=== PATIENT | male | born 1965 | race African-American/Black ===

== ENCOUNTER 2017-12-28 08:37 | Inpatient (IN) | payer OTHER ==
[2017-12-28 09:35] VITALS: BMI 31.5
--- NOTE | 2017-12-28 13:02 | HP ---
CIWA Score - CIWA Score Nausea/Vomitin Muscle Tremors: 3 Anxiety: 3 Agitation: 3 Paroxysmal Sweats: 2 Orientation: 0-Oriented Tacttile Disturbances: 2-Mild Itch/Numbness/Burn Auditory Disturbances: 2-Mild Harshness/Frighten Visual Disturbances: 0-None Headache: 2-Mild CIWA-Ar Total Score: 20 Admission ROS BHS - HPI Chief Complaint: i need help to stop drinking alcohol Allergies/Adverse Reactions: Allergies Allergy/AdvReac Type Severity Reaction Status Date / Time No Known Allergies Allergy Verified 12/28/17 09:34 History of Present Illness: this 52 years old male with alcohol dependence,seeking detox,withdrawal symptom, seen in [facility] last night stated receiving librium syncope asthma anxiety,depression,insomnia longest period of sobriety 1 year Exam Limitations: No Limitations - Ebola screening Have you traveled outside of the country in the last 21 days: No (N) Have you had contact with anyone from an Ebola affected area: No Have you been sick,other than usual withdrawal symptoms: No Do you have a fever: No - Review of Systems Constitutional: Loss of Appetite, Malaise, Night Sweats, Changes in sleep EENT: reports: Nose Congestion Respiratory: reports: No Symptoms reported, Other (asthma on albuterol inhaler) Cardiac: reports: No Symptoms Reported GI: reports: Diarrhea, Nausea, Vomiting : reports: No Symptoms Reported Musculoskeletal: reports: Back Pain, Muscle Pain Integumentary: reports: Dryness Endocrine: reports: No Symptoms Reported Hematology: reports: No Symptoms Reported Psychiatric: reports: No Sypmtoms Reported (insomnia), Judgement Intact, Mood/ Affect Appropiate, Anxious, Depressed Patient History - Patient Medical History Hx Anemia: No Hx Asthma: Yes (onalbuterol inhaler) Hx Chronic Obstructive Pulmonary Disease (COPD): No Hx Cancer: No Hx Cardiac Disorders: No Hx Congestive Heart Failure: No Hx Hypertension: No Hx Hypercholesterolemia: Yes (no med) Hx Pacemaker: No HX Cerebrovascular Accident: No Hx Seizures: No Hx Dementia: No Hx Diabetes: No Hx Gastrointestinal Disorders: No Hx Liver Disease: No Hx Genitourinary Disorders: No Hx Sexually Transmitted Disorders: No Hx Renal Disease (ESRD): No Hx Thyroid Disease: No Hx Human Immunodeficiency Virus (HIV): No (last 2015 negative) Hx Hepatitis C: No Hx Depression: Yes (anxiety) Hx Suicide Attempt: No Hx Bipolar Disorder: No Hx Schizophrenia: No Other Medical History: no suicidal,no homicidal - Patient Surgical History Past Surgical History: Yes Hx Neurologic Surgery: No Hx Cataract Extraction: No Hx Cardiac Surgery: No Hx Lung Surgery: No Hx Breast Surgery: No Hx Breast Biopsy: No Hx Abdominal Surgery: No Hx Appendectomy: No Hx Cholecystectomy: No Hx Genitourinary Surgery: No Hx Section: No Hx Orthopedic Surgery: No Other Surgical History: SKIN GRAFT TO left LEG IN 1997- secondary to graciela l.e pineda 2nd / 3rd Anesthesia Reaction: No - PPD History Previous Implant?: Yes Documented Results: Negative w/proof Implanted On Prior [facility] Admission?: Yes Date: 12/28/13 Results: 0 mm PPD to be Administered?: Yes - Smoking Cessation Smoking history: Current every day smoker Have you smoked in the past 12 months: Yes Aproximately how many cigarettes per day: 20 If you are a former smoker, when did you quit?: 20 Cigars Per Day: 0 Hx Chewing Tobacco Use: No Initiated information on smoking cessation: Yes 'Breaking Loose' booklet given: 12/28/17 - Substances Abused Alcohol-bianca/beer Route: Oral Frequency: Daily Amount used: 5 pts./4 (40 oz.) Age of first use: 14 Date of Last Use: 12/27/17 Family Disease History - Family Disease History Family Disease History: Other: Father (alcoholic,) Admission Physical Exam BHS - Vital Signs Vital Signs: Vital Signs - 24 hr 12/28/17 09:33 Temperature 96.2 F L Pulse Rate 96 H Respiratory 18 Rate Blood Pressure 160/86 - Physical General Appearance: Yes: Moderate Distress, Tremorous, Irritable, Sweating, Anxious HEENTM: Yes: Normal ENT Inspection, PASCUAL, Pharynx Normal Respiratory: Yes: Lungs Clear, Normal Breath Sounds, No Respiratory Distress Neck: Yes: Within Normal Limits, Supple, Trachea in good position Breast: Yes: Within Normal Limits Cardiology: Yes: Within Normal Limits, Regular Rhythm, Regular Rate, S1, S2 Abdominal: Yes: Within Normal Limits, Normal Bowel Sounds, Non Tender, Flat, Soft Genitourinary: Yes: Within Normal Limits Back: Yes: Within Normal Limits, Muscle Spasm Musculoskeletal: Yes: Back pain, Muscle Pain Extremities: Yes: Tremors, Other (s/p skin graft left leg) 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: Within Normal Limits, head host/hostess II-XII NML intact, Fully Oriented, Alert Integumentary: Yes: Dry Lymphatic: Yes: Within Normal Limits - Diagnostic (1) Alcohol dependence with uncomplicated withdrawal Current Visit: Yes Status: Acute (2) Hyperlipidemia Current Visit: No Status: Active (3) syncope alcohol related Current Visit: No Status: Active (4) Nicotine dependence Current Visit: No Status: Chronic (5) Status post skin graft Current Visit: Yes Status: Acute (6) Insomnia Current Visit: Yes Status: Acute (7) Anxiety and depression Current Visit: Yes Status: Acute Cleared for Admission [facility] - Detox or Rehab [facility] Level of Care: Medically Managed Detox Regimen/Protocol: Librium [facility] Breath Alcohol Content Breath Alcohol Content: 0 Urine Drug Screen - Results Drug Screen Negative: No Urine Drug Screen Results: BZO-Benzodiazepines
[2017-12-28] MEDS ORDERED: chlordiazePOXIDE HCL 25 MG CAPSULE PO PRN (13:15)
[2017-12-28] MEDS ORDERED: LOPERAMIDE HCL 2 MG CAPSULE PO PRN (13:15)
[2017-12-28] MEDS ORDERED: MAGNESIUM HYDROX 2400MG/30ML ORAL SUSPENSION 30 ML CUP PO PRN (13:15)
[2017-12-28] MEDS ORDERED: MENTHOL/PHENOL 1 EACH UD MM PRN (13:15)
[2017-12-28] MEDS ORDERED: MAG HYDROX/AL HYDROX/SIMETH 30 ML UNIT-DOSE CUP PO PRN (13:15)
[2017-12-28] MEDS ORDERED: guaiFENesin/D-METHORPHAN HB 10 ML UNIT-DOSE CUPS PO PRN (13:15)
[2017-12-28] MEDS ORDERED: ACETAMINOPHEN 325 MG TABLET (FP) PO PRN (13:15)
[2017-12-28] MEDS ORDERED: MAGNESIUM CITRATE 300 ML BOTTLE PO PRN (13:15)
[2017-12-28] MEDS ORDERED: IBUPROFEN 400 MG TABLET (FP) PO PRN (13:15)
[2017-12-28] MEDS ORDERED: P-EPHED 60MG/TRIPROLIDI 2.5MG TABLET PO PRN (13:15)
[2017-12-28] MEDS ORDERED: hydrOXYzine PAMOATE 50 MG CAPSULE (FP) PO PRN (13:15)
[2017-12-28] MEDS ORDERED: ALBUTEROL SO4 18 GM HFA INHALER IH PRN (13:18)
[2017-12-28] MEDS ORDERED: chlordiazePOXIDE HCL 25 MG CAPSULE PO ONE (13:45)
--- NOTE | 2017-12-28 13:51 | CONSULT ---
[facility] Psychiatric Consult - Data Date of interview: 12/28/17 Admission source: [facility] Identifying data: This is 52 years old AA male, , homeless, with alcohol dependence,seeking detox, expressing withdrawal symptom, patient reports being at [facility] last night and was takiing Librium order. Substance Abuse History: - Smoking Cessation. Smoking history: Current every day smoker. Have you smoked in the past 12 months: Yes. Aproximately how many cigarettes per day: 20. If you are a former smoker, when did you quit?: 20. Cigars Per Day: 0. Hx Chewing Tobacco Use: No. Initiated information on smoking cessation: Yes. 'Breaking Loose' booklet given: 12/28/17. - Substances Abused. Alcohol-bianca/beer. Route: Oral. Frequency: Daily. Amount used: 5 pts./4 (40 oz.). Age of first use: 14. Date of Last Use: Medical History: syncope, asthma, HTN, Hyperlip[idemia history, Obesity Psychiatric History: Patient denies past psychiatric history, reports no medications taking prior to admission Physical/Sexual Abuse/Trauma History: Denies Additional Comment: Observation. Detox Unit Care Protocol Mental Status Exam - Mental Status Exam Alert and Oriented to: Person Cognitive Function: Fair Patient Appearance: Unkempt Mood: Sad Affect: Flat Patient Behavior: Sedated Speech Pattern: Delayed Voice Loudness: Mildly Soft/Quiet Thought Process: Circumstantial Thought Disorder: Being Controlled Hallucinations: Denies Suicidal Ideation: Denies Homicidal Ideation: Denies Insight/Judgement: Fair Sleep: Difficulty falling asleep Muscle strength/Tone: Mild Hypotonicity Gait/Station: Shuffling Additional Comments: Observation. Detox Unit Care Protocol Psychiatric Findings - Problem List ([place] 1, 2,3) (1) Drug-induced mood disorder Current Visit: Yes Status: Suspected (2) Alcohol dependence with uncomplicated withdrawal Current Visit: Yes Status: Acute (3) Anxiety and depression Current Visit: Yes Status: Acute (4) MDD (major depressive disorder), recurrent episode, moderate Current Visit: No Status: Suspected (5) Alcohol dependence Current Visit: No Status: Chronic (6) Nicotine dependence Current Visit: No Status: Chronic - Initial Treatment Plan Initial Treatment Plan: Observation. Detox Unit Care Protocol
[2017-12-28] MEDS: NICOTINE 21 MG/24 HOURS TOPICAL PATCH TD SCH (14:16)
[2017-12-28] MEDS: chlordiazePOXIDE HCL 25 MG CAPSULE PO SCH ×2 (17:52→22:20)
[2017-12-28] MEDS ORDERED: MELATONIN 5 MG TABLETS PO PRN (22:00)
[2017-12-28] MEDS: THIAMINE HCL 100 MG TABLET (FP) PO SCH (22:21)
[2017-12-29 02:16] LABS: URINE APPEARANCE CLEAR; URINE BILIRUBIN NEGATIVE (<2.0 mg/dL); URINE BLOOD NEGATIVE (NEGATIVE); URINE COLOR LTYELLOW; URINE GLUCOSE (UA) NEGATIVE (NEGATIVE); URINE KETONE NEGATIVE (NEGATIVE); URINE LEUK ESTERASE NEGATIVE (NEGATIVE); URINE NITRITE NEGATIVE (NEGATIVE); URINE PROTEIN NEGATIVE (NEGATIVE); URINE UROBILINOGEN NEGATIVE mg/dL (0.2-1.0)
[2017-12-29] MEDS: chlordiazePOXIDE HCL 25 MG CAPSULE PO SCH ×4 (05:41→22:30)
--- NOTE | 2017-12-29 09:37 | EKG ---
Test Reason : Blood Pressure : / mmHG Vent. Rate : 080 BPM Atrial Rate : 080 BPM P-R Int : 152 ms QRS Dur : 096 ms QT Int : 414 ms P-R-T Axes : 056 018 007 degrees QTc Int : 477 ms NORMAL SINUS RHYTHM NONSPECIFIC ST ABNORMALITY NO PREVIOUS ECGS AVAILABLE Confirmed by HÉCTOR BUENO MD ([id number]) on 12/29/2017 9:37:06 AM Referred By: Confirmed By:HÉCTOR BUENO MD
--- NOTE | 2017-12-29 09:48 | PN ---
S CIWA - CIWA Score Nausea/Vomitin Muscle Tremors: 3 Anxiety: 3 Agitation: 3 Paroxysmal Sweats: No Perspiration Orientation: 0-Oriented Tacttile Disturbances: 1-Very Mild Itch/Numbness Auditory Disturbances: 0-None Visual Disturbances: 0-None Headache: 1-Very Mild CIWA-Ar Total Score: 14 BHS Progress Note (SOAP) Subjective: nausea sweats , interrupted sleep, anxiety, trmeros Objective: 12/29/17 09:48 Vital Signs - 24 hr 12/28/17 12/28/17 12/28/17 15:02 18:32 22:00 Temperature 97.5 F L 97.7 F 96.8 F L Pulse Rate 79 96 H 89 Respiratory 18 18 16 Rate Blood Pressure 115/75 111/58 143/91 12/29/17 12/29/17 12/29/17 00:30 03:30 06:00 Temperature 97.5 F L Pulse Rate 78 Respiratory 18 18 18 Rate Blood Pressure 104/61 Laboratory Tests 12/28/17 12/29/17 11:50 00:05 Urine Color Ltyellow Urine Appearance Clear Urine pH 5.0 Ur Specific [place] 1.021 Urine Protein Negative Urine Glucose (UA) Negative Urine Ketones Negative Urine Blood Negative Urine Nitrite Negative Urine Bilirubin Negative Urine Urobilinogen Negative Ur Leukocyte Esterase Negative HIV 1&2 Antibody Screen Negative HIV P24 Antigen Negative labs still pending Assessment: 12/29/17 09:48 withdrawal sx, cont detox check labs, fluids, encourage ambualtion, vitamins
[2017-12-29 09:54] LABS: HEMATOCRIT 37.8 % (35.4-49); HEMOGLOBIN 12.5 GM/dL (11.7-16.9); MCH 27.9 pg (25.7-33.7); MEAN CELL VOLUME 84.6 fl (80-96); MEAN PLT VOLUME 8.9 fl (7.5-11.1); PLATELET COUNT 345 K/MM3 (134-434); RBC 4.47 M/mm3 (4.00-5.60); WHITE BLOOD COUNT 9.1 K/mm3 (4.0-10.0)
[2017-12-29 10:05] LABS: CHLORIDE 109 mmol/L (98-107); POTASSIUM 4.4 mmol/L (3.5-5.1); SODIUM 141 mmol/L (136-145)
[2017-12-29 10:17] LABS: ALBUMIN 3.5 g/dl (3.4-5.0); ALK PHOS 72 U/L (45-117); ANION GAP 5 (8-16); BLOOD UREA NITROGEN 15 mg/dL (7-18); CALCIUM 9.2 mg/dL (8.5-10.1); CO2 27 mmol/L (21-32); CREATININE 0.9 mg/dL (0.7-1.3); GLUCOSE,RANDOM 84 mg/dL (74-106); SGOT/AST 36 U/L (15-37); SGPT/ALT 35 U/L (12-78)
[2017-12-29 10:19] LABS: BILIRUBIN,TOTAL < 0.1 mg/dL (0.2-1.0)
[2017-12-29] MEDS: NICOTINE 21 MG/24 HOURS TOPICAL PATCH TD SCH (10:54)
[2017-12-29] MEDS: LIDOCAINE 5% TOPICAL PATCH TP SCH (10:54)
[2017-12-29] MEDS: PRENATAL VITAMINS W/ FOLIC ACID TABLET (FP) PO SCH (10:54)
[2017-12-29] MEDS: CYCLOBENZAPRINE HCL 10 MG TABLET (FP) PO SCH ×2 (14:36→22:30)
[2017-12-29] MEDS: PANTOPRAZOLE 40 MG TABLET (FP) PO SCH (14:36)
[2017-12-29] MEDS: NAPROXEN 500 MG TABLET (FP) PO SCH ×2 (14:36→22:29)
[2017-12-29] MEDS: THIAMINE HCL 100 MG TABLET (FP) PO SCH (22:29)
[2017-12-29] MEDS: LIDOCAINE PATCH REMOVAL MC SCH (22:55)
[2017-12-30] MEDS: CYCLOBENZAPRINE HCL 10 MG TABLET (FP) PO SCH ×3 (06:28→23:01)
[2017-12-30] MEDS: chlordiazePOXIDE HCL 25 MG CAPSULE PO SCH ×2 (06:28→10:24)
[2017-12-30] MEDS: PANTOPRAZOLE 40 MG TABLET (FP) PO SCH (10:24)
[2017-12-30] MEDS: NAPROXEN 500 MG TABLET (FP) PO SCH ×2 (10:24→23:01)
[2017-12-30] MEDS: PRENATAL VITAMINS W/ FOLIC ACID TABLET (FP) PO SCH (10:24)
[2017-12-30] MEDS: LIDOCAINE 5% TOPICAL PATCH TP SCH (10:30)
[2017-12-30] MEDS: NICOTINE 21 MG/24 HOURS TOPICAL PATCH TD SCH (10:30)
--- NOTE | 2017-12-30 15:03 | PN ---
S CIWA - CIWA Score Nausea/Vomitin Muscle Tremors: 3 Anxiety: 3 Agitation: 2 Paroxysmal Sweats: 1-Minimal Palms Moist Orientation: 0-Oriented Tacttile Disturbances: 1-Very Mild Itch/Numbness Auditory Disturbances: 1-Very Mild Visual Disturbances: 0-None Headache: 2-Mild CIWA-Ar Total Score: 16 BHS Progress Note (SOAP) Subjective: ALERT,IRRITABLE,ANXIOUS,INTERRUPTED SLEEP,TREMOR Objective: 12/30/17 15:02 Vital Signs Temperature 97.9 F 12/30/17 10:54 Pulse Rate 83 12/30/17 10:54 Respiratory Rate 20 12/30/17 10:54 Blood Pressure 118/75 12/30/17 10:54 O2 Sat by Pulse Oximetry (%) Laboratory Last Values WBC 9.1 K/mm3 (4.0-10.0) 12/29/17 06:00 RBC 4.47 M/mm3 (4.00-5.60) 12/29/17 06:00 Hgb 12.5 GM/dL (11.7-16.9) 12/29/17 06:00 Hct 37.8 % (35.4-49) 12/29/17 06:00 MCV 84.6 fl (80-96) 12/29/17 06:00 MCH 27.9 pg (25.7-33.7) 12/29/17 06:00 MCHC 33.0 g/dl (32.0-35.9) 12/29/17 06:00 RDW 16.0 % (11.9-15.9) H 12/29/17 06:00 Plt Count 345 K/MM3 (134-434) 12/29/17 06:00 MPV 8.9 fl (7.5-11.1) 12/29/17 06:00 Sodium 141 mmol/L (136-145) 12/29/17 06:00 Potassium 4.4 mmol/L (3.5-5.1) 12/29/17 06:00 Chloride 109 mmol/L (98-107) H 12/29/17 06:00 Carbon Dioxide 27 mmol/L (21-32) D 12/29/17 06:00 Anion Gap 5 (8-16) L 12/29/17 06:00 BUN 15 mg/dL (7-18) 12/29/17 06:00 Creatinine 0.9 mg/dL (0.7-1.3) 12/29/17 06:00 Creat Clearance w eGFR > 60 (>60) 12/29/17 06:00 Random Glucose 84 mg/dL (74-106) D 12/29/17 06:00 Calcium 9.2 mg/dL (8.5-10.1) 12/29/17 06:00 Total Bilirubin < 0.1 mg/dL (0.2-1.0) L D 12/29/17 06:00 AST 36 U/L (15-37) D 12/29/17 06:00 ALT 35 U/L (12-78) D 12/29/17 06:00 Alkaline Phosphatase 72 U/L (45-117) D 12/29/17 06:00 Total Protein 8.0 g/dl (6.4-8.2) 12/29/17 06:00 Albumin 3.5 g/dl (3.4-5.0) 12/29/17 06:00 Urine Color Ltyellow 12/29/17 00:05 Urine Appearance Clear 12/29/17 00:05 Urine pH 5.0 (5.0-8.0) 12/29/17 00:05 Ur Specific [place] 1.021 (1.001-1.035) 12/29/17 00:05 Urine Protein Negative (NEGATIVE) 12/29/17 00:05 Urine Glucose (UA) Negative (NEGATIVE) 12/29/17 00:05 Urine Ketones Negative (NEGATIVE) 12/29/17 00:05 Urine Blood Negative (NEGATIVE) 12/29/17 00:05 Urine Nitrite Negative (NEGATIVE) 12/29/17 00:05 Urine Bilirubin Negative (<2.0 mg/dL) 12/29/17 00:05 Urine Urobilinogen Negative mg/dL (0.2-1.0) 12/29/17 00:05 Ur Leukocyte Esterase Negative (NEGATIVE) 12/29/17 00:05 RPR Titer Nonreactive (NONREACTIVE) 12/29/17 06:00 HIV 1&2 Antibody Screen Negative 12/28/17 11:50 HIV P24 Antigen Negative 12/28/17 11:50 Assessment: 12/30/17 15:03 WITHDRAWAL SYMPTOM Plan: CONTINUE DETOX
[2017-12-30] MEDS: chlordiazePOXIDE 5 MG CAPSULE PO SCH ×2 (18:06→23:01)
[2017-12-30] MEDS: THIAMINE HCL 100 MG TABLET (FP) PO SCH (23:01)
[2017-12-30] MEDS: LIDOCAINE PATCH REMOVAL MC SCH (23:01)
[2017-12-31] MEDS: chlordiazePOXIDE 5 MG CAPSULE PO SCH ×2 (05:43→10:31)
[2017-12-31] MEDS: CYCLOBENZAPRINE HCL 10 MG TABLET (FP) PO SCH ×3 (05:44→22:08)
[2017-12-31] MEDS: NICOTINE 21 MG/24 HOURS TOPICAL PATCH TD SCH (10:31)
[2017-12-31] MEDS: PRENATAL VITAMINS W/ FOLIC ACID TABLET (FP) PO SCH (10:31)
[2017-12-31] MEDS: NAPROXEN 500 MG TABLET (FP) PO SCH ×2 (10:31→22:08)
[2017-12-31] MEDS: LIDOCAINE 5% TOPICAL PATCH TP SCH (10:31)
[2017-12-31] MEDS: PANTOPRAZOLE 40 MG TABLET (FP) PO SCH (10:31)
--- NOTE | 2017-12-31 14:29 | PN ---
BHS Progress Note (SOAP) Subjective: feeling better less sweat no tremor Objective: 12/31/17 14:28 Vital Signs Temperature 97.7 F 12/31/17 12:09 Pulse Rate 80 12/31/17 12:09 Respiratory Rate 18 12/31/17 12:09 Blood Pressure 112/69 12/31/17 12:09 O2 Sat by Pulse Oximetry (%) Laboratory Last Values WBC 9.1 K/mm3 (4.0-10.0) 12/29/17 06:00 RBC 4.47 M/mm3 (4.00-5.60) 12/29/17 06:00 Hgb 12.5 GM/dL (11.7-16.9) 12/29/17 06:00 Hct 37.8 % (35.4-49) 12/29/17 06:00 MCV 84.6 fl (80-96) 12/29/17 06:00 MCH 27.9 pg (25.7-33.7) 12/29/17 06:00 MCHC 33.0 g/dl (32.0-35.9) 12/29/17 06:00 RDW 16.0 % (11.9-15.9) H 12/29/17 06:00 Plt Count 345 K/MM3 (134-434) 12/29/17 06:00 MPV 8.9 fl (7.5-11.1) 12/29/17 06:00 Sodium 141 mmol/L (136-145) 12/29/17 06:00 Potassium 4.4 mmol/L (3.5-5.1) 12/29/17 06:00 Chloride 109 mmol/L (98-107) H 12/29/17 06:00 Carbon Dioxide 27 mmol/L (21-32) D 12/29/17 06:00 Anion Gap 5 (8-16) L 12/29/17 06:00 BUN 15 mg/dL (7-18) 12/29/17 06:00 Creatinine 0.9 mg/dL (0.7-1.3) 12/29/17 06:00 Creat Clearance w eGFR > 60 (>60) 12/29/17 06:00 Random Glucose 84 mg/dL (74-106) D 12/29/17 06:00 Calcium 9.2 mg/dL (8.5-10.1) 12/29/17 06:00 Total Bilirubin < 0.1 mg/dL (0.2-1.0) L D 12/29/17 06:00 AST 36 U/L (15-37) D 12/29/17 06:00 ALT 35 U/L (12-78) D 12/29/17 06:00 Alkaline Phosphatase 72 U/L (45-117) D 12/29/17 06:00 Total Protein 8.0 g/dl (6.4-8.2) 12/29/17 06:00 Albumin 3.5 g/dl (3.4-5.0) 12/29/17 06:00 Urine Color Ltyellow 12/29/17 00:05 Urine Appearance Clear 12/29/17 00:05 Urine pH 5.0 (5.0-8.0) 12/29/17 00:05 Ur Specific [place] 1.021 (1.001-1.035) 12/29/17 00:05 Urine Protein Negative (NEGATIVE) 12/29/17 00:05 Urine Glucose (UA) Negative (NEGATIVE) 12/29/17 00:05 Urine Ketones Negative (NEGATIVE) 12/29/17 00:05 Urine Blood Negative (NEGATIVE) 12/29/17 00:05 Urine Nitrite Negative (NEGATIVE) 12/29/17 00:05 Urine Bilirubin Negative (<2.0 mg/dL) 12/29/17 00:05 Urine Urobilinogen Negative mg/dL (0.2-1.0) 12/29/17 00:05 Ur Leukocyte Esterase Negative (NEGATIVE) 12/29/17 00:05 RPR Titer Nonreactive (NONREACTIVE) 12/29/17 06:00 HIV 1&2 Antibody Screen Negative 12/28/17 11:50 HIV P24 Antigen Negative 12/28/17 11:50 lab noted Assessment: 12/31/17 14:28 mild withdrawal sx Plan: medically supervised detox
[2017-12-31] MEDS: chlordiazePOXIDE HCL 10 MG CAPSULE PO SCH ×2 (18:00→22:08)
[2017-12-31] MEDS: THIAMINE HCL 100 MG TABLET (FP) PO SCH (22:08)
[2017-12-31] MEDS: LIDOCAINE PATCH REMOVAL MC SCH (22:45)
[2018-01-01] MEDS: chlordiazePOXIDE HCL 10 MG CAPSULE PO SCH ×2 (05:11→10:29)
[2018-01-01] MEDS: CYCLOBENZAPRINE HCL 10 MG TABLET (FP) PO SCH (05:11)
[2018-01-01 10:16] VITALS: BP 129/81; PULSE 88; TEMP 97.3
[2018-01-01] MEDS: NAPROXEN 500 MG TABLET (FP) PO SCH (10:28)
[2018-01-01] MEDS: PRENATAL VITAMINS W/ FOLIC ACID TABLET (FP) PO SCH (10:28)
[2018-01-01] MEDS: PANTOPRAZOLE 40 MG TABLET (FP) PO SCH (10:28)
[2018-01-01] MEDS: LIDOCAINE 5% TOPICAL PATCH TP SCH (10:29)
[2018-01-01] MEDS: NICOTINE 21 MG/24 HOURS TOPICAL PATCH TD SCH (10:29)
--- NOTE | 2018-01-01 10:54 | PN ---
S Progress Note (SOAP) Subjective: denies any complaint Objective: 01/01/18 10:53 A & O x 3 gait steady Vital Signs Temperature 97.3 F L 01/01/18 10:16 Pulse Rate 88 01/01/18 10:16 Respiratory Rate 20 01/01/18 10:16 Blood Pressure 129/81 01/01/18 10:16 O2 Sat by Pulse Oximetry (%) Assessment: 01/01/18 10:54 detox successfully completed Plan: for d/c
--- NOTE | 2018-01-01 11:01 | DS ---
[facility] Detox Discharge Summary Admission Date: 12/28/17 Discharge Date: 01/01/18 - History Additional Comments: pt in no acute distress. For rehab at [facility] rehab Pertinent Past History: HTN hyperlipidemia S/p skin graft Obesity - Physical Exam Results Vital Signs: Vital Signs Temperature 97.3 F L 01/01/18 10:16 Pulse Rate 88 01/01/18 10:16 Respiratory Rate 20 01/01/18 10:16 Blood Pressure 129/81 01/01/18 10:16 O2 Sat by Pulse Oximetry (%) Pertinent Admission Physical Exam Findings: wITHDRAWAL SX - Treatment Hospital Course: Detox Protocol Followed, Detoxed Safely, Responded well, Discharged Condition Good, Rehab Referral Accepted Patient has Accepted a Rehab Referral to: [facility] - Medication Discharge Medications: Ambulatory Orders Albuterol Sulfate Inhaler - [Ventolin HFA Inhaler -] 2 inh PO Q4H PRN #1 inhaler 12/31/17 - Diagnosis (1) Alcohol dependence with uncomplicated withdrawal Current Visit: Yes Status: Acute (2) Status post skin graft Current Visit: Yes Status: Acute (3) Anxiety disorder Current Visit: No Status: Active (4) Hyperlipidemia Current Visit: No Status: Active (5) syncope alcohol related Current Visit: No Status: Active (6) DEPRESSION Current Visit: No Status: Chronic (7) HTN (hypertension) Current Visit: No Status: Chronic (8) Nicotine dependence Current Visit: No Status: Chronic - AMA Did Patient Leave Against Medical Advice: No
--- NOTE | 2018-01-01 12:45 | EKG ---
Test Reason : Blood Pressure : / mmHG Vent. Rate : 092 BPM Atrial Rate : 092 BPM P-R Int : 150 ms QRS Dur : 092 ms QT Int : 380 ms P-R-T Axes : 057 018 010 degrees QTc Int : 469 ms NORMAL SINUS RHYTHM NORMAL ECG WHEN COMPARED WITH ECG OF 28-DEC-2017 14:23, NO SIGNIFICANT CHANGE WAS FOUND Confirmed by LEANA DEVI MD ([id number]) on 01/01/2018 12:44:35 PM Referred By: Confirmed By:LEANA DEVI MD
== END 2018-01-01 12:18 | disposition other institution (70) | DRG 775 ==
LOC: YASAS 08:37 → Y6N 11:58
PROVIDERS: ADMIT Internal Medicine; ATTEND Internal Medicine
PROC: HZ2ZZZZ Detoxification Services for Substance Abuse Treatment (ICD-10-PCS; principal; 2017-12-28)
DX: F10.230 Alcohol dependence with withdrawal, uncomplicated (principal); F17.210 Nicotine dependence, cigarettes, uncomplicated; F33.1 Major depressive disorder, recurrent, moderate; F10.24 Alcohol dependence with alcohol-induced mood disorder; F19.24 Other psychoactive substance dependence with psychoactive substance-induced mood disorder; F51.05 Insomnia due to other mental disorder; J45.909 Unspecified asthma, uncomplicated; Z94.5 Skin transplant status
CPT/HCPCS: 36415; 80053; 81003; 85027; 86593; 87389; 93005; 93010

== ENCOUNTER 2018-01-01 12:18 | Inpatient (IN) | payer OTHER ==
--- NOTE | 2018-01-01 14:56 | HP ---
Psychiatrist Admission - Data Date of interview: 01/01/18 Admission source: Identifying data: This is the second 5n inpatient rehabilitation admission for catrachitasi 52 year old AA male father of 4, unemployed and residing in the [place] [facility]. Medical History: Asthma, hypercholesterolemia, skin graft to left leg in 1997- secondary to pineda, smokes cigarettes 1/2 PPD. Psychiatric History: Patient reports first psychiatric contact was in 2003, states he was for 24 hours observation in ER at [facility] in 2003 due to depressed episode and d/c, reports one psychiatric hospitalization at [facility] in 2007 due to suicidal thoughts. Reports past treatment with effexor, seroquel, trazodone, zoloft, non-compliant with medications and aftercare, while at seen by a psychiatrist no medications ordered, he reports that he needs to restart Seroquel 200 mg po hs(last took 2 months ago) and wants to continue medications. Physical/Sexual Abuse/Trauma History: Denies history of abuse. Vital Signs: Vital Signs - 24 hr 01/01/18 12:49 Temperature 98.2 F Pulse Rate 90 Respiratory 18 Rate Blood Pressure 126/75 Allergies/Adverse Reactions: Allergies Allergy/AdvReac Type Severity Reaction Status Date / Time No Known Allergies Allergy Verified 01/01/18 12:50 Date of last physical exam: 12/27/17 Concur with the findings of this exam: Yes - Substance Abuse/Tx History Hx Alcohol Use: Yes (daily use of beer ) Hx Substance Use: Yes (K2 daily use) Mental Status Exam - Mental Status Exam Alert and Oriented to: Time, Place, Person Cognitive Function: Grossly Intact Patient Appearance: Well Groomed Mood: Depressed, Sad, Anxious Affect: Appropriate, Mood Congruent Patient Behavior: Appropriate, Cooperative Speech Pattern: Clear, Appropriate Voice Loudness: Normal Thought Process: Goal Oriented Thought Disorder: Not Present Hallucinations: Denies Suicidal Ideation: Denies Homicidal Ideation: Denies Insight/Judgement: Fair Sleep: Poorly, Difficulty falling asleep Appetite: Fair Muscle strength/Tone: Normal Gait/Station: Normal Psychiatric Findings - Problem List ([place] 1, 2,3) (1) Alcohol dependence Current Visit: Yes Status: Acute (2) Nicotine dependence Current Visit: Yes Status: Acute (3) Substance or medication-induced depressive disorder Current Visit: Yes Status: Acute (4) Insomnia Current Visit: No Status: Acute - Initial Treatment Plan Initial Treatment Plan: Will restart Seroquel 50 mg po hs, monitor progress as needed.
--- NOTE | 2018-01-01 15:37 | HP ---
[facility] Rehab Assess/Revision - Admission History Ad[facility] to Rehab [facility] Date of Admission to Rehab[facility] - Vital signs Vital Signs: Vital Signs Period Temp Pulse Resp BP Sys/Spencer Pulse Ox Last 24 Hr 98.2 F 90 18 126/75 - Findings Detox History & Physical reviewed: Yes Concur with findings: Yes Comments/Additional Findings: for rehab as protocol Inpatient Rehab Admission - Initial Determination Are CD services needed?: Yes Free of communicable disease: Yes Not in need of hospitalization: Yes - Rehab Admission Criteria Previous failed treatment: Yes Poor recovery environment: Yes Comorbidities: Yes Lacks judgement: No Patient is meeting Inpatient Rehab admission criteria:: Yes
[2018-01-01] MEDS ORDERED: hydrOXYzine PAMOATE 50 MG CAPSULE (FP) PO PRN (15:39)
[2018-01-01] MEDS ORDERED: LOPERAMIDE HCL 2 MG CAPSULE PO PRN (15:39)
[2018-01-01] MEDS ORDERED: P-EPHED 60MG/TRIPROLIDI 2.5MG TABLET PO PRN (15:39)
[2018-01-01] MEDS ORDERED: MAGNESIUM HYDROX 2400MG/30ML ORAL SUSPENSION 30 ML CUP PO PRN (15:39)
[2018-01-01] MEDS ORDERED: ACETAMINOPHEN 325 MG TABLET (FP) PO PRN (15:39)
[2018-01-01] MEDS ORDERED: MAGNESIUM CITRATE 300 ML BOTTLE PO PRN (15:39)
[2018-01-01] MEDS ORDERED: guaiFENesin/D-METHORPHAN HB 10 ML UNIT-DOSE CUPS PO PRN (15:39)
[2018-01-01] MEDS ORDERED: NICOTINE POLACRILEX 2 MG GUM BUC PRN (15:39)
[2018-01-01] MEDS ORDERED: MAG HYDROX/AL HYDROX/SIMETH 30 ML UNIT-DOSE CUP PO PRN (15:39)
[2018-01-01] MEDS ORDERED: IBUPROFEN 400 MG TABLET (FP) PO PRN (15:39)
[2018-01-01] MEDS ORDERED: MENTHOL/PHENOL 1 EACH UD MM PRN (15:39)
[2018-01-01] MEDS ORDERED: ALBUTEROL SO4 18 GM HFA INHALER IH PRN (15:43)
[2018-01-01] MEDS: THIAMINE HCL 100 MG TABLET (FP) PO SCH (21:29)
[2018-01-01] MEDS: QUEtiapine FUMARATE 50 MG TABLET PO SCH (21:29)
[2018-01-01] MEDS ORDERED: MELATONIN 5 MG TABLETS PO PRN (22:00)
[2018-01-02] MEDS: NICOTINE 21 MG/24 HOURS TOPICAL PATCH TD SCH (09:49)
[2018-01-02] MEDS: PRENATAL VITAMINS W/ FOLIC ACID TABLET (FP) PO SCH (09:49)
[2018-01-02] MEDS: QUEtiapine FUMARATE 50 MG TABLET PO SCH (21:23)
[2018-01-02] MEDS: THIAMINE HCL 100 MG TABLET (FP) PO SCH (21:23)
[2018-01-03 06:53] VITALS: BP 106/69; PULSE 109; TEMP 97.8
--- NOTE | 2018-01-03 08:41 | PN ---
Psychiatric Progress Note Vital Signs: Vital Signs Period Temp Pulse Resp BP Sys/Spencer Pulse Ox Last 24 Hr 97.8 F 109 16-18 106/69 Date of Session: 01/03/18 Chief Complaint:: "I am leaving AMA" HPI: Patient was admitted to on 01/01/18, history of alcohol, nicotine dependence comorbid substance induced depression and insomnia. Current Medications: Active Medications Generic Name Dose Route Start Last Admin Trade Name Freq PRN Reason Stop Dose Admin Acetaminophen 650 mg 01/01/18 15:39 Tylenol - PO Q4H PRN FEVER Al Hydroxide/Mg Hydroxide 30 ml 01/01/18 15:39 Mylanta Oral Suspension - PO Q6H PRN DYSPEPSIA Albuterol Sulfate 2 puff 01/01/18 15:43 Ventolin Hfa Inhaler - IH Q4H PRN ASTHMA Eucalyptus/Menthol/Phenol/Sorbitol 1 each 01/01/18 15:39 Cepastat Lozenge - MM Q4H PRN SORE THROAT Guaifenesin 10 ml 01/01/18 15:39 Robitussin Dm - PO Q6H PRN COUGH Hydroxyzine Pamoate 50 mg 01/01/18 15:39 Vistaril - PO Q4H PRN AGITATION Ibuprofen 400 mg 01/01/18 15:39 Motrin - PO Q6H PRN Pain Level 4-6 Loperamide HCl 4 mg 01/01/18 15:39 Imodium - PO Q6H PRN DIARRHEA Magnesium Citrate 300 ml 01/01/18 15:39 Citroma - PO Q48H PRN CONSTIPATION Magnesium Hydroxide 30 ml 01/01/18 15:39 Milk Of Magnesia - PO DAILY PRN CONSTIPATION Melatonin 5 mg 01/01/18 22:00 Melatonin PO HS PRN INSOMNIA Nicotine 21 mg 01/02/18 10:00 01/02/18 09:49 Nicoderm Patch - TD 21 mg DAILY TRINIDAD Administration Nicotine Polacrilex 2 mg 01/01/18 15:39 Nicorette Gum - BUC Q2H PRN NICOTINE REPLACEMENT RX Multivit/Folic Acid/Iron 1 tab 01/02/18 10:00 01/02/18 09:49 Vitamins (Sjr) - PO 1 tab DAILY TRINIDAD Administration Pseudoephedrine/Triprolidine 1 combo 01/01/18 15:39 Actifed - PO TID PRN NASAL CONGESTION Quetiapine Fumarate 50 mg 01/01/18 22:00 01/02/18 21:23 Seroquel - PO 50 mg HS TRINIDAD Administration Thiamine HCl 100 mg 01/01/18 22:00 01/02/18 21:23 Vitamin B1 - PO 100 mg HS TRINIDAD Administration Current Side Effect: No Lab tests ordered: No Lab tests reviewed: Yes Provider note:: Met with the patient to explore reasons for terminating treatment at this time, patient reports that he will "do rehabilitation himself ", patient was encouraged to stay in treatment , but adamant to leave, script for Seroquel 50 mg for 30 days provided, stable for AMA discharge. Total face to face time:: 10 Mental Status Exam - Mental Status Exam Alert and Oriented to: Time, Place, Person Cognitive Function: Good Patient Appearance: Well Groomed Mood: Hopeful Affect: Appropriate, Mood Congruent Patient Behavior: Appropriate, Cooperative Speech Pattern: Clear, Appropriate Voice Loudness: Normal Thought Process: Intact, Goal Oriented Thought Disorder: Not Present Hallucinations: Denies Suicidal Ideation: Denies Homicidal Ideation: Denies Insight/Judgement: Fair Sleep: Fair Appetite: Fair Muscle strength/Tone: Normal Gait/Station: Normal Psychiatric Treatment Plan - Problem List (1) Alcohol dependence Current Visit: Yes (2) Nicotine dependence Current Visit: Yes (3) Substance or medication-induced depressive disorder Current Visit: Yes (4) Insomnia Current Visit: No
[2018-01-03] MEDS: NICOTINE 21 MG/24 HOURS TOPICAL PATCH TD SCH (09:00)
[2018-01-03] MEDS: PRENATAL VITAMINS W/ FOLIC ACID TABLET (FP) PO SCH (09:41)
== END 2018-01-03 09:00 | disposition left against medical advice (07) | DRG 770 ==
LOC: YASAS 12:18 → Y5N 12:19
PROVIDERS: ADMIT Psychiatry & Neurology Psychiatry; ATTEND Psychiatry & Neurology Psychiatry
PROC: HZ42ZZZ Group Counseling for Substance Abuse Treatment, Cognitive-Behavioral (ICD-10-PCS; principal; 2018-01-01)
DX: F10.20 Alcohol dependence, uncomplicated (principal); F17.210 Nicotine dependence, cigarettes, uncomplicated; F19.24 Other psychoactive substance dependence with psychoactive substance-induced mood disorder; G47.00 Insomnia, unspecified

== ENCOUNTER 2018-02-14 22:46 | Inpatient (IN) | payer OTHER ==
[2018-02-14 23:33] VITALS: BMI 28.3
--- NOTE | 2018-02-15 00:46 | HP ---
CIWA Score - CIWA Score Nausea/Vomitin Muscle Tremors: 4-Moderate,w/Arms Extend Anxiety: 3 Agitation: 3 Paroxysmal Sweats: No Perspiration Orientation: 2-Disoriented Date<2 days Tacttile Disturbances: 0-None Auditory Disturbances: 0-None Visual Disturbances: 0-None Headache: 2-Mild CIWA-Ar Total Score: 17 Admission ROS BHS - HPI Chief Complaint: Alcohol withdrawal symptoms Allergies/Adverse Reactions: Allergies Allergy/AdvReac Type Severity Reaction Status Date / Time No Known Allergies Allergy Verified 01/01/18 12:50 History of Present Illness: 53 years old male with a long history of alcohol dependence is seeking admission to detox. Patient has been in previous detox and reports 3 months of sobriety. Patient has medical history of asthma, HTN, hypercholerolemia, depression and anxiety. Denies suicidal ideation at this time. Exam Limitations: No Limitations - Ebola screening Have you traveled outside of the country in the last 21 days: No Have you had contact with anyone from an Ebola affected area: No Have you been sick,other than usual withdrawal symptoms: No Do you have a fever: No - Review of Systems Constitutional: Chills, Malaise, Night Sweats, Weakness, Weight Stable EENT: reports: No Symptoms Reported Respiratory: reports: No Symptoms reported Cardiac: reports: No Symptoms Reported GI: reports: Diarrhea, Nausea, Poor Appetite, Poor Fluid Intake, Vomiting : reports: No Symptoms Reported Musculoskeletal: reports: Back Pain, Muscle Pain Integumentary: reports: Dryness Neuro: reports: No Symptoms reported Endocrine: reports: No Symptoms Reported Hematology: reports: No Symptoms Reported Psychiatric: reports: Anxious, Depressed Other Systems: Reviewed and Negative Patient History - Patient Medical History Hx Anemia: No Hx Asthma: Yes (on albuterol inhaler) Hx Chronic Obstructive Pulmonary Disease (COPD): No Hx Cancer: No Hx Cardiac Disorders: No Hx Congestive Heart Failure: No Hx Hypertension: Yes (Not on medication) Hx Hypercholesterolemia: Yes (Not on medication) Hx Pacemaker: No HX Cerebrovascular Accident: No Hx Seizures: No Hx Dementia: No Hx Diabetes: No Hx Gastrointestinal Disorders: No Hx Liver Disease: No Hx Genitourinary Disorders: No Hx Sexually Transmitted Disorders: No Hx Renal Disease (ESRD): No Hx Thyroid Disease: No Hx Human Immunodeficiency Virus (HIV): No (last 2015 negative) Hx Hepatitis C: No Hx Depression: Yes (Not on medication) Hx Suicide Attempt: No Hx Bipolar Disorder: No Hx Schizophrenia: No Other Medical History: anxiety - Patient Surgical History Past Surgical History: Yes Hx Neurologic Surgery: No Hx Cataract Extraction: No Hx Cardiac Surgery: No Hx Lung Surgery: No Hx Breast Surgery: No Hx Breast Biopsy: No Hx Abdominal Surgery: No Hx Appendectomy: No Hx Cholecystectomy: No Hx Genitourinary Surgery: No Hx Section: No Hx Orthopedic Surgery: No Other Surgical History: SKIN GRAFT TO left LEG IN 1997- secondary to pineda. Anesthesia Reaction: No - PPD History Previous Implant?: No Documented Results: Negative w/o proof Implanted On Prior [facility] Admission?: Yes Date: 12/30/17 Results: 0 mm. PPD to be Administered?: No - Reproductive History Patient is a Female of Child Bearing Age (11 -55 yrs old): No (male) - Smoking Cessation Smoking history: Current every day smoker Have you smoked in the past 12 months: Yes Aproximately how many cigarettes per day: 10 If you are a former smoker, when did you quit?: 20 Cigars Per Day: 0 Hx Chewing Tobacco Use: No Initiated information on smoking cessation: Yes 'Breaking Loose' booklet given: 02/15/18 - Substance & Tx. History Hx Alcohol Use: Yes Hx Substance Use: Yes Hx Substance Use Treatment: Yes ([facility]) - Substances Abused Alcohol Route: Oral Frequency: Daily Amount used: AKUA - 2 PINTS Age of first use: 14 Date of Last Use: 02/15/18 Family Disease History - Family Disease History Family History: Denies Family Disease History: Other: Father (alcoholic,) Admission Physical Exam [facility] - Vital Signs Vital Signs: Vital Signs - 24 hr 02/14/18 23:31 Temperature 98.8 F Pulse Rate 82 Respiratory 18 Rate Blood Pressure 150/100 - Physical General Appearance: Yes: Moderate Distress HEENTM: Yes: EOMI, Normocephalic, Normal Voice, PASCUAL Respiratory: Yes: Lungs Clear, Normal Breath Sounds, No Respiratory Distress Neck: Yes: Supple Breast: Yes: Breast Exam Deferred Cardiology: Yes: Regular Rhythm, Regular Rate, S1, S2 Abdominal: Yes: Normal Bowel Sounds, Soft Genitourinary: Yes: Within Normal Limits Back: Yes: Normal Inspection Extremities: Yes: Tremors 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: Alert, Normal Mood/Affect Integumentary: Yes: Dry Lymphatic: Yes: Within Normal Limits - Diagnostic (1) Hypercholesteremia Current Visit: Yes Status: Chronic (2) Anxiety disorder Current Visit: Yes Status: Acute (3) depression and insomnia Current Visit: No Status: Active (4) Alcohol dependence Current Visit: No Status: Acute (5) Alcohol dependence with uncomplicated withdrawal Current Visit: Yes Status: Chronic (6) Nicotine dependence Current Visit: Yes Status: Chronic (7) DEPRESSION Current Visit: Yes Status: Chronic Cleared for Admission [facility] - Detox or Rehab [facility] Level of Care: Medically Managed Detox Regimen/Protocol: Librium [facility] Breath Alcohol Content Breath Alcohol Content: 0 Urine Drug Screen - Results Drug Screen Negative: No Urine Drug Screen Results: BZO-Benzodiazepines
[2018-02-15] MEDS ORDERED: MAG HYDROX/AL HYDROX/SIMETH 30 ML UNIT-DOSE CUP PO PRN (00:51)
[2018-02-15] MEDS ORDERED: chlordiazePOXIDE HCL 25 MG CAPSULE PO PRN (00:51)
[2018-02-15] MEDS ORDERED: MENTHOL/PHENOL 1 EACH UD MM PRN (00:51)
[2018-02-15] MEDS ORDERED: IBUPROFEN 400 MG TABLET (FP) PO PRN (00:51)
[2018-02-15] MEDS ORDERED: LOPERAMIDE HCL 2 MG CAPSULE PO PRN (00:51)
[2018-02-15] MEDS ORDERED: MAGNESIUM CITRATE 300 ML BOTTLE PO PRN (00:51)
[2018-02-15] MEDS ORDERED: MAGNESIUM HYDROX 2400MG/30ML ORAL SUSPENSION 30 ML CUP PO PRN (00:51)
[2018-02-15] MEDS ORDERED: guaiFENesin/D-METHORPHAN HB 10 ML UNIT-DOSE CUPS PO PRN (00:51)
[2018-02-15] MEDS ORDERED: P-EPHED 60MG/TRIPROLIDI 2.5MG TABLET PO PRN (00:51)
[2018-02-15] MEDS ORDERED: ALBUTEROL SO4 18 GM HFA INHALER IH PRN (00:54)
[2018-02-15] MEDS: ACETAMINOPHEN 325 MG TABLET (FP) PO PRN ×2 (01:45→10:20)
[2018-02-15] MEDS: chlordiazePOXIDE HCL 25 MG CAPSULE PO SCH ×4 (05:31→22:26)
[2018-02-15 10:00] LABS: HEMATOCRIT 36.9 % (35.4-49); HEMOGLOBIN 12.3 GM/dL (11.7-16.9); MCHC 33.4 g/dl (32.0-35.9); MEAN CELL VOLUME 83.9 fl (80-96); MEAN PLT VOLUME 8.4 fl (7.5-11.1); PLATELET COUNT 326 K/MM3 (134-434); RBC 4.39 M/mm3 (4.00-5.60); WHITE BLOOD COUNT 7.1 K/mm3 (4.0-10.0)
[2018-02-15 10:18] LABS: BLOOD UREA NITROGEN 17 mg/dL (7-18)
[2018-02-15] MEDS: PRENATAL VITAMINS W/ FOLIC ACID TABLET (FP) PO SCH (10:20)
[2018-02-15 11:25] LABS: ALBUMIN 3.3 g/dl (3.4-5.0); ALK PHOS 66 U/L (45-117); ANION GAP 6 (8-16); BILIRUBIN,TOTAL 0.3 mg/dL (0.2-1.0); CALCIUM 9.1 mg/dL (8.5-10.1); CHLORIDE 105 mmol/L (98-107); CO2 28 mmol/L (21-32); CREATININE 0.9 mg/dL (0.7-1.3); GLUCOSE,RANDOM 100 mg/dL (74-106); POTASSIUM 4.2 mmol/L (3.5-5.1); SGOT/AST 16 U/L (15-37); SGPT/ALT 22 U/L (12-78); SODIUM 139 mmol/L (136-145); TOT PROT 7.6 g/dl (6.4-8.2)
--- NOTE | 2018-02-15 12:55 | PN ---
S CIWA - CIWA Score Nausea/Vomitin Muscle Tremors: 3 Anxiety: 4-Mod. Anxious/Guarded Agitation: 2 Paroxysmal Sweats: 3 Orientation: 0-Oriented Tacttile Disturbances: 0-None Auditory Disturbances: 1-Very Mild Visual Disturbances: 0-None Headache: 3-Moderate CIWA-Ar Total Score: 19 BHS Progress Note (SOAP) Subjective: Nausea, Sweating, H/A, Body Aches, Tremors. Objective: PATIENT A & O X 3, OBSERVED AMBULATING ON UNIT. NO ACUTE DISTRESS. 02/15/18 12:52 Vital Signs Temperature 96.3 F L 02/15/18 09:35 Pulse Rate 66 02/15/18 09:35 Respiratory Rate 20 02/15/18 09:35 Blood Pressure 139/75 02/15/18 09:35 O2 Sat by Pulse Oximetry (%) Laboratory Tests 02/15/18 02/15/18 07:00 07:00 WBC 7.1 RBC 4.39 Hgb 12.3 Hct 36.9 MCV 83.9 MCH 28.0 MCHC 33.4 RDW 16.0 H Plt Count 326 MPV 8.4 Sodium 139 Potassium 4.2 Chloride 105 Carbon Dioxide 28 Anion Gap 6 L BUN 17 Creatinine 0.9 Creat Clearance w eGFR > 60 Random Glucose 100 Calcium 9.1 Total Bilirubin 0.3 D AST 16 D ALT 22 D Alkaline Phosphatase 66 Total Protein 7.6 Albumin 3.3 L LABS NOTED. RPR, UA RESULTS PENDING. 02/15/18 12:54 Assessment: 02/15/18 12:53 WITHDRAWAL SYMPTOMS. Plan: CONTINUE DETOX. INCREASE DAILY PO FLUID INTAKE. PRN FLEXERIL PO FOR BODY ACHES.
[2018-02-15] MEDS: CYCLOBENZAPRINE HCL 10 MG TABLET (FP) PO PRN ×2 (13:25→22:26)
[2018-02-15] MEDS: METHYL SALICYLATE/MENTHOL OINT 30 GM TUBE TP SCH ×2 (13:25→22:28)
[2018-02-15] MEDS: NICOTINE 21 MG/24 HOURS TOPICAL PATCH TD SCH (13:25)
--- NOTE | 2018-02-15 13:31 | EKG ---
Test Reason : Blood Pressure : / mmHG Vent. Rate : 066 BPM Atrial Rate : 066 BPM P-R Int : 156 ms QRS Dur : 092 ms QT Int : 420 ms P-R-T Axes : 057 032 027 degrees QTc Int : 440 ms NORMAL SINUS RHYTHM NORMAL ECG WHEN COMPARED WITH ECG OF 29-DEC-2017 13:47, NO SIGNIFICANT CHANGE WAS FOUND Confirmed by LANCE LAI MD ([id number]) on 02/15/2018 1:31:26 PM Referred By: Confirmed By:LANCE LAI MD
--- NOTE | 2018-02-15 16:03 | CONSULT ---
[facility] Psychiatric Consult - Data Date of interview: 02/15/18 Admission source: [facility] Identifying data: Patient is a 53 year old male, father of four, unemployed, currently homeless and not receiving financial assistance. This is one of multiple admissions to detox. Pt. admitted to for alcohol dependence. Substance Abuse History: Smoking Cessation. Smoking history: Current every day smoker. Have you smoked in the past 12 months: Yes. Aproximately how many cigarettes per day: 10. If you are a former smoker, when did you quit?: 20. Cigars Per Day: 0. Hx Chewing Tobacco Use: No. Initiated information on smoking cessation: Yes. 'Breaking Loose' booklet given: 02/15/18. - Substance & Tx. History. Hx Alcohol Use: Yes. Hx Substance Use: Yes. Hx Substance Use Treatment: Yes ([facility]). - Substances Abused. Alcohol. Route: Oral. Frequency: Daily. Amount used: AKUA - 2 PINTS. Age of first use: 14. Date of Last Use: 02/15/18 Medical History: SKIN GRAFT TO left LEG IN 1997- secondary to pineda., hypertension, asthma Psychiatric History: Patient reports one psychiatric hospitalizations three years ago at [facility]. Pt. is nonadherent to medications and outpatient care. As per previous records patient was hospitalized at [facility] in 2007 and reported past treatment with effexor, seroquel and trazodone. Patient reports one suicide attempt at 21 via cutting wrist. Pt. currently denies suicidal and homicidal ideation. Physical/Sexual Abuse/Trauma History: Denies. Mental Status Exam - Mental Status Exam Alert and Oriented to: Time, Place, Person Cognitive Function: Good Patient Appearance: Well Groomed Mood: Hopeful Affect: Mood Congruent Patient Behavior: Cooperative Speech Pattern: Appropriate Voice Loudness: Normal Thought Process: Intact, Goal Oriented Thought Disorder: Not Present Hallucinations: Denies Suicidal Ideation: Denies Homicidal Ideation: Denies Insight/Judgement: Poor Sleep: Poorly Appetite: Fair Muscle strength/Tone: Normal Gait/Station: Normal Psychiatric Findings - Problem List ([place] 1, 2,3) (1) Alcohol dependence with uncomplicated withdrawal Current Visit: Yes Status: Acute (2) Nicotine dependence Current Visit: Yes Status: Chronic Qualifiers: Nicotine product type: cigarettes Substance use status: uncomplicated Qualified Code(s): F17.210 - Nicotine dependence, cigarettes, uncomplicated (3) Substance induced mood disorder Current Visit: Yes Status: Acute - Initial Treatment Plan Initial Treatment Plan: Psychoeducation provided. Detoxification provided. Seroquel 50mg qhs ordered. Benefits and side effets discussed. Verbal consent given.
[2018-02-15 17:26] LABS: URINE APPEARANCE CLEAR; URINE BILIRUBIN NEGATIVE (<2.0 mg/dL); URINE BLOOD NEGATIVE (NEGATIVE); URINE COLOR YELLOW; URINE GLUCOSE (UA) NEGATIVE (NEGATIVE); URINE KETONE NEGATIVE (NEGATIVE); URINE LEUK ESTERASE NEGATIVE (NEGATIVE); URINE NITRITE NEGATIVE (NEGATIVE); URINE PROTEIN NEGATIVE (NEGATIVE); URINE UROBILINOGEN NEGATIVE mg/dL (0.2-1.0)
[2018-02-15] MEDS ORDERED: MELATONIN 5 MG TABLETS PO PRN (22:00)
[2018-02-15] MEDS: QUEtiapine FUMARATE 50 MG TABLET PO SCH (22:26)
[2018-02-15] MEDS: THIAMINE HCL 100 MG TABLET (FP) PO SCH (22:26)
[2018-02-16] MEDS: chlordiazePOXIDE HCL 25 MG CAPSULE PO SCH ×4 (06:54→22:19)
[2018-02-16] MEDS: PRENATAL VITAMINS W/ FOLIC ACID TABLET (FP) PO SCH (10:12)
[2018-02-16] MEDS: NICOTINE 21 MG/24 HOURS TOPICAL PATCH TD SCH (10:13)
[2018-02-16] MEDS: METHYL SALICYLATE/MENTHOL OINT 30 GM TUBE TP SCH ×2 (10:13→22:19)
--- NOTE | 2018-02-16 12:33 | PN ---
S CIWA - CIWA Score Nausea/Vomitin Muscle Tremors: 2 Anxiety: 4-Mod. Anxious/Guarded Agitation: 0-Normal Activity Paroxysmal Sweats: No Perspiration Orientation: 0-Oriented Tacttile Disturbances: 0-None Auditory Disturbances: 1-Very Mild Visual Disturbances: 2-Mild Sensitivity Headache: 3-Moderate CIWA-Ar Total Score: 14 BHS Progress Note (SOAP) Subjective: Nausea, Anxious, H/A, Fatigue, Tremors. Objective: PATIENT A & O X 3. NO ACUTE DISTRESS. 02/16/18 12:32 Vital Signs Temperature 95.9 F L 02/16/18 09:04 Pulse Rate 87 02/16/18 09:04 Respiratory Rate 18 02/16/18 09:04 Blood Pressure 125/81 02/16/18 09:04 O2 Sat by Pulse Oximetry (%) Laboratory Tests 02/15/18 02/15/18 02/15/18 07:00 07:00 07:00 WBC 7.1 RBC 4.39 Hgb 12.3 Hct 36.9 MCV 83.9 MCH 28.0 MCHC 33.4 RDW 16.0 H Plt Count 326 MPV 8.4 Sodium 139 Potassium 4.2 Chloride 105 Carbon Dioxide 28 Anion Gap 6 L BUN 17 Creatinine 0.9 Creat Clearance w eGFR > 60 Random Glucose 100 Calcium 9.1 Total Bilirubin 0.3 D AST 16 D ALT 22 D Alkaline Phosphatase 66 Total Protein 7.6 Albumin 3.3 L Urine Color Urine Appearance Urine pH Ur Specific [place] Urine Protein Urine Glucose (UA) Urine Ketones Urine Blood Urine Nitrite Urine Bilirubin Urine Urobilinogen Ur Leukocyte Esterase RPR Titer Nonreactive 02/15/18 13:30 WBC RBC Hgb Hct MCV MCH MCHC RDW Plt Count MPV Sodium Potassium Chloride Carbon Dioxide Anion Gap BUN Creatinine Creat Clearance w eGFR Random Glucose Calcium Total Bilirubin AST ALT Alkaline Phosphatase Total Protein Albumin Urine Color Yellow Urine Appearance Clear Urine pH 6.0 Ur Specific [place] 1.025 Urine Protein Negative Urine Glucose (UA) Negative Urine Ketones Negative Urine Blood Negative Urine Nitrite Negative Urine Bilirubin Negative Urine Urobilinogen Negative Ur Leukocyte Esterase Negative RPR Titer LABS NOTED. Assessment: 02/16/18 12:32 WITHDRAWAL SYMPTOMS. Plan: CONTINUE DETOX. ENCOURAGE AMBULATION.
[2018-02-16] MEDS: THIAMINE HCL 100 MG TABLET (FP) PO SCH (22:19)
[2018-02-16] MEDS: CYCLOBENZAPRINE HCL 10 MG TABLET (FP) PO PRN (22:19)
[2018-02-16] MEDS: QUEtiapine FUMARATE 50 MG TABLET PO SCH (22:19)
[2018-02-17] MEDS: chlordiazePOXIDE 5 MG CAPSULE PO SCH ×4 (05:14→22:08)
[2018-02-17] MEDS: NICOTINE 21 MG/24 HOURS TOPICAL PATCH TD SCH (10:32)
[2018-02-17] MEDS: METHYL SALICYLATE/MENTHOL OINT 30 GM TUBE TP SCH ×2 (10:32→23:23)
[2018-02-17] MEDS: PRENATAL VITAMINS W/ FOLIC ACID TABLET (FP) PO SCH (10:32)
--- NOTE | 2018-02-17 14:43 | PN ---
BHS Progress Note (SOAP) Subjective: Nausea, Anxious, Tremors, Fatigue. Objective: PATIENT A & O X 3. NO ACUTE DISTRESS. 02/17/18 14:43 Vital Signs Temperature 96.5 F L 02/17/18 13:54 Pulse Rate 101 H 02/17/18 13:54 Respiratory Rate 20 02/17/18 13:54 Blood Pressure 119/83 02/17/18 13:54 O2 Sat by Pulse Oximetry (%) Laboratory Tests 02/15/18 02/15/18 02/15/18 07:00 07:00 07:00 WBC 7.1 RBC 4.39 Hgb 12.3 Hct 36.9 MCV 83.9 MCH 28.0 MCHC 33.4 RDW 16.0 H Plt Count 326 MPV 8.4 Sodium 139 Potassium 4.2 Chloride 105 Carbon Dioxide 28 Anion Gap 6 L BUN 17 Creatinine 0.9 Creat Clearance w eGFR > 60 Random Glucose 100 Calcium 9.1 Total Bilirubin 0.3 D AST 16 D ALT 22 D Alkaline Phosphatase 66 Total Protein 7.6 Albumin 3.3 L Urine Color Urine Appearance Urine pH Ur Specific [place] Urine Protein Urine Glucose (UA) Urine Ketones Urine Blood Urine Nitrite Urine Bilirubin Urine Urobilinogen Ur Leukocyte Esterase RPR Titer Nonreactive 02/15/18 13:30 WBC RBC Hgb Hct MCV MCH MCHC RDW Plt Count MPV Sodium Potassium Chloride Carbon Dioxide Anion Gap BUN Creatinine Creat Clearance w eGFR Random Glucose Calcium Total Bilirubin AST ALT Alkaline Phosphatase Total Protein Albumin Urine Color Yellow Urine Appearance Clear Urine pH 6.0 Ur Specific [place] 1.025 Urine Protein Negative Urine Glucose (UA) Negative Urine Ketones Negative Urine Blood Negative Urine Nitrite Negative Urine Bilirubin Negative Urine Urobilinogen Negative Ur Leukocyte Esterase Negative RPR Titer LABS NOTED. Assessment: 02/17/18 14:44 WITHDRAWAL SYMPTOMS. Plan: CONTINUE DETOX. DUE TO PRESENCE OF LINGERING WITHDRAWAL SYMPTOMS, PATIENT PERMITTED TO REMAIN ON DETOX UNIT UNTIL 02/19/2018.
[2018-02-17] MEDS: CYCLOBENZAPRINE HCL 10 MG TABLET (FP) PO PRN (22:08)
[2018-02-17] MEDS: QUEtiapine FUMARATE 50 MG TABLET PO SCH (22:08)
[2018-02-17] MEDS: THIAMINE HCL 100 MG TABLET (FP) PO SCH (22:08)
[2018-02-18] MEDS: chlordiazePOXIDE HCL 10 MG CAPSULE PO SCH ×4 (05:19→22:09)
[2018-02-18] MEDS: METHYL SALICYLATE/MENTHOL OINT 30 GM TUBE TP SCH ×2 (10:08→22:10)
[2018-02-18] MEDS: PRENATAL VITAMINS W/ FOLIC ACID TABLET (FP) PO SCH (10:08)
[2018-02-18] MEDS: NICOTINE 21 MG/24 HOURS TOPICAL PATCH TD SCH (10:08)
--- NOTE | 2018-02-18 15:19 | PN ---
BHS Progress Note (SOAP) Subjective: Body Aches, Fatigue, Anxious. Objective: PATIENT A & O X 3. NO ACUTE DISTRESS. 02/18/18 15:18 Vital Signs Temperature 96.7 F L 02/18/18 13:38 Pulse Rate 89 02/18/18 13:38 Respiratory Rate 18 02/18/18 13:38 Blood Pressure 110/64 02/18/18 13:38 O2 Sat by Pulse Oximetry (%) Laboratory Tests 02/15/18 02/15/18 02/15/18 07:00 07:00 07:00 WBC 7.1 RBC 4.39 Hgb 12.3 Hct 36.9 MCV 83.9 MCH 28.0 MCHC 33.4 RDW 16.0 H Plt Count 326 MPV 8.4 Sodium 139 Potassium 4.2 Chloride 105 Carbon Dioxide 28 Anion Gap 6 L BUN 17 Creatinine 0.9 Creat Clearance w eGFR > 60 Random Glucose 100 Calcium 9.1 Total Bilirubin 0.3 D AST 16 D ALT 22 D Alkaline Phosphatase 66 Total Protein 7.6 Albumin 3.3 L Urine Color Urine Appearance Urine pH Ur Specific [place] Urine Protein Urine Glucose (UA) Urine Ketones Urine Blood Urine Nitrite Urine Bilirubin Urine Urobilinogen Ur Leukocyte Esterase RPR Titer Nonreactive 02/15/18 13:30 WBC RBC Hgb Hct MCV MCH MCHC RDW Plt Count MPV Sodium Potassium Chloride Carbon Dioxide Anion Gap BUN Creatinine Creat Clearance w eGFR Random Glucose Calcium Total Bilirubin AST ALT Alkaline Phosphatase Total Protein Albumin Urine Color Yellow Urine Appearance Clear Urine pH 6.0 Ur Specific [place] 1.025 Urine Protein Negative Urine Glucose (UA) Negative Urine Ketones Negative Urine Blood Negative Urine Nitrite Negative Urine Bilirubin Negative Urine Urobilinogen Negative Ur Leukocyte Esterase Negative RPR Titer LABS NOTED. Assessment: 02/18/18 15:19 WITHDRAWAL SYMPTOMS. Plan: CONTINUE DETOX. ENCOURAGE AMBULATION. PATIENT SCHEDULED FOR D/C TOMORROW.
[2018-02-18] MEDS: THIAMINE HCL 100 MG TABLET (FP) PO SCH (22:09)
[2018-02-18] MEDS: QUEtiapine FUMARATE 50 MG TABLET PO SCH (22:09)
[2018-02-19 06:41] VITALS: BP 106/64; PULSE 83; TEMP 96.9
[2018-02-19] MEDS: METHYL SALICYLATE/MENTHOL OINT 30 GM TUBE TP SCH (09:17)
[2018-02-19] MEDS: PRENATAL VITAMINS W/ FOLIC ACID TABLET (FP) PO SCH (09:17)
[2018-02-19] MEDS: NICOTINE 21 MG/24 HOURS TOPICAL PATCH TD SCH (09:17)
--- NOTE | 2018-02-19 13:45 | PN ---
BHS Progress Note (SOAP) Subjective: DETOX COMPLETED. ALERT O X 3. NAD. Objective: 02/19/18 13:44 Vital Signs 02/19/18 06:41 Temperature 96.9 F L Pulse Rate 83 Respiratory 18 Rate Blood Pressure 106/64 Laboratory Tests 02/15/18 02/15/18 02/15/18 07:00 07:00 07:00 WBC 7.1 RBC 4.39 Hgb 12.3 Hct 36.9 MCV 83.9 MCH 28.0 MCHC 33.4 RDW 16.0 H Plt Count 326 MPV 8.4 Sodium 139 Potassium 4.2 Chloride 105 Carbon Dioxide 28 Anion Gap 6 L BUN 17 Creatinine 0.9 Creat Clearance w eGFR > 60 Random Glucose 100 Calcium 9.1 Total Bilirubin 0.3 D AST 16 D ALT 22 D Alkaline Phosphatase 66 Total Protein 7.6 Albumin 3.3 L Urine Color Urine Appearance Urine pH Ur Specific [place] Urine Protein Urine Glucose (UA) Urine Ketones Urine Blood Urine Nitrite Urine Bilirubin Urine Urobilinogen Ur Leukocyte Esterase RPR Titer Nonreactive 02/15/18 13:30 WBC RBC Hgb Hct MCV MCH MCHC RDW Plt Count MPV Sodium Potassium Chloride Carbon Dioxide Anion Gap BUN Creatinine Creat Clearance w eGFR Random Glucose Calcium Total Bilirubin AST ALT Alkaline Phosphatase Total Protein Albumin Urine Color Yellow Urine Appearance Clear Urine pH 6.0 Ur Specific [place] 1.025 Urine Protein Negative Urine Glucose (UA) Negative Urine Ketones Negative Urine Blood Negative Urine Nitrite Negative Urine Bilirubin Negative Urine Urobilinogen Negative Ur Leukocyte Esterase Negative RPR Titer Assessment: 02/19/18 13:45 MEDICALLY STABLE Plan: D/C PT TODAY
--- NOTE | 2018-02-19 13:48 | DS ---
[facility] Detox Discharge Summary Admission Date: 02/14/18 Discharge Date: 02/19/18 - History Present History: Alcohol Dependence Additional Comments: DETOX COMPLETED. ALERT O X 3. NAD. PT REPORTS PRIMARY CARE AT [facility]. Pertinent Past History: PLEASE SEE DX BELOW - Physical Exam Results Vital Signs: Vital Signs Temperature 96.9 F L 02/19/18 06:41 Pulse Rate 83 02/19/18 06:41 Respiratory Rate 18 02/19/18 06:41 Blood Pressure 106/64 02/19/18 06:41 O2 Sat by Pulse Oximetry (%) Pertinent Admission Physical Exam Findings: WITHDRAWAL SX Laboratory Tests 02/15/18 02/15/18 02/15/18 07:00 07:00 07:00 WBC 7.1 RBC 4.39 Hgb 12.3 Hct 36.9 MCV 83.9 MCH 28.0 MCHC 33.4 RDW 16.0 H Plt Count 326 MPV 8.4 Sodium 139 Potassium 4.2 Chloride 105 Carbon Dioxide 28 Anion Gap 6 L BUN 17 Creatinine 0.9 Creat Clearance w eGFR > 60 Random Glucose 100 Calcium 9.1 Total Bilirubin 0.3 D AST 16 D ALT 22 D Alkaline Phosphatase 66 Total Protein 7.6 Albumin 3.3 L Urine Color Urine Appearance Urine pH Ur Specific [place] Urine Protein Urine Glucose (UA) Urine Ketones Urine Blood Urine Nitrite Urine Bilirubin Urine Urobilinogen Ur Leukocyte Esterase RPR Titer Nonreactive 02/15/18 13:30 WBC RBC Hgb Hct MCV MCH MCHC RDW Plt Count MPV Sodium Potassium Chloride Carbon Dioxide Anion Gap BUN Creatinine Creat Clearance w eGFR Random Glucose Calcium Total Bilirubin AST ALT Alkaline Phosphatase Total Protein Albumin Urine Color Yellow Urine Appearance Clear Urine pH 6.0 Ur Specific [place] 1.025 Urine Protein Negative Urine Glucose (UA) Negative Urine Ketones Negative Urine Blood Negative Urine Nitrite Negative Urine Bilirubin Negative Urine Urobilinogen Negative Ur Leukocyte Esterase Negative RPR Titer - Treatment Hospital Course: Detox Protocol Followed, Detoxed Safely, Responded well, Discharged Condition Good - Medication Discharge Medications: Ambulatory Orders Albuterol Sulfate Inhaler - [Ventolin HFA Inhaler -] 2 inh PO Q4H PRN #1 inhaler 12/31/17 Quetiapine Fumarate [Seroquel -] 50 mg PO HS #30 tablet 01/03/18 - Diagnosis (1) Alcohol dependence with uncomplicated withdrawal Status: Acute (2) HTN (hypertension) Status: Chronic Qualifiers: Hypertension type: unspecified Qualified Code(s): I10 - Essential (primary ) hypertension (3) Hyperlipidemia Status: Chronic (4) Obesity Status: Chronic (5) s/p skin grafts both legs Status: Chronic - AMA Did Patient Leave Against Medical Advice: No
== END 2018-02-19 08:50 | disposition home or self-care (01) | DRG 775 ==
LOC: YASAS 22:46 → Y3N 23:30
PROVIDERS: ADMIT Internal Medicine; ATTEND Internal Medicine
PROC: HZ2ZZZZ Detoxification Services for Substance Abuse Treatment (ICD-10-PCS; principal; 2018-02-14)
DX: F10.230 Alcohol dependence with withdrawal, uncomplicated (principal); F41.8 Other specified anxiety disorders; F19.24 Other psychoactive substance dependence with psychoactive substance-induced mood disorder; I10 Essential (primary) hypertension; J45.909 Unspecified asthma, uncomplicated; E78.00 Pure hypercholesterolemia, unspecified; E78.5 Hyperlipidemia, unspecified; E66.9 Obesity, unspecified; Z68.28 Body mass index [BMI] 28.0-28.9, adult; Z91.5 Personal history of self-harm; Z59.0 Homelessness
CPT/HCPCS: 36415; 80053; 81003; 85027; 86593; 93005; 93010

== ENCOUNTER 2019-01-25 18:37 | Inpatient (IN) | payer OTHER | END 2019-01-30 09:25 | disposition home or self-care (01) | LOC: YASAS 18:37 → Y6N 23:51 ==

== ENCOUNTER 2019-02-15 13:22 | Inpatient (IN) | payer OTHER ==
[2019-02-15 17:01] VITALS: BMI 41.8
--- NOTE | 2019-02-15 17:57 | HP ---
CIWA Score Nausea/Vomitin-No Nausea/No Vomiting Muscle Tremors: None Anxiety: 1-Mildly Anxious Agitation: 1-Slight > Activity Paroxysmal Sweats: No Perspiration Orientation: 0-Oriented Tacttile Disturbances: 0-None Auditory Disturbances: 0-None Visual Disturbances: 0-None Headache: 1-Very Mild CIWA-Ar Total Score: 3 - Admission Criteria OASAS Guidelines: Admission for Medically Managed Detox: Requires at least one of the followin. CIWA greater than 12 2. Seizures within the past 24 hours 3. Delirium tremens within the past 24 hours 4. Hallucinations within the past 24 hours 5. Acute intervention needed for co occurring medical disorder 6. Acute intervention needed for co occurring psychiatric disorder 7. Severe withdrawal that cannot be handled at a lower level of care (continued vomiting, continued diarrhea, abnormal vital signs) requiring intravenous medication and/or fluids 8. Admission ROS [facility] Allergies/Adverse Reactions: Allergies Allergy/AdvReac Type Severity Reaction Status Date / Time No Known Allergies Allergy Verified 02/15/19 15:40 History of Present Illness: pt here requesting rehab from etoh use , s/p detox completed 01/30/19 at this facility , reports relapse on etoh 1 week after d/c with latest etoh intake 5 days ago ( claims last Monday ) , denies current symptoms . cannabis : daily 5 $ tobacco : 1/2 ppd . PMHX : DVT R LE on Xarelto latest taken " it's been a while " claims > 6 mo ago did not go for check up , per pt was told leg is " alright " had US of the leg November 2018 @ [facility] , no DVt per pt . Asthma ( [place] / [place] ) Psych ; insomnia PSHX : R leg surgery for dvt February or March 2018 @ [facility] Exam Limitations: No Limitations - Ebola screening Have you traveled outside of the country in the last 21 days: No (N) Have you had contact with anyone from an Ebola affected area: No Do you have a fever: No - Review of Systems Constitutional: No Symptoms Reported EENT: reports: No Symptoms Reported Respiratory: reports: See HPI Cardiac: reports: No Symptoms Reported GI: reports: No Symptoms Reported : reports: No Symptoms Reported Musculoskeletal: reports: No Symptoms Reported Integumentary: reports: Dryness Neuro: reports: Headache Endocrine: reports: No Symptoms Reported Psychiatric: reports: Orientated x3, Anxious Patient History - Patient Medical History Hx Anemia: No Hx Asthma: Yes (on albuterol inhaler) Hx Chronic Obstructive Pulmonary Disease (COPD): No Hx Cancer: No Hx Cardiac Disorders: No Hx Congestive Heart Failure: No Hx Hypertension: Yes (Not on medication) Hx Hypercholesterolemia: Yes (Not on medication) Hx Pacemaker: No HX Cerebrovascular Accident: No Hx Seizures: No Hx Dementia: No Hx Diabetes: No Hx Gastrointestinal Disorders: No Hx Liver Disease: No Hx Genitourinary Disorders: No Hx Sexually Transmitted Disorders: No Hx Renal Disease (ESRD): No Hx Thyroid Disease: No Hx Human Immunodeficiency Virus (HIV): No (last 2015 negative) Hx Hepatitis C: No Hx Depression: Yes (Not on medication) Hx Suicide Attempt: No (Denies suicidal ideation at this time) Hx Bipolar Disorder: No Hx Schizophrenia: No - Patient Surgical History Past Surgical History: Yes Hx Neurologic Surgery: No Hx Cataract Extraction: No Hx Cardiac Surgery: No Hx Lung Surgery: No Hx Breast Surgery: No Hx Breast Biopsy: No Hx Abdominal Surgery: No Hx Appendectomy: No Hx Cholecystectomy: No Hx Genitourinary Surgery: No Hx Section: No Hx Orthopedic Surgery: No Other Surgical History: SKIN GRAFT TO left LEG IN 1997- secondary to pineda. Anesthesia Reaction: No - PPD History Date: 12/30/17 Results: 0 mm. - Smoking Cessation Smoking history: Current every day smoker Have you smoked in the past 12 months: Yes Aproximately how many cigarettes per day: 10 If you are a former smoker, when did you quit?: 20 Cigars Per Day: 0 Hx Chewing Tobacco Use: No Initiated information on smoking cessation: No - Substances abused Alcohol Substance route: Oral Frequency: Daily Amount used: 2 pints, 2 12 packs of beer Age of first use: 14 Date of last use: 02/13/19 K2/Spice Substance route: Smoking Frequency: Daily Amount used: 9 -10 sticks Age of first use: 48 Date of last use: 02/15/19 Marijuana/Hashish Substance route: Smoking Frequency: 1-3 times last 30 days Amount used: $5 Age of first use: 15 Date of last use: 02/08/19 Family Disease History - Family Disease History Family Disease History: Other: Father (alcoholic,) Admission Physical Exam BHS - Vital Signs Vital Signs: Vital Signs - 24 hr 02/15/19 02/15/19 15:42 16:56 Temperature 97.2 F L 97.2 F L Pulse Rate 84 84 Respiratory 16 16 Rate Blood Pressure 111/65 111/65 - Physical General Appearance: Yes: Disheveled, Anxious HEENTM: Yes: EOMI, Hearing grossly Normal, Normocephalic, Normal Voice, Other ( poor dentition , many missing teeth) Respiratory: Yes: Chest Non-Tender, Lungs Clear, Normal Breath Sounds Neck: Yes: No masses,lesions,Nodules, Trachea in good position Cardiology: Yes: Regular Rhythm, Regular Rate, S1, S2 Abdominal: Yes: Non Tender, Soft Back: Yes: Normal Inspection Musculoskeletal: Yes: Gait Steady Extremities: Yes: Non-Tender 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: Fully Oriented, Alert, Motor Strength 5/5 Integumentary: Yes: Dry, Warm, Other (SURGICAL SCAR R LATERAL CALF and R medial calf longitudinal) - Diagnostic (1) Alcohol dependence Current Visit: Yes Status: Chronic Breathalyzer - Breathalyzer Breathalyzer: 0 Urine Drug Screen - Test Device Lot number: [id number] Expiration date: 11/15/20 - Control Is test valid?: Yes - Results Drug screen NEGATIVE: No Urine drug screen results: THC-Marijuana, BZO-Benzodiazepines Inpatient Rehab Admission - Rehab Decision to Admit Inpatient rehab admission?: Yes - Initial Determination Are CD services needed?: Yes Free of communicable disease: Yes Not in need of hospitalization: Yes - Rehab Admission Criteria Previous failed treatment: Yes Poor recovery environment: Yes Comorbidities: No Lacks judgement: Yes Patient is meeting Inpatient Rehab admission criteria:: Yes
[2019-02-15] MEDS ORDERED: P-EPHED 60MG/TRIPROLIDI 2.5MG TABLET PO PRN (18:10)
[2019-02-15] MEDS ORDERED: hydrOXYzine PAMOATE 25 MG CAPSULE (FP) PO PRN (18:10)
[2019-02-15] MEDS ORDERED: MENTHOL/PHENOL 1 EACH UD MM PRN (18:10)
[2019-02-15] MEDS ORDERED: NICOTINE POLACRILEX 2 MG GUM BC PRN (18:10)
[2019-02-15] MEDS ORDERED: MAGNESIUM HYDROX 2400MG/30ML ORAL SUSPENSION 30 ML CUP PO PRN (18:10)
[2019-02-15] MEDS ORDERED: MAG HYDROX/AL HYDROX/SIMETH 30 ML UNIT-DOSE CUP PO PRN (18:10)
[2019-02-15] MEDS ORDERED: MAGNESIUM CITRATE 300 ML BOTTLE PO PRN (18:10)
[2019-02-15] MEDS ORDERED: guaiFENesin 200 MG/10 ML 10 ML UNIT-DOSE CUPS PO PRN (18:10)
[2019-02-15] MEDS: ASPIRIN COATED 81 MG TABLET.EC PO SCH (19:10)
[2019-02-15] MEDS: THIAMINE HCL 100 MG TABLET (FP) PO SCH (21:58)
[2019-02-15] MEDS: MELATONIN 5 MG TABLETS PO PRN (21:59)
[2019-02-16 01:10] LABS: EPI CELLS 1.2 /HPF (0-5/HPF); HYALINE CASTS 18 /lpf (0-8); PH,URINE 5.5 (5.0-8.0); URINE APPEARANCE CLOUDY; URINE BACTERIA 4.9 /hpf (NEGATIVE); URINE BILIRUBIN NEGATIVE (NEGATIVE); URINE COLOR YELLOW; URINE GLUCOSE (UA) NEGATIVE (NEGATIVE); URINE KETONE TRACE (NEGATIVE); URINE LEUK ESTERASE NEGATIVE (NEGATIVE); URINE NITRITE NEGATIVE (NEGATIVE); URINE PROTEIN 1+ (NEGATIVE); URINE RBC 4 /hpf (0-4); URINE WBC 3 /hpf (0-5)
[2019-02-16 02:36] LABS: URINE CRYSTALS CA OX /hpf
[2019-02-16] MEDS: PRENATAL VITAMINS W/ FOLIC ACID TABLET (FP) PO SCH (10:11)
[2019-02-16] MEDS: ASPIRIN COATED 81 MG TABLET.EC PO SCH (10:11)
[2019-02-16] MEDS: THIAMINE HCL 100 MG TABLET (FP) PO SCH (21:38)
[2019-02-16] MEDS: MELATONIN 5 MG TABLETS PO PRN (21:38)
[2019-02-17] MEDS: ASPIRIN COATED 81 MG TABLET.EC PO SCH (10:21)
[2019-02-17] MEDS: PRENATAL VITAMINS W/ FOLIC ACID TABLET (FP) PO SCH (10:21)
[2019-02-17] MEDS: ACETAMINOPHEN 325 MG TABLET (FP) PO PRN (20:19)
[2019-02-17] MEDS: THIAMINE HCL 100 MG TABLET (FP) PO SCH (21:48)
[2019-02-17] MEDS: MELATONIN 5 MG TABLETS PO PRN (21:48)
[2019-02-18] MEDS: ASPIRIN COATED 81 MG TABLET.EC PO SCH (10:38)
[2019-02-18] MEDS: PRENATAL VITAMINS W/ FOLIC ACID TABLET (FP) PO SCH (10:38)
--- NOTE | 2019-02-18 16:27 | PN ---
BHS Progress Note Note: PT C/O PAINFUL CALLUSES ON BOTH GREAT TOES. Vital Signs (72 hours) 02/15/19 02/16/19 02/16/19 16:56 00:30 03:30 Temperature 97.2 F L Pulse Rate 84 Respiratory 16 18 18 Rate Blood Pressure 111/65 02/16/19 02/16/19 02/16/19 06:30 07:00 13:27 Temperature 98.0 F 98.0 F Pulse Rate 79 79 Respiratory 18 18 18 Rate Blood Pressure 127/74 127/74 02/17/19 02/17/19 02/17/19 00:30 03:30 06:56 Temperature 98.2 F Pulse Rate 86 Respiratory 18 18 18 Rate Blood Pressure 130/90 02/18/19 02/18/19 02/18/19 00:30 03:30 06:27 Temperature 97.9 F Pulse Rate 76 Respiratory 18 18 16 Rate Blood Pressure 135/70 Laboratory Tests 02/16/19 00:05 Urine Color Yellow Urine Appearance Cloudy Urine pH 5.5 Ur Specific [place] 1.027 Urine Protein 1+ H Urine Glucose (UA) Negative Urine Ketones Trace H Urine Blood Negative Urine Nitrite Negative Urine Bilirubin Negative Urine Urobilinogen 1.0 Ur Leukocyte Esterase Negative Urine WBC (Auto) 3 Urine RBC (Auto) 4 Urine Casts (Auto) 18 U Epithel Cells (Auto) 1.2 Urine Crystals (Auto) Ca ox Urine Bacteria (Auto) 4.9 FEET:DRY WITH CALLUSES ON LATERAL ASPECTS OF GREAT TOES. A;CALLUSES PLAN:SOAK FEET IN WARM WATER AND EPSOM SALT SOLUTION DAILY. APPLY BACITRACIN OINTMENT TO AFFECTED AREAS DIRECTED.
[2019-02-18] MEDS: THIAMINE HCL 100 MG TABLET (FP) PO SCH (21:25)
[2019-02-18] MEDS: BACITRACIN 15 GM TUBE TOPICAL OINTMENT TP SCH (21:26)
[2019-02-18] MEDS: MELATONIN 5 MG TABLETS PO PRN (21:26)
[2019-02-18] MEDS: ACETAMINOPHEN 325 MG TABLET (FP) PO PRN (21:27)
[2019-02-19 06:27] VITALS: BP 137/78; PULSE 92; TEMP 97.8
[2019-02-19] MEDS: BACITRACIN 15 GM TUBE TOPICAL OINTMENT TP SCH (11:16)
[2019-02-19] MEDS: PRENATAL VITAMINS W/ FOLIC ACID TABLET (FP) PO SCH (11:16)
[2019-02-19] MEDS: ASPIRIN COATED 81 MG TABLET.EC PO SCH (11:16)
--- NOTE | 2019-02-19 11:23 | PN ---
BHS Progress Note (SOAP) Subjective: THIS CAP SIZER WAS INFORMED THAT PATIENT WALKED OFF THE UNIT THIS MORNING. DID NOT ENCOUNTER WITH PT BEFORE LEAVING. PT HAD SEEN HIS COUNSELOR FOR CD AFTERCARE PLANS BEFORE [id number] COUNSELOR'S NOTES AND D/C PLANNING). Objective: 02/19/19 11:20 Vital Signs - 24 hr 02/19/19 02/19/19 02/19/19 00:30 03:30 06:26 Temperature 97.8 F Pulse Rate 92 H Respiratory 16 18 18 Rate Blood Pressure 137/78 Laboratory Tests 02/16/19 00:05 Urine Color Yellow Urine Appearance Cloudy Urine pH 5.5 Ur Specific [place] 1.027 Urine Protein 1+ H Urine Glucose (UA) Negative Urine Ketones Trace H Urine Blood Negative Urine Nitrite Negative Urine Bilirubin Negative Urine Urobilinogen 1.0 Ur Leukocyte Esterase Negative Urine WBC (Auto) 3 Urine RBC (Auto) 4 Urine Casts (Auto) 18 U Epithel Cells (Auto) 1.2 Urine Crystals (Auto) Ca ox Urine Bacteria (Auto) 4.9 Assessment: 02/19/19 11:20 WALKED OFF UNIT Plan: PT LEFT AMA
== END 2019-02-19 08:05 | disposition left against medical advice (07) | DRG 770 ==
LOC: YASAS 13:22 → Y5N 18:13
PROVIDERS: ADMIT Neuromusculoskeletal Medicine & OMM; ATTEND Neuromusculoskeletal Medicine & OMM
PROC: HZ42ZZZ Group Counseling for Substance Abuse Treatment, Cognitive-Behavioral (ICD-10-PCS; principal; 2019-02-15)
DX: F10.20 Alcohol dependence, uncomplicated (principal); F13.20 Sedative, hypnotic or anxiolytic dependence, uncomplicated; F12.20 Cannabis dependence, uncomplicated; F19.20 Other psychoactive substance dependence, uncomplicated; F17.210 Nicotine dependence, cigarettes, uncomplicated; I10 Essential (primary) hypertension; E78.00 Pure hypercholesterolemia, unspecified; L84 Corns and callosities; E66.9 Obesity, unspecified; Z68.41 Body mass index [BMI] 40.0-44.9, adult; Z86.718 Personal history of other venous thrombosis and embolism; Z94.5 Skin transplant status; Z91.19 Patient's noncompliance with other medical treatment and regimen
CPT/HCPCS: 81003

== ENCOUNTER 2019-03-28 09:19 | Inpatient (IN) | payer OTHER ==
[2019-03-28 09:47] VITALS: BMI 29.4
--- NOTE | 2019-03-28 10:53 | HP ---
CIWA Score Nausea/Vomitin-Mild Nausea/No Vomiting Muscle Tremors: 2 Anxiety: 2 Agitation: 0-Normal Activity Paroxysmal Sweats: 2 Orientation: 0-Oriented Tacttile Disturbances: 0-None Auditory Disturbances: 0-None Visual Disturbances: 0-None Headache: 2-Mild CIWA-Ar Total Score: 9 - Admission Criteria OASAS Guidelines: Admission for Medically Managed Detox: Requires at least one of the followin. CIWA greater than 12 2. Seizures within the past 24 hours 3. Delirium tremens within the past 24 hours 4. Hallucinations within the past 24 hours 5. Acute intervention needed for co occurring medical disorder 6. Acute intervention needed for co occurring psychiatric disorder 7. Severe withdrawal that cannot be handled at a lower level of care (continued vomiting, continued diarrhea, abnormal vital signs) requiring intravenous medication and/or fluids 8. Admission ROS S - HPI Allergies/Adverse Reactions: Allergies Allergy/AdvReac Type Severity Reaction Status Date / Time No Known Allergies Allergy Verified 03/28/19 09:35 History of Present Illness: pt here requesting detox from etoh use , s/p detox /rehab completed 01/30/19-01/04 at this facility , reports relapse on etoh 2 days after d/c with latest etoh intake yesterday , 2 pints liquor , reports tremors if not drinking , denies detox since leaving this facility . . cannabis : daily 5 $ tobacco : 1/2 ppd . PMHX : DVT R LE on Xarelto latest taken " it's been a while " claims > 6 mo ago did not go for check up , per pt was told leg is " alright " had US of the leg November 2018 @ [facility] , no DVt per pt . Asthma ( [place] / [place] ) , HTN Psych ; insomnia PSHX : R leg surgery for dvt February or March 2018 @ [facility] Exam Limitations: Clinical Condition - Ebola screening Have you traveled outside of the country in the last 21 days: No Have you had contact with anyone from an Ebola affected area: No Do you have a fever: No - Review of Systems Constitutional: See HPI EENT: reports: No Symptoms Reported Respiratory: reports: No Symptoms reported Cardiac: reports: No Symptoms Reported GI: reports: See HPI, Nausea : reports: No Symptoms Reported Musculoskeletal: reports: Back Pain (chronic) Integumentary: reports: See HPI Neuro: reports: See HPI, Headache Endocrine: reports: No Symptoms Reported Psychiatric: reports: Orientated x3, Anxious Patient History - Patient Medical History Hx Anemia: No Hx Asthma: Yes (on albuterol inhaler) Hx Chronic Obstructive Pulmonary Disease (COPD): No Hx Cancer: No Hx Cardiac Disorders: No Hx Congestive Heart Failure: No Hx Hypertension: Yes (Not on medication) Hx Hypercholesterolemia: Yes (Not on medication) Hx Pacemaker: No HX Cerebrovascular Accident: No Hx Seizures: No Hx Dementia: No Hx Diabetes: No Hx Gastrointestinal Disorders: No Hx Liver Disease: No Hx Genitourinary Disorders: No Hx Sexually Transmitted Disorders: No Hx Renal Disease (ESRD): No Hx Thyroid Disease: No Hx Human Immunodeficiency Virus (HIV): No (last 2015 negative) Hx Hepatitis C: No Hx Depression: Yes (Not on medication) Hx Suicide Attempt: No (Denies suicidal ideation at this time) Hx Bipolar Disorder: No Hx Schizophrenia: No - Patient Surgical History Past Surgical History: Yes Hx Neurologic Surgery: No Hx Cataract Extraction: No Hx Cardiac Surgery: No Hx Lung Surgery: No Hx Breast Surgery: No Hx Breast Biopsy: No Hx Abdominal Surgery: No Hx Appendectomy: No Hx Cholecystectomy: No Hx Genitourinary Surgery: No Hx Section: No Hx Orthopedic Surgery: No Other Surgical History: SKIN GRAFT TO left LEG IN 1997- secondary to pineda. Anesthesia Reaction: No - PPD History Date: 12/30/17 Results: 0 mm. - Smoking Cessation Smoking history: Current every day smoker Have you smoked in the past 12 months: Yes Aproximately how many cigarettes per day: 10 If you are a former smoker, when did you quit?: 20 Cigars Per Day: 0 Hx Chewing Tobacco Use: No Initiated information on smoking cessation: No - Substances abused Alcohol Substance route: Oral Frequency: Daily Amount used: 2 pints vodka, 2 12 packs of beer Age of first use: 14 Date of last use: 03/28/19 K2/Spice Substance route: Smoking Frequency: Daily Amount used: 9 -10 sticks Age of first use: 48 Date of last use: 03/28/19 Marijuana/Hashish Substance route: Smoking Frequency: 1-3 times last 30 days Amount used: $5 Age of first use: 15 Date of last use: 03/28/19 Family Disease History - Family Disease History Family Disease History: Other: Father (alcoholic,) Admission Physical Exam BHS - Vital Signs Vital Signs: Vital Signs - 24 hr 03/28/19 09:31 Temperature 98 F Pulse Rate 72 Respiratory 18 Rate Blood Pressure 115/64 - Physical General Appearance: Yes: Disheveled, Mild Distress, Anxious HEENTM: Yes: Normocephalic, Normal Voice Respiratory: Yes: Lungs Clear, Normal Breath Sounds, No Respiratory Distress, No Accessory Muscle Use Neck: Yes: No masses,lesions,Nodules, Trachea in good position Cardiology: Yes: Regular Rhythm, Regular Rate, S1, S2 Abdominal: Yes: Non Tender, Soft Musculoskeletal: Yes: Back pain Extremities: Yes: Normal Range of Motion, Non-Tender, Other (scarring from prior surgical intervention) Integumentary: Yes: Warm - Diagnostic (1) Alcohol dependence with uncomplicated withdrawal Current Visit: Yes Status: Acute Breathalyzer - Breathalyzer Breathalyzer: 0 Urine Drug Screen - Test Device Lot number: [id number] Expiration date: 01/15/21 - Control Is test valid?: Yes - Results Drug screen NEGATIVE: No Urine drug screen results: THC-Marijuana, BZO-Benzodiazepines Inpatient Rehab Admission - Rehab Decision to Admit Inpatient rehab admission?: No
[2019-03-28] MEDS ORDERED: NICOTINE POLACRILEX 2 MG GUM BUC PRN (11:10)
[2019-03-28] MEDS ORDERED: MAGNESIUM HYDROX 2400MG/30ML ORAL SUSPENSION 30 ML CUP PO PRN (11:10)
[2019-03-28] MEDS ORDERED: ACETAMINOPHEN 325 MG TABLET (FP) PO PRN ×2 (11:10)
[2019-03-28] MEDS ORDERED: MAGNESIUM CITRATE 300 ML BOTTLE PO PRN (11:10)
[2019-03-28] MEDS ORDERED: IBUPROFEN 400 MG TABLET (FP) PO PRN (11:10)
[2019-03-28] MEDS ORDERED: hydrOXYzine PAMOATE 25 MG CAPSULE (FP) PO PRN (11:10)
[2019-03-28] MEDS ORDERED: MAG HYDROX/AL HYDROX/SIMETH 30 ML UNIT-DOSE CUP PO PRN (11:10)
[2019-03-28] MEDS ORDERED: BISMUTH SUBSALICYLATE 262 MG/15 ML BTL PO PRN (11:10)
[2019-03-28] MEDS ORDERED: MENTHOL/PHENOL 1 EACH UD MM PRN (11:10)
[2019-03-28] MEDS: diazePAM 5 MG TABLET PO PRN ×2 (12:17→17:33)
[2019-03-28] MEDS: ASPIRIN 325 MG ENTERIC COATED TABLET (FP) PO SCH (14:12)
[2019-03-28] MEDS: diazePAM 5 MG TABLET PO SCH ×2 (14:44→22:15)
[2019-03-28] MEDS: MELATONIN 5 MG TABLETS PO PRN (22:15)
[2019-03-28] MEDS: THIAMINE HCL 100 MG TABLET (FP) PO SCH (22:15)
[2019-03-29] MEDS: diazePAM 5 MG TABLET PO SCH ×3 (05:44→22:04)
[2019-03-29] MEDS: ASPIRIN 325 MG ENTERIC COATED TABLET (FP) PO SCH (10:11)
[2019-03-29] MEDS: PRENATAL VITAMINS W/ FOLIC ACID TABLET (FP) PO SCH (10:11)
[2019-03-29 10:44] LABS: ALBUMIN 3.2 g/dl (3.4-5.0); BILIRUBIN,TOTAL 0.2 mg/dL (0.2-1); BLOOD UREA NITROGEN 15.9 mg/dL (7-18); CALCIUM 8.4 mg/dL (8.5-10.1); CREATININE 0.9 mg/dL (0.55-1.3); POTASSIUM 4.4 mmol/L (3.5-5.1); TOT PROT 7.5 g/dl (6.4-8.2)
[2019-03-29 10:48] LABS: HEMATOCRIT 34.6 % (35.4-49); HEMOGLOBIN 11.3 GM/dL (11.7-16.9); MCH 26.7 pg (25.7-33.7); MCHC 32.6 g/dl (32.0-35.9); MEAN CELL VOLUME 81.8 fl (80-96); MEAN PLT VOLUME 9.3 fl (7.5-11.1); PLATELET COUNT 317 K/MM3 (134-434); RBC 4.23 M/mm3 (4.00-5.60); RDW 17.1 % (11.9-15.9); WHITE BLOOD COUNT 6.5 K/mm3 (4.0-10.0)
--- NOTE | 2019-03-29 13:21 | PN ---
S CIWA - CIWA Score Nausea/Vomitin Muscle Tremors: 2 Anxiety: 2 Agitation: 2 Paroxysmal Sweats: 1-Minimal Palms Moist Orientation: 0-Oriented Tacttile Disturbances: 1-Very Mild Itch/Numbness Auditory Disturbances: 1-Very Mild Visual Disturbances: 0-None Headache: 2-Mild CIWA-Ar Total Score: 13 BHS Progress Note (SOAP) Subjective: alert,irritable,anxious,interrupted sleep,tremor Objective: 03/29/19 13:19 Vital Signs Temperature 96.8 F L 03/29/19 09:37 Pulse Rate 79 03/29/19 09:37 Respiratory Rate 18 03/29/19 09:37 Blood Pressure 122/69 03/29/19 09:37 O2 Sat by Pulse Oximetry (%) 03/29/19 13:19 Laboratory Last Values WBC 6.5 K/mm3 (4.0-10.0) 03/29/19 07:00 RBC 4.23 M/mm3 (4.00-5.60) 03/29/19 07:00 Hgb 11.3 GM/dL (11.7-16.9) L 03/29/19 07:00 Hct 34.6 % (35.4-49) L 03/29/19 07:00 MCV 81.8 fl (80-96) 03/29/19 07:00 MCH 26.7 pg (25.7-33.7) 03/29/19 07:00 MCHC 32.6 g/dl (32.0-35.9) 03/29/19 07:00 RDW 17.1 % (11.9-15.9) H 03/29/19 07:00 Plt Count 317 K/MM3 (134-434) D 03/29/19 07:00 MPV 9.3 fl (7.5-11.1) 03/29/19 07:00 Sodium 140 mmol/L (136-145) 03/29/19 07:00 Potassium 4.4 mmol/L (3.5-5.1) 03/29/19 07:00 Chloride 108 mmol/L (98-107) H 03/29/19 07:00 Carbon Dioxide 26 mmol/L (21-32) 03/29/19 07:00 Anion Gap 6 MMOL/L (8-16) L 03/29/19 07:00 BUN 15.9 mg/dL (7-18) 03/29/19 07:00 Creatinine 0.9 mg/dL (0.55-1.3) 03/29/19 07:00 Est GFR (CKD-EPI)AfAm 111.83 03/29/19 07:00 Est GFR (CKD-EPI)NonAf 96.49 03/29/19 07:00 Random Glucose 90 mg/dL (74-106) 03/29/19 07:00 Calcium 8.4 mg/dL (8.5-10.1) L 03/29/19 07:00 Total Bilirubin 0.2 mg/dL (0.2-1) 03/29/19 07:00 AST 10 U/L (15-37) L 03/29/19 07:00 ALT 16 U/L (13-61) 03/29/19 07:00 Alkaline Phosphatase 60 U/L (45-117) 03/29/19 07:00 Total Protein 7.5 g/dl (6.4-8.2) 03/29/19 07:00 Albumin 3.2 g/dl (3.4-5.0) L 03/29/19 07:00 RPR Titer Nonreactive (NONREACTIVE) 03/29/19 07:00 Assessment: 03/29/19 13:20 withdrawal symptom Plan: contiune detox valium regimen
[2019-03-29] MEDS: MELATONIN 5 MG TABLETS PO PRN (22:04)
[2019-03-29] MEDS: THIAMINE HCL 100 MG TABLET (FP) PO SCH (22:04)
[2019-03-30] MEDS: diazePAM 5 MG TABLET PO SCH ×2 (05:41→17:38)
[2019-03-30] MEDS: PRENATAL VITAMINS W/ FOLIC ACID TABLET (FP) PO SCH (10:08)
[2019-03-30] MEDS: ASPIRIN 325 MG ENTERIC COATED TABLET (FP) PO SCH (10:08)
[2019-03-30] MEDS: diazePAM 5 MG TABLET PO PRN ×2 (10:08→22:32)
--- NOTE | 2019-03-30 13:36 | PN ---
S CIWA - CIWA Score Nausea/Vomitin-No Nausea/No Vomiting Muscle Tremors: 2 Anxiety: 2 Agitation: 0-Normal Activity Paroxysmal Sweats: 3 Orientation: 0-Oriented Tacttile Disturbances: 0-None Auditory Disturbances: 0-None Visual Disturbances: 0-None Headache: 3-Moderate CIWA-Ar Total Score: 10 S Progress Note (SOAP) Subjective: Tremors, Sweating, H/A, Body Aches, Interrupted Sleep. Objective: PATIENT A & O X 3, OBSERVED AMBULATING ON UNIT UNASSISTED. IN NO ACUTE DISTRESS. 03/30/19 13:34 Vital Signs Temperature 98.8 F 03/30/19 09:10 Pulse Rate 72 03/30/19 09:10 Respiratory Rate 18 03/30/19 09:10 Blood Pressure 142/80 03/30/19 09:10 O2 Sat by Pulse Oximetry (%) Laboratory Tests 03/29/19 03/29/19 03/29/19 07:00 07:00 07:00 WBC 6.5 RBC 4.23 Hgb 11.3 L Hct 34.6 L MCV 81.8 MCH 26.7 MCHC 32.6 RDW 17.1 H Plt Count 317 D MPV 9.3 Sodium 140 Potassium 4.4 Chloride 108 H Carbon Dioxide 26 Anion Gap 6 L BUN 15.9 Creatinine 0.9 Est GFR (CKD-EPI)AfAm 111.83 Est GFR (CKD-EPI)NonAf 96.49 Random Glucose 90 Calcium 8.4 L Total Bilirubin 0.2 AST 10 L ALT 16 Alkaline Phosphatase 60 Total Protein 7.5 Albumin 3.2 L RPR Titer Nonreactive LABS NOTED. Assessment: 03/30/19 13:35 WITHDRAWAL SYMPTOMS. ANEMIA. Plan: CONTINUE DETOX. INCREASE DAILY PO WATER INTAKE. PATIENT IS CURRENTLY RECEIVING DAILY MVI CONTAINING B VITAMINS AND IRON WHILE ADMITTED FOR DETOX. PATIENT SCHEDULED FOR D/C FROM DETOX UNIT TOMORROW.
[2019-03-30] MEDS: THIAMINE HCL 100 MG TABLET (FP) PO SCH (22:32)
[2019-03-30] MEDS: MELATONIN 5 MG TABLETS PO PRN (22:32)
[2019-03-31] MEDS ORDERED: diazePAM 5 MG TABLET PO ONE (06:00)
[2019-03-31 06:13] VITALS: BP 120/73; PULSE 78; TEMP 97
--- NOTE | 2019-03-31 15:55 | DS ---
[facility] Detox Discharge Summary Admission Date: 03/28/19 Discharge Date: 03/31/19 - History Present History: Alcohol Dependence Additional Comments: 54 years old male admitted on 03/25/19 for alcohol withdrawal sx denies medical history denies taking medication at home patient prefers [facility] encourage [facility] admission - Physical Exam Results Vital Signs: Vital Signs Temperature 97.0 F L 03/31/19 06:13 Pulse Rate 78 03/31/19 06:13 Respiratory Rate 18 03/31/19 06:13 Blood Pressure 120/73 03/31/19 06:13 O2 Sat by Pulse Oximetry (%) Pertinent Admission Physical Exam Findings: alcohol withdrawal sx Laboratory Last Values WBC 6.5 K/mm3 (4.0-10.0) 03/29/19 07:00 RBC 4.23 M/mm3 (4.00-5.60) 03/29/19 07:00 Hgb 11.3 GM/dL (11.7-16.9) L 03/29/19 07:00 Hct 34.6 % (35.4-49) L 03/29/19 07:00 MCV 81.8 fl (80-96) 03/29/19 07:00 MCH 26.7 pg (25.7-33.7) 03/29/19 07:00 MCHC 32.6 g/dl (32.0-35.9) 03/29/19 07:00 RDW 17.1 % (11.9-15.9) H 03/29/19 07:00 Plt Count 317 K/MM3 (134-434) D 03/29/19 07:00 MPV 9.3 fl (7.5-11.1) 03/29/19 07:00 Sodium 140 mmol/L (136-145) 03/29/19 07:00 Potassium 4.4 mmol/L (3.5-5.1) 03/29/19 07:00 Chloride 108 mmol/L (98-107) H 03/29/19 07:00 Carbon Dioxide 26 mmol/L (21-32) 03/29/19 07:00 Anion Gap 6 MMOL/L (8-16) L 03/29/19 07:00 BUN 15.9 mg/dL (7-18) 03/29/19 07:00 Creatinine 0.9 mg/dL (0.55-1.3) 03/29/19 07:00 Est GFR (CKD-EPI)AfAm 111.83 03/29/19 07:00 Est GFR (CKD-EPI)NonAf 96.49 03/29/19 07:00 Random Glucose 90 mg/dL (74-106) 03/29/19 07:00 Calcium 8.4 mg/dL (8.5-10.1) L 03/29/19 07:00 Total Bilirubin 0.2 mg/dL (0.2-1) 03/29/19 07:00 AST 10 U/L (15-37) L 03/29/19 07:00 ALT 16 U/L (13-61) 03/29/19 07:00 Alkaline Phosphatase 60 U/L (45-117) 03/29/19 07:00 Total Protein 7.5 g/dl (6.4-8.2) 03/29/19 07:00 Albumin 3.2 g/dl (3.4-5.0) L 03/29/19 07:00 RPR Titer Nonreactive (NONREACTIVE) 03/29/19 07:00 lab noted - Treatment Hospital Course: Detox Protocol Followed, Detoxed Safely, Responded well, Discharged Condition Good, Rehab Referral Accepted Patient has Accepted a Rehab Referral to: [facility] - Medication Discharge Medications: Ambulatory Orders NK [No Known Home Medication] 01/25/19 - Diagnosis (1) Alcohol dependence with uncomplicated withdrawal Status: Acute (2) HTN (hypertension) Status: Chronic Qualifiers: Hypertension type: unspecified Qualified Code(s): I10 - Essential (primary ) hypertension (3) Hyperlipidemia Status: Chronic (4) Nicotine dependence Status: Acute - AMA Did Patient Leave Against Medical Advice: No
== END 2019-03-31 09:33 | disposition home or self-care (01) | DRG 775 ==
LOC: YASAS 09:19 → Y3N 11:31
PROVIDERS: ADMIT Surgery; ATTEND Surgery
PROC: HZ2ZZZZ Detoxification Services for Substance Abuse Treatment (ICD-10-PCS; principal; 2019-03-28)
DX: F10.230 Alcohol dependence with withdrawal, uncomplicated (principal); F17.210 Nicotine dependence, cigarettes, uncomplicated; I10 Essential (primary) hypertension; E78.5 Hyperlipidemia, unspecified; D64.9 Anemia, unspecified; J45.909 Unspecified asthma, uncomplicated; Z86.718 Personal history of other venous thrombosis and embolism; Z79.01 Long term (current) use of anticoagulants; Z59.0 Homelessness
CPT/HCPCS: 36415; 80053; 85027; 86593

== ENCOUNTER 2019-06-12 12:37 | Inpatient (IN) | payer OTHER ==
[2019-06-12 14:37] VITALS: BMI 28.3
--- NOTE | 2019-06-12 16:10 | HP ---
CIWA Score Nausea/Vomitin Muscle Tremors: 3 Anxiety: 3 Agitation: 3 Paroxysmal Sweats: No Perspiration Orientation: 1-Uncertain about Date Tacttile Disturbances: 1-Very Mild Itch/Numbness Auditory Disturbances: 0-None Visual Disturbances: 0-None Headache: 2-Mild CIWA-Ar Total Score: 15 - Admission Criteria OASAS Guidelines: Admission for Medically Managed Detox: Requires at least one of the followin. CIWA greater than 12 2. Seizures within the past 24 hours 3. Delirium tremens within the past 24 hours 4. Hallucinations within the past 24 hours 5. Acute intervention needed for co occurring medical disorder 6. Acute intervention needed for co occurring psychiatric disorder 7. Severe withdrawal that cannot be handled at a lower level of care (continued vomiting, continued diarrhea, abnormal vital signs) requiring intravenous medication and/or fluids 8. Patient presents the following: CIWA greater than 12 Admission Criteria Met: Admission criteria met Admission ROS [facility] Chief Complaint: Joseph Nixon is a 54 year old male presenting for alcohol and K2 detox. Allergies/Adverse Reactions: Allergies Allergy/AdvReac Type Severity Reaction Status Date / Time No Known Allergies Allergy Verified 06/12/19 14:32 History of Present Illness: Joseph Nixon is a 54 year old male presenting for alcohol and K2 detox. Alcohol: drinks 2 pints and 1-2 12-pack of beer daily for several years. Started drinking at age 14. States had a seizure, most recent 2 years prior. Had had blackouts, most recent several days prior to admission. Has had falls with head hits, most recent in 2016. Longest period of sobriety was 3 months. Was in long-term treatment program during long period sobriety. Stress and life difficulties were cause of relapse. When doesn't drink states he gets tremors, sweating. States had pancreatitis in the past with use. K2: 10-20$ worth per day. Last use was yesterday. States he needed to be hospitalized in the past for use. Has been to this facility for detox and rehab in the past. Most recent time in March 2019. After detox, plans for rehab likely at this facility. Utox: + for THC, BZO Medical History: denies Psychiatric: depression Surgical History: hx of blood clots removed? Social: [place], senior living. Pays for habit with bottle deposits. Sparse contact with family. Smokin/2 ppd, 15-20 year hx Exam Limitations: No Limitations - Ebola screening Have you traveled outside of the country in the last 21 days: No Have you had contact with anyone from an Ebola affected area: No Do you have a fever: No - Review of Systems Constitutional: Chills, Loss of Appetite EENT: reports: Blurred Vision, Other (rhinnorhea) Respiratory: reports: Cough Cardiac: reports: No Symptoms Reported GI: reports: Nausea : reports: No Symptoms Reported Musculoskeletal: reports: No Symptoms Reported Integumentary: reports: Dryness Neuro: reports: Headache Endocrine: reports: No Symptoms Reported Hematology: reports: No Symptoms Reported Psychiatric: reports: Orientated x3, Anxious, Depressed Patient History - Patient Medical History Hx Anemia: No Hx Asthma: Yes (on albuterol inhaler) Hx Chronic Obstructive Pulmonary Disease (COPD): No Hx Cancer: No Hx Cardiac Disorders: No Hx Congestive Heart Failure: No Hx Hypertension: Yes (Not on medication) Hx Hypercholesterolemia: Yes (Not on medication) Hx Pacemaker: No HX Cerebrovascular Accident: No Hx Seizures: No Hx Dementia: No Hx Diabetes: No Hx Gastrointestinal Disorders: Yes (hx of pancreatitis in 1990s) Hx Liver Disease: No Hx Genitourinary Disorders: No Hx Sexually Transmitted Disorders: No Hx Renal Disease (ESRD): No Hx Thyroid Disease: No Hx Human Immunodeficiency Virus (HIV): No (last 2015 negative) Hx Hepatitis C: No Hx Depression: Yes (Not on medication) Hx Suicide Attempt: No (Denies suicidal ideation at this time) Hx Bipolar Disorder: No Hx Schizophrenia: No - Patient Surgical History Past Surgical History: Yes Hx Neurologic Surgery: No Hx Cataract Extraction: No Hx Cardiac Surgery: No Hx Lung Surgery: No Hx Breast Surgery: No Hx Breast Biopsy: No Hx Abdominal Surgery: No Hx Appendectomy: No Hx Cholecystectomy: No Hx Genitourinary Surgery: No Hx Section: No Hx Orthopedic Surgery: No Other Surgical History: SKIN GRAFT TO left LEG IN 1997- secondary to pineda. Anesthesia Reaction: No - PPD History Previous Implant?: Yes Documented Results: Negative w/o proof Implanted On Prior [facility] Admission?: Yes Date: 01/28/19 Results: 0 mm. PPD to be Administered?: No - Smoking Cessation Smoking history: Current every day smoker Have you smoked in the past 12 months: Yes Aproximately how many cigarettes per day: 10 If you are a former smoker, when did you quit?: 20 Cigars Per Day: 0 Hx Chewing Tobacco Use: No Initiated information on smoking cessation: Yes 'Breaking Loose' booklet given: 06/12/19 - Substances abused Alcohol Substance route: Oral Frequency: Daily Amount used: 2 pints vodka, 2 12 packs of beer Age of first use: 14 Date of last use: 06/11/19 K2/Spice Substance route: Smoking Frequency: Daily Amount used: 9 -10 sticks Age of first use: 48 Date of last use: 06/11/19 Marijuana/Hashish Substance route: Smoking Frequency: 3-6 times per week Amount used: $5 Age of first use: 15 Date of last use: 06/10/19 Admission Physical Exam S - Vital Signs Vital Signs: Vital Signs - 24 hr 06/12/19 14:33 Temperature 98.1 F Pulse Rate 69 Respiratory 20 Rate Blood Pressure 141/80 - Physical General Appearance: Yes: Disheveled, Mild Distress HEENTM: Yes: EOMI, Normal Voice, PASCUAL, Pharynx Normal Respiratory: Yes: Chest Non-Tender, Lungs Clear, Normal Breath Sounds, No Respiratory Distress, No Accessory Muscle Use Neck: Yes: No masses,lesions,Nodules, Trachea in good position Breast: Yes: Breast Exam Deferred Cardiology: Yes: Regular Rhythm, Regular Rate, S1, S2 Abdominal: Yes: Normal Bowel Sounds, Non Tender, Flat, Soft Genitourinary: Yes: Within Normal Limits Back: Yes: Muscle Spasm Musculoskeletal: Yes: Back pain, Muscle Pain Extremities: Yes: Normal Capillary Refill, Normal Inspection, Normal Range of Motion 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: switch cleaner II-XII NML intact, Fully Oriented, Alert, Motor Strength 5/5, Normal Mood/Affect, Normal Response Integumentary: Yes: Dry, Other (dryness on soles of feet) - Diagnostic (1) Alcohol dependence with uncomplicated withdrawal Current Visit: No Status: Acute (2) Anxiety disorder Current Visit: No Status: Acute (3) Nicotine dependence Current Visit: No Status: Acute (4) DEPRESSION Current Visit: No Status: Chronic (5) HTN (hypertension) Current Visit: No Status: Chronic Qualifiers: Hypertension type: unspecified Qualified Code(s): I10 - Essential (primary ) hypertension Comment: not on meds . (6) Insomnia Current Visit: No Status: Chronic (7) Status post skin graft Current Visit: No Status: Chronic (8) Drug-induced mood disorder Current Visit: No Status: Suspected (9) Hypercholesteremia Current Visit: No Status: Suspected (10) MDD (major depressive disorder), recurrent episode, moderate Current Visit: No Status: Suspected Cleared for Admission S - Detox or Rehab [facility] Level of Care: Medically Managed Detox Regimen/Protocol: Librium Breathalyzer - Breathalyzer Breathalyzer: 0 Urine Drug Screen - Test Device Lot number: [id number] Expiration date: 01/15/21 - Control Is test valid?: Yes - Results Drug screen NEGATIVE: No Urine drug screen results: THC-Marijuana, BZO-Benzodiazepines Inpatient Rehab Admission - Rehab Decision to Admit Inpatient rehab admission?: No
--- NOTE | 2019-06-12 16:48 | PN ---
Teaching Attending Note Name of Resident: Nael Pinzon ATTENDING PHYSICIAN STATEMENT I saw and evaluated the patient. I reviewed the resident's note and discussed the case with the resident. I agree with the resident's findings and plan as documented. SUBJECTIVE: 54 yo here for alcohol and K2 use. Last here in detox in March 2019 h/o seizures from alcohol use, h/o blackouts. pancreatitis in the lives in [facility] K2 10 sticks/day OBJECTIVE: Vital Signs - 24 hr 06/12/19 14:33 Temperature 98.1 F Pulse Rate 69 Respiratory 20 Rate Blood Pressure 141/80 alert and oriented ASSESSMENT AND PLAN: alcohol use disorder- librium detox protocol
[2019-06-12] MEDS ORDERED: MAG HYDROX/AL HYDROX/SIMETH 30 ML UNIT-DOSE CUP PO PRN (16:56)
[2019-06-12] MEDS ORDERED: chlordiazePOXIDE HCL 25 MG CAPSULE PO PRN (16:56)
[2019-06-12] MEDS ORDERED: BISMUTH SUBSALICYLATE 524 MG/30 ML UD PO PRN (16:56)
[2019-06-12] MEDS ORDERED: MAGNESIUM CITRATE 300 ML BOTTLE PO PRN (16:56)
[2019-06-12] MEDS ORDERED: MAGNESIUM HYDROX 2400MG/30ML ORAL SUSPENSION 30 ML CUP PO PRN (16:56)
[2019-06-12] MEDS ORDERED: METHOCARBAMOL 500 MG TABLET PO PRN (16:56)
[2019-06-12] MEDS ORDERED: MENTHOL/PHENOL 1 EACH UD MM PRN (16:56)
[2019-06-12] MEDS ORDERED: hydrOXYzine PAMOATE 25 MG CAPSULE (FP) PO PRN (16:56)
[2019-06-12] MEDS ORDERED: ACETAMINOPHEN 325 MG TABLET (FP) PO PRN ×2 (16:56)
[2019-06-12] MEDS: MELATONIN 5 MG TABLETS PO PRN (22:24)
[2019-06-12] MEDS: chlordiazePOXIDE HCL 25 MG CAPSULE PO SCH (22:24)
[2019-06-12] MEDS: THIAMINE HCL 100 MG TABLET (FP) PO SCH (22:24)
[2019-06-13] MEDS: chlordiazePOXIDE HCL 25 MG CAPSULE PO SCH ×4 (05:27→22:21)
[2019-06-13 09:38] LABS: HEMATOCRIT 39.1 % (35.4-49); HEMOGLOBIN 12.7 GM/dL (11.7-16.9); MCH 26.9 pg (25.7-33.7); MCHC 32.5 g/dl (32.0-35.9); MEAN CELL VOLUME 82.7 fl (80-96); MEAN PLT VOLUME 8.8 fl (7.5-11.1); PLATELET COUNT 371 K/MM3 (134-434); RBC 4.73 M/mm3 (4.00-5.60); RDW 16.4 % (11.9-15.9); WHITE BLOOD COUNT 5.4 K/mm3 (4.0-10.0)
[2019-06-13 09:46] LABS: ALBUMIN 3.2 g/dl (3.4-5.0); BILIRUBIN,TOTAL 0.3 mg/dL (0.2-1); BLOOD UREA NITROGEN 11.9 mg/dL (7-18); CALCIUM 9.1 mg/dL (8.5-10.1); CREATININE 0.9 mg/dL (0.55-1.3); POTASSIUM 4.4 mmol/L (3.5-5.1); TOT PROT 7.8 g/dl (6.4-8.2)
[2019-06-13] MEDS ORDERED: CYCLOBENZAPRINE HCL 5 MG TABLET PO SCH (10:00)
[2019-06-13] MEDS: NICOTINE 21 MG/24 HOURS TOPICAL PATCH TD SCH (10:25)
[2019-06-13] MEDS: PRENATAL VITAMINS W/ FOLIC ACID TABLET (FP) PO SCH (10:25)
--- NOTE | 2019-06-13 11:46 | PN ---
S CIWA - CIWA Score Nausea/Vomitin-No Nausea/No Vomiting Muscle Tremors: 3 Anxiety: 2 Agitation: 2 Paroxysmal Sweats: 2 Orientation: 0-Oriented Tacttile Disturbances: 0-None Auditory Disturbances: 0-None Visual Disturbances: 0-None Headache: 0-None Present CIWA-Ar Total Score: 9 BHS Progress Note (SOAP) Subjective: sweats shakes interrupted sleep body aches feet hurt i need my sneakers Objective: 06/13/19 11:45 Vital Signs Temperature 97.7 F 06/13/19 07:19 Pulse Rate 61 06/13/19 07:19 Respiratory Rate 18 06/13/19 07:19 Blood Pressure 131/75 06/13/19 07:19 O2 Sat by Pulse Oximetry (%) Laboratory Tests 06/13/19 06/13/19 08:00 08:00 WBC 5.4 RBC 4.73 Hgb 12.7 Hct 39.1 MCV 82.7 MCH 26.9 MCHC 32.5 RDW 16.4 H Plt Count 371 MPV 8.8 Sodium 139 Potassium 4.4 Chloride 106 Carbon Dioxide 28 Anion Gap 5 L BUN 11.9 Creatinine 0.9 Est GFR (CKD-EPI)AfAm 111.83 Est GFR (CKD-EPI)NonAf 96.49 Random Glucose 80 Calcium 9.1 Total Bilirubin 0.3 AST 12 L ALT 17 Alkaline Phosphatase 78 Total Protein 7.8 Albumin 3.2 L labs noted aaox3 ambulating no acute distress Assessment: 06/13/19 11:46 withdrawals sx Plan: continue detox increase fluids pt may wear his sneakers
--- NOTE | 2019-06-13 14:44 | CONSULT ---
[facility] Psychiatric Consult - Data Date of interview: 06/13/19 Admission source: Self-referred Identifying data: Mr Nixon is a 54 years old Black male, father of children, unemployed receiving public assistance , homeless seeking detox treatment for alcohol, cannabis Substance Abuse History: Reports history of alcohol, marijuana and k2 use. Refer to addiction counselor's summary for further information Medical History: Significant for bronchial asthma, dyslipidemia, hypertension and history of treatment for pineda (skin graft to left leg) in 1997. Smokes cigarettes 1 ppd Psychiatric History: Patient is known to this facility from previous admissions. Reportedly he claimed that his first psychiatric contact was in 2003 when he was observed at [facility] for 24 hrs. Reportedly he has a few psychiatric hospitalizations ([facility], [facility] Reportedly he is diagnosed with schizoaffective disorder and prescribed Seroquel 100 mg/hs and Trazodone 100 mg/hs. Reports no association with formal psychiatric OPD care. Most recent treatment was when he was admitted to this facility in January 2019. Then he saw Dr Eckert and he was prescribed Seroquel 100 mg/hs and Trazadone 50 mg/hs. Patient denies history of suicide attempts. at present, denies experiencing psychotic, manic symptoms, S/H ideations. However, reports feeling depressed and sleeping poorly Mental Status Exam - Mental Status Exam Alert and Oriented to: Place, Person Cognitive Function: Fair Patient Appearance: Well Groomed Mood: Depressed Affect: Blunted Patient Behavior: Cooperative Speech Pattern: Clear Voice Loudness: Normal, Limited Variation Thought Process: Goal Oriented Hallucinations: Denies Suicidal Ideation: Denies Homicidal Ideation: Denies Insight/Judgement: Poor Sleep: Poorly Appetite: Good Muscle strength/Tone: Normal Gait/Station: Normal Psychiatric Findings - Problem List ([place] 1, 2,3) (1) Schizoaffective disorder Current Visit: Yes Status: Chronic (2) Substance induced mood disorder Current Visit: No Status: Acute (3) Substance-induced sleep disorder Current Visit: Yes Status: Acute (4) Alcohol dependence with uncomplicated withdrawal Current Visit: No Status: Acute (5) Cannabis dependence Current Visit: Yes Status: Acute (6) Nicotine dependence Current Visit: No Status: Chronic (7) HTN (hypertension) Current Visit: No Status: Chronic Qualifiers: Hypertension type: unspecified Qualified Code(s): I10 - Essential (primary ) hypertension Comment: not on meds . (8) Hyperlipidemia Current Visit: No Status: Chronic (9) Status post skin graft Current Visit: No Status: Chronic (10) Asthma Current Visit: Yes Status: Chronic (11) Pancreatitis Current Visit: Yes Status: Resolved - Initial Treatment Plan Initial Treatment Plan: 1) Resume Seroquel 100 mg po HS. 2) Continue inpatient detoxification
[2019-06-13] MEDS: QUEtiapine FUMARATE 100 MG TABLET (FP) PO SCH (22:21)
[2019-06-13] MEDS: THIAMINE HCL 100 MG TABLET (FP) PO SCH (22:21)
[2019-06-14] MEDS: chlordiazePOXIDE HCL 25 MG CAPSULE PO SCH ×4 (05:47→22:14)
[2019-06-14] MEDS: PRENATAL VITAMINS W/ FOLIC ACID TABLET (FP) PO SCH (10:33)
[2019-06-14] MEDS: NICOTINE 21 MG/24 HOURS TOPICAL PATCH TD SCH (10:33)
--- NOTE | 2019-06-14 10:37 | PN ---
S CIWA - CIWA Score Nausea/Vomitin-No Nausea/No Vomiting Muscle Tremors: 2 Anxiety: 1-Mildly Anxious Agitation: 2 Paroxysmal Sweats: 2 Orientation: 0-Oriented Tacttile Disturbances: 0-None Auditory Disturbances: 0-None Visual Disturbances: 0-None Headache: 0-None Present CIWA-Ar Total Score: 7 BHS Progress Note (SOAP) Subjective: feet hurt i need my sneakers sweats interrupted sleep low back pain Objective: 06/14/19 10:33 Vital Signs Temperature 97.9 F 06/14/19 09:57 Pulse Rate 115 H 06/14/19 09:57 Respiratory Rate 18 06/14/19 09:57 Blood Pressure 131/88 06/14/19 09:57 O2 Sat by Pulse Oximetry (%) Laboratory Tests 06/13/19 06/13/19 08:00 08:00 WBC 5.4 RBC 4.73 Hgb 12.7 Hct 39.1 MCV 82.7 MCH 26.9 MCHC 32.5 RDW 16.4 H Plt Count 371 MPV 8.8 Sodium 139 Potassium 4.4 Chloride 106 Carbon Dioxide 28 Anion Gap 5 L BUN 11.9 Creatinine 0.9 Est GFR (CKD-EPI)AfAm 111.83 Est GFR (CKD-EPI)NonAf 96.49 Random Glucose 80 Calcium 9.1 Total Bilirubin 0.3 AST 12 L ALT 17 Alkaline Phosphatase 78 Total Protein 7.8 Albumin 3.2 L labs noted aaox3 ambulating no acute distress Assessment: 06/14/19 10:35 withdrawal sx Plan: continue detox pt may wear his sneakers lidocaine patch ordered motrin/tylenol prn
[2019-06-14] MEDS: LIDOCAINE 5% TOPICAL PATCH TP SCH (15:34)
[2019-06-14] MEDS: QUEtiapine FUMARATE 100 MG TABLET (FP) PO SCH (22:13)
[2019-06-14] MEDS: MELATONIN 5 MG TABLETS PO PRN (22:14)
[2019-06-14] MEDS: THIAMINE HCL 100 MG TABLET (FP) PO SCH (22:14)
[2019-06-14] MEDS: LIDOCAINE PATCH REMOVAL MC SCH (22:20)
[2019-06-15] MEDS ORDERED: chlordiazePOXIDE HCL 10 MG CAPSULE PO PRN
[2019-06-15] MEDS: chlordiazePOXIDE HCL 10 MG CAPSULE PO SCH ×4 (05:59→22:14)
[2019-06-15] MEDS: PRENATAL VITAMINS W/ FOLIC ACID TABLET (FP) PO SCH (10:37)
[2019-06-15] MEDS: NICOTINE 21 MG/24 HOURS TOPICAL PATCH TD SCH (10:37)
[2019-06-15] MEDS: LIDOCAINE 5% TOPICAL PATCH TP SCH (10:38)
--- NOTE | 2019-06-15 13:03 | PN ---
S CIWA - CIWA Score Nausea/Vomitin-No Nausea/No Vomiting Muscle Tremors: None Anxiety: 2 Agitation: 0-Normal Activity Paroxysmal Sweats: 3 Orientation: 0-Oriented Tacttile Disturbances: 0-None Auditory Disturbances: 0-None Visual Disturbances: 0-None Headache: 2-Mild CIWA-Ar Total Score: 7 BHS Progress Note (SOAP) Subjective: c/o headache, anxiety, and sweats. Objective: 06/15/19 13:04 Vital Signs 06/15/19 06/15/19 07:44 09:46 Temperature 97.5 F L 98.6 F Pulse Rate 63 78 Respiratory 18 18 Rate Blood Pressure 114/65 116/74 Lab Results WBC 5.4 K/mm3 (4.0-10.0) 06/13/19 08:00 RBC 4.73 M/mm3 (4.00-5.60) 06/13/19 08:00 Hgb 12.7 GM/dL (11.7-16.9) 06/13/19 08:00 Hct 39.1 % (35.4-49) 06/13/19 08:00 MCV 82.7 fl (80-96) 06/13/19 08:00 MCHC 32.5 g/dl (32.0-35.9) 06/13/19 08:00 RDW 16.4 % (11.9-15.9) H 06/13/19 08:00 Plt Count 371 K/MM3 (134-434) 06/13/19 08:00 Sodium 139 mmol/L (136-145) 06/13/19 08:00 Potassium 4.4 mmol/L (3.5-5.1) 06/13/19 08:00 Chloride 106 mmol/L (98-107) 06/13/19 08:00 Carbon Dioxide 28 mmol/L (21-32) 06/13/19 08:00 Anion Gap 5 MMOL/L (8-16) L 06/13/19 08:00 BUN 11.9 mg/dL (7-18) 06/13/19 08:00 Creatinine 0.9 mg/dL (0.55-1.3) 06/13/19 08:00 Random Glucose 80 mg/dL (74-106) 06/13/19 08:00 Calcium 9.1 mg/dL (8.5-10.1) 06/13/19 08:00 Labs noted. Assessment: 06/15/19 13:04 Pt is alert and oriented x3 and in no acute respiratory distress. Full ROM, ambulating in the unit. Withdrawal symptoms. Plan: continue detox.
[2019-06-15] MEDS: IBUPROFEN 400 MG TABLET (FP) PO PRN (22:12)
[2019-06-15] MEDS: LIDOCAINE PATCH REMOVAL MC SCH (22:13)
[2019-06-15] MEDS: THIAMINE HCL 100 MG TABLET (FP) PO SCH (22:13)
[2019-06-15] MEDS: QUEtiapine FUMARATE 100 MG TABLET (FP) PO SCH (22:13)
[2019-06-16] MEDS: chlordiazePOXIDE HCL 10 MG CAPSULE PO SCH ×2 (05:21→17:05)
[2019-06-16] MEDS: NICOTINE 21 MG/24 HOURS TOPICAL PATCH TD SCH (10:36)
[2019-06-16] MEDS: PRENATAL VITAMINS W/ FOLIC ACID TABLET (FP) PO SCH (10:36)
[2019-06-16] MEDS: LIDOCAINE 5% TOPICAL PATCH TP SCH (10:36)
[2019-06-16] MEDS: IBUPROFEN 400 MG TABLET (FP) PO PRN (10:37)
--- NOTE | 2019-06-16 18:06 | PN ---
S CIWA - CIWA Score Nausea/Vomitin-No Nausea/No Vomiting Muscle Tremors: None Anxiety: 3 Agitation: 3 Paroxysmal Sweats: No Perspiration Orientation: 0-Oriented Tacttile Disturbances: 0-None Auditory Disturbances: 0-None Visual Disturbances: 0-None Headache: 0-None Present CIWA-Ar Total Score: 6 BHS Progress Note (SOAP) Subjective: Chills, sweat, interrupted sleep, constipation (instructed to request medication from RN for constipation) Objective: 06/16/19 18:05 Last Vital Signs Temp Pulse Resp BP Pulse Ox 97.9 F 75 18 137/73 06/16/19 17:20 06/16/19 17:20 06/16/19 17:20 06/16/19 17:20 Laboratory Tests 06/13/19 06/13/19 08:00 08:00 WBC 5.4 RBC 4.73 Hgb 12.7 Hct 39.1 MCV 82.7 MCH 26.9 MCHC 32.5 RDW 16.4 H Plt Count 371 MPV 8.8 Sodium 139 Potassium 4.4 Chloride 106 Carbon Dioxide 28 Anion Gap 5 L BUN 11.9 Creatinine 0.9 Est GFR (CKD-EPI)AfAm 111.83 Est GFR (CKD-EPI)NonAf 96.49 Random Glucose 80 Calcium 9.1 Total Bilirubin 0.3 AST 12 L ALT 17 Alkaline Phosphatase 78 Total Protein 7.8 Albumin 3.2 L Labs reviewed Assessment: 06/16/19 18:05 Withdrawal sxs Plan: Continue detox Encouraged PO water intake Patient scheduled for discharge home tomorrow
[2019-06-16] MEDS: QUEtiapine FUMARATE 100 MG TABLET (FP) PO SCH (22:10)
[2019-06-16] MEDS: THIAMINE HCL 100 MG TABLET (FP) PO SCH (22:10)
[2019-06-16] MEDS: LIDOCAINE PATCH REMOVAL MC SCH (22:11)
[2019-06-17] MEDS ORDERED: chlordiazePOXIDE HCL 10 MG CAPSULE PO ONE (05:00)
--- NOTE | 2019-06-17 08:59 | DS ---
[facility] Detox Discharge Summary Admission Date: 06/12/19 Discharge Date: 06/17/19 - History Present History: Alcohol Dependence, Cannabis Dependence - Physical Exam Results Vital Signs: Vital Signs Temperature 98.1 F 06/17/19 08:24 Pulse Rate 89 06/17/19 08:24 Respiratory Rate 18 06/17/19 08:24 Blood Pressure 131/67 06/17/19 08:24 O2 Sat by Pulse Oximetry (%) Pertinent Admission Physical Exam Findings: pt arrived in withdrawals Laboratory Tests 06/13/19 06/13/19 08:00 08:00 WBC 5.4 RBC 4.73 Hgb 12.7 Hct 39.1 MCV 82.7 MCH 26.9 MCHC 32.5 RDW 16.4 H Plt Count 371 MPV 8.8 Sodium 139 Potassium 4.4 Chloride 106 Carbon Dioxide 28 Anion Gap 5 L BUN 11.9 Creatinine 0.9 Est GFR (CKD-EPI)AfAm 111.83 Est GFR (CKD-EPI)NonAf 96.49 Random Glucose 80 Calcium 9.1 Total Bilirubin 0.3 AST 12 L ALT 17 Alkaline Phosphatase 78 Total Protein 7.8 Albumin 3.2 L today pt is aaox3 ambulating no acute distress no s/s of withdrawals - Treatment Hospital Course: Detox Protocol Followed, Detoxed Safely, Responded well, Discharged Condition Good, Rehab Referral Accepted Patient has Accepted a Rehab Referral to: pt referred to [facility] - Medication Discharge Medications: Ambulatory Orders NK [No Known Home Medication] 01/25/19 - Diagnosis (1) Cannabis dependence Current Visit: Yes Status: Chronic (2) Substance-induced sleep disorder Current Visit: Yes Status: Acute (3) Asthma Current Visit: Yes Status: Chronic Qualifiers: Asthma severity: mild Asthma persistence: unspecified Asthma complication type: unspecified Qualified Code(s): J45.909 - Unspecified asthma , uncomplicated (4) Schizoaffective disorder Current Visit: Yes Status: Chronic (5) Alcohol dependence with uncomplicated withdrawal Current Visit: Yes Status: Chronic (6) Anxiety disorder Current Visit: No Status: Acute (7) Substance induced mood disorder Current Visit: No Status: Acute (8) Callus of foot Current Visit: No Status: Chronic (9) DEPRESSION Current Visit: No Status: Chronic (10) HTN (hypertension) Current Visit: Yes Status: Chronic Qualifiers: Hypertension type: essential hypertension Qualified Code(s): I10 - Essential (primary) hypertension (11) History of schizoaffective disorder Current Visit: Yes Status: Chronic (12) Hyperlipidemia Current Visit: Yes Status: Chronic (13) Insomnia Current Visit: No Status: Chronic (14) Nicotine dependence Current Visit: Yes Status: Chronic (15) Noncompliance by refusing intervention or support Current Visit: No Status: Chronic (16) Obesity Current Visit: No Status: Chronic (17) s/p skin grafts both legs Current Visit: No Status: Chronic (18) Drug-induced mood disorder Current Visit: No Status: Suspected (19) Hypercholesteremia Current Visit: No Status: Suspected (20) MDD (major depressive disorder), recurrent episode, moderate Current Visit: No Status: Suspected (21) Substance or medication-induced depressive disorder Current Visit: No Status: Suspected - AMA Did Patient Leave Against Medical Advice: No
[2019-06-17] MEDS: PRENATAL VITAMINS W/ FOLIC ACID TABLET (FP) PO SCH (10:12)
[2019-06-17] MEDS: NICOTINE 21 MG/24 HOURS TOPICAL PATCH TD SCH (10:13)
[2019-06-17] MEDS: LIDOCAINE 5% TOPICAL PATCH TP SCH (10:13)
[2019-06-17 13:27] VITALS: BP 138/76; PULSE 84; TEMP 97.7
== END 2019-06-17 17:50 | disposition other institution (70) | DRG 775 ==
LOC: YASAS 12:37 → Y6N 17:19
PROVIDERS: ADMIT Surgery; ATTEND Surgery
PROC: HZ2ZZZZ Detoxification Services for Substance Abuse Treatment (ICD-10-PCS; principal; 2019-06-12)
DX: F10.230 Alcohol dependence with withdrawal, uncomplicated (principal); F12.20 Cannabis dependence, uncomplicated; F17.210 Nicotine dependence, cigarettes, uncomplicated; F25.0 Schizoaffective disorder, bipolar type; F41.9 Anxiety disorder, unspecified; F19.24 Other psychoactive substance dependence with psychoactive substance-induced mood disorder; F19.282 Other psychoactive substance dependence with psychoactive substance-induced sleep disorder; F33.1 Major depressive disorder, recurrent, moderate; I10 Essential (primary) hypertension; E78.5 Hyperlipidemia, unspecified; G47.00 Insomnia, unspecified; J45.909 Unspecified asthma, uncomplicated; E66.9 Obesity, unspecified; Z68.28 Body mass index [BMI] 28.0-28.9, adult; Z91.19 Patient's noncompliance with other medical treatment and regimen; Z87.19 Personal history of other diseases of the digestive system
CPT/HCPCS: 36415; 80053; 85027

== ENCOUNTER 2019-06-17 17:59 | Inpatient (IN) | payer OTHER ==
--- NOTE | 2019-06-17 15:44 | HP ---
JAMARI DAVALOS Rehab Assess/Revision - Admission History Admitted to Rehab from[facility] - Findings Detox History & Physical reviewed: Yes Concur with findings: Yes Inpatient Rehab Admission - Rehab Decision to Admit Inpatient rehab admission?: Yes - Initial Determination Are CD services needed?: Yes Free of communicable disease: Yes Not in need of hospitalization: Yes - Rehab Admission Criteria Previous failed treatment: Yes Poor recovery environment: Yes Comorbidities: Yes Lacks judgement: Yes Patient is meeting Inpatient Rehab admission criteria:: Yes
[~2019-06-17 17:59] MED LIST: ACETAMINOPHEN 325 MG TABLET (FP) PO PRN; IBUPROFEN 400 MG TABLET (FP) PO PRN; LOPERAMIDE HCL 2 MG CAPSULE PO PRN; MAG HYDROX/AL HYDROX/SIMETH 30 ML UNIT-DOSE CUP PO PRN; MAGNESIUM CITRATE 300 ML BOTTLE PO PRN; MAGNESIUM HYDROX 2400MG/30ML ORAL SUSPENSION 30 ML CUP PO PRN; MENTHOL/PHENOL 1 EACH UD MM PRN; NICOTINE POLACRILEX 4 MG GUM BUC PRN; P-EPHED 60MG/TRIPROLIDI 2.5MG TABLET PO PRN; guaiFENesin 200 MG/10 ML 10 ML UNIT-DOSE CUPS PO PRN
--- NOTE | 2019-06-17 18:25 | PN ---
JAMARI Progress Note Note: Psychiatry Attending's note : Called for medications orders. 54 y/o AA male coming from [address] [place] [address]. Stable mental status. Completed detoxification. Now entering rehabilitative care. Met with the patient. History taken. Patient is already known to me. Medications reviewed. Dr Hernandez's note of 06/13/19 : read and appreciated. Plan : Seroquel 100 mg po hs Side effects/benefits discussed with patient. Made aware of risk of sedation, metabolic syndrome and movement disorders. Mr Nixon expresses his agreement with this plan of care. Gave verbal consent to .
[2019-06-17] MEDS: MELATONIN 5 MG TABLETS PO PRN (21:17)
[2019-06-17] MEDS: QUEtiapine FUMARATE 100 MG TABLET (FP) PO SCH (21:17)
[2019-06-17] MEDS: THIAMINE HCL 100 MG TABLET (FP) PO SCH (21:17)
[2019-06-17] MEDS ORDERED: traZODone HCL 100 MG TABLET (FP) PO SCH (22:00)
[2019-06-18] MEDS: NICOTINE 21 MG/24 HOURS TOPICAL PATCH TD SCH (10:22)
[2019-06-18] MEDS: PRENATAL VITAMINS W/ FOLIC ACID TABLET (FP) PO SCH (10:22)
[2019-06-18] MEDS ORDERED: FLU VACCINE QUAD 60 MCG/0.5 ML (MDV 19-20) IM ONE (12:00)
[2019-06-18] MEDS ORDERED: BENZOCAINE 20 % GEL TUBE MM PRN (15:59)
--- NOTE | 2019-06-18 15:59 | PN ---
S Progress Note Note: Pt reports loose front tooth for at least the past 2 months but did not go to the dentist. Pt denies pain to tooth but wondering if it can be taken out. Pt was offered dietary consult for tolerable foods but he declined stating "I can eat anything". Vital Signs - 24 hr 06/17/19 06/18/19 06/18/19 18:18 00:30 03:30 Temperature 97.3 F L Pulse Rate 101 H Respiratory 18 18 18 Rate Blood Pressure 122/79 06/18/19 07:09 Temperature 98.3 F Pulse Rate 88 Respiratory 18 Rate Blood Pressure 127/81 Oral exam:loose front upper tooth. No redness or swelling A/P Loose tooth poor dental hygiene Plan:Pt will follow dentist for dental care after discharge. Re-evaluate if needed. Anbesol apply to affected tooth prn.
[2019-06-18] MEDS: QUEtiapine FUMARATE 100 MG TABLET (FP) PO SCH (21:18)
[2019-06-18] MEDS: MELATONIN 5 MG TABLETS PO PRN (21:19)
[2019-06-18] MEDS: THIAMINE HCL 100 MG TABLET (FP) PO SCH (21:19)
[2019-06-19 07:09] VITALS: BP 117/71; PULSE 90; TEMP 96.8
--- NOTE | 2019-06-19 08:54 | DS ---
[facility] Rehab Discharge Summary - [facility] Rehab Discharge Summary Admission Date: 06/17/19 Discharge Date: 06/19/19 - History Present History: Alcohol dependence, Cannabis dependence, K2 Additional Comments: Pt is a 54 y/o male who was admitted to rehab after completing detox on on 06/17/19. Pt requesting an early discharge to take care of his loose tooth " so I can focus on important things". Pt met with his counselor and has been referred to [facility] for CD aftercsre. Pt will follow up with Dental care and primary care with [facility]. Pertinent Past History: Asthma HTN HLD Obesity Depression - Discharge Physical Exam Vital Signs: Vital Signs Temperature 96.8 F L 06/19/19 07:08 Pulse Rate 90 06/19/19 07:08 Respiratory Rate 18 06/19/19 07:08 Blood Pressure 117/71 06/19/19 07:08 O2 Sat by Pulse Oximetry (%) Alert o x 3 Well groomed,well nourished denies s/h/i Heent:Normocephalic,eomi,marylu,normal hearing,loose upper front tooth/poor dental hygiene/missing teeth nad oob ambulating with steady gait Cardiac:s1 s2, rrr Lungs:cta,graciela. Abdomen:soft,+bs,nt,nd Extremities/Skin:No edema,full ROM;skin intact but dry Pertinent Admission Physical Exam Findings: unremarkable/status unchanged from admission - Treatment Discharge Condition: Discharge condition good Hospital Course: Rehabilitated safely and responded well accepted CD aftercare referral - Medication Discharge Medications: Ambulatory Orders NK [No Known Home Medication] 01/25/19 - Medication-Assisted Treatment (MAT) Medication-Assisted Treatment (MAT): No - Discharge Instructions Diet, activity, other medical instructions: Diet:Regular Activity: oob ad clarence Other medical instructions:Follow up with CD after care with [facility] as recommended. Follow up with Dentist today after discharge to evaluate and treat your loose tooth at [facility]. - Diagnosis (1) Alcohol dependence Status: Chronic Qualifiers: Substance use status: uncomplicated Qualified Code(s): F10.20 - Alcohol dependence, uncomplicated (2) Asthma Status: Chronic Qualifiers: Asthma severity: mild Asthma persistence: unspecified Asthma complication type: unspecified Qualified Code(s): J45.909 - Unspecified asthma , uncomplicated (3) Cannabis dependence Status: Chronic (4) HTN (hypertension) Status: Chronic Qualifiers: Hypertension type: essential hypertension Qualified Code(s): I10 - Essential (primary) hypertension (5) Hyperlipidemia Status: Chronic (6) Nicotine dependence Status: Chronic - Follow-up Referral Minutes to complete discharge: 25 - AMA Did Patient Leave Against Medical Advice: No
[2019-06-19] MEDS: PRENATAL VITAMINS W/ FOLIC ACID TABLET (FP) PO SCH (11:02)
[2019-06-19] MEDS: NICOTINE 21 MG/24 HOURS TOPICAL PATCH TD SCH (11:02)
== END 2019-06-19 09:45 | disposition home or self-care (01) | DRG 772 ==
LOC: YASAS 17:59 → Y5N 18:00
PROVIDERS: ADMIT Neuromusculoskeletal Medicine & OMM; ATTEND Neuromusculoskeletal Medicine & OMM
PROC: HZ42ZZZ Group Counseling for Substance Abuse Treatment, Cognitive-Behavioral (ICD-10-PCS; principal; 2019-06-17)
DX: F10.20 Alcohol dependence, uncomplicated (principal); F17.210 Nicotine dependence, cigarettes, uncomplicated; I10 Essential (primary) hypertension; J45.909 Unspecified asthma, uncomplicated; E78.5 Hyperlipidemia, unspecified; K08.9 Disorder of teeth and supporting structures, unspecified; G47.00 Insomnia, unspecified

== ENCOUNTER 2019-07-20 14:22 | Inpatient (IN) | payer OTHER ==
[2019-07-20 17:34] VITALS: BMI 28.7
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
[2019-07-20] MEDS ORDERED: hydrOXYzine PAMOATE 25 MG CAPSULE (FP) PO PRN (20:14)
[2019-07-20] MEDS ORDERED: MAGNESIUM HYDROX 2400MG/30ML ORAL SUSPENSION 30 ML CUP PO PRN (20:14)
[2019-07-20] MEDS ORDERED: IBUPROFEN 400 MG TABLET (FP) PO PRN (20:14)
[2019-07-20] MEDS ORDERED: BISMUTH SUBSALICYLATE 524 MG/30 ML UD PO PRN (20:14)
[2019-07-20] MEDS ORDERED: METHOCARBAMOL 500 MG TABLET PO PRN (20:14)
[2019-07-20] MEDS ORDERED: ACETAMINOPHEN 325 MG TABLET (FP) PO PRN ×3 (20:14→20:15)
[2019-07-20] MEDS ORDERED: MAG HYDROX/AL HYDROX/SIMETH 30 ML UNIT-DOSE CUP PO PRN (20:14)
[2019-07-20] MEDS ORDERED: MAGNESIUM CITRATE 300 ML BOTTLE PO PRN ×2 (20:14→20:15)
[2019-07-20] MEDS ORDERED: MENTHOL/PHENOL 1 EACH UD MM PRN (20:14)
[2019-07-20] MEDS ORDERED: chlordiazePOXIDE HCL 25 MG CAPSULE PO PRN (20:14)
[2019-07-20] MEDS ORDERED: DICYCLOMINE HCL 10 MG CAPSULE PO PRN (20:15)
[2019-07-20] MEDS ORDERED: NICOTINE POLACRILEX 2 MG GUM BUC PRN (20:15)
[2019-07-20] MEDS ORDERED: guaiFENesin 200 MG/10 ML 10 ML UNIT-DOSE CUPS PO PRN (20:15)
[2019-07-20] MEDS ORDERED: P-EPHED 60MG/TRIPROLIDI 2.5MG TABLET PO PRN (20:15)
[2019-07-20] MEDS ORDERED: ONDANSETRON *ODT* 4 MG TABLET SL PRN (20:15)
[2019-07-20] MEDS: THIAMINE HCL 100 MG TABLET (FP) PO SCH (22:04)
[2019-07-20] MEDS: MELATONIN 5 MG TABLETS PO PRN (22:05)
[2019-07-20] MEDS: chlordiazePOXIDE HCL 25 MG CAPSULE PO SCH (22:05)
[2019-07-21] MEDS: chlordiazePOXIDE HCL 25 MG CAPSULE PO SCH ×4 (05:22→22:28)
[2019-07-21 09:23] LABS: HEMATOCRIT 34.2 % (35.4-49); HEMOGLOBIN 11.7 GM/dL (11.7-16.9); MCH 28.6 pg (25.7-33.7); MCHC 34.2 g/dl (32.0-35.9); MEAN CELL VOLUME 83.6 fl (80-96); MEAN PLT VOLUME 8.7 fl (7.5-11.1); PLATELET COUNT 351 K/MM3 (134-434); RBC 4.09 M/mm3 (4.00-5.60); RDW 16.3 % (11.9-15.9)
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
[2019-07-21 09:38] LABS: ALBUMIN 3.1 g/dl (3.4-5.0); BILIRUBIN,TOTAL 0.8 mg/dL (0.2-1); BLOOD UREA NITROGEN 14.8 mg/dL (7-18); CALCIUM 8.3 mg/dL (8.5-10.1); CREATININE 0.9 mg/dL (0.55-1.3); POTASSIUM 4.5 mmol/L (3.5-5.1); TOT PROT 7.2 g/dl (6.4-8.2)
[2019-07-21] MEDS: PRENATAL VITAMINS W/ FOLIC ACID TABLET (FP) PO SCH (10:48)
[2019-07-21] MEDS: NICOTINE 14 MG/24 HOURS TOPICAL PATCH TD SCH (10:49)
--- NOTE | 2019-07-21 11:45 | PN ---
S CIWA - CIWA Score Nausea/Vomitin-Mild Nausea/No Vomiting Muscle Tremors: 3 Anxiety: 3 Agitation: 2 Paroxysmal Sweats: 2 Orientation: 2-Disoriented Date<2 days (date of week and day of month) Tacttile Disturbances: 1-Very Mild Itch/Numbness Auditory Disturbances: 1-Very Mild Visual Disturbances: 1-Very Mild Sensitivity Headache: 1-Very Mild CIWA-Ar Total Score: 17 BHS Progress Note (SOAP) Subjective: 54 years old male admitted on 07/20/19 for alcohol withdrawal sx management treated with librium detox regimen patient tolerated well alert oriented x 3 long history of schizophrenia treated with seroquel 100 mg po hs seen by psychiatrist resume seroquen 100 mg po feeling tired resting on bed comfortably Objective: 07/21/19 11:46 Vital Signs Temperature 97.4 F L 07/21/19 09:24 Pulse Rate 76 07/21/19 09:24 Respiratory Rate 18 07/21/19 09:24 Blood Pressure 109/62 07/21/19 09:24 O2 Sat by Pulse Oximetry (%) Laboratory Last Values WBC 6.0 K/mm3 (4.0-10.0) 07/21/19 07:50 RBC 4.09 M/mm3 (4.00-5.60) 07/21/19 07:50 Hgb 11.7 GM/dL (11.7-16.9) 07/21/19 07:50 Hct 34.2 % (35.4-49) L 07/21/19 07:50 MCV 83.6 fl (80-96) 07/21/19 07:50 MCH 28.6 pg (25.7-33.7) 07/21/19 07:50 MCHC 34.2 g/dl (32.0-35.9) 07/21/19 07:50 RDW 16.3 % (11.9-15.9) H 07/21/19 07:50 Plt Count 351 K/MM3 (134-434) 07/21/19 07:50 MPV 8.7 fl (7.5-11.1) 07/21/19 07:50 Sodium 138 mmol/L (136-145) 07/21/19 07:50 Potassium 4.5 mmol/L (3.5-5.1) 07/21/19 07:50 Chloride 106 mmol/L (98-107) 07/21/19 07:50 Carbon Dioxide 25 mmol/L (21-32) 07/21/19 07:50 Anion Gap 6 MMOL/L (8-16) L 07/21/19 07:50 BUN 14.8 mg/dL (7-18) 07/21/19 07:50 Creatinine 0.9 mg/dL (0.55-1.3) 07/21/19 07:50 Est GFR (CKD-EPI)AfAm 111.83 07/21/19 07:50 Est GFR (CKD-EPI)NonAf 96.49 07/21/19 07:50 Random Glucose 79 mg/dL (74-106) 07/21/19 07:50 Calcium 8.3 mg/dL (8.5-10.1) L 07/21/19 07:50 Total Bilirubin 0.8 mg/dL (0.2-1) 07/21/19 07:50 AST 20 U/L (15-37) 07/21/19 07:50 ALT 16 U/L (13-61) 07/21/19 07:50 Alkaline Phosphatase 69 U/L (45-117) 07/21/19 07:50 Total Protein 7.2 g/dl (6.4-8.2) 07/21/19 07:50 Albumin 3.1 g/dl (3.4-5.0) L 07/21/19 07:50 lab noted Assessment: 07/21/19 11:46 alcohol withdrawal sx Plan: continue librium detox regimen
[2019-07-21 16:31] LABS: PH,URINE 5.5 (5.0-8.0); URINE APPEARANCE CLEAR; URINE BILIRUBIN NEGATIVE (NEGATIVE); URINE COLOR YELLOW; URINE GLUCOSE (UA) NEGATIVE (NEGATIVE); URINE KETONE NEGATIVE (NEGATIVE); URINE LEUK ESTERASE NEGATIVE (NEGATIVE); URINE NITRITE NEGATIVE (NEGATIVE); URINE PROTEIN NEGATIVE (NEGATIVE); URINE UROBILINOGEN 0.2 mg/dL (0.2-1.0)
[2019-07-21] MEDS: QUEtiapine FUMARATE 100 MG TABLET (FP) PO SCH (22:28)
[2019-07-21] MEDS: THIAMINE HCL 100 MG TABLET (FP) PO SCH (22:28)
[2019-07-22] MEDS: chlordiazePOXIDE HCL 25 MG CAPSULE PO SCH ×4 (05:41→22:02)
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
[2019-07-22] MEDS: NICOTINE 14 MG/24 HOURS TOPICAL PATCH TD SCH (10:29)
[2019-07-22] MEDS: PRENATAL VITAMINS W/ FOLIC ACID TABLET (FP) PO SCH (10:29)
--- NOTE | 2019-07-22 11:03 | EKG ---
Test Reason : Blood Pressure : / mmHG Vent. Rate : 062 BPM Atrial Rate : 062 BPM P-R Int : 154 ms QRS Dur : 098 ms QT Int : 444 ms P-R-T Axes : 072 031 032 degrees QTc Int : 450 ms NORMAL SINUS RHYTHM NORMAL ECG WHEN COMPARED WITH ECG OF 15-FEB-2018 01:28, NO SIGNIFICANT CHANGE WAS FOUND Confirmed by FEDERICA CRESPO MD ([id number]) on 07/22/2019 11:03:22 AM Referred By: Confirmed By:FEDERICA CRESPO MD
[2019-07-22] MEDS: THIAMINE HCL 100 MG TABLET (FP) PO SCH (22:02)
[2019-07-22] MEDS: QUEtiapine FUMARATE 100 MG TABLET (FP) PO SCH (22:02)
[2019-07-23] MEDS ORDERED: chlordiazePOXIDE HCL 10 MG CAPSULE PO PRN
[2019-07-23] MEDS: chlordiazePOXIDE HCL 10 MG CAPSULE PO SCH ×4 (05:22→22:01)
[2019-07-23] MEDS: NICOTINE 14 MG/24 HOURS TOPICAL PATCH TD SCH (10:13)
[2019-07-23] MEDS: PRENATAL VITAMINS W/ FOLIC ACID TABLET (FP) PO SCH (10:13)
--- NOTE | 2019-07-23 11:52 | PN ---
[facility] CIWA - CIWA Score Nausea/Vomitin-Mild Nausea/No Vomiting Muscle Tremors: 3 Anxiety: 2 Agitation: 1-Slight > Activity Paroxysmal Sweats: 2 Orientation: 0-Oriented Tacttile Disturbances: 0-None Auditory Disturbances: 1-Very Mild Visual Disturbances: 0-None Headache: 0-None Present CIWA-Ar Total Score: 10 S Progress Note (SOAP) Subjective: 54 years old male admitted on 07/20/19 for alcohol withdrawal sx management treated with librium detox regimen patient tolerated well ate breakfast ambulating on hallway limited conversation with peers discuss aftercare with staff received keg header requests that patient does not needed ncs order ella diet Objective: 07/23/19 11:51 Vital Signs Temperature 96.5 F L 07/23/19 09:19 Pulse Rate 84 07/23/19 09:19 Respiratory Rate 18 07/23/19 09:19 Blood Pressure 128/74 07/23/19 09:19 O2 Sat by Pulse Oximetry (%) Laboratory Last Values WBC 6.0 K/mm3 (4.0-10.0) 07/21/19 07:50 RBC 4.09 M/mm3 (4.00-5.60) 07/21/19 07:50 Hgb 11.7 GM/dL (11.7-16.9) 07/21/19 07:50 Hct 34.2 % (35.4-49) L 07/21/19 07:50 MCV 83.6 fl (80-96) 07/21/19 07:50 MCH 28.6 pg (25.7-33.7) 07/21/19 07:50 MCHC 34.2 g/dl (32.0-35.9) 07/21/19 07:50 RDW 16.3 % (11.9-15.9) H 07/21/19 07:50 Plt Count 351 K/MM3 (134-434) 07/21/19 07:50 MPV 8.7 fl (7.5-11.1) 07/21/19 07:50 Sodium 138 mmol/L (136-145) 07/21/19 07:50 Potassium 4.5 mmol/L (3.5-5.1) 07/21/19 07:50 Chloride 106 mmol/L (98-107) 07/21/19 07:50 Carbon Dioxide 25 mmol/L (21-32) 07/21/19 07:50 Anion Gap 6 MMOL/L (8-16) L 07/21/19 07:50 BUN 14.8 mg/dL (7-18) 07/21/19 07:50 Creatinine 0.9 mg/dL (0.55-1.3) 07/21/19 07:50 Est GFR (CKD-EPI)AfAm 111.83 07/21/19 07:50 Est GFR (CKD-EPI)NonAf 96.49 07/21/19 07:50 Random Glucose 79 mg/dL (74-106) 07/21/19 07:50 Calcium 8.3 mg/dL (8.5-10.1) L 07/21/19 07:50 Total Bilirubin 0.8 mg/dL (0.2-1) 07/21/19 07:50 AST 20 U/L (15-37) 07/21/19 07:50 ALT 16 U/L (13-61) 07/21/19 07:50 Alkaline Phosphatase 69 U/L (45-117) 07/21/19 07:50 Total Protein 7.2 g/dl (6.4-8.2) 07/21/19 07:50 Albumin 3.1 g/dl (3.4-5.0) L 07/21/19 07:50 Urine Color Yellow 07/21/19 10:00 Urine Appearance Clear 07/21/19 10:00 Urine pH 5.5 (5.0-8.0) 07/21/19 10:00 Ur Specific [place] 1.029 (1.010-1.035) 07/21/19 10:00 Urine Protein Negative (NEGATIVE) 07/21/19 10:00 Urine Glucose (UA) Negative (NEGATIVE) 07/21/19 10:00 Urine Ketones Negative (NEGATIVE) 07/21/19 10:00 Urine Blood Negative (NEGATIVE) 07/21/19 10:00 Urine Nitrite Negative (NEGATIVE) 07/21/19 10:00 Urine Bilirubin Negative (NEGATIVE) 07/21/19 10:00 Urine Urobilinogen 0.2 mg/dL (0.2-1.0) 07/21/19 10:00 Ur Leukocyte Esterase Negative (NEGATIVE) 07/21/19 10:00 lab noted Assessment: 07/23/19 11:52 alcohol withdrawal sx Plan: continue libirum detox regimen
[2019-07-23] MEDS: BACITRACIN 15 GM TUBE TOPICAL OINTMENT TP SCH ×2 (14:33→22:02)
[2019-07-23] MEDS: THIAMINE HCL 100 MG TABLET (FP) PO SCH (22:01)
[2019-07-23] MEDS: QUEtiapine FUMARATE 100 MG TABLET (FP) PO SCH (22:01)
[2019-07-24] MEDS: chlordiazePOXIDE HCL 10 MG CAPSULE PO SCH ×2 (05:30→17:09)
[2019-07-24] MEDS: BACITRACIN 15 GM TUBE TOPICAL OINTMENT TP SCH ×3 (06:23→22:02)
--- NOTE | 2019-07-24 09:13 | PN ---
[facility] CIWA - CIWA Score Nausea/Vomitin-No Nausea/No Vomiting Muscle Tremors: 2 Anxiety: 2 Agitation: 1-Slight > Activity Paroxysmal Sweats: No Perspiration Orientation: 0-Oriented Tacttile Disturbances: 0-None Auditory Disturbances: 0-None Visual Disturbances: 0-None Headache: 0-None Present CIWA-Ar Total Score: 5 S Progress Note (SOAP) Subjective: 54 years old male admitted on 07/20/19 for alcohol withdrawal sx management treated with librium detox regimen patient tolerated well less tremor mild anxiety discuss aftercare with staff Objective: 07/24/19 09:12 Vital Signs Temperature 96.9 F L 07/24/19 06:03 Pulse Rate 73 07/24/19 06:03 Respiratory Rate 18 07/24/19 06:03 Blood Pressure 115/71 07/24/19 06:03 O2 Sat by Pulse Oximetry (%) Laboratory Last Values WBC 6.0 K/mm3 (4.0-10.0) 07/21/19 07:50 RBC 4.09 M/mm3 (4.00-5.60) 07/21/19 07:50 Hgb 11.7 GM/dL (11.7-16.9) 07/21/19 07:50 Hct 34.2 % (35.4-49) L 07/21/19 07:50 MCV 83.6 fl (80-96) 07/21/19 07:50 MCH 28.6 pg (25.7-33.7) 07/21/19 07:50 MCHC 34.2 g/dl (32.0-35.9) 07/21/19 07:50 RDW 16.3 % (11.9-15.9) H 07/21/19 07:50 Plt Count 351 K/MM3 (134-434) 07/21/19 07:50 MPV 8.7 fl (7.5-11.1) 07/21/19 07:50 Sodium 138 mmol/L (136-145) 07/21/19 07:50 Potassium 4.5 mmol/L (3.5-5.1) 07/21/19 07:50 Chloride 106 mmol/L (98-107) 07/21/19 07:50 Carbon Dioxide 25 mmol/L (21-32) 07/21/19 07:50 Anion Gap 6 MMOL/L (8-16) L 07/21/19 07:50 BUN 14.8 mg/dL (7-18) 07/21/19 07:50 Creatinine 0.9 mg/dL (0.55-1.3) 07/21/19 07:50 Est GFR (CKD-EPI)AfAm 111.83 07/21/19 07:50 Est GFR (CKD-EPI)NonAf 96.49 07/21/19 07:50 Random Glucose 79 mg/dL (74-106) 07/21/19 07:50 Calcium 8.3 mg/dL (8.5-10.1) L 07/21/19 07:50 Total Bilirubin 0.8 mg/dL (0.2-1) 07/21/19 07:50 AST 20 U/L (15-37) 07/21/19 07:50 ALT 16 U/L (13-61) 07/21/19 07:50 Alkaline Phosphatase 69 U/L (45-117) 07/21/19 07:50 Total Protein 7.2 g/dl (6.4-8.2) 07/21/19 07:50 Albumin 3.1 g/dl (3.4-5.0) L 07/21/19 07:50 Urine Color Yellow 07/21/19 10:00 Urine Appearance Clear 07/21/19 10:00 Urine pH 5.5 (5.0-8.0) 07/21/19 10:00 Ur Specific [place] 1.029 (1.010-1.035) 07/21/19 10:00 Urine Protein Negative (NEGATIVE) 07/21/19 10:00 Urine Glucose (UA) Negative (NEGATIVE) 07/21/19 10:00 Urine Ketones Negative (NEGATIVE) 07/21/19 10:00 Urine Blood Negative (NEGATIVE) 07/21/19 10:00 Urine Nitrite Negative (NEGATIVE) 07/21/19 10:00 Urine Bilirubin Negative (NEGATIVE) 07/21/19 10:00 Urine Urobilinogen 0.2 mg/dL (0.2-1.0) 07/21/19 10:00 Ur Leukocyte Esterase Negative (NEGATIVE) 07/21/19 10:00 lab noted Assessment: 07/24/19 09:12 alcohol withdrawal sx Plan: continue librium detox regimen
[2019-07-24] MEDS: PRENATAL VITAMINS W/ FOLIC ACID TABLET (FP) PO SCH (10:21)
[2019-07-24] MEDS: NICOTINE 14 MG/24 HOURS TOPICAL PATCH TD SCH (10:22)
[2019-07-24] MEDS: QUEtiapine FUMARATE 100 MG TABLET (FP) PO SCH (21:32)
[2019-07-24] MEDS: THIAMINE HCL 100 MG TABLET (FP) PO SCH (21:32)
[2019-07-24] MEDS: MELATONIN 5 MG TABLETS PO PRN (21:34)
[2019-07-25] MEDS ORDERED: chlordiazePOXIDE HCL 10 MG CAPSULE PO ONE (05:00)
[2019-07-25] MEDS: BACITRACIN 15 GM TUBE TOPICAL OINTMENT TP SCH (06:22)
[2019-07-25 09:09] VITALS: BP 140/71; PULSE 98; TEMP 97.1
[2019-07-25] MEDS: NICOTINE 14 MG/24 HOURS TOPICAL PATCH TD SCH (10:44)
[2019-07-25] MEDS: PRENATAL VITAMINS W/ FOLIC ACID TABLET (FP) PO SCH (10:44)
--- NOTE | 2019-07-25 12:20 | DS ---
[facility] Detox Discharge Summary Admission Date: 07/20/19 Discharge Date: 07/25/19 - History Present History: Alcohol Dependence Additional Comments: 54 years old male admitted on 07/20/19 for alcohol withdrawal sx management treated with librium detox regimen patient tolerated well patient is alert oriented x 3 cardiac S1S2 regular rate rhythm respiratory clear lung bilaterally on auscultation skin warm dry - Physical Exam Results Vital Signs: Vital Signs Temperature 97.1 F L 07/25/19 09:08 Pulse Rate 98 H 07/25/19 09:08 Respiratory Rate 18 07/25/19 09:08 Blood Pressure 140/71 07/25/19 09:08 O2 Sat by Pulse Oximetry (%) Pertinent Admission Physical Exam Findings: alcohol withdrawal sx Laboratory Last Values WBC 6.0 K/mm3 (4.0-10.0) 07/21/19 07:50 RBC 4.09 M/mm3 (4.00-5.60) 07/21/19 07:50 Hgb 11.7 GM/dL (11.7-16.9) 07/21/19 07:50 Hct 34.2 % (35.4-49) L 07/21/19 07:50 MCV 83.6 fl (80-96) 07/21/19 07:50 MCH 28.6 pg (25.7-33.7) 07/21/19 07:50 MCHC 34.2 g/dl (32.0-35.9) 07/21/19 07:50 RDW 16.3 % (11.9-15.9) H 07/21/19 07:50 Plt Count 351 K/MM3 (134-434) 07/21/19 07:50 MPV 8.7 fl (7.5-11.1) 07/21/19 07:50 Sodium 138 mmol/L (136-145) 07/21/19 07:50 Potassium 4.5 mmol/L (3.5-5.1) 07/21/19 07:50 Chloride 106 mmol/L (98-107) 07/21/19 07:50 Carbon Dioxide 25 mmol/L (21-32) 07/21/19 07:50 Anion Gap 6 MMOL/L (8-16) L 07/21/19 07:50 BUN 14.8 mg/dL (7-18) 07/21/19 07:50 Creatinine 0.9 mg/dL (0.55-1.3) 07/21/19 07:50 Est GFR (CKD-EPI)AfAm 111.83 07/21/19 07:50 Est GFR (CKD-EPI)NonAf 96.49 07/21/19 07:50 Random Glucose 79 mg/dL (74-106) 07/21/19 07:50 Calcium 8.3 mg/dL (8.5-10.1) L 07/21/19 07:50 Total Bilirubin 0.8 mg/dL (0.2-1) 07/21/19 07:50 AST 20 U/L (15-37) 07/21/19 07:50 ALT 16 U/L (13-61) 07/21/19 07:50 Alkaline Phosphatase 69 U/L (45-117) 07/21/19 07:50 Total Protein 7.2 g/dl (6.4-8.2) 07/21/19 07:50 Albumin 3.1 g/dl (3.4-5.0) L 07/21/19 07:50 Urine Color Yellow 07/21/19 10:00 Urine Appearance Clear 07/21/19 10:00 Urine pH 5.5 (5.0-8.0) 07/21/19 10:00 Ur Specific [place] 1.029 (1.010-1.035) 07/21/19 10:00 Urine Protein Negative (NEGATIVE) 07/21/19 10:00 Urine Glucose (UA) Negative (NEGATIVE) 07/21/19 10:00 Urine Ketones Negative (NEGATIVE) 07/21/19 10:00 Urine Blood Negative (NEGATIVE) 07/21/19 10:00 Urine Nitrite Negative (NEGATIVE) 07/21/19 10:00 Urine Bilirubin Negative (NEGATIVE) 07/21/19 10:00 Urine Urobilinogen 0.2 mg/dL (0.2-1.0) 07/21/19 10:00 Ur Leukocyte Esterase Negative (NEGATIVE) 07/21/19 10:00 lab noted - Treatment Hospital Course: Detox Protocol Followed, Detoxed Safely, Responded well, Discharged Condition Good, Rehab Referral Accepted Patient has Accepted [facility] Ref[facility] - Medication Discharge Medications: Ambulatory Orders NK [No Known Home Medication] 01/25/19 Quetiapine Fumarate [Seroquel -] 100 mg PO HS 07/25/19 - Diagnosis (1) Alcohol dependence with uncomplicated withdrawal Status: Acute (2) Substance induced mood disorder Status: Suspected (3) Asthma Status: Chronic Qualifiers: Asthma severity: mild Asthma persistence: unspecified Asthma complication type: unspecified Qualified Code(s): J45.909 - Unspecified asthma , uncomplicated (4) HTN (hypertension) Status: Chronic Qualifiers: Hypertension type: essential hypertension Qualified Code(s): I10 - Essential (primary) hypertension (5) Hyperlipidemia Status: Chronic (6) Nicotine dependence Status: Acute - AMA Did Patient Leave Against Medical Advice: No CIWA Score - CIWA Score Nausea/Vomitin-No Nausea/No Vomiting Muscle Tremors: 1-None Visible, but [place] Anxiety: 1-Mildly Anxious Agitation: 0-Normal Activity Paroxysmal Sweats: No Perspiration Orientation: 0-Oriented Tacttile Disturbances: 0-None Auditory Disturbances: 0-None Visual Disturbances: 0-None Headache: 0-None Present CIWA-Ar Total Score: 2
== END 2019-07-25 11:59 | disposition other institution (70) | DRG 775 ==
LOC: YASAS 14:22 → Y3N 20:38
PROVIDERS: ADMIT Allergy & Immunology; ATTEND Allergy & Immunology
PROC: HZ2ZZZZ Detoxification Services for Substance Abuse Treatment (ICD-10-PCS; principal; 2019-07-20)
DX: F10.230 Alcohol dependence with withdrawal, uncomplicated (principal); F12.20 Cannabis dependence, uncomplicated; F19.20 Other psychoactive substance dependence, uncomplicated; F17.210 Nicotine dependence, cigarettes, uncomplicated; F19.24 Other psychoactive substance dependence with psychoactive substance-induced mood disorder; F19.282 Other psychoactive substance dependence with psychoactive substance-induced sleep disorder; F25.9 Schizoaffective disorder, unspecified; E78.5 Hyperlipidemia, unspecified; I10 Essential (primary) hypertension; J45.909 Unspecified asthma, uncomplicated; Z94.5 Skin transplant status
CPT/HCPCS: 36415; 80053; 81003; 85027; 93005; 93010

== ENCOUNTER 2019-07-25 11:56 | Inpatient (IN) | payer OTHER ==
[2019-07-25] MEDS ORDERED: LOPERAMIDE HCL 2 MG CAPSULE PO PRN (12:31)
[2019-07-25] MEDS ORDERED: MENTHOL/PHENOL 1 EACH UD MM PRN (12:31)
[2019-07-25] MEDS ORDERED: P-EPHED 60MG/TRIPROLIDI 2.5MG TABLET PO PRN (12:31)
[2019-07-25] MEDS ORDERED: MAGNESIUM CITRATE 300 ML BOTTLE PO PRN (12:31)
[2019-07-25] MEDS ORDERED: MAGNESIUM HYDROX 2400MG/30ML ORAL SUSPENSION 30 ML CUP PO PRN (12:31)
[2019-07-25] MEDS ORDERED: ACETAMINOPHEN 325 MG TABLET (FP) PO PRN (12:31)
[2019-07-25] MEDS ORDERED: guaiFENesin 200 MG/10 ML 10 ML UNIT-DOSE CUPS PO PRN (12:31)
[2019-07-25] MEDS ORDERED: MAG HYDROX/AL HYDROX/SIMETH 30 ML UNIT-DOSE CUP PO PRN (12:31)
[2019-07-25] MEDS ORDERED: IBUPROFEN 400 MG TABLET (FP) PO PRN (12:31)
--- NOTE | 2019-07-25 12:31 | HP ---
[facility]MAR[facility]ALOS Rehab Assess/Revision - Admission History Admitted to Rehab from: [facility] Date of Admission to Rehab: 07/25/19 - Vital signs Vital Signs: Vital Signs Period Temp Pulse Resp BP Sys/Spencer Pulse Ox Last 24 Hr 97.8 F 97 18 134/71 - Findings Detox History & Physical reviewed: Yes Concur with findings: Yes Comments/Additional Findings: transferred from detox to rehab admission as per protocol Inpatient Rehab Admission - Rehab Decision to Admit Inpatient rehab admission?: Yes - Initial Determination Are CD services needed?: Yes Free of communicable disease: Yes Not in need of hospitalization: Yes - Rehab Admission Criteria Previous failed treatment: Yes Poor recovery environment: Yes Comorbidities: Yes Lacks judgement: Yes Patient is meeting Inpatient Rehab admission criteria:: Yes
[2019-07-25] MEDS ORDERED: NICOTINE POLACRILEX 2 MG GUM BUC PRN (12:36)
[2019-07-25] MEDS ORDERED: NICOTINE 14 MG/24 HOURS TOPICAL PATCH TD PRN (12:36)
[2019-07-25] MEDS ORDERED: MELATONIN 5 MG TABLETS PO PRN (22:00)
[2019-07-25] MEDS ORDERED: BACITRACIN 15 GM TUBE TOPICAL OINTMENT TP SCH (22:00)
[2019-07-25] MEDS ORDERED: THIAMINE HCL 100 MG TABLET (FP) PO SCH (22:00)
--- NOTE | 2019-07-26 06:56 | CONSULT ---
[facility] Psychiatric Consult - Data Date of interview: 07/26/19 Admission source: 3N Identifying data: Mr Nixon is a 54 years old Black male, father of children, unemployed receiving public assistance , homeless admitted from detox on 07/25/19for inpatient rehabilitation for alcohol and cannabis Substance Abuse History: Reports history of alcohol, marijuana and k2 use. Refer to addiction counselor's summary for further information Medical History: Significant for bronchial asthma, dyslipidemia, hypertension and history of treatment for pineda (skin graft to left leg) in 1997. Smokes cigarettes 1 ppd Psychiatric History: Patient left against medical advice before he could be seen
[2019-07-26 07:44] VITALS: BP 128/84; PULSE 91; TEMP 98.5
--- NOTE | 2019-07-26 08:56 | PN ---
[facility] Progress Note Note: PATIENT REQUESTED TO LEAVE REHAB TODAY DUE TO PERSONAL ISSUES. PATIENT STATES " I HAVE TO GO. I HAVE TO A LOT GOING ON". PATIENT COMPLETED DETOX AT [facility] FOR ETOH DEPENDENCE AND ADMITTED TO REHAB YESTERDAY, 07/25/19. PATIENT ENCOURAGED TO COMPLETE REHAB AND EXPLAINED RISK FACTORS OF REOCCURRENCE WITH SIGNING OUT AMA, HOWEVER, PATIENT REFUSED TO STAY IN TREATMENT. PATIENT IS HOMELESS AND SAYS HE WILL STAY WITH A FRIEND UPON DISCHARGE. PATIENT ENCOURAGED TO ATTEND GROUP MEETINGS AT [facility] TO PREVENT REOCCURRENCE OF ETOH USE AND TO HELP MAINTAIN SOBRIETY. PATIENT IS MEDICALLY STABLE AT THIS TIME AND DENIES SI/HI. Vital Signs Temperature 98.5 F 07/26/19 07:43 Pulse Rate 91 H 07/26/19 07:43 Respiratory Rate 18 07/26/19 07:43 Blood Pressure 128/84 07/26/19 07:43 O2 Sat by Pulse Oximetry (%)
[2019-07-26] MEDS ORDERED: PRENATAL VITAMINS W/ FOLIC ACID TABLET (FP) PO SCH (10:00)
[2019-07-26] MEDS ORDERED: QUEtiapine FUMARATE 100 MG TABLET (FP) PO SCH (22:00)
== END 2019-07-26 09:04 | disposition left against medical advice (07) | DRG 770 ==
LOC: YASAS 11:56 → Y3W 11:57
PROVIDERS: ADMIT Neuromusculoskeletal Medicine & OMM; ATTEND Neuromusculoskeletal Medicine & OMM
PROC: HZ42ZZZ Group Counseling for Substance Abuse Treatment, Cognitive-Behavioral (ICD-10-PCS; principal; 2019-07-25)
DX: F10.20 Alcohol dependence, uncomplicated (principal); F12.20 Cannabis dependence, uncomplicated; F17.210 Nicotine dependence, cigarettes, uncomplicated; I10 Essential (primary) hypertension; E78.5 Hyperlipidemia, unspecified; J45.909 Unspecified asthma, uncomplicated; Z94.5 Skin transplant status; Z59.0 Homelessness

== ENCOUNTER 2019-08-09 12:10 | Inpatient (IN) | payer OTHER ==
[2019-08-09 12:33] VITALS: BMI 28.7
--- NOTE | 2019-08-09 14:27 | HP ---
CIWA Score Nausea/Vomitin-Mild Nausea/No Vomiting Muscle Tremors: None Anxiety: 3 Agitation: 0-Normal Activity Paroxysmal Sweats: 1-Minimal Palms Moist Orientation: 0-Oriented Tacttile Disturbances: 0-None Auditory Disturbances: 0-None Visual Disturbances: 0-None Headache: 2-Mild CIWA-Ar Total Score: 7 - Admission Criteria [facility]ASAS Guidelines: Admission for Medically Managed Detox: Requires at least one of the followin. CIWA greater than 12 2. Seizures within the past 24 hours 3. Delirium tremens within the past 24 hours 4. Hallucinations within the past 24 hours 5. Acute intervention needed for co occurring medical disorder 6. Acute intervention needed for co occurring psychiatric disorder 7. Severe withdrawal that cannot be handled at a lower level of care (continued vomiting, continued diarrhea, abnormal vital signs) requiring intravenous medication and/or fluids 8. Admitting History and Physical - Smoking History Smoking history: Current every day smoker Have you smoked in the past 12 months: Yes Aproximately how many cigarettes per day: 10 If you are a former smoker, when did you quit?: 20 - Alcohol/Substance Use Hx Alcohol Use: Yes Admission [facility] Allergies/Adverse Reactions: Allergies Allergy/AdvReac Type Severity Reaction Status Date / Time No Known Allergies Allergy Verified 08/09/19 12:27 History of Present Illness: 54 y/ o M with polysubstance use presenting to [facility] for detox. Pt has been drinking alcohol for 40 years; he usually drinks 2 pints of bianca and 3 40oz of beer cans from once a week to daily. His last drink was yesterday and he had about 1 pint of bianca and 2 40oz beer cans. He admits to blackouts every other week with fall episodes. Denies withdrawal seizures. In addition, he smokes 9 sticks of K2 daily for the past 5 years with last use being this morning. He admits to occasionally smoking crack cocaine with last use being one month ago. Denies ever injecting. Admits to recurrent detox and rehab in the past; most recent this july 2019 which he did not complete the rehab. Smokes 1/2-1 PPD since 15 yrs of age. PMH: Chronic back pain, DVT march 2018 was on xarelto until may 2019 Psych Hx: depression not currently on meds PSH: leg surgery Social Hx: homeless, unemployed: gets money from recycling and relatives. PE: VS 97.2F, BP 136/83 mmHg, P 77 bpm, RR 18 Utox: benzo CIWA :7 PE: calm HEENT: PERRLA LUNG: VBS b/l Heart : RRR no MRG Abdomen: +BS, NTND Extremities; 2+ pulses, Neuro: Grossly intact Plan : alcohol detox : valium protocol 3 days - Ebola screening Have you traveled outside of the country in the last 21 days: No Have you had contact with anyone from an Ebola affected area: No Do you have a fever: No Patient History - Patient Medical History Hx Anemia: No Hx Asthma: No Hx Chronic Obstructive Pulmonary Disease (COPD): No Hx Cancer: No Hx Cardiac Disorders: No Hx Congestive Heart Failure: No Hx Hypertension: Yes Hx Hypercholesterolemia: Yes (Not on medication) Hx Pacemaker: No HX Cerebrovascular Accident: No Hx Seizures: Yes (SEIZURE R/T ALCOHOL LAST EPISODE 2016) Hx Dementia: No Hx Diabetes: No Hx Gastrointestinal Disorders: No Hx Liver Disease: No Hx Genitourinary Disorders: No Hx Sexually Transmitted Disorders: No Hx Renal Disease (ESRD): No Hx Thyroid Disease: No Hx Human Immunodeficiency Virus (HIV): No (last 2016 negative) Hx Hepatitis C: No Hx Depression: Yes Hx Suicide Attempt: No Hx Bipolar Disorder: No Hx Schizophrenia: No - Patient Surgical History Past Surgical History: Yes Hx Neurologic Surgery: No Hx Cataract Extraction: No Hx Cardiac Surgery: No Hx Lung Surgery: No Hx Breast Surgery: No Hx Breast Biopsy: No Hx Abdominal Surgery: No Hx Appendectomy: No Hx Cholecystectomy: No Hx Genitourinary Surgery: No Hx Section: No Hx Orthopedic Surgery: No Other Surgical History: SKIN GRAFT TO left LEG IN 1997- secondary to pineda. Anesthesia Reaction: No - PPD History Date: 01/28/19 Results: 0 MM - Smoking Cessation Smoking history: Current every day smoker Have you smoked in the past 12 months: Yes Aproximately how many cigarettes per day: 10 If you are a former smoker, when did you quit?: 20 Cigars Per Day: 0 Hx Chewing Tobacco Use: No Initiated information on smoking cessation: Yes 'Breaking Loose' booklet given: 08/09/19 - Substances abused Alcohol Substance route: Oral Frequency: Daily Amount used: 2 pints vodka& (3) 40oz. beers Age of first use: 14 Date of last use: 08/08/19 K2/Spice Substance route: Smoking Frequency: Daily Amount used: $10-20 Age of first use: 48 Date of last use: 08/08/19 Marijuana/Hashish Substance route: Smoking Frequency: Daily Amount used: $10 Age of first use: 15 Date of last use: 08/06/19 Admission Physical Exam [facility] - Vital Signs Vital Signs: Vital Signs - 24 hr 08/09/19 12:28 Temperature 97.2 F L Pulse Rate 77 Respiratory 18 Rate Blood Pressure 136/83 Cleared for Admission [facility] - Detox or Rehab [facility] Level of Care: Medically Supervised Breathalyzer - Breathalyzer Breathalyzer: 0 Urine Drug Screen - Test Device Lot number: [id number] Expiration date: 04/17/21 - Control Is test valid?: Yes - Results Drug screen NEGATIVE: No Urine drug screen results: BZO-Benzodiazepines Inpatient Rehab Admission - Rehab Decision to Admit Inpatient rehab admission?: No
--- NOTE | 2019-08-09 15:01 | PN ---
Teaching Attending Note Name of Resident: Estephania Leung ATTENDING PHYSICIAN STATEMENT I saw and evaluated the patient. I reviewed the resident's note and discussed the case with the resident. I agree with the resident's findings and plan as documented. SUBJECTIVE: pt here requesting etoh detox , latest use yesterday 2 pints liquor , reports tremors if not drinking , denies detox since leaving this facility . . cannabis : daily 5 $ tobacco : 1/2 ppd . PMHX : DVT R LE on Xarelto latest taken " it's been a while " claims > 10 mo ago did not go for check up , per pt was told leg is " alright " had US of the leg November 2018 @ [facility] , no DVt per pt . Asthma ( [place] / [place] ) , HTN Psych ; insomnia PSHX : R leg surgery for dvt February or March 2018 @ [facility] OBJECTIVE: wnwd CIWA 7 Vital Signs - 24 hr 08/09/19 12:28 Temperature 97.2 F L Pulse Rate 77 Respiratory 18 Rate Blood Pressure 136/83 ASSESSMENT AND PLAN: AUD - Valium detox
[2019-08-09] MEDS ORDERED: ACETAMINOPHEN 325 MG TABLET (FP) PO PRN ×2 (15:03)
[2019-08-09] MEDS ORDERED: IBUPROFEN 400 MG TABLET (FP) PO PRN (15:03)
[2019-08-09] MEDS ORDERED: MAG HYDROX/AL HYDROX/SIMETH 30 ML UNIT-DOSE CUP PO PRN (15:03)
[2019-08-09] MEDS ORDERED: METHOCARBAMOL 500 MG TABLET PO PRN (15:03)
[2019-08-09] MEDS ORDERED: MAGNESIUM CITRATE 300 ML BOTTLE PO PRN (15:03)
[2019-08-09] MEDS ORDERED: MELATONIN 5 MG TABLETS PO PRN (15:03)
[2019-08-09] MEDS ORDERED: MENTHOL/PHENOL 1 EACH UD MM PRN (15:03)
[2019-08-09] MEDS ORDERED: BISMUTH SUBSALICYLATE 262 MG/15 ML BTL PO PRN (15:03)
[2019-08-09] MEDS ORDERED: MAGNESIUM HYDROX 2400MG/30ML ORAL SUSPENSION 30 ML CUP PO PRN (15:03)
[2019-08-09] MEDS ORDERED: diazePAM 5 MG TABLET PO PRN (15:05)
[2019-08-09] MEDS: diazePAM 5 MG TABLET PO SCH ×2 (15:48→22:30)
[2019-08-09] MEDS: THIAMINE HCL 100 MG TABLET (FP) PO SCH (22:29)
[2019-08-10] MEDS: diazePAM 5 MG TABLET PO SCH ×3 (05:52→18:14)
[2019-08-10] MEDS: PRENATAL VITAMINS W/ FOLIC ACID TABLET (FP) PO SCH (10:20)
[2019-08-10] MEDS: hydrOXYzine PAMOATE 25 MG CAPSULE (FP) PO PRN (10:22)
--- NOTE | 2019-08-10 16:19 | PN ---
S CIWA - CIWA Score Nausea/Vomitin-No Nausea/No Vomiting Muscle Tremors: None Anxiety: 4-Mod. Anxious/Guarded Agitation: 0-Normal Activity Paroxysmal Sweats: 2 Orientation: 0-Oriented Tacttile Disturbances: 0-None Auditory Disturbances: 2-Mild Harshness/Frighten Visual Disturbances: 2-Mild Sensitivity Headache: 0-None Present CIWA-Ar Total Score: 10 [facility] Progress Note (SOAP) Subjective: Body Aches, Anxious, Sweating, Stomach Cramping. Objective: PATIENT A & O X 3, OBSERVED AMBULATING ON DETOX UNIT UNASSISTED. IN NO ACUTE DISTRESS. 08/10/19 16:21 Vital Signs Temperature 98.2 F 08/10/19 13:42 Pulse Rate 88 08/10/19 13:42 Respiratory Rate 18 08/10/19 13:42 Blood Pressure 131/75 08/10/19 13:42 O2 Sat by Pulse Oximetry (%) RESULTS OF LABS FROM 07/21/2019 NOTED. 08/10/19 16:22 Assessment: 08/10/19 16:22 WITHDRAWAL SYMPTOMS. Plan: CONTINUE DETOX.
[2019-08-10] MEDS: THIAMINE HCL 100 MG TABLET (FP) PO SCH (23:11)
[2019-08-11] MEDS ORDERED: diazePAM 5 MG TABLET PO ONE (06:00)
[2019-08-11] MEDS: diazePAM 5 MG TABLET PO SCH (06:09)
[2019-08-11] MEDS: PRENATAL VITAMINS W/ FOLIC ACID TABLET (FP) PO SCH (10:20)
[2019-08-11] MEDS: hydrOXYzine PAMOATE 25 MG CAPSULE (FP) PO PRN (10:22)
[2019-08-11] MEDS ORDERED: chlordiazePOXIDE HCL 25 MG CAPSULE PO PRN (13:26)
[2019-08-11] MEDS ORDERED: cloNIDine HCL 0.1 MG TABLET PO PRN (13:34)
--- NOTE | 2019-08-11 13:34 | PN ---
[facility] CIWA - CIWA Score Nausea/Vomitin-Mild Nausea/No Vomiting Muscle Tremors: 4-Moderate,w/Arms Extend Anxiety: 4-Mod. Anxious/Guarded Agitation: 4-Moderately Restless Paroxysmal Sweats: 3 Orientation: 0-Oriented Tacttile Disturbances: 0-None Auditory Disturbances: 0-None Visual Disturbances: 0-None Headache: 0-None Present CIWA-Ar Total Score: 16 [facility] Progress Note (SOAP) Subjective: Very agitated, anxious, restless, interrupted sleep, sweating, chills, tremor. Patient stated valium is not working and it doesn't work for him and that he has requested librium but they kept giving him valium. Patient is very agitated and threatened to leave AMA as he is having too much withdrawal sxs and no help. Objective: 08/11/19 13:32 Last Vital Signs Temp Pulse Resp BP Pulse Ox 97 F L 85 18 138/83 08/11/19 09:26 08/11/19 09:26 08/11/19 09:26 08/11/19 09:26 Elevated b/p noted: has HTN, not on medication No admission labs available for review Labs from 07/2019 reviewed Assessment: 08/11/19 13:37 Withdrawal sxs Noted with HTN Plan: Continue detox Encouraged PO water intake Detox protocol changed from valium to librium as per patient's request and extended due to increased withdrawal sxs HTN: (patient has h/o HTN), not on medication. Start clonidine 0.1mg PO q8hr prn if b/p > 140/90.
[2019-08-11] MEDS ORDERED: chlordiazePOXIDE HCL 25 MG CAPSULE PO ONE (18:00)
[2019-08-11] MEDS: THIAMINE HCL 100 MG TABLET (FP) PO SCH (22:30)
[2019-08-12] MEDS: chlordiazePOXIDE HCL 25 MG CAPSULE PO SCH ×3 (05:34→22:12)
[2019-08-12] MEDS ORDERED: diazePAM 5 MG TABLET PO ONE (06:00)
--- NOTE | 2019-08-12 10:05 | PN ---
S CIWA - CIWA Score Nausea/Vomitin-Mild Nausea/No Vomiting Muscle Tremors: 1-None Visible, but [place] Anxiety: 2 Agitation: 2 Paroxysmal Sweats: No Perspiration Orientation: 0-Oriented Tacttile Disturbances: 1-Very Mild Itch/Numbness Auditory Disturbances: 0-None Visual Disturbances: 0-None Headache: 1-Very Mild CIWA-Ar Total Score: 8 [facility] Progress Note (SOAP) Subjective: alert,irritable,anxious,interrupted sleep,pain in body Objective: 08/12/19 10:04 Vital Signs Temperature 97.3 F L 08/12/19 09:07 Pulse Rate 76 08/12/19 09:07 Respiratory Rate 18 08/12/19 09:07 Blood Pressure 139/65 08/12/19 09:07 O2 Sat by Pulse Oximetry (%) Assessment: 08/12/19 10:05 withdrawal symptom Plan: continue detox librium regimen
[2019-08-12] MEDS: PRENATAL VITAMINS W/ FOLIC ACID TABLET (FP) PO SCH (10:26)
[2019-08-12] MEDS: THIAMINE HCL 100 MG TABLET (FP) PO SCH (22:12)
[2019-08-13] MEDS: chlordiazePOXIDE HCL 10 MG CAPSULE PO SCH ×3 (05:51→22:26)
[2019-08-13] MEDS ORDERED: chlordiazePOXIDE HCL 10 MG CAPSULE PO SCH (06:00)
--- NOTE | 2019-08-13 09:26 | PN ---
[facility] CIWA - CIWA Score Nausea/Vomitin-No Nausea/No Vomiting Muscle Tremors: 1-None Visible, but [place] Anxiety: 1-Mildly Anxious Agitation: 1-Slight > Activity Paroxysmal Sweats: No Perspiration Orientation: 0-Oriented Tacttile Disturbances: 1-Very Mild Itch/Numbness Auditory Disturbances: 0-None Visual Disturbances: 0-None Headache: 1-Very Mild CIWA-Ar Total Score: 5 [facility] Progress Note (SOAP) Subjective: alert,irritable,interrupted sleep,anxious Objective: 08/13/19 09:24 Vital Signs Temperature 98.4 F 08/13/19 09:12 Pulse Rate 72 08/13/19 09:12 Respiratory Rate 18 08/13/19 09:12 Blood Pressure 138/78 08/13/19 09:12 O2 Sat by Pulse Oximetry (%) Assessment: 08/13/19 09:24 withdrawal symptom Plan: continue detox librium regimen,discharge in am
[2019-08-13] MEDS: PRENATAL VITAMINS W/ FOLIC ACID TABLET (FP) PO SCH (11:19)
[2019-08-13] MEDS: THIAMINE HCL 100 MG TABLET (FP) PO SCH (22:26)
[2019-08-14] MEDS ORDERED: chlordiazePOXIDE HCL 10 MG CAPSULE PO ONE (06:00)
--- NOTE | 2019-08-14 09:07 | DS ---
[facility] Detox Discharge Summary Admission Date: 08/09/19 Discharge Date: 08/14/19 - History Present History: Alcohol Dependence, Cannabis Dependence - Physical Exam Results Vital Signs: Vital Signs Temperature 98.1 F 08/14/19 06:49 Pulse Rate 73 08/14/19 06:49 Respiratory Rate 20 08/14/19 06:49 Blood Pressure 103/76 08/14/19 06:49 O2 Sat by Pulse Oximetry (%) Pertinent Admission Physical Exam Findings: pt arrived in withdrawals Vital Signs Temperature 98.1 F 08/14/19 06:49 Pulse Rate 73 08/14/19 06:49 Respiratory Rate 20 08/14/19 06:49 Blood Pressure 103/76 08/14/19 06:49 O2 Sat by Pulse Oximetry (%) pt is aaox3 ambulating no acute distress - Treatment Hospital Course: Detox Protocol Followed, Detoxed Safely, Responded well, Discharged Condition Good, Rehab Referral Accepted - Medication Discharge Medications: Ambulatory Orders NK [No Known Home Medication] 01/25/19 - Diagnosis (1) Alcohol dependence with uncomplicated withdrawal Current Visit: Yes Status: Chronic (2) Anxiety disorder Current Visit: No Status: Acute (3) Cannabis dependence Current Visit: Yes Status: Chronic (4) Nicotine dependence Current Visit: Yes Status: Chronic (5) Substance-induced sleep disorder Current Visit: No Status: Acute (6) Asthma Current Visit: Yes Status: Chronic Qualifiers: Asthma severity: mild Asthma persistence: unspecified Asthma complication type: unspecified Qualified Code(s): J45.909 - Unspecified asthma , uncomplicated (7) Callus of foot Current Visit: No Status: Chronic (8) DEPRESSION Current Visit: No Status: Chronic (9) HTN (hypertension) Current Visit: No Status: Chronic Qualifiers: Hypertension type: essential hypertension Qualified Code(s): I10 - Essential (primary) hypertension (10) History of schizoaffective disorder Current Visit: No Status: Chronic (11) Hyperlipidemia Current Visit: No Status: Chronic (12) Insomnia Current Visit: No Status: Chronic (13) Noncompliance by refusing intervention or support Current Visit: No Status: Chronic (14) Obesity Current Visit: No Status: Chronic (15) Drug-induced mood disorder Current Visit: No Status: Suspected (16) Hypercholesteremia Current Visit: No Status: Suspected (17) MDD (major depressive disorder), recurrent episode, moderate Current Visit: No Status: Suspected (18) Substance induced mood disorder Current Visit: No Status: Suspected (19) Substance or medication-induced depressive disorder Current Visit: No Status: Suspected (20) s/p skin grafts both legs Current Visit: No Status: Resolved - AMA Did Patient Leave Against Medical Advice: No
[2019-08-14 09:29] VITALS: BP 119/78; PULSE 84; TEMP 98
== END 2019-08-14 10:10 | disposition home or self-care (01) | DRG 775 ==
LOC: YASAS 12:10 → Y6N 15:10
PROVIDERS: ADMIT Allergy & Immunology; ATTEND Allergy & Immunology
PROC: HZ2ZZZZ Detoxification Services for Substance Abuse Treatment (ICD-10-PCS; principal; 2019-08-09)
DX: F10.230 Alcohol dependence with withdrawal, uncomplicated (principal); F12.20 Cannabis dependence, uncomplicated; F17.210 Nicotine dependence, cigarettes, uncomplicated; F19.282 Other psychoactive substance dependence with psychoactive substance-induced sleep disorder; F33.1 Major depressive disorder, recurrent, moderate; F19.24 Other psychoactive substance dependence with psychoactive substance-induced mood disorder; F25.9 Schizoaffective disorder, unspecified; F41.9 Anxiety disorder, unspecified; G47.00 Insomnia, unspecified; E78.00 Pure hypercholesterolemia, unspecified; E78.5 Hyperlipidemia, unspecified; J45.909 Unspecified asthma, uncomplicated; E66.9 Obesity, unspecified; L84 Corns and callosities; Z68.28 Body mass index [BMI] 28.0-28.9, adult; Z94.5 Skin transplant status; Z53.29 Procedure and treatment not carried out because of patient's decision for other reasons

== ENCOUNTER 2019-09-18 09:18 | Inpatient (IN) | payer OTHER ==
[2019-09-18 09:55] VITALS: BMI 33.0
--- NOTE | 2019-09-18 10:57 | HP ---
CIWA Score Nausea/Vomitin Muscle Tremors: 1-None Visible, but [place] Anxiety: 3 Agitation: 3 Paroxysmal Sweats: 4-Forehead w/Sweat Beads Orientation: 0-Oriented Tacttile Disturbances: 0-None Auditory Disturbances: 0-None Visual Disturbances: 0-None Headache: 3-Moderate CIWA-Ar Total Score: 16 - Admission Criteria OASAS Guidelines: Admission for Medically Managed Detox: Requires at least one of the followin. CIWA greater than 12 2. Seizures within the past 24 hours 3. Delirium tremens within the past 24 hours 4. Hallucinations within the past 24 hours 5. Acute intervention needed for co occurring medical disorder 6. Acute intervention needed for co occurring psychiatric disorder 7. Severe withdrawal that cannot be handled at a lower level of care (continued vomiting, continued diarrhea, abnormal vital signs) requiring intravenous medication and/or fluids 8. Admitting History and Physical - Admission Chief Complaint: "I really want to make a change this time. I can't keep on doing this because I'm too old to be on the streets." History of Present Illness: 54 y/ o M with polysubstance use presenting to [facility] for detox. Pt has been drinking alcohol for 40 years; he usually drinks 2 pints of bianca and 3 40oz of beer cans from once a week to daily. His last drink was yesterday at around 10 PM and he had about 1 pint of bianca and 2 24oz beer cans. He admits to blackouts, last one a week ago and another 1 month ago. He also admits to withdrawal seizures 2 months ago. In addition, he smokes every day of K2, last used yesterday. He admits to occasionally smoking crack cocaine, last used yesterday night. Denies ever injecting. Admits to recurrent detox and rehab in the past; most recent this july 2019 which he did not complete the rehab. After leaving rehab prematurely, he immediately relapsed and started drinking and smoking crack again. He also smokes 1/2-1 PPD since 15 yrs of age. He also admits to smoking some marijuana PMH: Chronic back pain, DVT march 2018 was on xarelto until may 2019 Psych Hx: depression on trazodone, seroquel, which he states he has been compliant with. PSH: leg surgery Social Hx: homeless, unemployed: gets money from recycling and relatives. History Source: Patient Limitations to Obtaining History: No Limitations - Past Surgical History Additional Past Surgical History: leg surgery in past - Advance Directives Advance Directives: No: Living Will, Health Care Proxy, DNR - Smoking History Smoking history: Current every day smoker Have you smoked in the past 12 months: Yes Aproximately how many cigarettes per day: 10 If you are a former smoker, when did you quit?: 20 - Alcohol/Substance Use Hx Alcohol Use: Yes (1 pint of bianca daily plus beers) History of Substance Use: reports: Cocaine Date of Last Use: 09/17/19 - Social History Usual Living Arrangement: Yes: Alone Do you think of yourself as: Straight/Heterosexual ADL: Independent Occupation: unemployed History of Recent Travel: No Admission [facility] Allergies/Adverse Reactions: Allergies Allergy/AdvReac Type Severity Reaction Status Date / Time No Known Allergies Allergy Verified 09/18/19 09:48 Exam Limitations: No Limitations - Ebola screening Have you traveled outside of the country in the last 21 days: No (N) Have you had contact with anyone from an Ebola affected area: No Have you been sick,other than usual withdrawal symptoms: No Do you have a fever: No - Review of Systems Constitutional: Chills, Diaphoresis EENT: reports: No Symptoms Reported Respiratory: reports: No Symptoms reported Cardiac: reports: No Symptoms Reported GI: reports: No Symptoms Reported : reports: No Symptoms Reported Musculoskeletal: reports: No Symptoms Reported Integumentary: reports: No Symptoms Reported Neuro: reports: No Symptoms reported Endocrine: reports: No Symptoms Reported Hematology: reports: No Symptoms Reported Psychiatric: reports: Judgement Intact, Mood/Affect Appropiate, Orientated x3, Anxious Other Systems: Reviewed and Negative Patient History - Patient Medical History Hx Anemia: No Hx Asthma: No Hx Chronic Obstructive Pulmonary Disease (COPD): No Hx Cancer: No Hx Cardiac Disorders: No Hx Congestive Heart Failure: No Hx Hypertension: Yes Hx Hypercholesterolemia: Yes (Not on medication) Hx Pacemaker: No HX Cerebrovascular Accident: No Hx Seizures: Yes (SEIZURE R/T ALCOHOL LAST EPISODE 2016) Hx Dementia: No Hx Diabetes: No Hx Gastrointestinal Disorders: No Hx Liver Disease: No Hx Genitourinary Disorders: No Hx Sexually Transmitted Disorders: No Hx Renal Disease (ESRD): No Hx Thyroid Disease: No Hx Human Immunodeficiency Virus (HIV): No (last 2016 negative) Hx Hepatitis C: No Hx Depression: Yes Hx Suicide Attempt: No Hx Bipolar Disorder: No Hx Schizophrenia: No - Patient Surgical History Past Surgical History: Yes Hx Neurologic Surgery: No Hx Cataract Extraction: No Hx Cardiac Surgery: No Hx Lung Surgery: No Hx Breast Surgery: No Hx Breast Biopsy: No Hx Abdominal Surgery: No Hx Appendectomy: No Hx Cholecystectomy: No Hx Genitourinary Surgery: No Hx Section: No Hx Orthopedic Surgery: No Other Surgical History: SKIN GRAFT TO left LEG IN 1997- secondary to pineda. Anesthesia Reaction: No - PPD History Date: 01/28/19 Results: 0 MM - Smoking Cessation Smoking history: Current every day smoker Have you smoked in the past 12 months: Yes Aproximately how many cigarettes per day: 10 If you are a former smoker, when did you quit?: 20 Cigars Per Day: 0 Hx Chewing Tobacco Use: No Initiated information on smoking cessation: Yes 'Breaking Loose' booklet given: 09/18/19 - Substances abused Alcohol Substance route: Oral Frequency: Daily Amount used: 1 pint of bianca and 2-3 beers Age of first use: 14 Date of last use: 09/17/19 (at 10PM) K2/Spice Substance route: Smoking Frequency: Daily Amount used: $10-20 Age of first use: 48 Date of last use: 09/17/19 Marijuana/Hashish Substance route: Smoking Frequency: Daily Amount used: $10 Age of first use: 15 Date of last use: 09/18/19 Admission Physical Exam [facility] - Vital Signs Vital Signs: Vital Signs - 24 hr 09/18/19 09/18/19 09:49 10:18 Temperature 97.6 F 97.6 F Pulse Rate 88 88 Respiratory 20 20 Rate Blood Pressure 140/79 140/79 - Physical General Appearance: Yes: Mild Distress, Tremorous, Irritable, Sweating, Anxious HEENTM: Yes: EOMI, Hearing grossly Normal, Normal ENT Inspection, Normocephalic , Normal Voice, PASCUAL, Pharynx Normal, Tm's normal Respiratory: Yes: Chest Non-Tender, Lungs Clear, Normal Breath Sounds, No Respiratory Distress, No Accessory Muscle Use Neck: Yes: No masses,lesions,Nodules, Supple, Trachea in good position Breast: Yes: Within Normal Limits Cardiology: Yes: Regular Rhythm, S1, S2, Tachycardia Abdominal: Yes: Normal Bowel Sounds, Non Tender, Soft Genitourinary: Yes: Within Normal Limits Back: Yes: Within Normal Limits Musculoskeletal: Yes: full range of Motion, Gait Steady, Pelvis Stable Extremities: Yes: Normal Capillary Refill, Normal Inspection, Normal Range of Motion, Non-Tender 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: 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, Fully Oriented, Alert, Motor Strength 5/5, Normal Mood/Affect, Normal Response Integumentary: Yes: Normal Color, Warm Lymphatic: Yes: Within Normal Limits - Diagnostic (1) Substance-induced sleep disorder Current Visit: Yes Status: Acute (2) Alcohol dependence with uncomplicated withdrawal Current Visit: Yes Status: Chronic (3) Cannabis dependence Current Visit: Yes Status: Chronic (4) DEPRESSION Current Visit: Yes Status: Chronic (5) HTN (hypertension) Current Visit: Yes Status: Chronic Qualifiers: Hypertension type: essential hypertension Qualified Code(s): I10 - Essential (primary) hypertension Comment: not on meds . (6) History of schizoaffective disorder Current Visit: Yes Status: Chronic (7) Hyperlipidemia Current Visit: Yes Status: Chronic (8) Insomnia Current Visit: Yes Status: Chronic (9) Nicotine dependence Current Visit: Yes Status: Chronic (10) Obesity Current Visit: Yes Status: Chronic (11) Hypercholesteremia Current Visit: Yes Status: Suspected Cleared for Admission [facility] - Detox or Rehab [facility] Level of Care: Medically Managed Detox Regimen/Protocol: Librium Claeared for Rehab Admission: No Screened but not Admitted - Documentation of Visit Screened but not Admitted: No Breathalyzer - Breathalyzer Breathalyzer: 0 Urine Drug Screen - Test Device Lot number: [id number] Expiration date: 04/17/21 - Control Is test valid?: Yes - Results Drug screen NEGATIVE: No Urine drug screen results: THC-Marijuana, MARIA E-Cocaine Inpatient Rehab Admission - Rehab Decision to Admit Inpatient rehab admission?: No
[2019-09-18] MEDS ORDERED: MENTHOL/PHENOL 1 EACH UD MM PRN (11:04)
[2019-09-18] MEDS ORDERED: ACETAMINOPHEN 325 MG TABLET (FP) PO PRN ×2 (11:04)
[2019-09-18] MEDS ORDERED: MAGNESIUM CITRATE 300 ML BOTTLE PO PRN (11:04)
[2019-09-18] MEDS ORDERED: chlordiazePOXIDE HCL 25 MG CAPSULE PO PRN (11:04)
[2019-09-18] MEDS ORDERED: BISMUTH SUBSALICYLATE 524 MG/30 ML UD PO PRN (11:04)
[2019-09-18] MEDS ORDERED: IBUPROFEN 400 MG TABLET (FP) PO PRN (11:04)
[2019-09-18] MEDS ORDERED: hydrOXYzine PAMOATE 25 MG CAPSULE (FP) PO PRN (11:04)
[2019-09-18] MEDS ORDERED: MAGNESIUM HYDROX 2400MG/30ML ORAL SUSPENSION 30 ML CUP PO PRN (11:04)
[2019-09-18] MEDS ORDERED: METHOCARBAMOL 500 MG TABLET PO PRN (11:04)
[2019-09-18] MEDS ORDERED: MAG HYDROX/AL HYDROX/SIMETH 30 ML UNIT-DOSE CUP PO PRN (11:04)
[2019-09-18] MEDS: chlordiazePOXIDE HCL 25 MG CAPSULE PO SCH ×3 (12:04→22:54)
[2019-09-18] MEDS ORDERED: QUEtiapine FUMARATE 100 MG TABLET (FP) PO SCH (22:00)
[2019-09-18] MEDS ORDERED: traZODone HCL 100 MG TABLET (FP) PO SCH (22:00)
[2019-09-18] MEDS: THIAMINE HCL 100 MG TABLET (FP) PO SCH (22:54)
[2019-09-19] MEDS: chlordiazePOXIDE HCL 25 MG CAPSULE PO SCH ×4 (05:14→22:53)
--- NOTE | 2019-09-19 09:28 | CONSULT ---
[facility] Psychiatric Consult - Data Date of interview: 09/19/18 Admission source: [facility] Identifying data: Patient is a 54 year old male, father of four, unemployed, homeless, and is not supported by [employer]. This is one of multiple admissions for patient. Patient admitted to for alcohol and cocaine dependence. Substance Abuse History: Smoking Cessation. Smoking history: Current every day smoker. Have you smoked in the past 12 months: Yes. Aproximately how many cigarettes per day: 10. If you are a former smoker, when did you quit?: 20. Cigars Per Day: 0. Hx Chewing Tobacco Use: No. Initiated information on smoking cessation: Yes. 'Breaking Loose' booklet given: 09/18/19. - Substances abused. Alcohol. Substance route: Oral. Frequency: Daily. Amount used: 1 pint of bianca and 2-3 beers. Age of first use: 14. Date of last use: 09/17/19 (at 10PM). K2/Spice. Substance route: Smoking. Frequency: Daily. Amount used: $10-20. Age of first use: 48. Date of last use : 09/17/19. Marijuana/Hashish. Substance route: Smoking. Frequency: Daily. Amount used: $10. Age of first use: 15. Date of last use: 09/18/19 Medical History: Significant for bronchial asthma, dyslipidemia, hypertension and history of treatment for pineda (skin graft to left leg) in 1997. Psychiatric History: Patient unable to provide a clear cohesive psychatric history. Mr. Nixon reports being hospitalized two weeks ago at [facility] for depression and suicidal ideation. Reports being prescribed seroquel 100mg HS + Trazodone 100mg HS. Reports most recently taking his medications last week. He reports CPEP admissions at [facility]. Patient denies history of suicide attempt. Denies current OPD. Reports a diagnosis of depression but previous notes state schizoaffective disorder. At present patient presents as fatigue and mildly sedated. He denies auditory/ visual hallucinations, suicidal/homicidal ideation. Physical/Sexual Abuse/Trauma History: denies. Mental Status Exam - Mental Status Exam Alert and Oriented to: Time, Place, Person Cognitive Function: Good Patient Appearance: Well Groomed Mood: Withdrawn Affect: Mood Congruent Patient Behavior: Fatigued Speech Pattern: Slurred Voice Loudness: Moderately Soft/Quiet Thought Process: Goal Oriented Thought Disorder: Not Present Hallucinations: Denies Suicidal Ideation: Denies Homicidal Ideation: Denies Insight/Judgement: Poor Sleep: Poorly Appetite: Fair Muscle strength/Tone: Normal Gait/Station: Normal Psychiatric Findings - Problem List ([place] 1, 2,3) (1) Substance-induced sleep disorder Current Visit: Yes Status: Acute (2) Alcohol dependence with uncomplicated withdrawal Current Visit: Yes Status: Acute (3) Cannabis dependence Current Visit: Yes Status: Chronic (4) History of schizoaffective disorder Current Visit: Yes Status: Chronic - Initial Treatment Plan Initial Treatment Plan: Psychoeducation provided. Detoxification in progress. Pk d/c Seroquel 100mg BID + trazodone 100mg HS + Zoloft 50mg daily ordered by Dr. Abreu. Will resume Seroquel 100mg HS. Will hold trazodone. Benefits and side effects discussed. Verbal consent given.
[2019-09-19] MEDS ORDERED: SERTRALINE HCL 50 MG TABLET (FP) PO SCH (10:00)
[2019-09-19 10:16] LABS: HEMATOCRIT 35.4 % (35.4-49); HEMOGLOBIN 11.4 GM/dL (11.7-16.9); MCH 26.9 pg (25.7-33.7); MCHC 32.2 g/dl (32.0-35.9); MEAN CELL VOLUME 83.5 fl (80-96); MEAN PLT VOLUME 8.2 fl (7.5-11.1); PLATELET COUNT 342 K/MM3 (134-434); RBC 4.24 M/mm3 (4.00-5.60); RDW 17.1 % (11.9-15.9); WHITE BLOOD COUNT 7.7 K/mm3 (4.0-10.0)
[2019-09-19] MEDS: PRENATAL VITAMINS W/ FOLIC ACID TABLET (FP) PO SCH (10:31)
[2019-09-19 10:41] LABS: ALBUMIN 3.1 g/dl (3.4-5.0); ALK PHOS 69 U/L (45-117); ANION GAP 7 MMOL/L (8-16); BILIRUBIN,TOTAL < 0.1 mg/dL (0.2-1); BLOOD UREA NITROGEN 14.4 mg/dL (7-18); CALCIUM 8.8 mg/dL (8.5-10.1); CHLORIDE 107 mmol/L (98-107); CO2 27 mmol/L (21-32); CREATININE 0.9 mg/dL (0.55-1.3); GLUCOSE,RANDOM 83 mg/dL (74-106); POTASSIUM 4.3 mmol/L (3.5-5.1); SGOT/AST 16 U/L (15-37); SGPT/ALT 20 U/L (13-61); SODIUM 141 mmol/L (136-145); TOT PROT 7.2 g/dl (6.4-8.2)
--- NOTE | 2019-09-19 10:45 | PN ---
[facility] CIWA - CIWA Score Nausea/Vomitin-Mild Nausea/No Vomiting Muscle Tremors: 2 Anxiety: 3 Agitation: 2 Paroxysmal Sweats: 2 Orientation: 1-Uncertain about Date (date of week) Tacttile Disturbances: 0-None Auditory Disturbances: 0-None Visual Disturbances: 0-None Headache: 1-Very Mild CIWA-Ar Total Score: 12 S Progress Note (SOAP) Subjective: 54 years old male admitted on 09/18/19 for alcohol withdrawal sx management treating with librium detox regimen feeling ok today trouble to sleep through the night attend detox groups and meetings patient determines to maintain sober Objective: 09/19/19 10:46 Vital Signs Temperature 96.3 F L 09/19/19 09:36 Pulse Rate 102 H 09/19/19 09:36 Respiratory Rate 18 09/19/19 09:36 Blood Pressure 127/71 09/19/19 09:36 O2 Sat by Pulse Oximetry (%) Laboratory Last Values WBC 7.7 K/mm3 (4.0-10.0) 09/19/19 08:00 RBC 4.24 M/mm3 (4.00-5.60) 09/19/19 08:00 Hgb 11.4 GM/dL (11.7-16.9) L 09/19/19 08:00 Hct 35.4 % (35.4-49) 09/19/19 08:00 MCV 83.5 fl (80-96) 09/19/19 08:00 MCH 26.9 pg (25.7-33.7) 09/19/19 08:00 MCHC 32.2 g/dl (32.0-35.9) 09/19/19 08:00 RDW 17.1 % (11.9-15.9) H 09/19/19 08:00 Plt Count 342 K/MM3 (134-434) 09/19/19 08:00 MPV 8.2 fl (7.5-11.1) 09/19/19 08:00 Sodium 141 mmol/L (136-145) 09/19/19 08:00 Potassium 4.3 mmol/L (3.5-5.1) 09/19/19 08:00 Chloride 107 mmol/L (98-107) 09/19/19 08:00 Carbon Dioxide 27 mmol/L (21-32) 09/19/19 08:00 Anion Gap 7 MMOL/L (8-16) L 09/19/19 08:00 BUN 14.4 mg/dL (7-18) 09/19/19 08:00 Creatinine 0.9 mg/dL (0.55-1.3) 09/19/19 08:00 Est GFR (CKD-EPI)AfAm 111.83 09/19/19 08:00 Est GFR (CKD-EPI)NonAf 96.49 09/19/19 08:00 Random Glucose 83 mg/dL (74-106) 09/19/19 08:00 Calcium 8.8 mg/dL (8.5-10.1) 09/19/19 08:00 Total Bilirubin < 0.1 mg/dL (0.2-1) L 09/19/19 08:00 AST 16 U/L (15-37) 09/19/19 08:00 ALT 20 U/L (13-61) 09/19/19 08:00 Alkaline Phosphatase 69 U/L (45-117) 09/19/19 08:00 Total Protein 7.2 g/dl (6.4-8.2) 09/19/19 08:00 Albumin 3.1 g/dl (3.4-5.0) L 09/19/19 08:00 lab noted Assessment: 09/19/19 10:46 alcohol withdrawal Plan: librium regimen
[2019-09-19] MEDS ORDERED: PNEUMOCOCCAL 23 VACCINE 0.5 ML VIAL IM ONE (12:00)
[2019-09-19] MEDS ORDERED: PNEUMOC 13-VAL CONJ-DIP CRM/PF 0.5 ML DISP.SYRIN IM ONE (12:00)
[2019-09-19] MEDS: THIAMINE HCL 100 MG TABLET (FP) PO SCH (22:53)
[2019-09-20] MEDS: chlordiazePOXIDE HCL 25 MG CAPSULE PO SCH ×4 (05:28→22:52)
[2019-09-20] MEDS: PRENATAL VITAMINS W/ FOLIC ACID TABLET (FP) PO SCH (09:31)
--- NOTE | 2019-09-20 10:43 | PN ---
S CIWA - CIWA Score Nausea/Vomitin-No Nausea/No Vomiting Muscle Tremors: 2 Anxiety: 3 Agitation: 0-Normal Activity Paroxysmal Sweats: 3 Orientation: 0-Oriented Tacttile Disturbances: 0-None Auditory Disturbances: 0-None Visual Disturbances: 0-None Headache: 2-Mild CIWA-Ar Total Score: 10 S Progress Note (SOAP) Subjective: c/o anxiety, sweats, headache, and shakes. Objective: 09/20/19 10:47 Vital Signs 09/20/19 06:31 Temperature 96.6 F L Pulse Rate 76 Respiratory 18 Rate Blood Pressure 114/64 Laboratory Last Values WBC 7.7 K/mm3 (4.0-10.0) 09/19/19 08:00 RBC 4.24 M/mm3 (4.00-5.60) 09/19/19 08:00 Hgb 11.4 GM/dL (11.7-16.9) L 09/19/19 08:00 Hct 35.4 % (35.4-49) 09/19/19 08:00 MCV 83.5 fl (80-96) 09/19/19 08:00 MCH 26.9 pg (25.7-33.7) 09/19/19 08:00 MCHC 32.2 g/dl (32.0-35.9) 09/19/19 08:00 RDW 17.1 % (11.9-15.9) H 09/19/19 08:00 Plt Count 342 K/MM3 (134-434) 09/19/19 08:00 MPV 8.2 fl (7.5-11.1) 09/19/19 08:00 Sodium 141 mmol/L (136-145) 09/19/19 08:00 Potassium 4.3 mmol/L (3.5-5.1) 09/19/19 08:00 Chloride 107 mmol/L (98-107) 09/19/19 08:00 Carbon Dioxide 27 mmol/L (21-32) 09/19/19 08:00 Anion Gap 7 MMOL/L (8-16) L 09/19/19 08:00 BUN 14.4 mg/dL (7-18) 09/19/19 08:00 Creatinine 0.9 mg/dL (0.55-1.3) 09/19/19 08:00 Est GFR (CKD-EPI)AfAm 111.83 09/19/19 08:00 Est GFR (CKD-EPI)NonAf 96.49 09/19/19 08:00 Random Glucose 83 mg/dL (74-106) 09/19/19 08:00 Calcium 8.8 mg/dL (8.5-10.1) 09/19/19 08:00 Total Bilirubin < 0.1 mg/dL (0.2-1) L 09/19/19 08:00 AST 16 U/L (15-37) 09/19/19 08:00 ALT 20 U/L (13-61) 09/19/19 08:00 Alkaline Phosphatase 69 U/L (45-117) 09/19/19 08:00 Total Protein 7.2 g/dl (6.4-8.2) 09/19/19 08:00 Albumin 3.1 g/dl (3.4-5.0) L 09/19/19 08:00 RPR Titer Nonreactive (NONREACTIVE) 09/19/19 08:00 Labs noted. Assessment: 09/20/19 10:48 AOX3, in no acute respiratory distress. Full ROM, ambulating in the unit. Withdrawal symptoms. Plan: continue detox.
[2019-09-20] MEDS: THIAMINE HCL 100 MG TABLET (FP) PO SCH (22:51)
[2019-09-20] MEDS: MELATONIN 5 MG TABLETS PO PRN (22:52)
[2019-09-21] MEDS ORDERED: chlordiazePOXIDE HCL 10 MG CAPSULE PO PRN
[2019-09-21] MEDS: chlordiazePOXIDE HCL 10 MG CAPSULE PO SCH ×4 (05:24→22:28)
[2019-09-21] MEDS: PRENATAL VITAMINS W/ FOLIC ACID TABLET (FP) PO SCH (10:18)
[2019-09-21] MEDS ORDERED: guaiFENesin 200 MG/10 ML 10 ML UNIT-DOSE CUPS PO PRN (11:12)
--- NOTE | 2019-09-21 11:47 | PN ---
S CIWA - CIWA Score Nausea/Vomitin-No Nausea/No Vomiting Muscle Tremors: None Anxiety: 3 Agitation: 0-Normal Activity Paroxysmal Sweats: 3 Orientation: 0-Oriented Tacttile Disturbances: 0-None Auditory Disturbances: 0-None Visual Disturbances: 0-None Headache: 2-Mild CIWA-Ar Total Score: 8 [facility] Progress Note (SOAP) Subjective: c/o anxiety, headache, sweats, and interrupted sleep. Objective: 09/21/19 11:47 Vital Signs 09/21/19 09/21/19 06:22 09:13 Temperature 97.1 F L 97.4 F L Pulse Rate 71 73 Respiratory 18 18 Rate Blood Pressure 107/59 L 131/79 Laboratory Last Values WBC 7.7 K/mm3 (4.0-10.0) 09/19/19 08:00 RBC 4.24 M/mm3 (4.00-5.60) 09/19/19 08:00 Hgb 11.4 GM/dL (11.7-16.9) L 09/19/19 08:00 Hct 35.4 % (35.4-49) 09/19/19 08:00 MCV 83.5 fl (80-96) 09/19/19 08:00 MCH 26.9 pg (25.7-33.7) 09/19/19 08:00 MCHC 32.2 g/dl (32.0-35.9) 09/19/19 08:00 RDW 17.1 % (11.9-15.9) H 09/19/19 08:00 Plt Count 342 K/MM3 (134-434) 09/19/19 08:00 MPV 8.2 fl (7.5-11.1) 09/19/19 08:00 Sodium 141 mmol/L (136-145) 09/19/19 08:00 Potassium 4.3 mmol/L (3.5-5.1) 09/19/19 08:00 Chloride 107 mmol/L (98-107) 09/19/19 08:00 Carbon Dioxide 27 mmol/L (21-32) 09/19/19 08:00 Anion Gap 7 MMOL/L (8-16) L 09/19/19 08:00 BUN 14.4 mg/dL (7-18) 09/19/19 08:00 Creatinine 0.9 mg/dL (0.55-1.3) 09/19/19 08:00 Est GFR (CKD-EPI)AfAm 111.83 09/19/19 08:00 Est GFR (CKD-EPI)NonAf 96.49 09/19/19 08:00 Random Glucose 83 mg/dL (74-106) 09/19/19 08:00 Calcium 8.8 mg/dL (8.5-10.1) 09/19/19 08:00 Total Bilirubin < 0.1 mg/dL (0.2-1) L 09/19/19 08:00 AST 16 U/L (15-37) 09/19/19 08:00 ALT 20 U/L (13-61) 09/19/19 08:00 Alkaline Phosphatase 69 U/L (45-117) 09/19/19 08:00 Total Protein 7.2 g/dl (6.4-8.2) 09/19/19 08:00 Albumin 3.1 g/dl (3.4-5.0) L 09/19/19 08:00 RPR Titer Nonreactive (NONREACTIVE) 09/19/19 08:00 Labs noted. Assessment: 09/21/19 11:47 AOX3, in no acute respiratory distress. Full ROM, ambulating in the unit. Withdrawal symptoms. Plan: continue detox.
[2019-09-21] MEDS: MELATONIN 5 MG TABLETS PO PRN (22:28)
[2019-09-21] MEDS: THIAMINE HCL 100 MG TABLET (FP) PO SCH (22:28)
[2019-09-22] MEDS ORDERED: chlordiazePOXIDE HCL 10 MG CAPSULE PO SCH (05:00)
[2019-09-22 06:26] VITALS: BP 117/73; PULSE 99; TEMP 97.1
--- NOTE | 2019-09-22 14:42 | DS ---
[facility] Detox Discharge Summary Admission Date: 09/18/19 Discharge Date: 09/22/19 - History Present History: Alcohol Dependence Additional Comments: 54 years old male admitted on 09/18/19 for alcohol withdrawal sx management treated with librium detox regimen patient tolerated well alert oriented x 3 patient prefers to leave the detox one day early as per estimated discharge date of 09/23/19 cardiac s1s2 regular rate rhyth respiratory clear lungs bilaterally on auscultation skin warm and dry Pertinent Past History: case discussed with the nurse routine discharge is appropriated - Physical Exam Results Vital Signs: Vital Signs Temperature 97.1 F L 09/22/19 06:26 Pulse Rate 99 H 09/22/19 06:26 Respiratory Rate 18 09/22/19 06:26 Blood Pressure 117/73 09/22/19 06:26 O2 Sat by Pulse Oximetry (%) Pertinent Admission Physical Exam Findings: alcohol withdrawal Laboratory Last Values WBC 7.7 K/mm3 (4.0-10.0) 09/19/19 08:00 RBC 4.24 M/mm3 (4.00-5.60) 09/19/19 08:00 Hgb 11.4 GM/dL (11.7-16.9) L 09/19/19 08:00 Hct 35.4 % (35.4-49) 09/19/19 08:00 MCV 83.5 fl (80-96) 09/19/19 08:00 MCH 26.9 pg (25.7-33.7) 09/19/19 08:00 MCHC 32.2 g/dl (32.0-35.9) 09/19/19 08:00 RDW 17.1 % (11.9-15.9) H 09/19/19 08:00 Plt Count 342 K/MM3 (134-434) 09/19/19 08:00 MPV 8.2 fl (7.5-11.1) 09/19/19 08:00 Sodium 141 mmol/L (136-145) 09/19/19 08:00 Potassium 4.3 mmol/L (3.5-5.1) 09/19/19 08:00 Chloride 107 mmol/L (98-107) 09/19/19 08:00 Carbon Dioxide 27 mmol/L (21-32) 09/19/19 08:00 Anion Gap 7 MMOL/L (8-16) L 09/19/19 08:00 BUN 14.4 mg/dL (7-18) 09/19/19 08:00 Creatinine 0.9 mg/dL (0.55-1.3) 09/19/19 08:00 Est GFR (CKD-EPI)AfAm 111.83 09/19/19 08:00 Est GFR (CKD-EPI)NonAf 96.49 09/19/19 08:00 Random Glucose 83 mg/dL (74-106) 09/19/19 08:00 Calcium 8.8 mg/dL (8.5-10.1) 09/19/19 08:00 Total Bilirubin < 0.1 mg/dL (0.2-1) L 09/19/19 08:00 AST 16 U/L (15-37) 09/19/19 08:00 ALT 20 U/L (13-61) 09/19/19 08:00 Alkaline Phosphatase 69 U/L (45-117) 09/19/19 08:00 Total Protein 7.2 g/dl (6.4-8.2) 09/19/19 08:00 Albumin 3.1 g/dl (3.4-5.0) L 09/19/19 08:00 RPR Titer Nonreactive (NONREACTIVE) 09/19/19 08:00 lab noted - Treatment Hospital Course: Detox Protocol Followed, Detoxed Safely, Responded well, Discharged Condition Good, Rehab Referral Accepted Patient has Accepted a Rehab Referral to: community support approach - Medication Discharge Medications: Ambulatory Orders Quetiapine Fumarate [Seroquel -] 100 mg PO BID 09/18/19 Sertraline HCl 50 mg PO DAILY 09/18/19 traZODone HCL [Trazodone HCl] 100 mg PO HS 09/18/19 - Diagnosis (1) Alcohol dependence with uncomplicated withdrawal Status: Acute (2) Asthma Status: Chronic Qualifiers: Asthma severity: mild Asthma persistence: intermittent Asthma complication type: with status asthmaticus Qualified Code(s): J45.22 - Mild intermittent asthma with status asthmaticus (3) HTN (hypertension) Status: Chronic Qualifiers: Hypertension type: essential hypertension Qualified Code(s): I10 - Essential (primary) hypertension (4) Hyperlipidemia Status: Chronic (5) Nicotine dependence Status: Acute (6) Hypercholesteremia Status: Chronic (7) Substance induced mood disorder Status: Suspected - AMA Did Patient Leave Against Medical Advice: No CIWA Score - CIWA Score Nausea/Vomitin-No Nausea/No Vomiting Muscle Tremors: None Anxiety: 1-Mildly Anxious Agitation: 0-Normal Activity Paroxysmal Sweats: 2 Orientation: 0-Oriented Tacttile Disturbances: 0-None Auditory Disturbances: 0-None Visual Disturbances: 0-None Headache: 0-None Present CIWA-Ar Total Score: 3
[2019-09-23] MEDS ORDERED: chlordiazePOXIDE HCL 10 MG CAPSULE PO ONE (05:00)
== END 2019-09-22 10:39 | disposition home or self-care (01) | DRG 775 ==
LOC: YASAS 09:18 → Y3N 11:20
PROVIDERS: ADMIT Allergy & Immunology; ATTEND Allergy & Immunology
PROC: HZ2ZZZZ Detoxification Services for Substance Abuse Treatment (ICD-10-PCS; principal; 2019-09-18)
DX: F10.230 Alcohol dependence with withdrawal, uncomplicated (principal); F12.20 Cannabis dependence, uncomplicated; F17.210 Nicotine dependence, cigarettes, uncomplicated; F19.24 Other psychoactive substance dependence with psychoactive substance-induced mood disorder; F19.282 Other psychoactive substance dependence with psychoactive substance-induced sleep disorder; F32.9 Major depressive disorder, single episode, unspecified; I10 Essential (primary) hypertension; J45.22 Mild intermittent asthma with status asthmaticus; E78.5 Hyperlipidemia, unspecified; R00.0 Tachycardia, unspecified; G47.00 Insomnia, unspecified; E66.9 Obesity, unspecified; Z68.31 Body mass index [BMI] 31.0-31.9, adult; Z86.69 Personal history of other diseases of the nervous system and sense organs; Z86.718 Personal history of other venous thrombosis and embolism; Z56.0 Unemployment, unspecified; Z59.0 Homelessness
CPT/HCPCS: 36415; 80053; 85027; 86593; 90732; G0009

== ENCOUNTER 2019-10-18 15:15 | Inpatient (IN) | payer OTHER ==
[2019-10-18 16:57] VITALS: BMI 32.1
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
[2019-10-18] MEDS ORDERED: NICOTINE POLACRILEX 2 MG GUM BC PRN (18:29)
[2019-10-18] MEDS ORDERED: LOPERAMIDE HCL 2 MG CAPSULE PO PRN (18:29)
[2019-10-18] MEDS ORDERED: MAGNESIUM CITRATE 300 ML BOTTLE PO PRN (18:29)
[2019-10-18] MEDS ORDERED: IBUPROFEN 400 MG TABLET (FP) PO PRN (18:29)
[2019-10-18] MEDS ORDERED: ACETAMINOPHEN 325 MG TABLET (FP) PO PRN (18:29)
[2019-10-18] MEDS ORDERED: P-EPHED 60MG/TRIPROLIDI 2.5MG TABLET PO PRN (18:29)
[2019-10-18] MEDS ORDERED: guaiFENesin 200 MG/10 ML 10 ML UNIT-DOSE CUPS PO PRN (18:29)
[2019-10-18] MEDS ORDERED: MENTHOL/PHENOL 1 EACH UD MM PRN (18:29)
[2019-10-18] MEDS ORDERED: MAG HYDROX/AL HYDROX/SIMETH 30 ML UNIT-DOSE CUP PO PRN (18:29)
[2019-10-18] MEDS ORDERED: MAGNESIUM HYDROX 2400MG/30ML ORAL SUSPENSION 30 ML CUP PO PRN (18:29)
[2019-10-18] MEDS ORDERED: traZODone HCL 50 MG TABLET (FP) PO ONE ×2 (18:34→22:00)
[2019-10-18] MEDS: THIAMINE HCL 100 MG TABLET (FP) PO SCH (22:07)
[2019-10-19] MEDS: NICOTINE 14 MG/24 HOURS TOPICAL PATCH TD SCH (10:19)
[2019-10-19] MEDS: PRENATAL VITAMINS W/ FOLIC ACID TABLET (FP) PO SCH (10:19)
[2019-10-19] MEDS: hydrOXYzine PAMOATE 25 MG CAPSULE (FP) PO PRN (10:21)
[2019-10-19] MEDS: THIAMINE HCL 100 MG TABLET (FP) PO SCH (21:54)
[2019-10-19] MEDS: MELATONIN 5 MG TABLETS PO PRN (21:55)
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
[2019-10-20] MEDS: NICOTINE 14 MG/24 HOURS TOPICAL PATCH TD SCH (10:41)
[2019-10-20] MEDS: PRENATAL VITAMINS W/ FOLIC ACID TABLET (FP) PO SCH (10:42)
[2019-10-20] MEDS: QUEtiapine FUMARATE 100 MG TABLET (FP) PO SCH (21:34)
[2019-10-20] MEDS: THIAMINE HCL 100 MG TABLET (FP) PO SCH (21:34)
[2019-10-20] MEDS: hydrOXYzine PAMOATE 25 MG CAPSULE (FP) PO PRN (21:34)
[2019-10-20] MEDS: MELATONIN 5 MG TABLETS PO PRN (21:34)
[2019-10-21] MEDS: hydrOXYzine PAMOATE 25 MG CAPSULE (FP) PO PRN (11:00)
[2019-10-21] MEDS: PRENATAL VITAMINS W/ FOLIC ACID TABLET (FP) PO SCH (11:00)
[2019-10-21] MEDS: NICOTINE 14 MG/24 HOURS TOPICAL PATCH TD SCH (11:01)
[2019-10-21] MEDS: THIAMINE HCL 100 MG TABLET (FP) PO SCH (21:44)
[2019-10-21] MEDS: QUEtiapine FUMARATE 100 MG TABLET (FP) PO SCH (21:44)
[2019-10-21] MEDS: MELATONIN 5 MG TABLETS PO PRN (21:45)
[2019-10-22 07:04] VITALS: BP 129/70; PULSE 90; TEMP 97.8
[2019-10-22] MEDS: PRENATAL VITAMINS W/ FOLIC ACID TABLET (FP) PO SCH (09:48)
[2019-10-22] MEDS: hydrOXYzine PAMOATE 25 MG CAPSULE (FP) PO PRN (09:48)
[2019-10-22] MEDS: NICOTINE 14 MG/24 HOURS TOPICAL PATCH TD SCH (09:48)
--- NOTE | 2019-10-22 10:04 | DS ---
[facility] Rehab Discharge Summary - [facility] Rehab Discharge Summary Admission Date: 10/18/19 Discharge Date: 10/22/19 - History Present History: Alcohol dependence, Cannabis dependence, Cocaine dependence Additional Comments: . Pt is a 54 y/o male with a hx of Precious admitted to rehab on 10/18/19.Pt reports he completed detox in [place] in end of September for seven days before coming to this facility but could not do rehab there due to insurance matters. Pt declined to stay further in treatment and requesting to leave early today stating "I have to take care of some business". Pt met with her counselor and has been referred to [facility] for CD aftercare follow up. Pt reports he has no specific primary care provider but goes to [facility] for medical care when needed. Pertinent Past History: Asthma HTN(noncompliant with meds) HLD(no meds) Obesity Scizoaffective disorder Anxiety - Discharge Physical Exam Vital Signs: Vital Signs Temperature 97.8 F 10/22/19 07:03 Pulse Rate 90 10/22/19 07:03 Respiratory Rate 18 10/22/19 07:03 Blood Pressure 129/70 10/22/19 07:03 O2 Sat by Pulse Oximetry (%) Alert o x 3,Denies s/h/i nad oob ambulating with steady gait cardiac:s1 s2; rrr lungs:cta, graciela. abdomen:+bs,nt,soft, ++fatty extremities/skin:no edema; skin intact. Pertinent Admission Physical Exam Findings: Status stable and unchanged. - Treatment Discharge Condition: Discharge condition good - Medication Discharge Medications: Ambulatory Orders Quetiapine Fumarate [Seroquel -] 100 mg PO HS #30 tablet 10/22/19 - Medication-Assisted Treatment (MAT) Medication-Assisted Treatment (MAT): No - Discharge Instructions Diet, activity, other medical instructions: Diet:CRISTOPHER Activity:oob ad clarence Other medical instructions:Pt to follow up with CD aftercare at [facility] on 10/23/19 @11:00 A.M Follow up at [facility] for primary care within 1 week after discharge. - Diagnosis (1) Alcohol use disorder Current Visit: Yes Status: Chronic (2) Cannabis dependence Current Visit: Yes Status: Chronic (3) Cocaine dependence Current Visit: Yes Status: Chronic Qualifiers: Substance use status: uncomplicated Qualified Code(s): F14.20 - Cocaine dependence, uncomplicated (4) History of asthma Current Visit: Yes Status: Chronic (5) Obesity (BMI 30.0-34.9) Current Visit: Yes Status: Chronic (6) HTN (hypertension) Current Visit: Yes Status: Chronic Qualifiers: Hypertension type: essential hypertension Qualified Code(s): I10 - Essential (primary) hypertension (7) Hypercholesteremia Current Visit: Yes Status: Suspected (8) Noncompliance by refusing intervention or support Current Visit: Yes Status: Chronic (9) History of skin graft Current Visit: Yes Status: Resolved - Follow-up Referral Minutes to complete discharge: 20 - AMA Did Patient Leave Against Medical Advice: No
--- NOTE | 2019-10-22 10:10 | PN ---
[facility] Progress Note Note: Patient is discharged today. Script for 30 days supply of Seroquel 100 mg/hs is electronically transmitted to [facility] at [facility] at [address] [id number]
== END 2019-10-22 11:05 | disposition home or self-care (01) | DRG 772 ==
LOC: YASAS 15:15 → Y5N 18:50
PROVIDERS: ADMIT Allergy & Immunology; ATTEND Allergy & Immunology
PROC: HZ42ZZZ Group Counseling for Substance Abuse Treatment, Cognitive-Behavioral (ICD-10-PCS; principal; 2019-10-18)
DX: F10.20 Alcohol dependence, uncomplicated (principal); F14.20 Cocaine dependence, uncomplicated; F12.20 Cannabis dependence, uncomplicated; F17.210 Nicotine dependence, cigarettes, uncomplicated; F19.282 Other psychoactive substance dependence with psychoactive substance-induced sleep disorder; F25.9 Schizoaffective disorder, unspecified; F32.9 Major depressive disorder, single episode, unspecified; F41.9 Anxiety disorder, unspecified; I10 Essential (primary) hypertension; J45.909 Unspecified asthma, uncomplicated; E78.5 Hyperlipidemia, unspecified; R35.1 Nocturia; E66.9 Obesity, unspecified; Z86.69 Personal history of other diseases of the nervous system and sense organs; Z68.32 Body mass index [BMI] 32.0-32.9, adult; Z86.718 Personal history of other venous thrombosis and embolism; Z94.5 Skin transplant status; Z53.29 Procedure and treatment not carried out because of patient's decision for other reasons

== ENCOUNTER 2020-03-31 09:02 | Inpatient (IN) | payer OTHER ==
--- NOTE | 2020-03-31 09:43 | BHS.RME ---
Substance Use & Tx History - Substance Use History Alcohol Substance amount: 1 pint vodka plus 12 pack beers Frequency of use: Daily Substance route: Oral Date of Last Use: 03/30/20 Cocaine-Crack Substance amount: $20 Frequency of use: Daily Substance route: Smoking Date of Last Use: 03/30/20 Other Opiates/Synthetics Substance amount: k2 $10-20 Frequency of use: Daily Substance route: Smoking Date of Last Use: 03/30/20 Marijuana/Hashish Substance amount: $5-10 Frequency of use: Daily Substance route: Smoking Date of Last Use: 03/28/20 Nicotine Substance amount: 1 pack Frequency of use: Daily Substance route: Smoking Date of Last Use: 03/31/20 CIWA Nausea/Vomitin-No Nausea/No Vomiting Muscle Tremors: 3 Anxiety: 2 Agitation: 2 Paroxysmal Sweats: 4-Forehead w/Sweat Beads Orientation: 1-Uncertain about Date Tacttile Disturbances: 1-Very Mild Itch/Numbness Auditory Disturbances: 0-None Visual Disturbances: 0-None Headache: 2-Mild CIWA-Ar Total Score: 15
[2020-03-31 09:51] VITALS: BMI 29.0
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
[2020-03-31] MEDS ORDERED: MENTHOL/PHENOL 1 EACH UD MM PRN (10:01)
[2020-03-31] MEDS ORDERED: ONDANSETRON *ODT* 4 MG TABLET SL PRN (10:01)
[2020-03-31] MEDS ORDERED: MAGNESIUM HYDROX 2400MG/30ML ORAL SUSPENSION 30 ML CUP PO PRN (10:01)
[2020-03-31] MEDS ORDERED: BISMUTH SUBSALICYLATE 262 MG/15 ML BTL PO PRN (10:01)
[2020-03-31] MEDS ORDERED: MAGNESIUM CITRATE 300 ML BOTTLE PO PRN (10:01)
[2020-03-31] MEDS ORDERED: NICOTINE POLACRILEX 2 MG GUM BUC PRN (10:01)
[2020-03-31] MEDS ORDERED: chlordiazePOXIDE HCL 25 MG CAPSULE PO PRN (10:01)
[2020-03-31] MEDS ORDERED: ACETAMINOPHEN 325 MG TABLET (FP) PO PRN ×2 (10:01)
[2020-03-31] MEDS ORDERED: MAG HYDROX/AL HYDROX/SIMETH 30 ML UNIT-DOSE CUP PO PRN (10:01)
[2020-03-31] MEDS: IBUPROFEN 400 MG TABLET (FP) PO PRN ×2 (11:11→17:40)
--- NOTE | 2020-03-31 11:13 | EKG ---
Test Reason : Blood Pressure : / mmHG Vent. Rate : 074 BPM Atrial Rate : 074 BPM P-R Int : 156 ms QRS Dur : 100 ms QT Int : 420 ms P-R-T Axes : 061 017 013 degrees QTc Int : 466 ms NORMAL SINUS RHYTHM LEFT VENTRICULAR HYPERTROPHY LEFT ATRIAL ENLARGEMENT NONSPECIFIC ST ABNORMALITY ABNORMAL ECG Confirmed by MD KURT, JUDI ([id number]) on 03/31/2020 11:13:05 AM Referred By: Confirmed By:JUDI HICKS MD
[2020-03-31] MEDS: NICOTINE 21 MG/24 HOURS TOPICAL PATCH TD SCH (11:21)
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
[2020-03-31 14:54] LABS: HEMATOCRIT 35.3 % (35.4-49); HEMOGLOBIN 11.3 GM/dL (11.7-16.9); MCH 26.8 pg (25.7-33.7); MCHC 32.1 g/dl (32.0-35.9); MEAN CELL VOLUME 83.7 fl (80-96); MEAN PLT VOLUME 9.1 fl (7.5-11.1); PLATELET COUNT 316 K/MM3 (134-434); RBC 4.21 M/mm3 (4.00-5.60); RDW 17.2 % (11.9-15.9); WHITE BLOOD COUNT 6.8 K/mm3 (4.0-10.0)
[2020-03-31] MEDS: hydrOXYzine PAMOATE 25 MG CAPSULE (FP) PO SCH ×3 (15:04→22:27)
[2020-03-31 15:07] LABS: ALBUMIN 3.2 g/dl (3.4-5.0); BLOOD UREA NITROGEN 13.8 mg/dL (7-18); CALCIUM 8.9 mg/dL (8.5-10.1); CREATININE 0.9 mg/dL (0.55-1.3)
[2020-03-31 15:10] LABS: BILIRUBIN,TOTAL 0.4 mg/dL (0.2-1); TOT PROT 7.6 g/dl (6.4-8.2)
[2020-03-31] MEDS: chlordiazePOXIDE HCL 25 MG CAPSULE PO SCH ×2 (17:39→22:27)
[2020-03-31] MEDS: METHOCARBAMOL 500 MG TABLET PO PRN (17:40)
[2020-03-31] MEDS: THIAMINE HCL 100 MG TABLET (FP) PO SCH (22:27)
[2020-03-31] MEDS: MELATONIN 5 MG TABLETS PO SCH (22:27)
[2020-03-31] MEDS: QUEtiapine FUMARATE 100 MG TABLET (FP) PO SCH (22:27)
[2020-04-01] MEDS: chlordiazePOXIDE HCL 25 MG CAPSULE PO SCH ×4 (05:48→22:34)
[2020-04-01] MEDS: hydrOXYzine PAMOATE 25 MG CAPSULE (FP) PO SCH ×5 (05:48→22:34)
--- NOTE | 2020-04-01 10:08 | PN ---
S CIWA - CIWA Score Nausea/Vomitin-Mild Nausea/No Vomiting Muscle Tremors: 3 Anxiety: 4-Mod. Anxious/Guarded Agitation: 1-Slight > Activity Paroxysmal Sweats: 1-Minimal Palms Moist Orientation: 0-Oriented Tacttile Disturbances: 0-None Auditory Disturbances: 0-None Visual Disturbances: 2-Mild Sensitivity Headache: 2-Mild CIWA-Ar Total Score: 14 BHS Progress Note (SOAP) Subjective: 55 years old male admitted on 03/31/20 for alcohol withdrawal sx management treating with librium detox regiment ate breakfast in room social with peers in day room feeling ok today less tremor encourage discussing aftercare with staff Objective: 04/01/20 10:06 Vital Signs - 24 hr 03/31/20 03/31/20 03/31/20 10:38 10:56 13:02 Temperature 97.3 F L 96.9 F L Pulse Rate 73 78 Respiratory 18 18 Rate Blood Pressure 128/75 129/73 O2 Sat by Pulse 100 99 Oximetry (%) 03/31/20 03/31/20 04/01/20 16:44 20:38 06:22 Temperature 96.8 F L 97.3 F L 97.2 F L Pulse Rate 66 59 L 77 Respiratory 18 18 20 Rate Blood Pressure 130/78 143/83 117/75 O2 Sat by Pulse 99 99 Oximetry (%) 04/01/20 08:45 Temperature 98.1 F Pulse Rate 72 Respiratory 18 Rate Blood Pressure 148/79 O2 Sat by Pulse 99 Oximetry (%) Laboratory Tests 03/31/20 03/31/20 03/31/20 10:30 10:30 10:30 WBC 6.8 RBC 4.21 Hgb 11.3 L Hct 35.3 L MCV 83.7 MCH 26.8 MCHC 32.1 RDW 17.2 H Plt Count 316 MPV 9.1 D Sodium 142 Potassium 4.0 Chloride 110 H Carbon Dioxide 25 Anion Gap 7 L BUN 13.8 Creatinine 0.9 Est GFR (CKD-EPI)AfAm 111.05 Est GFR (CKD-EPI)NonAf 95.81 Random Glucose 90 Calcium 8.9 Total Bilirubin 0.4 AST 15 ALT 19 Alkaline Phosphatase 68 Total Protein 7.6 Albumin 3.2 L Syphilis Serology Non-reactive HIV Ag/Ab Combo Qual 03/31/20 10:30 WBC RBC Hgb Hct MCV MCH MCHC RDW Plt Count MPV Sodium Potassium Chloride Carbon Dioxide Anion Gap BUN Creatinine Est GFR (CKD-EPI)AfAm Est GFR (CKD-EPI)NonAf Random Glucose Calcium Total Bilirubin AST ALT Alkaline Phosphatase Total Protein Albumin Syphilis Serology HIV Ag/Ab Combo Qual Negative 04/01/20 10:07 covid pending Assessment: 04/01/20 10:07 alcohol withdrawal Plan: librium regiment
[2020-04-01] MEDS: IBUPROFEN 400 MG TABLET (FP) PO PRN (10:48)
[2020-04-01] MEDS: PRENATAL VITAMINS W/ FOLIC ACID TABLET (FP) PO SCH (10:48)
[2020-04-01] MEDS: NICOTINE 21 MG/24 HOURS TOPICAL PATCH TD SCH (10:50)
[2020-04-01] MEDS: THIAMINE HCL 100 MG TABLET (FP) PO SCH (22:33)
[2020-04-01] MEDS: QUEtiapine FUMARATE 100 MG TABLET (FP) PO SCH (22:34)
[2020-04-01] MEDS: MELATONIN 5 MG TABLETS PO SCH (22:34)
[2020-04-01] MEDS: METHOCARBAMOL 500 MG TABLET PO PRN (22:34)
[2020-04-02] MEDS: hydrOXYzine PAMOATE 25 MG CAPSULE (FP) PO SCH ×5 (06:28→22:23)
[2020-04-02] MEDS: chlordiazePOXIDE HCL 25 MG CAPSULE PO SCH ×4 (06:28→22:23)
--- NOTE | 2020-04-02 09:39 | PN ---
S CIWA - CIWA Score Nausea/Vomitin-Mild Nausea/No Vomiting Muscle Tremors: 2 Anxiety: 3 Agitation: 1-Slight > Activity Paroxysmal Sweats: 1-Minimal Palms Moist Orientation: 0-Oriented Tacttile Disturbances: 0-None Auditory Disturbances: 0-None Visual Disturbances: 2-Mild Sensitivity Headache: 0-None Present CIWA-Ar Total Score: 10 BHS Progress Note (SOAP) Subjective: 55 years old male admitted on 03/31/20 for alcohol withdrawal sx management treating with librium detox regiment Vital Signs - 24 hr 04/01/20 04/01/20 04/01/20 12:34 16:50 20:58 Temperature 97.8 F 97.3 F L 97.3 F L Pulse Rate 84 70 76 Respiratory 18 16 16 Rate Blood Pressure 130/76 152/76 142/79 O2 Sat by Pulse 100 100 97 Oximetry (%) 04/02/20 04/02/20 06:28 08:48 Temperature 97.6 F 97.3 F L Pulse Rate 75 74 Respiratory 18 18 Rate Blood Pressure 142/86 123/60 O2 Sat by Pulse 100 Oximetry (%) bp elevation required to be monitored in the community encourage mr terry managing bp through community health services such as [facility] etc Objective: 04/02/20 09:37 Laboratory Tests 03/31/20 03/31/20 03/31/20 10:30 10:30 10:30 WBC 6.8 RBC 4.21 Hgb 11.3 L Hct 35.3 L MCV 83.7 MCH 26.8 MCHC 32.1 RDW 17.2 H Plt Count 316 MPV 9.1 D Sodium 142 Potassium 4.0 Chloride 110 H Carbon Dioxide 25 Anion Gap 7 L BUN 13.8 Creatinine 0.9 Est GFR (CKD-EPI)AfAm 111.05 Est GFR (CKD-EPI)NonAf 95.81 Random Glucose 90 Calcium 8.9 Total Bilirubin 0.4 AST 15 ALT 19 Alkaline Phosphatase 68 Total Protein 7.6 Albumin 3.2 L Syphilis Serology Non-reactive COVID-19 (ELIZA) HIV Ag/Ab Combo Qual 03/31/20 03/31/20 10:30 12:20 WBC RBC Hgb Hct MCV MCH MCHC RDW Plt Count MPV Sodium Potassium Chloride Carbon Dioxide Anion Gap BUN Creatinine Est GFR (CKD-EPI)AfAm Est GFR (CKD-EPI)NonAf Random Glucose Calcium Total Bilirubin AST ALT Alkaline Phosphatase Total Protein Albumin Syphilis Serology COVID-19 (ELIZA) Not detected HIV Ag/Ab Combo Qual Negative discussing risks of uncontrolled bp elevation Assessment: 04/02/20 09:38 alcohol withdrawal hypertension Plan: librium regiment discussing alcohol related bp elevation
[2020-04-02] MEDS: NICOTINE 21 MG/24 HOURS TOPICAL PATCH TD SCH (10:07)
[2020-04-02] MEDS: IBUPROFEN 400 MG TABLET (FP) PO PRN (10:07)
[2020-04-02] MEDS: PRENATAL VITAMINS W/ FOLIC ACID TABLET (FP) PO SCH (10:08)
[2020-04-02] MEDS: THIAMINE HCL 100 MG TABLET (FP) PO SCH (22:22)
[2020-04-02] MEDS: MELATONIN 5 MG TABLETS PO SCH (22:23)
[2020-04-02] MEDS: QUEtiapine FUMARATE 100 MG TABLET (FP) PO SCH (22:24)
[2020-04-03] MEDS ORDERED: chlordiazePOXIDE HCL 10 MG CAPSULE PO PRN
[2020-04-03] MEDS: chlordiazePOXIDE HCL 10 MG CAPSULE PO SCH ×4 (05:55→22:19)
[2020-04-03] MEDS: hydrOXYzine PAMOATE 25 MG CAPSULE (FP) PO SCH ×5 (05:55→22:19)
[2020-04-03] MEDS: PRENATAL VITAMINS W/ FOLIC ACID TABLET (FP) PO SCH (10:19)
[2020-04-03] MEDS: NICOTINE 21 MG/24 HOURS TOPICAL PATCH TD SCH (10:19)
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
[2020-04-03] MEDS: QUEtiapine FUMARATE 100 MG TABLET (FP) PO SCH (22:19)
[2020-04-03] MEDS: THIAMINE HCL 100 MG TABLET (FP) PO SCH (22:19)
[2020-04-03] MEDS: MELATONIN 5 MG TABLETS PO SCH (22:19)
[2020-04-04] MEDS: hydrOXYzine PAMOATE 25 MG CAPSULE (FP) PO SCH ×5 (06:21→22:32)
[2020-04-04] MEDS: chlordiazePOXIDE HCL 10 MG CAPSULE PO SCH ×2 (06:21→17:38)
[2020-04-04] MEDS: NICOTINE 21 MG/24 HOURS TOPICAL PATCH TD SCH (09:26)
[2020-04-04] MEDS: PRENATAL VITAMINS W/ FOLIC ACID TABLET (FP) PO SCH (09:26)
--- NOTE | 2020-04-04 14:31 | PN ---
[facility] CIWA - CIWA Score Nausea/Vomitin-No Nausea/No Vomiting Muscle Tremors: None Anxiety: 1-Mildly Anxious Agitation: 0-Normal Activity Paroxysmal Sweats: 1-Minimal Palms Moist Orientation: 0-Oriented Tacttile Disturbances: 0-None Auditory Disturbances: 0-None Visual Disturbances: 0-None Headache: 0-None Present CIWA-Ar Total Score: 2 BHS Progress Note (SOAP) Subjective: c/o mild withdrawal symptoms. Objective: 04/04/20 14:32 Vital Signs 04/04/20 04/04/20 08:47 12:31 Temperature 97.1 F L 97.3 F L Pulse Rate 77 96 H Respiratory 18 20 Rate Blood Pressure 151/84 146/81 O2 Sat by Pulse 99 Oximetry (%) Laboratory Last Values WBC 6.8 K/mm3 (4.0-10.0) 03/31/20 10:30 RBC 4.21 M/mm3 (4.00-5.60) 03/31/20 10:30 Hgb 11.3 GM/dL (11.7-16.9) L 03/31/20 10:30 Hct 35.3 % (35.4-49) L 03/31/20 10:30 MCV 83.7 fl (80-96) 03/31/20 10:30 MCH 26.8 pg (25.7-33.7) 03/31/20 10:30 MCHC 32.1 g/dl (32.0-35.9) 03/31/20 10:30 RDW 17.2 % (11.9-15.9) H 03/31/20 10:30 Plt Count 316 K/MM3 (134-434) 03/31/20 10:30 MPV 9.1 fl (7.5-11.1) D 03/31/20 10:30 Sodium 142 mmol/L (136-145) 03/31/20 10:30 Potassium 4.0 mmol/L (3.5-5.1) 03/31/20 10:30 Chloride 110 mmol/L (98-107) H 03/31/20 10:30 Carbon Dioxide 25 mmol/L (21-32) 03/31/20 10:30 Anion Gap 7 MMOL/L (8-16) L 03/31/20 10:30 BUN 13.8 mg/dL (7-18) 03/31/20 10:30 Creatinine 0.9 mg/dL (0.55-1.3) 03/31/20 10:30 Est GFR (CKD-EPI)AfAm 111.05 03/31/20 10:30 Est GFR (CKD-EPI)NonAf 95.81 03/31/20 10:30 Random Glucose 90 mg/dL (74-106) 03/31/20 10:30 Calcium 8.9 mg/dL (8.5-10.1) 03/31/20 10:30 Total Bilirubin 0.4 mg/dL (0.2-1) 03/31/20 10:30 AST 15 U/L (15-37) 03/31/20 10:30 ALT 19 U/L (13-61) 03/31/20 10:30 Alkaline Phosphatase 68 U/L (45-117) 03/31/20 10:30 Total Protein 7.6 g/dl (6.4-8.2) 03/31/20 10:30 Albumin 3.2 g/dl (3.4-5.0) L 03/31/20 10:30 Syphilis Serology Non-reactive (NONREACTIVE) 03/31/20 10:30 COVID-19 (ELIZA) Not detected (Not Detected) 03/31/20 12:20 HIV Ag/Ab Combo Qual Negative (NEGATIVE) 03/31/20 10:30 Labs noted. Assessment: 04/04/20 14:32 AOX3, in no acute respiratory distress. Full ROM, ambulating in the unit. Mild Withdrawal symptoms. For d/c tomorrow. Plan: continue detox. D/c in AM.
--- NOTE | 2020-04-04 15:57 | PN ---
Psychiatric Progress Note Vital Signs: Vital Signs Period Temp Pulse Resp BP Sys/Spencer Pulse Ox Last 24 Hr 97.1 F-97.8 F 73-96 18-20 121-151/79-84 99-100 Date of Session: 04/04/20 Chief Complaint:: " I would like to get back on zoloft." HPI: Day 5 of detoxification. Patient has approached his medical provider with complaint of feeling depressed and the wish to resume sertraline. Mr Nixon states that he used to be on that medication years ago. Recalls that zoloft has been helpful. It appears that the patient has become increasingly dysphoric over the uncertainty of getting a bed at a rehabilitation program. ROS: Patient is ambulatory, alert and fully oriented. Cooperative. No somatic complaints. Current Medications: Active Medications Generic Name Dose Route Start Last Admin Trade Name Freq PRN Reason Stop Dose Admin Acetaminophen 650 mg 03/31/20 10:01 Tylenol - PO Q6H PRN PAIN LEVEL 4 - 6 Acetaminophen 650 mg 03/31/20 10:01 Tylenol - PO Q6H PRN FEVER Al Hydroxide/Mg Hydroxide 30 ml 03/31/20 10:01 Mylanta Oral Suspension - PO Q6H PRN DYSPEPSIA Bismuth Subsalicylate 30 ml 03/31/20 10:01 Pepto-Bismol Liquid - PO Q1H PRN DIARRHEA Chlordiazepoxide HCl 10 mg 04/04/20 05:00 04/04/20 06:21 Librium - PO 04/04/20 17:01 10 mg Q12H TRINIDAD Administration Chlordiazepoxide HCl 10 mg 04/05/20 05:00 Librium - PO 04/05/20 05:01 ONCE@0500 ONE Eucalyptus/Menthol/Phenol/Sorbitol 1 each 03/31/20 10:01 Cepastat Lozenge - MM 04/06/20 10:02 Q4H PRN SORE THROAT Hydroxyzine Pamoate 25 mg 03/31/20 14:00 04/04/20 13:48 Vistaril - PO 04/06/20 10:02 25 mg Q4HWA TRINIDAD Administration Ibuprofen 400 mg 03/31/20 10:01 04/02/20 10:07 Motrin - PO 400 mg Q6H PRN Administration PAIN LEVEL 1 - 3 Magnesium Citrate 300 ml 03/31/20 10:01 Citroma - PO Q48H PRN CONSTIPATION Magnesium Hydroxide 30 ml 03/31/20 10:01 Milk Of Magnesia - PO PRN PRN CONSTIPATION Melatonin 5 mg 03/31/20 22:00 04/03/20 22:19 Melatonin PO 5 mg HS TRINIDAD Administration Methocarbamol 500 mg 03/31/20 10:01 04/01/20 22:34 Robaxin - PO 04/06/20 10:02 500 mg Q6H PRN Administration MUSCLE SPASMS Nicotine 21 mg 03/31/20 10:15 04/04/20 09:26 Nicoderm Patch - TD 21 mg DAILY TRINIDAD Administration Nicotine Polacrilex 2 mg 03/31/20 10:01 Nicorette Gum - BUC Q2H PRN NICOTINE REPLACEMENT RX Ondansetron HCl 4 mg 03/31/20 10:01 Zofran Odt - SL 04/06/20 10:03 TID PRN Nausea/Vomiting Multivit/Folic Acid/Iron 1 tab 04/01/20 10:00 04/04/20 09:26 Vitamins (Sjr) - PO 1 tab DAILY TRINIDAD Administration Quetiapine Fumarate 100 mg 03/31/20 22:00 04/03/20 22:19 Seroquel - PO 100 mg HS TRINIDAD Administration Thiamine HCl 100 mg 03/31/20 22:00 04/03/20 22:19 Vitamin B1 - PO 100 mg HS TRINIDAD Administration Medication(s) Change(s): Medications discussed with the patient. He agrees to having dose of seroquel optimized + addition of zoloft. Side effects/benefits of both drugs are discussed with the patient. He is informed of the risk of metabolic syndrome, abnormal involuntary movements. cardiovascular adverse effects (seroquel) + sexual dysfunction, occurrence of suicidal ideation (zoloft). Ordered : zoloft 50 mg po daily + seroquel 200 mg po hs. Patient gave consent (verbal) for this plan of care. Current Side Effect: No Lab tests ordered: No Lab tests reviewed: Yes Provider note:: Chart reviewed. Met with the patient at bedside. Mr Nixon is found resting in his room. Awake, well groomed and cooperative on approach. He mentions his currrent social problems (unemployment, poverty, homelessness, lack of a support network) and his mounting anxiety over getting a bed at a DANNY treatment center (inpatient rehabilitation). He indicates that staying at [facility] would be his first choice. He informs this software writer that he is more hopeful after meeting with his counselor. Patient is willing to resume sertraline and he is aware " that these medications take time to produce their effect on the mood ". He has been tried on fluoxetine in the past (discontinued because of intolerable side effects) and sertraline (better tolerated). Psychoeducation : done in this session. Reassurance and support provided. Mr Nixon responded positively (brightening of affect, relaxed demeanor, regain of confidence/hope, active participation in the interview). He presents no evidence of psychosis or kenyon. Mood is moderately depressed (reactive to current stressors). Affect is appropriate. Patient is vehement about NOT feeling suicidal or homicidal (no ideation, intent or plan). Social work team is diligently assisting the patient in realizing his goal to enter a rehabilitation program. Medications are adjusted with full participation of Mr Nixon. Mental status remains stable. See MSE report fo details. Benign hospital course. Mental Status Exam - Mental Status Exam Alert and Oriented to: Time, Place, Person Cognitive Function: Good Patient Appearance: Well Groomed Mood: Withdrawn, Hopeful Affect: Mood Congruent, Constricted (mildly constricted) Patient Behavior: Appropriate, Cooperative Speech Pattern: Clear, Appropriate Voice Loudness: Normal Thought Process: Intact, Goal Oriented Thought Disorder: Not Present Hallucinations: Denies Suicidal Ideation: Denies Homicidal Ideation: Denies Insight/Judgement: Fair Sleep: Fair Appetite: Good Gait/Station: Normal Psychiatric Treatment Plan - Problem List (1) Alcohol dependence with uncomplicated withdrawal Current Visit: Yes Comment: . (2) Cannabis dependence Current Visit: Yes Comment: . (3) Cocaine dependence Current Visit: Yes Qualifiers: Substance use status: uncomplicated Qualified Code(s): F14.20 - Cocaine dependence, uncomplicated Comment: . (4) Nicotine dependence Current Visit: Yes Comment: . (5) Substance induced mood disorder Current Visit: Yes Comment: . (6) History of schizoaffective disorder Current Visit: Yes Comment: . (7) Insomnia Current Visit: Yes Comment: .
[2020-04-04] MEDS ORDERED: QUEtiapine FUMARATE 200 MG TABLET PO SCH (22:00)
[2020-04-04] MEDS: THIAMINE HCL 100 MG TABLET (FP) PO SCH (22:32)
[2020-04-04] MEDS: MELATONIN 5 MG TABLETS PO SCH (22:32)
[2020-04-05] MEDS ORDERED: chlordiazePOXIDE HCL 10 MG CAPSULE PO ONE (05:00)
[2020-04-05] MEDS: hydrOXYzine PAMOATE 25 MG CAPSULE (FP) PO SCH ×2 (05:55→10:01)
[2020-04-05 06:14] VITALS: PULSE 84
[2020-04-05 09:02] VITALS: BP 131/79; TEMP 97.1
[2020-04-05] MEDS: NICOTINE 21 MG/24 HOURS TOPICAL PATCH TD SCH (10:00)
[2020-04-05] MEDS ORDERED: SERTRALINE HCL 50 MG TABLET (FP) PO SCH (10:00)
[2020-04-05] MEDS: PRENATAL VITAMINS W/ FOLIC ACID TABLET (FP) PO SCH (10:01)
--- NOTE | 2020-04-05 11:18 | DS ---
[facility] Detox Discharge Summary Admission Date: 03/31/20 Discharge Date: 04/05/20 - History Present History: Alcohol Dependence Additional Comments: 55 years old male admitted on 03/31/20 for alcohol withdrawal sx management treated with librium detox regiment seen by psychiatrist bharti seroquel and zoloft mr ngo has completed the librium regiment and is tolerated well alert oriented x 3 speech clearly coherently ambulating steady gaits cardiac s1s2 regular rate rhythm ekg indicated left ventricular hypertrophy left atrial and left atrial enlargement denies chest pain no dizziness no shortness of breath respiratory clear lung sounds bilaterally on auscultation extremities full range of motion Pertinent Past History: time for discharge 46 minutes transferred order to rehab - Physical Exam Results Vital Signs: Vital Signs Temperature 97.1 F L 04/05/20 08:39 Pulse Rate 84 04/05/20 08:39 Respiratory Rate 18 04/05/20 08:39 Blood Pressure 131/79 04/05/20 08:39 O2 Sat by Pulse Oximetry (%) 99 04/05/20 05:49 bp elevation amlodipine 10 mg po initiated with no salt added diet Pertinent Admission Physical Exam Findings: alcohol withdrawal Laboratory Tests 03/31/20 03/31/20 03/31/20 10:30 10:30 10:30 WBC 6.8 RBC 4.21 Hgb 11.3 L Hct 35.3 L MCV 83.7 MCH 26.8 MCHC 32.1 RDW 17.2 H Plt Count 316 MPV 9.1 D Sodium 142 Potassium 4.0 Chloride 110 H Carbon Dioxide 25 Anion Gap 7 L BUN 13.8 Creatinine 0.9 Est GFR (CKD-EPI)AfAm 111.05 Est GFR (CKD-EPI)NonAf 95.81 Random Glucose 90 Calcium 8.9 Total Bilirubin 0.4 AST 15 ALT 19 Alkaline Phosphatase 68 Total Protein 7.6 Albumin 3.2 L Syphilis Serology Non-reactive COVID-19 (ELIZA) HIV Ag/Ab Combo Qual 03/31/20 03/31/20 10:30 12:20 WBC RBC Hgb Hct MCV MCH MCHC RDW Plt Count MPV Sodium Potassium Chloride Carbon Dioxide Anion Gap BUN Creatinine Est GFR (CKD-EPI)AfAm Est GFR (CKD-EPI)NonAf Random Glucose Calcium Total Bilirubin AST ALT Alkaline Phosphatase Total Protein Albumin Syphilis Serology COVID-19 (ELIZA) Not detected HIV Ag/Ab Combo Qual Negative lab noted - Treatment Hospital Course: Detox Protocol Followed, Detoxed Safely, Responded well, Discharged Condition Good, Rehab Referral Accepted Patient has Accepted a Rehab Referral to: [facility] - Medication Discharge Medications: Ambulatory Orders Quetiapine Fumarate [Seroquel -] 100 mg PO HS #30 tablet 10/22/19 - Diagnosis (1) Alcohol dependence with uncomplicated withdrawal Status: Acute (2) Asthma Status: Chronic Qualifiers: Asthma severity: mild Asthma persistence: intermittent Asthma complication type: with status asthmaticus Qualified Code(s): J45.22 - Mild intermittent asthma with status asthmaticus (3) HTN (hypertension) Status: Chronic Qualifiers: Hypertension type: essential hypertension Qualified Code(s): I10 - Essential (primary) hypertension (4) History of asthma Status: Chronic (5) Nicotine dependence Status: Acute (6) Substance induced mood disorder Status: Suspected - AMA Did Patient Leave Against Medical Advice: No CIWA Score - CIWA Score Nausea/Vomitin-No Nausea/No Vomiting Muscle Tremors: None Anxiety: 1-Mildly Anxious Agitation: 0-Normal Activity Paroxysmal Sweats: No Perspiration Orientation: 0-Oriented Tacttile Disturbances: 0-None Auditory Disturbances: 0-None Visual Disturbances: 0-None Headache: 0-None Present CIWA-Ar Total Score: 1
== END 2020-04-05 10:50 | disposition other institution (70) | DRG 774 ==
LOC: YASAS 09:02 → Y3N 10:06
PROVIDERS: ADMIT Allergy & Immunology; ATTEND Allergy & Immunology
PROC: HZ2ZZZZ Detoxification Services for Substance Abuse Treatment (ICD-10-PCS; principal; 2020-03-31)
DX: F10.230 Alcohol dependence with withdrawal, uncomplicated (principal); F14.20 Cocaine dependence, uncomplicated; F12.20 Cannabis dependence, uncomplicated; F19.20 Other psychoactive substance dependence, uncomplicated; F17.210 Nicotine dependence, cigarettes, uncomplicated; F19.24 Other psychoactive substance dependence with psychoactive substance-induced mood disorder; F25.9 Schizoaffective disorder, unspecified; E78.5 Hyperlipidemia, unspecified; I10 Essential (primary) hypertension; J45.998 Other asthma; M54.5 Low back pain; G89.29 Other chronic pain; Z94.5 Skin transplant status; Z86.718 Personal history of other venous thrombosis and embolism; Z86.69 Personal history of other diseases of the nervous system and sense organs; Z56.0 Unemployment, unspecified; Z59.0 Homelessness
CPT/HCPCS: 36415; 80053; 85027; 86780; 87389; 93005; 93010; U0003

== ENCOUNTER 2020-04-05 09:59 | Inpatient (IN) | payer OTHER ==
[2020-04-05] MEDS ORDERED: NICOTINE POLACRILEX 2 MG GUM BUC PRN (11:20)
[2020-04-05] MEDS ORDERED: LOPERAMIDE HCL 2 MG CAPSULE PO PRN (11:20)
[2020-04-05] MEDS ORDERED: P-EPHED 60MG/TRIPROLIDI 2.5MG TABLET PO PRN (11:20)
[2020-04-05] MEDS ORDERED: MAGNESIUM CITRATE 300 ML BOTTLE PO PRN (11:20)
[2020-04-05] MEDS ORDERED: MAGNESIUM HYDROX 2400MG/30ML ORAL SUSPENSION 30 ML CUP PO PRN (11:20)
[2020-04-05] MEDS ORDERED: MAG HYDROX/AL HYDROX/SIMETH 30 ML UNIT-DOSE CUP PO PRN (11:20)
[2020-04-05] MEDS ORDERED: ACETAMINOPHEN 325 MG TABLET (FP) PO PRN (11:20)
[2020-04-05] MEDS ORDERED: guaiFENesin 200 MG/10 ML 10 ML UNIT-DOSE CUPS PO PRN (11:20)
[2020-04-05] MEDS ORDERED: IBUPROFEN 400 MG TABLET (FP) PO PRN (11:20)
--- NOTE | 2020-04-05 11:20 | HP ---
JAMARI DAVALOS Rehab Assess/Revision - Admission History Admitted to Rehab from: [facility] Date of Admission to Rehab: 04/05/20 - Vital signs Vital Signs: Vital Signs Period Temp Pulse Resp BP Sys/Spencer Pulse Ox Last 24 Hr 97.3 F 112 18 134/84 - Findings Detox History & Physical reviewed: Yes Concur with findings: Yes Comments/Additional Findings: transferred from detox to rehab admission as per protocol Inpatient Rehab Admission - Rehab Decision to Admit Inpatient rehab admission?: Yes - Initial Determination Are CD services needed?: Yes Free of communicable disease: Yes Not in need of hospitalization: Yes - Rehab Admission Criteria Previous failed treatment: Yes Poor recovery environment: Yes Comorbidities: Yes Lacks judgement: Yes Patient is meeting Inpatient Rehab admission criteria:: Yes
--- NOTE | 2020-04-05 13:39 | CONSULT ---
[facility] Psychiatric Consult - Data Date of interview: 04/05/20 Admission source: [facility] Identifying data: Patient is a 55 year old male, father of four, homeless, unemployed, and is supported by welfare benefits. This is one of multiple admissions. Patient admitted to rehab for alcohol, cocaine, cannabis, and cannabis/ K2 dependence. Substance Abuse History: - Smoking Cessation. Smoking history: Current every day smoker. Have you smoked in the past 12 months: Yes. Aproximately how many cigarettes per day: 10. If you are a former smoker, when did you quit?: 20. Cigars Per Day: 0. Hx Chewing Tobacco Use: No. Initiated information on smoking cessation: Yes. 'Breaking Loose' booklet given: 03/31/20. - Substances abused. Alcohol. Substance route: Oral. Frequency: Daily. Amount used: 1 pint of vodka & 12 pk beer. Age of first use: 14. Date of last use: 03/30/20. K2/Spice. Substance route: Smoking. Frequency: Daily. Amount used: $10-20. Age of first use: 46. Date of last use: 03/30/20. Marijuana/Hashish. Substance route: Smoking. Frequency: Daily. Amount used: $5. Age of first use: 14. Date of last use: 03/30/20 Medical History: Medical profile is remarkable for bronchial asthma, dyslipidemia, hypertension and history of treatment for pineda (skin graft to left leg) in 1997 Psychiatric History: Mr. Nixon presents as fatigue/tired but is able to speak to personal lines underwriter although is unable to provide a clear cohesive psychiatric history. Patient reports a history of multiple psychiatric hospitalizations and states that he has been diagnosed with Bipolar disorder and treated with Seroquel. As per previous notes patient has a diagnoses of schizoaffective disorder. Past hospitalizations at [facility], [facility] in [facility], and [facility]. Past treatment with seroquel + trazodone + zoloft + prozac. Mr. Nixon denies current outpatient psychiatric care. Patient seen by Dr. Eckert in detox and was resumed on seroquel 100mg. After four days in detox zoloft 50mg was resumed and seroquel was increased to 200mg HS after patient reported feeling depressed. Patient currently denies auditory/ visual hallucinations, suicidal/ homicidal ideation. Physical/Sexual Abuse/Trauma History: denies. Mental Status Exam - Mental Status Exam Alert and Oriented to: Time, Place, Person Cognitive Function: Good Patient Appearance: Well Groomed Mood: Withdrawn Affect: Mood Congruent Patient Behavior: Fatigued Speech Pattern: Delayed (patient is tired. ) Voice Loudness: Mildly Soft/Quiet Thought Process: Goal Oriented Thought Disorder: Not Present Hallucinations: Denies Suicidal Ideation: Denies Homicidal Ideation: Denies Insight/Judgement: Poor Sleep: Poorly Appetite: Fair Muscle strength/Tone: Normal Gait/Station: Other (Gait not observed.) Psychiatric Findings - Problem List ([place] 1, 2,3) (1) Alcohol use disorder Current Visit: Yes Status: Chronic (2) Cannabis dependence Current Visit: Yes Status: Chronic Comment: . (3) Cocaine dependence Current Visit: Yes Status: Chronic Qualifiers: Substance use status: uncomplicated Qualified Code(s): F14.20 - Cocaine dependence, uncomplicated Comment: . (4) History of schizoaffective disorder Current Visit: Yes Status: Chronic Comment: . - Initial Treatment Plan Initial Treatment Plan: Psychoeducation provided. Rehab in progress. Will continue Zoloft 50mg daily + Seroquel 200mg HS. Benefits and side effects discussed. Verbal consent given.
[2020-04-05] MEDS: QUEtiapine FUMARATE 100 MG TABLET (FP) PO SCH (22:00)
[2020-04-05] MEDS: THIAMINE HCL 100 MG TABLET (FP) PO SCH (22:00)
[2020-04-05] MEDS: MELATONIN 5 MG TABLETS PO SCH (22:01)
[2020-04-06] MEDS: SERTRALINE HCL 50 MG TABLET (FP) PO SCH (10:24)
[2020-04-06] MEDS: PRENATAL VITAMINS W/ FOLIC ACID TABLET (FP) PO SCH (10:24)
[2020-04-06] MEDS: NICOTINE 7 MG/24 HOURS TOPICAL PATCH TD SCH (10:24)
[2020-04-06] MEDS: amLODIPine BESYLATE 10 MG TABLET (FP) PO SCH (10:24)
[2020-04-06] MEDS: MELATONIN 5 MG TABLETS PO SCH (21:30)
[2020-04-06] MEDS: QUEtiapine FUMARATE 100 MG TABLET (FP) PO SCH (21:30)
[2020-04-06] MEDS: THIAMINE HCL 100 MG TABLET (FP) PO SCH (21:30)
[2020-04-07] MEDS: amLODIPine BESYLATE 10 MG TABLET (FP) PO SCH (09:53)
[2020-04-07] MEDS: NICOTINE 7 MG/24 HOURS TOPICAL PATCH TD SCH (09:53)
[2020-04-07] MEDS: PRENATAL VITAMINS W/ FOLIC ACID TABLET (FP) PO SCH (09:53)
[2020-04-07] MEDS: SERTRALINE HCL 50 MG TABLET (FP) PO SCH (09:54)
[2020-04-07] MEDS: NICOTINE 21 MG/24 HOURS TOPICAL PATCH TD SCH (09:58)
[2020-04-07] MEDS: THIAMINE HCL 100 MG TABLET (FP) PO SCH (21:36)
[2020-04-07] MEDS: QUEtiapine FUMARATE 100 MG TABLET (FP) PO SCH (21:36)
[2020-04-07] MEDS: MELATONIN 5 MG TABLETS PO SCH (21:36)
[2020-04-08] MEDS: NICOTINE 21 MG/24 HOURS TOPICAL PATCH TD SCH (09:35)
[2020-04-08] MEDS: PRENATAL VITAMINS W/ FOLIC ACID TABLET (FP) PO SCH (09:36)
[2020-04-08] MEDS: SERTRALINE HCL 50 MG TABLET (FP) PO SCH (09:36)
[2020-04-08] MEDS: amLODIPine BESYLATE 10 MG TABLET (FP) PO SCH (09:59)
[2020-04-08] MEDS: THIAMINE HCL 100 MG TABLET (FP) PO SCH (21:01)
[2020-04-08] MEDS: MELATONIN 5 MG TABLETS PO SCH (21:01)
[2020-04-08] MEDS: hydrOXYzine PAMOATE 25 MG CAPSULE (FP) PO PRN (21:02)
[2020-04-08] MEDS: QUEtiapine FUMARATE 100 MG TABLET (FP) PO SCH (21:02)
[2020-04-09] MEDS: NICOTINE 21 MG/24 HOURS TOPICAL PATCH TD SCH (09:45)
[2020-04-09] MEDS: PRENATAL VITAMINS W/ FOLIC ACID TABLET (FP) PO SCH (09:45)
[2020-04-09] MEDS: amLODIPine BESYLATE 10 MG TABLET (FP) PO SCH (09:45)
[2020-04-09] MEDS: SERTRALINE HCL 50 MG TABLET (FP) PO SCH (09:45)
[2020-04-09] MEDS: THIAMINE HCL 100 MG TABLET (FP) PO SCH (21:08)
[2020-04-09] MEDS: MELATONIN 5 MG TABLETS PO SCH (21:08)
[2020-04-09] MEDS: hydrOXYzine PAMOATE 25 MG CAPSULE (FP) PO PRN (21:09)
[2020-04-09] MEDS: QUEtiapine FUMARATE 100 MG TABLET (FP) PO SCH (21:09)
[2020-04-10] MEDS: SERTRALINE HCL 50 MG TABLET (FP) PO SCH (10:02)
[2020-04-10] MEDS: NICOTINE 21 MG/24 HOURS TOPICAL PATCH TD SCH (10:02)
[2020-04-10] MEDS: amLODIPine BESYLATE 10 MG TABLET (FP) PO SCH (10:02)
[2020-04-10] MEDS: PRENATAL VITAMINS W/ FOLIC ACID TABLET (FP) PO SCH (10:02)
--- NOTE | 2020-04-10 12:23 | PN ---
[facility] Progress Note Note: Patient reports that he started taking Zoloft 50 mg/day a few days ago while in detox and medication is not helping. He was told he cannot expect for the medication to start working as of yet since it takes 3 to 6 weeks before it is expected for that medication to work
[2020-04-10] MEDS ORDERED: QUEtiapine FUMARATE 50 MG TABLET PO ONE (18:09)
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
--- NOTE | 2020-04-10 20:42 | PN ---
S Progress Note Note: Psychiatry Attending's note : Patient is currently on 1:1 observation. Watched by nursing staff, Ms Marlene Feliciano.
[2020-04-10] MEDS: hydrOXYzine PAMOATE 25 MG CAPSULE (FP) PO PRN (21:21)
[2020-04-10] MEDS: THIAMINE HCL 100 MG TABLET (FP) PO SCH (21:21)
[2020-04-10] MEDS: MELATONIN 5 MG TABLETS PO SCH (21:21)
[2020-04-10] MEDS: QUEtiapine FUMARATE 300 MG TABLET PO SCH (21:22)
[2020-04-11] MEDS: amLODIPine BESYLATE 10 MG TABLET (FP) PO SCH (09:43)
[2020-04-11] MEDS: PRENATAL VITAMINS W/ FOLIC ACID TABLET (FP) PO SCH (09:43)
[2020-04-11] MEDS: NICOTINE 21 MG/24 HOURS TOPICAL PATCH TD SCH (09:43)
[2020-04-11] MEDS: SERTRALINE HCL 50 MG TABLET (FP) PO SCH (09:43)
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
[2020-04-11] MEDS ORDERED: QUEtiapine FUMARATE 50 MG TABLET PO ONE (13:27)
[2020-04-11] MEDS: QUEtiapine FUMARATE 300 MG TABLET PO SCH (21:14)
[2020-04-11] MEDS: MELATONIN 5 MG TABLETS PO SCH (21:14)
[2020-04-11] MEDS: THIAMINE HCL 100 MG TABLET (FP) PO SCH (21:14)
[2020-04-12] MEDS: SERTRALINE HCL 50 MG TABLET (FP) PO SCH (09:33)
[2020-04-12] MEDS: NICOTINE 21 MG/24 HOURS TOPICAL PATCH TD SCH (09:33)
[2020-04-12] MEDS: amLODIPine BESYLATE 10 MG TABLET (FP) PO SCH (09:34)
[2020-04-12] MEDS: QUEtiapine FUMARATE 100 MG TABLET (FP) PO SCH (09:34)
[2020-04-12] MEDS: PRENATAL VITAMINS W/ FOLIC ACID TABLET (FP) PO SCH (09:34)
[2020-04-12] MEDS: QUEtiapine FUMARATE 300 MG TABLET PO SCH (21:53)
[2020-04-12] MEDS: THIAMINE HCL 100 MG TABLET (FP) PO SCH (21:53)
[2020-04-12] MEDS: MELATONIN 5 MG TABLETS PO SCH (21:53)
[2020-04-13] MEDS: amLODIPine BESYLATE 10 MG TABLET (FP) PO SCH (10:14)
[2020-04-13] MEDS: QUEtiapine FUMARATE 100 MG TABLET (FP) PO SCH (10:14)
[2020-04-13] MEDS: NICOTINE 21 MG/24 HOURS TOPICAL PATCH TD SCH (10:14)
[2020-04-13] MEDS: SERTRALINE HCL 50 MG TABLET (FP) PO SCH (10:14)
[2020-04-13] MEDS: PRENATAL VITAMINS W/ FOLIC ACID TABLET (FP) PO SCH (10:15)
[2020-04-13] MEDS: MELATONIN 5 MG TABLETS PO SCH (21:06)
[2020-04-13] MEDS: hydrOXYzine PAMOATE 25 MG CAPSULE (FP) PO PRN (21:06)
[2020-04-13] MEDS: QUEtiapine FUMARATE 300 MG TABLET PO SCH (21:06)
[2020-04-13] MEDS: THIAMINE HCL 100 MG TABLET (FP) PO SCH (21:06)
[2020-04-14] MEDS: amLODIPine BESYLATE 10 MG TABLET (FP) PO SCH (10:04)
[2020-04-14] MEDS: SERTRALINE HCL 50 MG TABLET (FP) PO SCH (10:04)
[2020-04-14] MEDS: QUEtiapine FUMARATE 100 MG TABLET (FP) PO SCH (10:04)
[2020-04-14] MEDS: PRENATAL VITAMINS W/ FOLIC ACID TABLET (FP) PO SCH (10:04)
[2020-04-14] MEDS: NICOTINE 21 MG/24 HOURS TOPICAL PATCH TD SCH (10:08)
[2020-04-14] MEDS: QUEtiapine FUMARATE 300 MG TABLET PO SCH (21:12)
[2020-04-14] MEDS: hydrOXYzine PAMOATE 25 MG CAPSULE (FP) PO PRN (21:12)
[2020-04-14] MEDS: MELATONIN 5 MG TABLETS PO SCH (21:12)
[2020-04-14] MEDS: THIAMINE HCL 100 MG TABLET (FP) PO SCH (21:12)
[2020-04-15] MEDS: amLODIPine BESYLATE 10 MG TABLET (FP) PO SCH (09:58)
[2020-04-15] MEDS: NICOTINE 21 MG/24 HOURS TOPICAL PATCH TD SCH (09:58)
[2020-04-15] MEDS: QUEtiapine FUMARATE 100 MG TABLET (FP) PO SCH (09:58)
[2020-04-15] MEDS: PRENATAL VITAMINS W/ FOLIC ACID TABLET (FP) PO SCH (09:59)
[2020-04-15] MEDS: SERTRALINE HCL 50 MG TABLET (FP) PO SCH (09:59)
--- NOTE | 2020-04-15 15:34 | PN ---
Psychiatric Progress Note Vital Signs: Vital Signs Period Temp Pulse Resp BP Sys/Spencer Pulse Ox Last 24 Hr 97.0 F 85-93 18 109-131/69-71 97-98 Date of Session: 04/15/20 Chief Complaint:: " I am annoyed by another patient on this unit." HPI: Called to re-evaluate this patient who has approached the nursing staff with request for optimization of doses of his medications. Staff reports patient as paranoid and moderately irritable. Re-evaluation is sought for titration of medications. ROS: Patient is alert, fully oriented and cooperative in this interview. Ambulatory. Visible on the unit. Current Medications: Active Medications Generic Name Dose Route Start Last Admin Trade Name Freq PRN Reason Stop Dose Admin Acetaminophen 650 mg 04/05/20 11:20 Tylenol - PO Q4H PRN FEVER Al Hydroxide/Mg Hydroxide 30 ml 04/05/20 11:20 Mylanta Oral Suspension - PO Q6H PRN DYSPEPSIA Amlodipine Besylate 10 mg 04/06/20 10:00 04/15/20 09:58 Norvasc - PO 10 mg DAILY TRINIDAD Administration Guaifenesin 10 ml 04/05/20 11:20 Robitussin - PO Q6H PRN COUGH Hydroxyzine Pamoate 25 mg 04/05/20 11:20 04/14/20 21:12 Vistaril - PO 25 mg Q4HWA PRN Administration ANXIETY Ibuprofen 400 mg 04/05/20 11:20 04/07/20 21:37 Motrin - PO 400 mg Q6H PRN Administration Pain level 4-6 Loperamide HCl 4 mg 04/05/20 11:20 Imodium - PO Q6H PRN DIARRHEA Magnesium Citrate 300 ml 04/05/20 11:20 04/05/20 17:24 Citroma - PO 300 ml Q48H PRN Administration CONSTIPATION Magnesium Hydroxide 30 ml 04/05/20 11:20 Milk Of Magnesia - PO DAILY PRN CONSTIPATION Melatonin 5 mg 04/05/20 22:00 04/14/20 21:12 Melatonin PO 5 mg HS TRINIDAD Administration Nicotine 21 mg 04/07/20 10:00 04/15/20 09:58 Nicoderm Patch - TD 21 mg DAILY TRINIDAD Administration Nicotine Polacrilex 2 mg 04/05/20 11:20 Nicorette Gum - BUC Q2H PRN NICOTINE REPLACEMENT RX Multivit/Folic Acid/Iron 1 tab 04/06/20 10:00 04/15/20 09:59 Vitamins (Sjr) - PO 1 tab DAILY TRINIDAD Administration Pseudoephedrine/Triprolidine 1 combo 04/05/20 11:20 Actifed - PO TID PRN NASAL CONGESTION Quetiapine Fumarate 300 mg 04/10/20 22:00 04/14/20 21:12 Seroquel - PO 300 mg HS TRINIDAD Administration Quetiapine Fumarate 100 mg 04/12/20 10:00 04/15/20 09:58 Seroquel - PO 100 mg DAILY TRINIDAD Administration Sertraline HCl 100 mg 04/11/20 10:00 04/15/20 09:59 Zoloft - PO 100 mg DAILY TRINIDAD Administration Thiamine HCl 100 mg 04/05/20 22:00 04/14/20 21:12 Vitamin B1 - PO 100 mg HS TRINIDAD Administration Medication(s) Change(s): Seroquel is changed to 200 mg po daily + 300 mg po hs. Side effects/benefits revisited with the patient. Mr Nixon is in agreement with this plan of care. Current Side Effect: No Lab tests ordered: No Lab tests reviewed: Yes Provider note:: Chart reviewed. Met with the patient. Mr Nixon reports experie ncing some difficulty interacting with a particular peer whom he finds to be intrusive and disrespecful. He explains to this communications writer that he has no intention of hurting anyone but feels upset by his peer's remarks about him. " I don't know the man, I mind my own business. But he keeps on talking non-sense to me. He is an old man. He has to have some respect for people. I don't want to run into any problem. I want to complete my program here and improve my life." Mr Nixon is noted as well groomed, appropriate, conversant, coherent and goal- directed. Mildly anxious. He denies hallucinations. Patient denies suicidal or homicidal ideation, intent or plan. He denies having thought of hurting relatives or anyone. " I was angry that day. I said things that I did not really mean. I don't want to hurt anyone." Concerned about relapsing into drug use. Patient is reassured about his safety on the unit. Seroquel is titrated. No acting out. Mental status remains stable. See MSE report for details. Close observation. Follow-up by Liaison-Psychiatry, as needed. Discussed with nurse on duty. Total face to face time:: 35 Mental Status Exam - Mental Status Exam Alert and Oriented to: Time, Place, Person Cognitive Function: Good Patient Appearance: Well Groomed Mood: Anxious, Irritable Affect: Mood Congruent, Constricted Patient Behavior: Appropriate, Cooperative Speech Pattern: Clear Voice Loudness: Normal Thought Process: Goal Oriented Thought Disorder: Paranoid Ideation (mild symptoms) Hallucinations: Denies Suicidal Ideation: Denies Homicidal Ideation: Denies Insight/Judgement: Poor Sleep: Well Appetite: Good Gait/Station: Normal Psychiatric Treatment Plan - Problem List (1) Alcohol use disorder Current Visit: Yes Comment: . (2) Cannabis dependence Current Visit: Yes Comment: . (3) Cocaine dependence Current Visit: Yes Qualifiers: Substance use status: uncomplicated Qualified Code(s): F14.20 - Cocaine dependence, uncomplicated Comment: . (4) Nicotine dependence Current Visit: Yes Comment: . (5) Synthetic cannabinoid abuse Current Visit: Yes Comment: . (6) Insomnia Current Visit: Yes Comment: . (7) History of schizoaffective disorder Current Visit: Yes Comment: .
[2020-04-15] MEDS: hydrOXYzine PAMOATE 25 MG CAPSULE (FP) PO PRN (21:20)
[2020-04-15] MEDS: MELATONIN 5 MG TABLETS PO SCH (21:20)
[2020-04-15] MEDS: THIAMINE HCL 100 MG TABLET (FP) PO SCH (21:20)
[2020-04-15] MEDS: QUEtiapine FUMARATE 300 MG TABLET PO SCH (21:20)
[2020-04-16] MEDS: NICOTINE 21 MG/24 HOURS TOPICAL PATCH TD SCH (09:42)
[2020-04-16] MEDS: SERTRALINE HCL 50 MG TABLET (FP) PO SCH (09:43)
[2020-04-16] MEDS: QUEtiapine FUMARATE 200 MG TABLET PO SCH (09:43)
[2020-04-16] MEDS: amLODIPine BESYLATE 10 MG TABLET (FP) PO SCH (09:43)
[2020-04-16] MEDS: PRENATAL VITAMINS W/ FOLIC ACID TABLET (FP) PO SCH (09:43)
[2020-04-16] MEDS: QUEtiapine FUMARATE 300 MG TABLET PO SCH (21:24)
[2020-04-16] MEDS: hydrOXYzine PAMOATE 25 MG CAPSULE (FP) PO PRN (21:24)
[2020-04-16] MEDS: THIAMINE HCL 100 MG TABLET (FP) PO SCH (21:24)
[2020-04-16] MEDS: MELATONIN 5 MG TABLETS PO SCH (21:24)
[2020-04-17] MEDS: PRENATAL VITAMINS W/ FOLIC ACID TABLET (FP) PO SCH (09:38)
[2020-04-17] MEDS: amLODIPine BESYLATE 10 MG TABLET (FP) PO SCH (09:38)
[2020-04-17] MEDS: NICOTINE 21 MG/24 HOURS TOPICAL PATCH TD SCH (09:38)
[2020-04-17] MEDS: SERTRALINE HCL 50 MG TABLET (FP) PO SCH (09:38)
[2020-04-17] MEDS: QUEtiapine FUMARATE 200 MG TABLET PO SCH (09:39)
--- NOTE | 2020-04-17 17:30 | PN ---
[facility] Progress Note Note: Psychiatry Attending's note (follow-up) : Chart reviewed. Multidisciplinary notes : appreciated. Case discussed with counselor, Tereza Alvares. Aftercare plans revisited. Patient is progressing well. Mr Nixon is adherent to his medications. No acting out. He is participating actively in his current treatment plan. Has consistently denies experiencing hallucinations. Patient denies suicidal or homicidal ideation, intent or plan. Future-oriented : [facility] but [facility]. Refer to Ms Alvares's note for details. Met with the patient. Mr Nixon is found in his room. Awake, reading a book. Noted as neatly groomed, calm, relaxed and controlled. Patient reports fair sleep and appetite. Attends groups. No report of altercation with others. Compliant with rules. Medications are well tolerated. Side effects/benefits discussed. Patient is made aware of current titration of quetiapine. Seroquel 200 mg po daily + 400 mg po hs. Mr Nixon is in agreement with this plan of care. Will follow.
[2020-04-17] MEDS ORDERED: PT OWN MED DRAWER 7, Y5N ONE (20:07)
[2020-04-17] MEDS: MELATONIN 5 MG TABLETS PO SCH (21:32)
[2020-04-17] MEDS: THIAMINE HCL 100 MG TABLET (FP) PO SCH (21:33)
[2020-04-17] MEDS: QUEtiapine FUMARATE 400 MG TABLET PO SCH (21:33)
[2020-04-18] MEDS: PRENATAL VITAMINS W/ FOLIC ACID TABLET (FP) PO SCH (09:58)
[2020-04-18] MEDS: amLODIPine BESYLATE 10 MG TABLET (FP) PO SCH (09:58)
[2020-04-18] MEDS: SERTRALINE HCL 50 MG TABLET (FP) PO SCH (09:58)
[2020-04-18] MEDS: QUEtiapine FUMARATE 200 MG TABLET PO SCH (09:58)
[2020-04-18] MEDS: NICOTINE 21 MG/24 HOURS TOPICAL PATCH TD SCH (09:58)
[2020-04-18] MEDS: MELATONIN 5 MG TABLETS PO SCH (21:06)
[2020-04-18] MEDS: hydrOXYzine PAMOATE 25 MG CAPSULE (FP) PO PRN (21:06)
[2020-04-18] MEDS: QUEtiapine FUMARATE 400 MG TABLET PO SCH (21:06)
[2020-04-18] MEDS: THIAMINE HCL 100 MG TABLET (FP) PO SCH (21:06)
[2020-04-19] MEDS: amLODIPine BESYLATE 10 MG TABLET (FP) PO SCH (09:37)
[2020-04-19] MEDS: QUEtiapine FUMARATE 200 MG TABLET PO SCH (09:37)
[2020-04-19] MEDS: NICOTINE 21 MG/24 HOURS TOPICAL PATCH TD SCH (09:37)
[2020-04-19] MEDS: PRENATAL VITAMINS W/ FOLIC ACID TABLET (FP) PO SCH (09:37)
[2020-04-19] MEDS: SERTRALINE HCL 50 MG TABLET (FP) PO SCH (09:38)
--- NOTE | 2020-04-19 12:28 | PN ---
[facility] Progress Note Note: patient requested to see psychiatrist for reevaluation of medications
[2020-04-19] MEDS: MELATONIN 5 MG TABLETS PO SCH (21:05)
[2020-04-19] MEDS: THIAMINE HCL 100 MG TABLET (FP) PO SCH (21:05)
[2020-04-19] MEDS: hydrOXYzine PAMOATE 25 MG CAPSULE (FP) PO PRN (21:05)
[2020-04-19] MEDS: QUEtiapine FUMARATE 400 MG TABLET PO SCH (21:06)
[2020-04-19] MEDS ORDERED: PT OWN MED DRAWER 7, Y5N ONE (21:06)
[2020-04-20] MEDS: hydrOXYzine PAMOATE 25 MG CAPSULE (FP) PO PRN ×2 (08:50→21:14)
[2020-04-20] MEDS: PRENATAL VITAMINS W/ FOLIC ACID TABLET (FP) PO SCH (09:06)
[2020-04-20] MEDS: SERTRALINE HCL 50 MG TABLET (FP) PO SCH (09:06)
[2020-04-20] MEDS: amLODIPine BESYLATE 10 MG TABLET (FP) PO SCH (09:06)
[2020-04-20] MEDS: NICOTINE 21 MG/24 HOURS TOPICAL PATCH TD SCH (09:06)
[2020-04-20] MEDS: QUEtiapine FUMARATE 200 MG TABLET PO SCH (09:06)
--- NOTE | 2020-04-20 18:08 | PN ---
Psychiatric Progress Note Vital Signs: Vital Signs Period Temp Pulse Resp BP Sys/Spencer Pulse Ox Last 24 Hr 97.5 F 99-114 18 114-118/69-75 97-98 Date of Session: 04/20/20 Chief Complaint:: " I had an argument with another patient on the floor." Current Medications: Active Medications Generic Name Dose Route Start Last Admin Trade Name Freq PRN Reason Stop Dose Admin Acetaminophen 650 mg 04/05/20 11:20 Tylenol - PO Q4H PRN FEVER Al Hydroxide/Mg Hydroxide 30 ml 04/05/20 11:20 Mylanta Oral Suspension - PO Q6H PRN DYSPEPSIA Amlodipine Besylate 10 mg 04/06/20 10:00 04/20/20 09:06 Norvasc - PO 10 mg DAILY TRINIDAD Administration Divalproex Sodium 250 mg 04/20/20 22:00 Depakote - PO BID TRINIDAD Guaifenesin 10 ml 04/05/20 11:20 Robitussin - PO Q6H PRN COUGH Hydroxyzine Pamoate 25 mg 04/05/20 11:20 04/20/20 08:50 Vistaril - PO 25 mg Q4HWA PRN Administration ANXIETY Ibuprofen 400 mg 04/05/20 11:20 04/07/20 21:37 Motrin - PO 400 mg Q6H PRN Administration Pain level 4-6 Loperamide HCl 4 mg 04/05/20 11:20 Imodium - PO Q6H PRN DIARRHEA Magnesium Citrate 300 ml 04/05/20 11:20 04/05/20 17:24 Citroma - PO 300 ml Q48H PRN Administration CONSTIPATION Magnesium Hydroxide 30 ml 04/05/20 11:20 Milk Of Magnesia - PO DAILY PRN CONSTIPATION Melatonin 5 mg 04/05/20 22:00 04/19/20 21:05 Melatonin PO 5 mg HS TRINIDAD Administration Nicotine 21 mg 04/07/20 10:00 04/20/20 09:06 Nicoderm Patch - TD 21 mg DAILY TRINIDAD Administration Nicotine Polacrilex 2 mg 04/05/20 11:20 Nicorette Gum - BUC Q2H PRN NICOTINE REPLACEMENT RX Multivit/Folic Acid/Iron 1 tab 04/06/20 10:00 04/20/20 09:06 Vitamins (Sjr) - PO 1 tab DAILY TRINIDAD Administration Pseudoephedrine/Triprolidine 1 combo 04/05/20 11:20 Actifed - PO TID PRN NASAL CONGESTION Quetiapine Fumarate 200 mg 04/16/20 10:00 04/20/20 09:06 Seroquel - PO 200 mg DAILY TRINIDAD Administration Quetiapine Fumarate 400 mg 04/17/20 22:00 04/19/20 21:06 Seroquel - PO 400 mg HS TRINIDAD Administration Sertraline HCl 150 mg 04/21/20 10:00 Zoloft - PO DAILY TRINIDAD Thiamine HCl 100 mg 04/05/20 22:00 04/19/20 21:05 Vitamin B1 - PO 100 mg HS TRINIDAD Administration Medication(s) Change(s): Yes. Sertraline is titrated to 150 mg po daily and depakote 250 mg po bid added to the regimen (with the patient's informed consent). Side effects/benefits are discussed in this session. Will follow response. Current Side Effect: No Lab tests ordered: No Lab tests reviewed: Yes Provider note:: Chart reviewed. Met with the patient. Total face to face time:: 35 Mental Status Exam - Mental Status Exam Alert and Oriented to: Time, Place, Person Cognitive Function: Good Patient Appearance: Well Groomed Mood: Nervous, Withdrawn Affect: Mood Congruent, Constricted Patient Behavior: Appropriate, Cooperative Speech Pattern: Clear, Appropriate Voice Loudness: Normal Thought Process: Goal Oriented Thought Disorder: Paranoid Ideation (moderate ideation about people trying to get into his personal issues) Hallucinations: Denies Suicidal Ideation: Denies Homicidal Ideation: Denies Insight/Judgement: Poor Sleep: Fair Appetite: Good Gait/Station: Normal Psychiatric Treatment Plan - Problem List (1) Alcohol use disorder Current Visit: Yes Comment: . (2) Cannabis dependence Current Visit: Yes Comment: . (3) Cocaine dependence Current Visit: Yes Qualifiers: Substance use status: uncomplicated Qualified Code(s): F14.20 - Cocaine dependence, uncomplicated Comment: . (4) Nicotine dependence Current Visit: Yes Comment: . (5) Synthetic cannabinoid abuse Current Visit: Yes Comment: . (6) Insomnia Current Visit: Yes Comment: . (7) History of schizoaffective disorder Current Visit: Yes Comment: .
[2020-04-20] MEDS ORDERED: PT OWN MED DRAWER 7, Y5N ONE (19:25)
[2020-04-20] MEDS: DIVALPROEX SODIUM 250 MG TABLET E.C. PO SCH (21:15)
[2020-04-20] MEDS: QUEtiapine FUMARATE 400 MG TABLET PO SCH (21:15)
[2020-04-20] MEDS: MELATONIN 5 MG TABLETS PO SCH (21:15)
[2020-04-20] MEDS: THIAMINE HCL 100 MG TABLET (FP) PO SCH (21:16)
[2020-04-21] MEDS: DIVALPROEX SODIUM 250 MG TABLET E.C. PO SCH ×2 (09:43→21:07)
[2020-04-21] MEDS: NICOTINE 21 MG/24 HOURS TOPICAL PATCH TD SCH (09:43)
[2020-04-21] MEDS: QUEtiapine FUMARATE 200 MG TABLET PO SCH (09:44)
[2020-04-21] MEDS: SERTRALINE HCL 50 MG TABLET (FP) PO SCH (09:44)
[2020-04-21] MEDS: amLODIPine BESYLATE 10 MG TABLET (FP) PO SCH (09:44)
[2020-04-21] MEDS: PRENATAL VITAMINS W/ FOLIC ACID TABLET (FP) PO SCH (09:44)
[2020-04-21] MEDS: MELATONIN 5 MG TABLETS PO SCH (21:08)
[2020-04-21] MEDS: THIAMINE HCL 100 MG TABLET (FP) PO SCH (21:08)
[2020-04-21] MEDS: hydrOXYzine PAMOATE 25 MG CAPSULE (FP) PO PRN (21:08)
[2020-04-21] MEDS: QUEtiapine FUMARATE 400 MG TABLET PO SCH (21:08)
[2020-04-22] MEDS: SERTRALINE HCL 50 MG TABLET (FP) PO SCH (09:28)
[2020-04-22] MEDS: amLODIPine BESYLATE 10 MG TABLET (FP) PO SCH (09:28)
[2020-04-22] MEDS: NICOTINE 21 MG/24 HOURS TOPICAL PATCH TD SCH (09:28)
[2020-04-22] MEDS: PRENATAL VITAMINS W/ FOLIC ACID TABLET (FP) PO SCH (09:28)
[2020-04-22] MEDS: QUEtiapine FUMARATE 200 MG TABLET PO SCH (09:28)
[2020-04-22] MEDS: DIVALPROEX SODIUM 250 MG TABLET E.C. PO SCH (09:29)
--- NOTE | 2020-04-22 11:53 | PN ---
[facility] Progress Note (SOAP) Subjective: patient seen when he was on [address]. Called by counselor because patient wanted to leave because he felt disrespected by another patient who he felt was prejudiced against him (Both patients are ). Patient had a previous verbal altercation with the other patient, which was resolved peacefully. Interviewing the patient, [place] other patient triggered some unresolved racial issues from childhood and adolescence. He further stated that his "big heart" and his brain were telling him that he should not leave because he would relapse, but he felt he could not participate in the program because of his encounters with the other patient. Patient was seen by psychiatry for other issues while in rehab, including the altercations with the other patient. Please see psychiatric notes. Objective: 04/22/20 11:46 Vital Signs Period Temp Pulse Resp BP Sys/Spencer Pulse Ox Last 24 Hr 98.0 F-98.2 F 86-94 18-18 115-144/71-85 97-99 P/E: General: slightly anxious HEENTM: PERRLA, Normocephalic Neck: supple RESP: unlabored, no accessory muscle use ABD: +BS MSK: full weight bearing. full ROM, steady gait NEURO: CN 2-12 intact, A+O x4, indicated understanding of instructions, able to express needs, thoughts seem logical within the patient's cultural context. 04/22/20 11:53 Assessment: Assessment: Patient is anxious about encountering another patient with whom he had an altercation and believes it will affect his rehabilitation treatment. 04/22/20 11:53 Plan: Plan: Patient will be transferred to another rehab unit. Informed patient that the other unit was larger, with a large group meeting room that allowed patients to spread out more, 2 dining rooms and another "lounge" type room. There were would be more space to avoid any other person who bothered him. Patient agreed to transfer. If patient continues to have concerns, I will discuss with him the option of a psychiatric consult. Nursing & Counseling staff informed of transfer. This plan was discussed with Dr. Kerr and the Araseli, the Golf Tournament Consultant for rehab. All are in agreement with the plan. 04/22/20 11:53
--- NOTE | 2020-04-22 16:36 | PN ---
Psychiatric Progress Note Vital Signs: Vital Signs Period Temp Pulse Resp BP Sys/Spencer Pulse Ox Last 24 Hr 98.0 F-98.2 F 86-94 18-18 115-144/71-85 98-99 Date of Session: 04/22/20 Chief Complaint:: " I feel fine now. I had a problem with a param this morning." HPI: Patient has been in rehabilitation since 04/05/20. He is now transferred to [address] due to a verbal altercation with another peer. Mr Nixon complains that his peer has allegedly made racially-charged comments toward him, thus triggering an angry response. Decision was made by administrators to separate the two protagonists in order to defuse a potential escalation. ROS: Unremarkable examination. Patient is alert, fully oriented, well groomed and cooperative. Ambulatory. No somatic complaints. Current Medications: Active Medications Generic Name Dose Route Start Last Admin Trade Name Freq PRN Reason Stop Dose Admin Acetaminophen 650 mg 04/05/20 11:20 Tylenol - PO Q4H PRN FEVER Al Hydroxide/Mg Hydroxide 30 ml 04/05/20 11:20 Mylanta Oral Suspension - PO Q6H PRN DYSPEPSIA Amlodipine Besylate 10 mg 04/06/20 10:00 04/22/20 09:28 Norvasc - PO 10 mg DAILY TRINIDAD Administration Divalproex Sodium 250 mg 04/20/20 22:00 04/22/20 09:29 Depakote - PO 250 mg BID TRINIDAD Administration Guaifenesin 10 ml 04/05/20 11:20 Robitussin - PO Q6H PRN COUGH Hydroxyzine Pamoate 25 mg 04/05/20 11:20 04/21/20 21:08 Vistaril - PO 25 mg Q4HWA PRN Administration ANXIETY Ibuprofen 400 mg 04/05/20 11:20 04/07/20 21:37 Motrin - PO 400 mg Q6H PRN Administration Pain level 4-6 Loperamide HCl 4 mg 04/05/20 11:20 Imodium - PO Q6H PRN DIARRHEA Magnesium Citrate 300 ml 04/05/20 11:20 04/05/20 17:24 Citroma - PO 300 ml Q48H PRN Administration CONSTIPATION Magnesium Hydroxide 30 ml 04/05/20 11:20 Milk Of Magnesia - PO DAILY PRN CONSTIPATION Melatonin 5 mg 04/05/20 22:00 04/21/20 21:08 Melatonin PO 5 mg HS TRINIDAD Administration Nicotine 21 mg 04/07/20 10:00 04/22/20 09:28 Nicoderm Patch - TD 21 mg DAILY TRINIDAD Administration Nicotine Polacrilex 2 mg 04/05/20 11:20 Nicorette Gum - BUC Q2H PRN NICOTINE REPLACEMENT RX Multivit/Folic Acid/Iron 1 tab 04/06/20 10:00 04/22/20 09:28 Vitamins (Sjr) - PO 1 tab DAILY TRINIDAD Administration Pseudoephedrine/Triprolidine 1 combo 04/05/20 11:20 Actifed - PO TID PRN NASAL CONGESTION Quetiapine Fumarate 200 mg 04/16/20 10:00 04/22/20 09:28 Seroquel - PO 200 mg DAILY TRINIDAD Administration Quetiapine Fumarate 400 mg 04/17/20 22:00 04/21/20 21:08 Seroquel - PO 400 mg HS TRINIDAD Administration Sertraline HCl 150 mg 04/21/20 10:00 04/22/20 09:28 Zoloft - PO 150 mg DAILY TRINIDAD Administration Thiamine HCl 100 mg 04/05/20 22:00 04/21/20 21:08 Vitamin B1 - PO 100 mg HS TRINIDAD Administration Medication(s) Change(s): Yes. Depakote is now titrated to 500 mg po bid. With the patient's consent. Side effects/benefits rediscussed in this session. Mr Nixon is in agreement with plan of care. Current Side Effect: No Lab tests ordered: No Lab tests reviewed: Yes Provider note:: Chart reviewed. Patient seen in individual session. He is found sitting in his room, calming reading a book. Mario casualty underwriter on arrival. Appropriately. Mr Nixon offers apologies for his outburst at [address]. " This param disrespected me with his racist (sic) words. I almost lost control. I wanted to leave the program but I changed my mind. I don't want to return to the streets or any residential and get back to drugs. Then, I will get sick again." Patient states that he wants to keep his goals (work with the treatment team, enlist in the [facility] program, continue taking his medications and get assistance to secure housing). He endorses adequate sleep, appetite and motivation for sobriety. Describes his mood as " less depressed than before ". Denies hallucinations. Patient insists that he was " provoked " by the other person and feels relieved that the exchange did not escalate into " a fight." Rules and regulations were revisited with the patient. Mr Nixon is reminded, by this casualty underwriter, to avoid confrontation with others and seek staff's guidance in case of growing tension with peers. He agrees. Patient denies suicidal ideation, intent or plan. He co ntinues to verbalize plans/goals reflective of future-orientedness (enrollment in intermediate accountant rehabilitation, adherence to medications, maintenance of personal welfare, housing). He has consistently denied experiencing homicidal ideation, intent or plan (toward anyone). " I am only concerned with taking care of myself. I don't want to hurt anyone. I am sorry for what I said about my sister days ago. I was very upset. " Mr Nixon communicates coherently and relevantly. He is adherent to his medications. Works well with the multidisciplinary treatment team. His intermittent angry outbursts are addressed in therapy sessions and medications are optimized accordingly (titration of seroquel to address paranoia + augmentation with valproate for impulse control + more sertraline for management of depression and impulse control as well). Fair response to current regimen. Mental status is stable. Refer to MSE report. Continue rehabilitation (support, motivational counseling, encouragement, education about MAT services). Liaison-Psychiatry will follow as needed. Mental Status Exam - Mental Status Exam Alert and Oriented to: Time, Place, Person Cognitive Function: Good Patient Appearance: Well Groomed Mood: Withdrawn, Hopeful Affect: Appropriate, Normal Range Patient Behavior: Appropriate, Cooperative Speech Pattern: Clear, Appropriate Voice Loudness: Normal Thought Process: Goal Oriented Thought Disorder: Not Present Hallucinations: Denies Suicidal Ideation: Denies Homicidal Ideation: Denies Insight/Judgement: Fair Sleep: Well Appetite: Good Gait/Station: Normal Psychiatric Treatment Plan - Problem List (1) Alcohol use disorder Current Visit: Yes Comment: . (2) Cannabis dependence Current Visit: Yes Comment: . (3) Cocaine dependence Current Visit: Yes Qualifiers: Substance use status: uncomplicated Qualified Code(s): F14.20 - Cocaine dependence, uncomplicated Comment: . (4) Nicotine dependence Current Visit: Yes Comment: . (5) Synthetic cannabinoid abuse Current Visit: Yes Comment: . (6) Insomnia Current Visit: Yes Comment: . (7) History of schizoaffective disorder Current Visit: Yes Comment: .
[2020-04-22] MEDS: MELATONIN 5 MG TABLETS PO SCH (21:25)
[2020-04-22] MEDS: THIAMINE HCL 100 MG TABLET (FP) PO SCH (21:25)
[2020-04-22] MEDS: QUEtiapine FUMARATE 400 MG TABLET PO SCH (21:26)
[2020-04-22] MEDS: DIVALPROEX SODIUM 500 MG TABLET E.C. PO SCH (21:26)
[2020-04-23] MEDS: PRENATAL VITAMINS W/ FOLIC ACID TABLET (FP) PO SCH (10:10)
[2020-04-23] MEDS: NICOTINE 21 MG/24 HOURS TOPICAL PATCH TD SCH (10:10)
[2020-04-23] MEDS: SERTRALINE HCL 50 MG TABLET (FP) PO SCH (10:11)
[2020-04-23] MEDS: amLODIPine BESYLATE 10 MG TABLET (FP) PO SCH (10:11)
[2020-04-23] MEDS: QUEtiapine FUMARATE 200 MG TABLET PO SCH (10:11)
[2020-04-23] MEDS: DIVALPROEX SODIUM 500 MG TABLET E.C. PO SCH ×2 (10:11→21:21)
[2020-04-23] MEDS: MELATONIN 5 MG TABLETS PO SCH (21:21)
[2020-04-23] MEDS: THIAMINE HCL 100 MG TABLET (FP) PO SCH (21:21)
[2020-04-23] MEDS: QUEtiapine FUMARATE 400 MG TABLET PO SCH (21:21)
[2020-04-24] MEDS ORDERED: MENTHOL/PHENOL 1 EACH UD MM PRN (09:04)
[2020-04-24] MEDS: DIVALPROEX SODIUM 500 MG TABLET E.C. PO SCH ×2 (10:14→21:30)
[2020-04-24] MEDS: NICOTINE 21 MG/24 HOURS TOPICAL PATCH TD SCH (10:14)
[2020-04-24] MEDS: QUEtiapine FUMARATE 200 MG TABLET PO SCH (10:14)
[2020-04-24] MEDS: SERTRALINE HCL 50 MG TABLET (FP) PO SCH (10:15)
[2020-04-24] MEDS: amLODIPine BESYLATE 10 MG TABLET (FP) PO SCH (10:15)
[2020-04-24] MEDS: PRENATAL VITAMINS W/ FOLIC ACID TABLET (FP) PO SCH (10:15)
--- NOTE | 2020-04-24 13:07 | PN ---
[facility] Progress Note Note: PATIENT EVALUATED FOR ONGOING COMPLAINT OF SORE THROAT. PATIENT STATES SX PRESENT X 2 DAYS. + PAIN WITH SWALLOWING. HE DENIES FEVER, COUGH AND EARACHE AT THIS TIME. Vital Signs Temperature 98 F 04/24/20 06:14 Pulse Rate 107 H 04/24/20 08:51 Respiratory Rate 20 04/24/20 08:51 Blood Pressure 135/78 04/24/20 08:51 O2 Sat by Pulse Oximetry (%) 97 04/24/20 06:14 Laboratory Tests 04/23/20 08:20 Valproic Acid 49.0 L PE ALERT AND ORIENTED X 3 SKIN WARM AND DRY +PERRLA, EOMS INTACT BL MOUTH MUCOSA PINK, +TOOTH DECAY PHARYNX WITH MILD REDNESS, NO VISIBLE EXUDATE CAR S1S2 RESP CTA B/L EXT FULL ROM, AMB AD [place] A/P PHARYNGITIS THROAT C/S ORDERED WILL START PROPHYLACTIC AMOXICILLIN 500MG PO BID X 7 DAYS DUE TO ONGOING SX ENCOURAGED ORAL FLUIDS MONITOR CLINICALLY
--- NOTE | 2020-04-24 15:22 | PN ---
[facility] Progress Note Note: Psychiatry Attending's note (follow-up) : Valproic acid level = 49 (sub-therapeutic). Dose of depakote is titrated as follows : 500 mg po daily + 1000 mg po hs. With the patient's consent. Will follow.
[2020-04-24] MEDS ORDERED: PT OWN MED DRAWER 7, Y5N ONE (18:44)
[2020-04-24] MEDS: THIAMINE HCL 100 MG TABLET (FP) PO SCH (21:30)
[2020-04-24] MEDS: MELATONIN 5 MG TABLETS PO SCH (21:30)
[2020-04-24] MEDS: QUEtiapine FUMARATE 400 MG TABLET PO SCH (21:30)
[2020-04-24] MEDS: AMOXICILLIN 500 MG CAPSULE (FP) PO SCH (21:31)
[2020-04-25] MEDS: SERTRALINE HCL 50 MG TABLET (FP) PO SCH (09:57)
[2020-04-25] MEDS: PRENATAL VITAMINS W/ FOLIC ACID TABLET (FP) PO SCH (09:57)
[2020-04-25] MEDS: NICOTINE 21 MG/24 HOURS TOPICAL PATCH TD SCH (09:57)
[2020-04-25] MEDS: DIVALPROEX SODIUM 500 MG TABLET E.C. PO SCH ×2 (09:57→21:26)
[2020-04-25] MEDS: QUEtiapine FUMARATE 200 MG TABLET PO SCH (09:58)
[2020-04-25] MEDS: AMOXICILLIN 500 MG CAPSULE (FP) PO SCH ×2 (09:58→21:26)
[2020-04-25] MEDS: amLODIPine BESYLATE 10 MG TABLET (FP) PO SCH (09:58)
[2020-04-25] MEDS: QUEtiapine FUMARATE 400 MG TABLET PO SCH (21:26)
[2020-04-25] MEDS: THIAMINE HCL 100 MG TABLET (FP) PO SCH (21:26)
[2020-04-25] MEDS: MELATONIN 5 MG TABLETS PO SCH (21:26)
[2020-04-26] MEDS: amLODIPine BESYLATE 10 MG TABLET (FP) PO SCH (10:13)
[2020-04-26] MEDS: NICOTINE 21 MG/24 HOURS TOPICAL PATCH TD SCH (10:13)
[2020-04-26] MEDS: QUEtiapine FUMARATE 200 MG TABLET PO SCH (10:13)
[2020-04-26] MEDS: PRENATAL VITAMINS W/ FOLIC ACID TABLET (FP) PO SCH (10:13)
[2020-04-26] MEDS: AMOXICILLIN 500 MG CAPSULE (FP) PO SCH ×2 (10:14→21:18)
[2020-04-26] MEDS: SERTRALINE HCL 50 MG TABLET (FP) PO SCH (10:14)
[2020-04-26] MEDS: DIVALPROEX SODIUM 500 MG TABLET E.C. PO SCH ×2 (10:14→21:18)
[2020-04-26] MEDS: THIAMINE HCL 100 MG TABLET (FP) PO SCH (21:17)
[2020-04-26] MEDS: MELATONIN 5 MG TABLETS PO SCH (21:18)
[2020-04-26] MEDS: QUEtiapine FUMARATE 400 MG TABLET PO SCH (21:18)
--- NOTE | 2020-04-27 09:52 | PN ---
[facility] Progress Note Note: Vital Signs Temperature 97.4 F L 04/27/20 07:23 Pulse Rate 96 H 04/27/20 07:23 Respiratory Rate 18 04/27/20 07:23 Blood Pressure 137/64 04/27/20 07:23 O2 Sat by Pulse Oximetry (%) 95 04/27/20 07:23 Microbiology 04/24/20 15:15 Throat Throat Culture - Final Beta Hem Streptococcus Group G PATIENT CURRENTLY TREATED WITH AMOXICILLIN 500MG BID X 7 DAYS. MICROBIOLOGY DEPT [id number] CALLED TO ADD SENSITIVITY TO TEST. CONTINUE TREATMENT IN MEANTIME.
[2020-04-27] MEDS: PRENATAL VITAMINS W/ FOLIC ACID TABLET (FP) PO SCH (10:58)
[2020-04-27] MEDS: QUEtiapine FUMARATE 200 MG TABLET PO SCH (10:58)
[2020-04-27] MEDS: SERTRALINE HCL 50 MG TABLET (FP) PO SCH (10:58)
[2020-04-27] MEDS: amLODIPine BESYLATE 10 MG TABLET (FP) PO SCH (10:58)
[2020-04-27] MEDS: NICOTINE 21 MG/24 HOURS TOPICAL PATCH TD SCH (10:58)
[2020-04-27] MEDS: DIVALPROEX SODIUM 500 MG TABLET E.C. PO SCH ×2 (10:59→21:25)
[2020-04-27] MEDS: AMOXICILLIN 500 MG CAPSULE (FP) PO SCH ×2 (14:58→21:25)
[2020-04-27] MEDS: THIAMINE HCL 100 MG TABLET (FP) PO SCH (21:25)
[2020-04-27] MEDS: MELATONIN 5 MG TABLETS PO SCH (21:25)
[2020-04-27] MEDS: QUEtiapine FUMARATE 400 MG TABLET PO SCH (21:25)
[2020-04-28] MEDS: amLODIPine BESYLATE 10 MG TABLET (FP) PO SCH (10:27)
[2020-04-28] MEDS: AMOXICILLIN 500 MG CAPSULE (FP) PO SCH ×2 (10:27→21:21)
[2020-04-28] MEDS: SERTRALINE HCL 50 MG TABLET (FP) PO SCH (10:27)
[2020-04-28] MEDS: PRENATAL VITAMINS W/ FOLIC ACID TABLET (FP) PO SCH (10:28)
[2020-04-28] MEDS: QUEtiapine FUMARATE 200 MG TABLET PO SCH (10:28)
[2020-04-28] MEDS: NICOTINE 21 MG/24 HOURS TOPICAL PATCH TD SCH (10:28)
[2020-04-28] MEDS: DIVALPROEX SODIUM 500 MG TABLET E.C. PO SCH ×2 (10:30→21:21)
[2020-04-28] MEDS: THIAMINE HCL 100 MG TABLET (FP) PO SCH (21:21)
[2020-04-28] MEDS: MELATONIN 5 MG TABLETS PO SCH (21:21)
[2020-04-28] MEDS: QUEtiapine FUMARATE 400 MG TABLET PO SCH (21:21)
[2020-04-29] MEDS: PRENATAL VITAMINS W/ FOLIC ACID TABLET (FP) PO SCH (10:32)
[2020-04-29] MEDS: amLODIPine BESYLATE 10 MG TABLET (FP) PO SCH (10:32)
[2020-04-29] MEDS: NICOTINE 21 MG/24 HOURS TOPICAL PATCH TD SCH (10:32)
[2020-04-29] MEDS: SERTRALINE HCL 50 MG TABLET (FP) PO SCH (10:32)
[2020-04-29] MEDS: QUEtiapine FUMARATE 200 MG TABLET PO SCH (10:32)
[2020-04-29] MEDS: DIVALPROEX SODIUM 500 MG TABLET E.C. PO SCH ×2 (10:32→21:23)
[2020-04-29] MEDS: AMOXICILLIN 500 MG CAPSULE (FP) PO SCH ×2 (10:32→21:24)
[2020-04-29] MEDS: MELATONIN 5 MG TABLETS PO SCH (21:23)
[2020-04-29] MEDS: THIAMINE HCL 100 MG TABLET (FP) PO SCH (21:23)
[2020-04-29] MEDS: QUEtiapine FUMARATE 400 MG TABLET PO SCH (21:24)
[2020-04-30] MEDS: AMOXICILLIN 500 MG CAPSULE (FP) PO SCH ×2 (09:13→21:34)
[2020-04-30] MEDS: SERTRALINE HCL 50 MG TABLET (FP) PO SCH (09:13)
[2020-04-30] MEDS: DIVALPROEX SODIUM 500 MG TABLET E.C. PO SCH ×2 (09:13→21:34)
[2020-04-30] MEDS: QUEtiapine FUMARATE 200 MG TABLET PO SCH (09:13)
[2020-04-30] MEDS: PRENATAL VITAMINS W/ FOLIC ACID TABLET (FP) PO SCH (09:13)
[2020-04-30] MEDS: amLODIPine BESYLATE 10 MG TABLET (FP) PO SCH (09:13)
[2020-04-30] MEDS: NICOTINE 21 MG/24 HOURS TOPICAL PATCH TD SCH (09:13)
[2020-04-30] MEDS: MELATONIN 5 MG TABLETS PO SCH (21:34)
[2020-04-30] MEDS: QUEtiapine FUMARATE 400 MG TABLET PO SCH (21:34)
[2020-04-30] MEDS: THIAMINE HCL 100 MG TABLET (FP) PO SCH (21:34)
[2020-05-01] MEDS: SERTRALINE HCL 50 MG TABLET (FP) PO SCH (10:12)
[2020-05-01] MEDS: AMOXICILLIN 500 MG CAPSULE (FP) PO SCH (10:12)
[2020-05-01] MEDS: PRENATAL VITAMINS W/ FOLIC ACID TABLET (FP) PO SCH (10:12)
[2020-05-01] MEDS: amLODIPine BESYLATE 10 MG TABLET (FP) PO SCH (10:13)
[2020-05-01] MEDS: DIVALPROEX SODIUM 500 MG TABLET E.C. PO SCH ×2 (10:13→21:45)
[2020-05-01] MEDS: QUEtiapine FUMARATE 200 MG TABLET PO SCH (10:13)
[2020-05-01] MEDS: NICOTINE 21 MG/24 HOURS TOPICAL PATCH TD SCH (10:14)
--- NOTE | 2020-05-01 10:17 | PN ---
S Progress Note Note: Throat culture sensitivity sensitive to PCN. Patient treatment covered with Amoxicillin. Vital Signs Temperature 97.7 F 05/01/20 08:20 Pulse Rate 90 05/01/20 08:20 Respiratory Rate 18 05/01/20 08:20 Blood Pressure 129/87 05/01/20 08:20 O2 Sat by Pulse Oximetry (%) 97 05/01/20 06:10
[2020-05-01] MEDS: THIAMINE HCL 100 MG TABLET (FP) PO SCH (21:44)
[2020-05-01] MEDS: MELATONIN 5 MG TABLETS PO SCH (21:45)
[2020-05-01] MEDS: QUEtiapine FUMARATE 400 MG TABLET PO SCH (21:45)
[2020-05-02] MEDS: amLODIPine BESYLATE 10 MG TABLET (FP) PO SCH (10:02)
[2020-05-02] MEDS: DIVALPROEX SODIUM 500 MG TABLET E.C. PO SCH ×2 (10:02→21:31)
[2020-05-02] MEDS: PRENATAL VITAMINS W/ FOLIC ACID TABLET (FP) PO SCH (10:02)
[2020-05-02] MEDS: QUEtiapine FUMARATE 200 MG TABLET PO SCH (10:02)
[2020-05-02] MEDS: SERTRALINE HCL 50 MG TABLET (FP) PO SCH (10:02)
[2020-05-02] MEDS: NICOTINE 21 MG/24 HOURS TOPICAL PATCH TD SCH (10:02)
--- NOTE | 2020-05-02 19:07 | PN ---
[facility] Progress Note Note: Psychiatry Attending's note : Follow-up visit. Chart reviewed. Multidisciplinary progress notes : read and appreciated. Medications revisited. Patient is interviewed at bedside. Patient is found sitting in his room, quietly eating diner. Living quarters are tidy. Mr Nixon is neatly groomed. Friendly, polite on approach. Relaxed and conversant. He reports his medications as well tolerated. Feels fine. Denies suicidal or homicidal, ideation, intent or plan. No delusion elicited. Mood is mildly apprehensive but stable. Patient is hoping to get a bed at the [facility] program. " I am concerned about going back to the alf and relapse again." " I don't want to get back on drugs and find myself living in the streets." Mr Nixon expresses confidence in staff for finding him a suitable program. He says that he is open to any alternate to [facility] (his preferred option). In the meantime, patient continues to take medications as prescribed. Sleeps well. Appetite is well preserved. Judgment and impulse control : good. No acting out behavior. No threat to harm anyone. Patient remains future-oriented. Cognition is intact. Stable. Patient has made considerable progress. General functioning is currently at baseline. Labs appreciated : valproic acid level is in within therapeutic range (92.4 on 04/28/20). Mr Nixon is awaiting response from [facility] for snf rehabilitation care.
[2020-05-02] MEDS: QUEtiapine FUMARATE 400 MG TABLET PO SCH (21:31)
[2020-05-02] MEDS: MELATONIN 5 MG TABLETS PO SCH (21:31)
[2020-05-02] MEDS: THIAMINE HCL 100 MG TABLET (FP) PO SCH (21:32)
[2020-05-03] MEDS: QUEtiapine FUMARATE 200 MG TABLET PO SCH (10:18)
[2020-05-03] MEDS: NICOTINE 21 MG/24 HOURS TOPICAL PATCH TD SCH (10:18)
[2020-05-03] MEDS: PRENATAL VITAMINS W/ FOLIC ACID TABLET (FP) PO SCH (10:18)
[2020-05-03] MEDS: amLODIPine BESYLATE 10 MG TABLET (FP) PO SCH (10:18)
[2020-05-03] MEDS: SERTRALINE HCL 50 MG TABLET (FP) PO SCH (10:18)
[2020-05-03] MEDS: DIVALPROEX SODIUM 500 MG TABLET E.C. PO SCH ×2 (10:18→21:32)
--- NOTE | 2020-05-03 16:19 | PN ---
[facility] Progress Note Note: Psychiatric nurse practitioner note: Patient scheduled for discharge tomorrow. A 30 day prescription of Zoloft 150mg daily + Seroquel 200mg daily + 400mg HS + Depakote 500mg daily + 1000mg HS was electronically sent to [facility], [address] [place] [address].
[2020-05-03] MEDS ORDERED: PT OWN MED DRAWER 7, Y5N ONE (19:27)
[2020-05-03] MEDS: THIAMINE HCL 100 MG TABLET (FP) PO SCH (21:32)
[2020-05-03] MEDS: QUEtiapine FUMARATE 400 MG TABLET PO SCH (21:32)
[2020-05-03] MEDS: MELATONIN 5 MG TABLETS PO SCH (21:32)
[2020-05-04] MEDS: SERTRALINE HCL 50 MG TABLET (FP) PO SCH (10:46)
[2020-05-04] MEDS: NICOTINE 21 MG/24 HOURS TOPICAL PATCH TD SCH (10:46)
[2020-05-04] MEDS: PRENATAL VITAMINS W/ FOLIC ACID TABLET (FP) PO SCH (10:46)
[2020-05-04] MEDS: DIVALPROEX SODIUM 500 MG TABLET E.C. PO SCH ×2 (10:46→21:48)
[2020-05-04] MEDS: QUEtiapine FUMARATE 200 MG TABLET PO SCH (10:46)
[2020-05-04] MEDS: amLODIPine BESYLATE 10 MG TABLET (FP) PO SCH (10:46)
[2020-05-04] MEDS: hydrOXYzine PAMOATE 25 MG CAPSULE (FP) PO PRN (21:48)
[2020-05-04] MEDS: THIAMINE HCL 100 MG TABLET (FP) PO SCH (21:48)
[2020-05-04] MEDS: QUEtiapine FUMARATE 400 MG TABLET PO SCH (21:48)
[2020-05-04] MEDS: MELATONIN 5 MG TABLETS PO SCH (21:49)
[2020-05-05] MEDS: DIVALPROEX SODIUM 500 MG TABLET E.C. PO SCH ×2 (10:29→21:01)
[2020-05-05] MEDS: SERTRALINE HCL 50 MG TABLET (FP) PO SCH (10:29)
[2020-05-05] MEDS: amLODIPine BESYLATE 10 MG TABLET (FP) PO SCH (10:29)
[2020-05-05] MEDS: NICOTINE 21 MG/24 HOURS TOPICAL PATCH TD SCH (10:29)
[2020-05-05] MEDS: hydrOXYzine PAMOATE 25 MG CAPSULE (FP) PO PRN (10:29)
[2020-05-05] MEDS: QUEtiapine FUMARATE 200 MG TABLET PO SCH (10:29)
[2020-05-05] MEDS: PRENATAL VITAMINS W/ FOLIC ACID TABLET (FP) PO SCH (10:29)
[2020-05-05] MEDS: QUEtiapine FUMARATE 400 MG TABLET PO SCH (21:01)
[2020-05-05] MEDS: MELATONIN 5 MG TABLETS PO SCH (21:01)
[2020-05-05] MEDS: THIAMINE HCL 100 MG TABLET (FP) PO SCH (21:01)
[2020-05-06 06:46] VITALS: TEMP 98.9
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
[2020-05-06] MEDS: QUEtiapine FUMARATE 200 MG TABLET PO SCH (09:11)
[2020-05-06] MEDS: amLODIPine BESYLATE 10 MG TABLET (FP) PO SCH (09:11)
[2020-05-06] MEDS: SERTRALINE HCL 50 MG TABLET (FP) PO SCH (09:11)
[2020-05-06] MEDS: NICOTINE 21 MG/24 HOURS TOPICAL PATCH TD SCH (09:11)
[2020-05-06] MEDS: DIVALPROEX SODIUM 500 MG TABLET E.C. PO SCH (09:11)
[2020-05-06] MEDS: PRENATAL VITAMINS W/ FOLIC ACID TABLET (FP) PO SCH (09:11)
[2020-05-06 09:48] VITALS: BP 128/78; PULSE 109
== END 2020-05-06 09:24 | disposition short-term general hospital (02) | DRG 772 ==
LOC: YASAS 09:59 → Y3E 10:00 → Y3W 04-22 11:28
PROVIDERS: ADMIT Allergy & Immunology; ATTEND Allergy & Immunology
PROC: HZ42ZZZ Group Counseling for Substance Abuse Treatment, Cognitive-Behavioral (ICD-10-PCS; principal; 2020-04-05)
DX: F10.20 Alcohol dependence, uncomplicated (principal); F14.20 Cocaine dependence, uncomplicated; F12.20 Cannabis dependence, uncomplicated; F19.10 Other psychoactive substance abuse, uncomplicated; F17.210 Nicotine dependence, cigarettes, uncomplicated; F32.9 Major depressive disorder, single episode, unspecified; F25.9 Schizoaffective disorder, unspecified; R45.850 Homicidal ideations; G40.509 Epileptic seizures related to external causes, not intractable, without status epilepticus; I10 Essential (primary) hypertension; E78.5 Hyperlipidemia, unspecified; J45.909 Unspecified asthma, uncomplicated; J02.9 Acute pharyngitis, unspecified; B95.1 Streptococcus, group B, as the cause of diseases classified elsewhere; K08.89 Other specified disorders of teeth and supporting structures; Z94.5 Skin transplant status; Z86.718 Personal history of other venous thrombosis and embolism; Z59.0 Homelessness
CPT/HCPCS: 80164; 87070; 87186

== ENCOUNTER 2020-07-27 13:41 | Inpatient (IN) | payer OTHER ==
[2020-07-27 15:55] VITALS: BMI 27.3
[2020-07-27] MEDS ORDERED: BISMUTH SUBSALICYLATE 524 MG/30 ML UD PO PRN (17:30)
[2020-07-27] MEDS ORDERED: IBUPROFEN 400 MG TABLET (FP) PO PRN (17:30)
[2020-07-27] MEDS ORDERED: MENTHOL/PHENOL 1 EACH UD MM PRN (17:30)
[2020-07-27] MEDS ORDERED: ONDANSETRON *ODT* 4 MG TABLET SL PRN (17:30)
[2020-07-27] MEDS ORDERED: NICOTINE POLACRILEX 2 MG GUM BUC PRN (17:30)
[2020-07-27] MEDS ORDERED: chlordiazePOXIDE HCL 25 MG CAPSULE PO PRN (17:30)
[2020-07-27] MEDS ORDERED: ACETAMINOPHEN 325 MG TABLET (FP) PO PRN ×2 (17:30)
[2020-07-27] MEDS ORDERED: METHOCARBAMOL 500 MG TABLET PO PRN (17:30)
[2020-07-27] MEDS ORDERED: MAGNESIUM HYDROX 2400MG/30ML ORAL SUSPENSION 30 ML CUP PO PRN (17:30)
[2020-07-27] MEDS ORDERED: MAGNESIUM CITRATE 300 ML BOTTLE PO PRN (17:30)
[2020-07-27] MEDS ORDERED: MAG HYDROX/AL HYDROX/SIMETH 30 ML UNIT-DOSE CUP PO PRN (17:30)
[2020-07-27] MEDS: THIAMINE HCL 100 MG TABLET (FP) PO SCH (22:33)
[2020-07-27] MEDS: MELATONIN 5 MG TABLETS PO SCH (22:33)
[2020-07-27] MEDS: DOCUSATE SODIUM 100 MG CAPSULE (FP) PO SCH (22:33)
[2020-07-27] MEDS: chlordiazePOXIDE HCL 25 MG CAPSULE PO SCH (22:33)
[2020-07-28] MEDS: chlordiazePOXIDE HCL 25 MG CAPSULE PO SCH ×4 (05:25→22:19)
[2020-07-28] MEDS: amLODIPine BESYLATE 10 MG TABLET (FP) PO SCH (10:17)
[2020-07-28] MEDS: DOCUSATE SODIUM 100 MG CAPSULE (FP) PO SCH ×2 (10:17→22:18)
[2020-07-28] MEDS: NICOTINE 14 MG/24 HOURS TOPICAL PATCH TD SCH (10:17)
[2020-07-28] MEDS: PRENATAL VITAMINS W/ FOLIC ACID TABLET (FP) PO SCH (10:17)
[2020-07-28] MEDS: ASPIRIN COATED 81 MG TABLET.EC PO SCH (10:17)
[2020-07-28 12:33] LABS: HEMATOCRIT 41.6 % (35.4-49); HEMOGLOBIN 13.3 GM/dL (11.7-16.9); MCH 27.2 pg (25.7-33.7); MCHC 31.9 g/dl (32.0-35.9); MEAN CELL VOLUME 85.5 fl (80-96); MEAN PLT VOLUME 9.2 fl (7.5-11.1); PLATELET COUNT 296 K/MM3 (134-434); RBC 4.87 M/mm3 (4.00-5.60); RDW 16.3 % (11.9-15.9); WHITE BLOOD COUNT 4.1 K/mm3 (4.0-10.0)
[2020-07-28 12:35] LABS: POTASSIUM 4.4 mmol/L (3.5-5.1)
[2020-07-28 12:39] LABS: BLOOD UREA NITROGEN 11.4 mg/dL (7-18); CALCIUM 9.4 mg/dL (8.5-10.1)
[2020-07-28 12:40] LABS: ALBUMIN 3.5 g/dl (3.4-5.0)
[2020-07-28 12:42] LABS: CREATININE 1.1 mg/dL (0.55-1.3)
[2020-07-28 12:44] LABS: BILIRUBIN,TOTAL 0.2 mg/dL (0.2-1); TOT PROT 8.2 g/dl (6.4-8.2)
[2020-07-28] MEDS: MELATONIN 5 MG TABLETS PO SCH (22:19)
[2020-07-28] MEDS: QUEtiapine FUMARATE 100 MG TABLET (FP) PO SCH (22:19)
[2020-07-28] MEDS: THIAMINE HCL 100 MG TABLET (FP) PO SCH (22:19)
[2020-07-29] MEDS: chlordiazePOXIDE HCL 25 MG CAPSULE PO SCH ×4 (05:35→22:06)
[2020-07-29] MEDS ORDERED: MASKS NR ONE (05:35)
[2020-07-29] MEDS: amLODIPine BESYLATE 10 MG TABLET (FP) PO SCH (10:55)
[2020-07-29] MEDS: NICOTINE 14 MG/24 HOURS TOPICAL PATCH TD SCH (10:55)
[2020-07-29] MEDS: ASPIRIN COATED 81 MG TABLET.EC PO SCH (10:55)
[2020-07-29] MEDS: DOCUSATE SODIUM 100 MG CAPSULE (FP) PO SCH ×2 (10:55→22:06)
[2020-07-29] MEDS: PRENATAL VITAMINS W/ FOLIC ACID TABLET (FP) PO SCH (10:55)
[2020-07-29] MEDS ORDERED: FLU VACCINE (FLULAVAL) PF 60 MCG/0.5 ML SYRINGE 2020-2021 IM ONE (12:00)
[2020-07-29] MEDS: QUEtiapine FUMARATE 100 MG TABLET (FP) PO SCH (22:05)
[2020-07-29] MEDS: THIAMINE HCL 100 MG TABLET (FP) PO SCH (22:05)
[2020-07-29] MEDS: MELATONIN 5 MG TABLETS PO SCH (22:06)
[2020-07-30] MEDS ORDERED: chlordiazePOXIDE HCL 10 MG CAPSULE PO PRN
[2020-07-30] MEDS: chlordiazePOXIDE HCL 10 MG CAPSULE PO SCH ×4 (05:44→22:25)
[2020-07-30] MEDS: amLODIPine BESYLATE 10 MG TABLET (FP) PO SCH (10:27)
[2020-07-30] MEDS: DOCUSATE SODIUM 100 MG CAPSULE (FP) PO SCH ×2 (10:27→22:26)
[2020-07-30] MEDS: NICOTINE 14 MG/24 HOURS TOPICAL PATCH TD SCH (10:27)
[2020-07-30] MEDS: PRENATAL VITAMINS W/ FOLIC ACID TABLET (FP) PO SCH (10:27)
[2020-07-30] MEDS: ASPIRIN COATED 81 MG TABLET.EC PO SCH (10:27)
[2020-07-30] MEDS: QUEtiapine FUMARATE 100 MG TABLET (FP) PO SCH (22:25)
[2020-07-30] MEDS: THIAMINE HCL 100 MG TABLET (FP) PO SCH (22:25)
[2020-07-30] MEDS: MELATONIN 5 MG TABLETS PO SCH (22:26)
[2020-07-31] MEDS: chlordiazePOXIDE HCL 10 MG CAPSULE PO SCH ×2 (05:54→17:43)
[2020-07-31] MEDS: ASPIRIN COATED 81 MG TABLET.EC PO SCH (10:45)
[2020-07-31] MEDS: amLODIPine BESYLATE 10 MG TABLET (FP) PO SCH (10:45)
[2020-07-31] MEDS: PRENATAL VITAMINS W/ FOLIC ACID TABLET (FP) PO SCH (10:45)
[2020-07-31] MEDS: NICOTINE 14 MG/24 HOURS TOPICAL PATCH TD SCH (10:45)
[2020-07-31] MEDS: DOCUSATE SODIUM 100 MG CAPSULE (FP) PO SCH ×2 (10:45→22:00)
[2020-07-31] MEDS: MELATONIN 5 MG TABLETS PO SCH (22:00)
[2020-07-31] MEDS: THIAMINE HCL 100 MG TABLET (FP) PO SCH (22:00)
[2020-07-31] MEDS: QUEtiapine FUMARATE 100 MG TABLET (FP) PO SCH (22:01)
[2020-08-01] MEDS ORDERED: chlordiazePOXIDE HCL 10 MG CAPSULE PO ONE (05:00)
[2020-08-01 09:42] VITALS: BP 123/71; PULSE 93; TEMP 97.7
[2020-08-01] MEDS: DOCUSATE SODIUM 100 MG CAPSULE (FP) PO SCH (10:39)
[2020-08-01] MEDS: NICOTINE 14 MG/24 HOURS TOPICAL PATCH TD SCH (10:39)
[2020-08-01] MEDS: PRENATAL VITAMINS W/ FOLIC ACID TABLET (FP) PO SCH (10:39)
[2020-08-01] MEDS: ASPIRIN COATED 81 MG TABLET.EC PO SCH (10:39)
[2020-08-01] MEDS: amLODIPine BESYLATE 10 MG TABLET (FP) PO SCH (10:39)
== END 2020-08-01 11:00 | disposition other institution (70) | DRG 774 ==
LOC: YASAS 13:41 → Y6N 16:12
PROVIDERS: ADMIT Allergy & Immunology; ATTEND Allergy & Immunology
PROC: HZ2ZZZZ Detoxification Services for Substance Abuse Treatment (ICD-10-PCS; principal; 2020-07-27)
DX: F10.230 Alcohol dependence with withdrawal, uncomplicated (principal); F14.20 Cocaine dependence, uncomplicated; F12.20 Cannabis dependence, uncomplicated; F17.210 Nicotine dependence, cigarettes, uncomplicated; F25.9 Schizoaffective disorder, unspecified; F19.282 Other psychoactive substance dependence with psychoactive substance-induced sleep disorder; F19.24 Other psychoactive substance dependence with psychoactive substance-induced mood disorder; F32.9 Major depressive disorder, single episode, unspecified; I10 Essential (primary) hypertension; J45.20 Mild intermittent asthma, uncomplicated; H55.00 Unspecified nystagmus; E78.5 Hyperlipidemia, unspecified; K59.00 Constipation, unspecified; Z86.718 Personal history of other venous thrombosis and embolism; Z86.19 Personal history of other infectious and parasitic diseases; Z86.69 Personal history of other diseases of the nervous system and sense organs; Z94.5 Skin transplant status; Z56.0 Unemployment, unspecified; Z59.0 Homelessness
CPT/HCPCS: 36415; 80053; 85027; 86780; 93005; 93010; C9803; G0008; Q2036; U0003

== ENCOUNTER 2020-08-01 11:03 | Inpatient (IN) | payer OTHER ==
[2020-08-01] MEDS ORDERED: MENTHOL/PHENOL 1 EACH UD MM PRN (11:20)
[2020-08-01] MEDS ORDERED: MAGNESIUM HYDROX 2400MG/30ML ORAL SUSPENSION 30 ML CUP PO PRN (11:20)
[2020-08-01] MEDS ORDERED: ACETAMINOPHEN 325 MG TABLET (FP) PO PRN (11:20)
[2020-08-01] MEDS ORDERED: MAGNESIUM CITRATE 300 ML BOTTLE PO PRN (11:20)
[2020-08-01] MEDS ORDERED: MAG HYDROX/AL HYDROX/SIMETH 30 ML UNIT-DOSE CUP PO PRN (11:20)
[2020-08-01] MEDS ORDERED: NICOTINE POLACRILEX 2 MG GUM BUC PRN (11:20)
[2020-08-01] MEDS ORDERED: LOPERAMIDE HCL 2 MG CAPSULE PO PRN (11:20)
[2020-08-01] MEDS: MELATONIN 5 MG TABLETS PO SCH (21:22)
[2020-08-01] MEDS: THIAMINE HCL 100 MG TABLET (FP) PO SCH (21:22)
[2020-08-01] MEDS: QUEtiapine FUMARATE 100 MG TABLET (FP) PO SCH (21:22)
[2020-08-01] MEDS: DOCUSATE SODIUM 100 MG CAPSULE (FP) PO SCH (21:22)
[2020-08-02] MEDS: NICOTINE 14 MG/24 HOURS TOPICAL PATCH TD SCH (09:04)
[2020-08-02] MEDS: ASPIRIN COATED 81 MG TABLET.EC PO SCH (09:04)
[2020-08-02] MEDS: DOCUSATE SODIUM 100 MG CAPSULE (FP) PO SCH ×2 (09:04→21:17)
[2020-08-02] MEDS: PRENATAL VITAMINS W/ FOLIC ACID TABLET (FP) PO SCH (09:04)
[2020-08-02] MEDS: amLODIPine BESYLATE 10 MG TABLET (FP) PO SCH (09:04)
[2020-08-02] MEDS: QUEtiapine FUMARATE 100 MG TABLET (FP) PO SCH (21:16)
[2020-08-02] MEDS: THIAMINE HCL 100 MG TABLET (FP) PO SCH (21:17)
[2020-08-02] MEDS: MELATONIN 5 MG TABLETS PO SCH (21:17)
[2020-08-03] MEDS: amLODIPine BESYLATE 10 MG TABLET (FP) PO SCH (10:05)
[2020-08-03] MEDS: NICOTINE 14 MG/24 HOURS TOPICAL PATCH TD SCH (10:05)
[2020-08-03] MEDS: DOCUSATE SODIUM 100 MG CAPSULE (FP) PO SCH ×2 (10:05→21:39)
[2020-08-03] MEDS: PRENATAL VITAMINS W/ FOLIC ACID TABLET (FP) PO SCH (10:05)
[2020-08-03] MEDS: ASPIRIN COATED 81 MG TABLET.EC PO SCH (10:05)
[2020-08-03] MEDS: THIAMINE HCL 100 MG TABLET (FP) PO SCH (21:39)
[2020-08-03] MEDS: MELATONIN 5 MG TABLETS PO SCH (21:39)
[2020-08-03] MEDS: QUEtiapine FUMARATE 100 MG TABLET (FP) PO SCH (21:39)
[2020-08-04] MEDS: amLODIPine BESYLATE 10 MG TABLET (FP) PO SCH (09:25)
[2020-08-04] MEDS: PRENATAL VITAMINS W/ FOLIC ACID TABLET (FP) PO SCH (09:25)
[2020-08-04] MEDS: DOCUSATE SODIUM 100 MG CAPSULE (FP) PO SCH ×2 (09:25→21:25)
[2020-08-04] MEDS: ASPIRIN COATED 81 MG TABLET.EC PO SCH (09:25)
[2020-08-04] MEDS: NICOTINE 14 MG/24 HOURS TOPICAL PATCH TD SCH (09:26)
[2020-08-04] MEDS: QUEtiapine FUMARATE 100 MG TABLET (FP) PO SCH (11:51)
[2020-08-04] MEDS: MELATONIN 5 MG TABLETS PO SCH (21:25)
[2020-08-04] MEDS: THIAMINE HCL 100 MG TABLET (FP) PO SCH (21:25)
[2020-08-04] MEDS: QUEtiapine FUMARATE 200 MG TABLET PO SCH (21:26)
[2020-08-05] MEDS: PRENATAL VITAMINS W/ FOLIC ACID TABLET (FP) PO SCH (10:33)
[2020-08-05] MEDS: ASPIRIN COATED 81 MG TABLET.EC PO SCH (10:33)
[2020-08-05] MEDS: DOCUSATE SODIUM 100 MG CAPSULE (FP) PO SCH ×2 (10:33→21:07)
[2020-08-05] MEDS: QUEtiapine FUMARATE 100 MG TABLET (FP) PO SCH (10:33)
[2020-08-05] MEDS: amLODIPine BESYLATE 10 MG TABLET (FP) PO SCH (10:33)
[2020-08-05] MEDS: NICOTINE 14 MG/24 HOURS TOPICAL PATCH TD SCH (10:34)
[2020-08-05] MEDS: QUEtiapine FUMARATE 200 MG TABLET PO SCH (21:07)
[2020-08-05] MEDS: THIAMINE HCL 100 MG TABLET (FP) PO SCH (21:07)
[2020-08-05] MEDS: MELATONIN 5 MG TABLETS PO SCH (21:07)
[2020-08-06] MEDS: NICOTINE 14 MG/24 HOURS TOPICAL PATCH TD SCH (10:05)
[2020-08-06] MEDS: PRENATAL VITAMINS W/ FOLIC ACID TABLET (FP) PO SCH (10:05)
[2020-08-06] MEDS: amLODIPine BESYLATE 10 MG TABLET (FP) PO SCH (10:05)
[2020-08-06] MEDS: QUEtiapine FUMARATE 100 MG TABLET (FP) PO SCH (10:05)
[2020-08-06] MEDS: DOCUSATE SODIUM 100 MG CAPSULE (FP) PO SCH ×2 (10:05→21:27)
[2020-08-06] MEDS: ASPIRIN COATED 81 MG TABLET.EC PO SCH (10:05)
[2020-08-06] MEDS: MELATONIN 5 MG TABLETS PO SCH (21:27)
[2020-08-06] MEDS: THIAMINE HCL 100 MG TABLET (FP) PO SCH (21:27)
[2020-08-06] MEDS: QUEtiapine FUMARATE 400 MG TABLET PO SCH (21:28)
[2020-08-07] MEDS: ASPIRIN COATED 81 MG TABLET.EC PO SCH (09:30)
[2020-08-07] MEDS: DOCUSATE SODIUM 100 MG CAPSULE (FP) PO SCH ×2 (09:30→21:34)
[2020-08-07] MEDS: PRENATAL VITAMINS W/ FOLIC ACID TABLET (FP) PO SCH (09:30)
[2020-08-07] MEDS: amLODIPine BESYLATE 10 MG TABLET (FP) PO SCH (09:30)
[2020-08-07] MEDS: NICOTINE 14 MG/24 HOURS TOPICAL PATCH TD SCH (09:30)
[2020-08-07] MEDS: QUEtiapine FUMARATE 200 MG TABLET PO SCH (09:30)
[2020-08-07] MEDS ORDERED: BENZOCAINE 20 % GEL TUBE MM PRN (10:07)
[2020-08-07] MEDS ORDERED: IBUPROFEN 400 MG TABLET (FP) PO PRN (10:09)
[2020-08-07] MEDS: MELATONIN 5 MG TABLETS PO SCH (21:34)
[2020-08-07] MEDS: THIAMINE HCL 100 MG TABLET (FP) PO SCH (21:34)
[2020-08-07] MEDS: QUEtiapine FUMARATE 400 MG TABLET PO SCH (21:34)
[2020-08-08] MEDS: PRENATAL VITAMINS W/ FOLIC ACID TABLET (FP) PO SCH (10:23)
[2020-08-08] MEDS: DOCUSATE SODIUM 100 MG CAPSULE (FP) PO SCH ×2 (10:24→21:39)
[2020-08-08] MEDS: NICOTINE 14 MG/24 HOURS TOPICAL PATCH TD SCH (10:24)
[2020-08-08] MEDS: amLODIPine BESYLATE 10 MG TABLET (FP) PO SCH (10:24)
[2020-08-08] MEDS: ASPIRIN COATED 81 MG TABLET.EC PO SCH (10:24)
[2020-08-08] MEDS: QUEtiapine FUMARATE 200 MG TABLET PO SCH (10:24)
[2020-08-08] MEDS: QUEtiapine FUMARATE 400 MG TABLET PO SCH (21:39)
[2020-08-08] MEDS: THIAMINE HCL 100 MG TABLET (FP) PO SCH (21:40)
[2020-08-08] MEDS: MELATONIN 5 MG TABLETS PO SCH (21:40)
[2020-08-09] MEDS: PRENATAL VITAMINS W/ FOLIC ACID TABLET (FP) PO SCH (10:13)
[2020-08-09] MEDS: ASPIRIN COATED 81 MG TABLET.EC PO SCH (10:13)
[2020-08-09] MEDS: DOCUSATE SODIUM 100 MG CAPSULE (FP) PO SCH ×2 (10:13→22:02)
[2020-08-09] MEDS: amLODIPine BESYLATE 10 MG TABLET (FP) PO SCH (10:14)
[2020-08-09] MEDS: QUEtiapine FUMARATE 200 MG TABLET PO SCH (10:14)
[2020-08-09] MEDS: NICOTINE 14 MG/24 HOURS TOPICAL PATCH TD SCH (10:14)
[2020-08-09] MEDS: QUEtiapine FUMARATE 400 MG TABLET PO SCH (22:02)
[2020-08-09] MEDS: MELATONIN 5 MG TABLETS PO SCH (22:02)
[2020-08-09] MEDS: THIAMINE HCL 100 MG TABLET (FP) PO SCH (22:02)
[2020-08-10] MEDS: PRENATAL VITAMINS W/ FOLIC ACID TABLET (FP) PO SCH (10:18)
[2020-08-10] MEDS: amLODIPine BESYLATE 10 MG TABLET (FP) PO SCH (10:18)
[2020-08-10] MEDS: NICOTINE 14 MG/24 HOURS TOPICAL PATCH TD SCH (10:18)
[2020-08-10] MEDS: ASPIRIN COATED 81 MG TABLET.EC PO SCH (10:18)
[2020-08-10] MEDS: DOCUSATE SODIUM 100 MG CAPSULE (FP) PO SCH ×2 (10:18→22:03)
[2020-08-10] MEDS: QUEtiapine FUMARATE 200 MG TABLET PO SCH (10:18)
[2020-08-10] MEDS: MELATONIN 5 MG TABLETS PO SCH (22:03)
[2020-08-10] MEDS: QUEtiapine FUMARATE 400 MG TABLET PO SCH (22:03)
[2020-08-10] MEDS: THIAMINE HCL 100 MG TABLET (FP) PO SCH (22:03)
[2020-08-11] MEDS: PRENATAL VITAMINS W/ FOLIC ACID TABLET (FP) PO SCH (10:14)
[2020-08-11] MEDS: amLODIPine BESYLATE 10 MG TABLET (FP) PO SCH (10:14)
[2020-08-11] MEDS: NICOTINE 14 MG/24 HOURS TOPICAL PATCH TD SCH (10:14)
[2020-08-11] MEDS: QUEtiapine FUMARATE 200 MG TABLET PO SCH (10:14)
[2020-08-11] MEDS: ASPIRIN COATED 81 MG TABLET.EC PO SCH (10:14)
[2020-08-11] MEDS: DOCUSATE SODIUM 100 MG CAPSULE (FP) PO SCH ×2 (10:14→21:46)
[2020-08-11] MEDS: MELATONIN 5 MG TABLETS PO SCH (21:46)
[2020-08-11] MEDS: THIAMINE HCL 100 MG TABLET (FP) PO SCH (21:46)
[2020-08-11] MEDS: QUEtiapine FUMARATE 400 MG TABLET PO SCH (21:46)
[2020-08-12 07:19] VITALS: TEMP 97.3
[2020-08-12 10:54] VITALS: BP 127/71; PULSE 104
== END 2020-08-12 09:57 | disposition short-term general hospital (02) | DRG 772 ==
LOC: YASAS 11:03 → Y3W 11:04
PROVIDERS: ADMIT Allergy & Immunology; ATTEND Allergy & Immunology
PROC: HZ42ZZZ Group Counseling for Substance Abuse Treatment, Cognitive-Behavioral (ICD-10-PCS; principal; 2020-08-01)
DX: F10.20 Alcohol dependence, uncomplicated (principal); F14.20 Cocaine dependence, uncomplicated; F12.20 Cannabis dependence, uncomplicated; F17.210 Nicotine dependence, cigarettes, uncomplicated; F19.282 Other psychoactive substance dependence with psychoactive substance-induced sleep disorder; F19.24 Other psychoactive substance dependence with psychoactive substance-induced mood disorder; F25.9 Schizoaffective disorder, unspecified; F32.9 Major depressive disorder, single episode, unspecified; R45.851 Suicidal ideations; I10 Essential (primary) hypertension; J45.909 Unspecified asthma, uncomplicated; R76.11 Nonspecific reaction to tuberculin skin test without active tuberculosis; Z86.69 Personal history of other diseases of the nervous system and sense organs; Z86.19 Personal history of other infectious and parasitic diseases; Z86.718 Personal history of other venous thrombosis and embolism; Z94.5 Skin transplant status; Z59.0 Homelessness; Z56.0 Unemployment, unspecified
CPT/HCPCS: C9803; U0003

== ENCOUNTER 2020-10-26 15:14 | Inpatient (IN) | payer OTHER ==
[2020-10-26] MEDS ORDERED: IBUPROFEN 400 MG TABLET (FP) PO PRN (18:52)
[2020-10-26] MEDS ORDERED: MAGNESIUM CITRATE 300 ML BOTTLE PO PRN (18:52)
[2020-10-26] MEDS ORDERED: MAGNESIUM HYDROX 2400MG/30ML ORAL SUSPENSION 30 ML CUP PO PRN (18:52)
[2020-10-26] MEDS ORDERED: NICOTINE POLACRILEX 4 MG GUM BC PRN (18:52)
[2020-10-26] MEDS ORDERED: P-EPHED 60MG/TRIPROLIDI 2.5MG TABLET PO PRN (18:52)
[2020-10-26] MEDS ORDERED: MAG HYDROX/AL HYDROX/SIMETH 30 ML UNIT-DOSE CUP PO PRN (18:52)
[2020-10-26] MEDS ORDERED: ACETAMINOPHEN 325 MG TABLET (FP) PO PRN (18:52)
[2020-10-26] MEDS ORDERED: guaiFENesin 200 MG/10 ML 10 ML UNIT-DOSE CUPS PO PRN (18:52)
[2020-10-26] MEDS ORDERED: LOPERAMIDE HCL 2 MG CAPSULE PO PRN (18:52)
[2020-10-26] MEDS ORDERED: MELATONIN 5 MG TABLETS PO SCH (22:00)
[2020-10-27] MEDS: THIAMINE HCL 100 MG TABLET (FP) PO SCH ×2 (04:56→21:02)
[2020-10-27 05:07] VITALS: BMI 28.5
[2020-10-27] MEDS: amLODIPine BESYLATE 10 MG TABLET (FP) PO SCH ×2 (07:09→11:26)
[2020-10-27] MEDS: NICOTINE 21 MG/24 HOURS TOPICAL PATCH TD SCH ×2 (07:11→10:42)
[2020-10-27] MEDS: METHYL SALICYLATE/MENTHOL OINT 30 GM TUBE TP SCH ×3 (07:12→21:03)
[2020-10-27] MEDS: MELATONIN 5 MG TABLETS PO SCH ×2 (07:12→21:02)
[2020-10-27] MEDS: PRENATAL VITAMINS W/ FOLIC ACID TABLET (FP) PO SCH ×2 (07:12→10:43)
[2020-10-27 11:55] LABS: HEMATOCRIT 41.5 % (35.4-49); HEMOGLOBIN 13.8 GM/dL (11.7-16.9); MCH 28.3 pg (25.7-33.7); MCHC 33.2 g/dl (32.0-35.9); MEAN CELL VOLUME 85.3 fl (80-96); MEAN PLT VOLUME 8.6 fl (7.5-11.1); PLATELET COUNT 393 K/MM3 (134-434); RBC 4.86 M/mm3 (4.00-5.60); RDW 16.4 % (11.9-15.9); WHITE BLOOD COUNT 7.4 K/mm3 (4.0-10.0)
[2020-10-27 11:59] LABS: POTASSIUM 4.2 mmol/L (3.5-5.1)
[2020-10-27 12:08] LABS: CALCIUM 9.5 mg/dL (8.5-10.1)
[2020-10-27 12:09] LABS: ALBUMIN 3.8 g/dl (3.4-5.0); BLOOD UREA NITROGEN 15.4 mg/dL (7-18)
[2020-10-27 12:12] LABS: CREATININE 1.1 mg/dL (0.55-1.3)
[2020-10-27 12:13] LABS: BILIRUBIN,TOTAL 0.2 mg/dL (0.2-1); TOT PROT 8.8 g/dl (6.4-8.2)
[2020-10-27 13:00] LABS: HIV INTERPRETATION NEGATIVE (NEGATIVE)
[2020-10-27] MEDS: QUEtiapine FUMARATE 200 MG TABLET PO SCH (21:02)
[2020-10-28] MEDS: PRENATAL VITAMINS W/ FOLIC ACID TABLET (FP) PO SCH (10:25)
[2020-10-28] MEDS: METHYL SALICYLATE/MENTHOL OINT 30 GM TUBE TP SCH ×2 (10:25→21:56)
[2020-10-28] MEDS: amLODIPine BESYLATE 10 MG TABLET (FP) PO SCH (10:25)
[2020-10-28] MEDS: NICOTINE 21 MG/24 HOURS TOPICAL PATCH TD SCH (10:26)
[2020-10-28] MEDS: MELATONIN 5 MG TABLETS PO SCH (21:56)
[2020-10-28] MEDS: THIAMINE HCL 100 MG TABLET (FP) PO SCH (21:56)
[2020-10-28] MEDS: QUEtiapine FUMARATE 200 MG TABLET PO SCH (21:56)
[2020-10-29] MEDS: NICOTINE 21 MG/24 HOURS TOPICAL PATCH TD SCH (09:05)
[2020-10-29] MEDS: PRENATAL VITAMINS W/ FOLIC ACID TABLET (FP) PO SCH (09:05)
[2020-10-29] MEDS: amLODIPine BESYLATE 10 MG TABLET (FP) PO SCH (09:05)
[2020-10-29] MEDS: METHYL SALICYLATE/MENTHOL OINT 30 GM TUBE TP SCH ×2 (09:07→21:01)
[2020-10-29] MEDS ORDERED: PT OWN MED DRAWER 7, Y5N ONE (09:08)
[2020-10-29 14:17] LABS: PH,URINE 6.5 (5.0-8.0); URINE APPEARANCE CLEAR; URINE BILIRUBIN NEGATIVE (NEGATIVE); URINE COLOR YELLOW; URINE GLUCOSE (UA) NEGATIVE (NEGATIVE); URINE KETONE NEGATIVE (NEGATIVE); URINE LEUK ESTERASE NEGATIVE (NEGATIVE); URINE NITRITE NEGATIVE (NEGATIVE); URINE PROTEIN NEGATIVE (NEGATIVE); URINE UROBILINOGEN 0.2 mg/dL (0.2-1.0)
[2020-10-29] MEDS: MELATONIN 5 MG TABLETS PO SCH (21:01)
[2020-10-29] MEDS: THIAMINE HCL 100 MG TABLET (FP) PO SCH (21:01)
[2020-10-29] MEDS: QUEtiapine FUMARATE 200 MG TABLET PO SCH (21:01)
[2020-10-30] MEDS ORDERED: PT OWN MED DRAWER 7, Y5N ONE (09:55)
[2020-10-30] MEDS: amLODIPine BESYLATE 10 MG TABLET (FP) PO SCH (11:04)
[2020-10-30] MEDS: NICOTINE 21 MG/24 HOURS TOPICAL PATCH TD SCH (11:04)
[2020-10-30] MEDS: PRENATAL VITAMINS W/ FOLIC ACID TABLET (FP) PO SCH (11:04)
[2020-10-30] MEDS: METHYL SALICYLATE/MENTHOL OINT 30 GM TUBE TP SCH ×2 (11:05→21:49)
[2020-10-30] MEDS: QUEtiapine FUMARATE 200 MG TABLET PO SCH (21:49)
[2020-10-30] MEDS: MELATONIN 5 MG TABLETS PO SCH (21:49)
[2020-10-30] MEDS: THIAMINE HCL 100 MG TABLET (FP) PO SCH (21:49)
[2020-10-31] MEDS: PRENATAL VITAMINS W/ FOLIC ACID TABLET (FP) PO SCH (10:11)
[2020-10-31] MEDS: amLODIPine BESYLATE 10 MG TABLET (FP) PO SCH (10:12)
[2020-10-31] MEDS: NICOTINE 21 MG/24 HOURS TOPICAL PATCH TD SCH (10:12)
[2020-10-31] MEDS: METHYL SALICYLATE/MENTHOL OINT 30 GM TUBE TP SCH ×2 (10:13→22:12)
[2020-10-31] MEDS ORDERED: PT OWN MED DRAWER 7, Y5N ONE (10:14)
[2020-10-31] MEDS: MELATONIN 5 MG TABLETS PO SCH (22:11)
[2020-10-31] MEDS: THIAMINE HCL 100 MG TABLET (FP) PO SCH (22:11)
[2020-10-31] MEDS: QUEtiapine FUMARATE 200 MG TABLET PO SCH (22:11)
[2020-11-01] MEDS: PRENATAL VITAMINS W/ FOLIC ACID TABLET (FP) PO SCH (10:11)
[2020-11-01] MEDS: NICOTINE 21 MG/24 HOURS TOPICAL PATCH TD SCH (10:11)
[2020-11-01] MEDS: METHYL SALICYLATE/MENTHOL OINT 30 GM TUBE TP SCH ×2 (10:11→22:00)
[2020-11-01] MEDS: amLODIPine BESYLATE 10 MG TABLET (FP) PO SCH (10:11)
[2020-11-01] MEDS: MELATONIN 5 MG TABLETS PO SCH (21:59)
[2020-11-01] MEDS: THIAMINE HCL 100 MG TABLET (FP) PO SCH (21:59)
[2020-11-01] MEDS: QUEtiapine FUMARATE 200 MG TABLET PO SCH (22:00)
[2020-11-02] MEDS: PRENATAL VITAMINS W/ FOLIC ACID TABLET (FP) PO SCH (10:31)
[2020-11-02] MEDS: NICOTINE 21 MG/24 HOURS TOPICAL PATCH TD SCH (10:31)
[2020-11-02] MEDS: amLODIPine BESYLATE 10 MG TABLET (FP) PO SCH (10:31)
[2020-11-02] MEDS: METHYL SALICYLATE/MENTHOL OINT 30 GM TUBE TP SCH ×2 (10:31→21:08)
[2020-11-02] MEDS: QUEtiapine FUMARATE 200 MG TABLET PO SCH (21:07)
[2020-11-02] MEDS: THIAMINE HCL 100 MG TABLET (FP) PO SCH (21:07)
[2020-11-02] MEDS: MELATONIN 5 MG TABLETS PO SCH (21:08)
[2020-11-03] MEDS: PRENATAL VITAMINS W/ FOLIC ACID TABLET (FP) PO SCH (09:52)
[2020-11-03] MEDS: NICOTINE 21 MG/24 HOURS TOPICAL PATCH TD SCH (09:52)
[2020-11-03] MEDS: amLODIPine BESYLATE 10 MG TABLET (FP) PO SCH (09:52)
[2020-11-03] MEDS ORDERED: PT OWN MED DRAWER 7, Y5N ONE (09:53)
[2020-11-03] MEDS: METHYL SALICYLATE/MENTHOL OINT 30 GM TUBE TP SCH ×2 (11:11→22:08)
[2020-11-03] MEDS: QUEtiapine FUMARATE 400 MG TABLET PO SCH (21:31)
[2020-11-03] MEDS: THIAMINE HCL 100 MG TABLET (FP) PO SCH (21:31)
[2020-11-03] MEDS: MELATONIN 5 MG TABLETS PO SCH (21:32)
[2020-11-04] MEDS: METHYL SALICYLATE/MENTHOL OINT 30 GM TUBE TP SCH ×2 (09:50→21:46)
[2020-11-04] MEDS: amLODIPine BESYLATE 10 MG TABLET (FP) PO SCH (09:50)
[2020-11-04] MEDS: NICOTINE 21 MG/24 HOURS TOPICAL PATCH TD SCH (09:51)
[2020-11-04] MEDS: PRENATAL VITAMINS W/ FOLIC ACID TABLET (FP) PO SCH (09:51)
[2020-11-04] MEDS: QUEtiapine FUMARATE 400 MG TABLET PO SCH (21:27)
[2020-11-04] MEDS: MELATONIN 5 MG TABLETS PO SCH (21:27)
[2020-11-04] MEDS: THIAMINE HCL 100 MG TABLET (FP) PO SCH (21:27)
[2020-11-05] MEDS: METHYL SALICYLATE/MENTHOL OINT 30 GM TUBE TP SCH ×2 (09:50→21:25)
[2020-11-05] MEDS: amLODIPine BESYLATE 10 MG TABLET (FP) PO SCH (09:50)
[2020-11-05] MEDS: PRENATAL VITAMINS W/ FOLIC ACID TABLET (FP) PO SCH (09:50)
[2020-11-05] MEDS: NICOTINE 21 MG/24 HOURS TOPICAL PATCH TD SCH (09:50)
[2020-11-05] MEDS: QUEtiapine FUMARATE 400 MG TABLET PO SCH (21:25)
[2020-11-05] MEDS: MELATONIN 5 MG TABLETS PO SCH (21:25)
[2020-11-05] MEDS: THIAMINE HCL 100 MG TABLET (FP) PO SCH (21:25)
[2020-11-06] MEDS: METHYL SALICYLATE/MENTHOL OINT 30 GM TUBE TP SCH ×2 (09:38→21:17)
[2020-11-06] MEDS: amLODIPine BESYLATE 10 MG TABLET (FP) PO SCH (09:38)
[2020-11-06] MEDS: PRENATAL VITAMINS W/ FOLIC ACID TABLET (FP) PO SCH (09:38)
[2020-11-06] MEDS: NICOTINE 21 MG/24 HOURS TOPICAL PATCH TD SCH (09:38)
[2020-11-06] MEDS: THIAMINE HCL 100 MG TABLET (FP) PO SCH (21:16)
[2020-11-06] MEDS: MELATONIN 5 MG TABLETS PO SCH (21:16)
[2020-11-06] MEDS: QUEtiapine FUMARATE 400 MG TABLET PO SCH (21:16)
[2020-11-07] MEDS: amLODIPine BESYLATE 10 MG TABLET (FP) PO SCH (09:44)
[2020-11-07] MEDS: PRENATAL VITAMINS W/ FOLIC ACID TABLET (FP) PO SCH (09:44)
[2020-11-07] MEDS: NICOTINE 21 MG/24 HOURS TOPICAL PATCH TD SCH (09:44)
[2020-11-07] MEDS: METHYL SALICYLATE/MENTHOL OINT 30 GM TUBE TP SCH ×2 (09:45→21:26)
[2020-11-07] MEDS: THIAMINE HCL 100 MG TABLET (FP) PO SCH (21:26)
[2020-11-07] MEDS: QUEtiapine FUMARATE 400 MG TABLET PO SCH (21:26)
[2020-11-07] MEDS: MELATONIN 5 MG TABLETS PO SCH (21:26)
[2020-11-08] MEDS: PRENATAL VITAMINS W/ FOLIC ACID TABLET (FP) PO SCH (09:24)
[2020-11-08] MEDS: amLODIPine BESYLATE 10 MG TABLET (FP) PO SCH (09:24)
[2020-11-08] MEDS: NICOTINE 21 MG/24 HOURS TOPICAL PATCH TD SCH (09:24)
[2020-11-08] MEDS: METHYL SALICYLATE/MENTHOL OINT 30 GM TUBE TP SCH ×2 (09:25→21:30)
[2020-11-08] MEDS: THIAMINE HCL 100 MG TABLET (FP) PO SCH (21:30)
[2020-11-08] MEDS: MELATONIN 5 MG TABLETS PO SCH (21:30)
[2020-11-08] MEDS: QUEtiapine FUMARATE 400 MG TABLET PO SCH (21:30)
[2020-11-09 06:59] VITALS: TEMP 97.3
[2020-11-09] MEDS: PRENATAL VITAMINS W/ FOLIC ACID TABLET (FP) PO SCH (09:53)
[2020-11-09] MEDS: amLODIPine BESYLATE 10 MG TABLET (FP) PO SCH (09:53)
[2020-11-09] MEDS: NICOTINE 21 MG/24 HOURS TOPICAL PATCH TD SCH (09:54)
[2020-11-09] MEDS: METHYL SALICYLATE/MENTHOL OINT 30 GM TUBE TP SCH ×2 (09:54→22:51)
[2020-11-09 21:02] VITALS: BP 153/88; PULSE 109
[2020-11-09] MEDS ORDERED: NAPROXEN 500 MG TABLET PO ONE (21:40)
[2020-11-09] MEDS: QUEtiapine FUMARATE 400 MG TABLET PO SCH (21:55)
[2020-11-09] MEDS: THIAMINE HCL 100 MG TABLET (FP) PO SCH (21:56)
[2020-11-09] MEDS: MELATONIN 5 MG TABLETS PO SCH (21:56)
[2020-11-10] MEDS: PRENATAL VITAMINS W/ FOLIC ACID TABLET (FP) PO SCH (09:40)
[2020-11-10] MEDS: NICOTINE 21 MG/24 HOURS TOPICAL PATCH TD SCH (09:40)
[2020-11-10] MEDS: amLODIPine BESYLATE 10 MG TABLET (FP) PO SCH (09:40)
[2020-11-10] MEDS: METHYL SALICYLATE/MENTHOL OINT 30 GM TUBE TP SCH (09:40)
== END 2020-11-10 09:55 | disposition home or self-care (01) | DRG 772 ==
LOC: YASAS 15:14 → Y5N 10-27 04:48
PROVIDERS: ADMIT Allergy & Immunology; ATTEND Allergy & Immunology
PROC: HZ42ZZZ Group Counseling for Substance Abuse Treatment, Cognitive-Behavioral (ICD-10-PCS; principal; 2020-10-27)
DX: F10.20 Alcohol dependence, uncomplicated (principal); F17.210 Nicotine dependence, cigarettes, uncomplicated; F25.9 Schizoaffective disorder, unspecified; I10 Essential (primary) hypertension; E78.5 Hyperlipidemia, unspecified; J45.909 Unspecified asthma, uncomplicated; R56.9 Unspecified convulsions; M54.5 Low back pain; G89.29 Other chronic pain; R10.32 Left lower quadrant pain; E66.9 Obesity, unspecified; Z68.29 Body mass index [BMI] 29.0-29.9, adult; Z56.0 Unemployment, unspecified; Z59.0 Homelessness; Z86.718 Personal history of other venous thrombosis and embolism; Z94.5 Skin transplant status
CPT/HCPCS: 36415; 80053; 80061; 81003; 83721; 85027; 86780; 86803; 87389; C9803; U0003

== ENCOUNTER 2021-03-18 12:14 | Inpatient (IN) | payer OTHER ==
[2021-03-18 13:29] VITALS: BMI 25.4
[2021-03-18] MEDS ORDERED: LOPERAMIDE HCL 2 MG CAPSULE PO PRN (15:33)
[2021-03-18] MEDS ORDERED: MAGNESIUM HYDROX 2400MG/30ML ORAL SUSPENSION 30 ML CUP PO PRN (15:33)
[2021-03-18] MEDS ORDERED: NICOTINE POLACRILEX 2 MG GUM BC PRN (15:33)
[2021-03-18] MEDS ORDERED: P-EPHED 60MG/TRIPROLIDI 2.5MG TABLET PO PRN (15:33)
[2021-03-18] MEDS ORDERED: ACETAMINOPHEN 325 MG TABLET (FP) PO PRN (15:33)
[2021-03-18] MEDS ORDERED: MAGNESIUM CITRATE 300 ML BOTTLE PO PRN (15:33)
[2021-03-18] MEDS ORDERED: guaiFENesin 200 MG/10 ML 10 ML UNIT-DOSE CUPS PO PRN (15:33)
[2021-03-18] MEDS ORDERED: MAG HYDROX/AL HYDROX/SIMETH 30 ML UNIT-DOSE CUP PO PRN (15:33)
[2021-03-18] MEDS ORDERED: ALBUTEROL SO4 HFA INHALER IH PRN (15:34)
[2021-03-18] MEDS: hydrOXYzine PAMOATE 25 MG CAPSULE (FP) PO SCH ×2 (17:10→21:21)
[2021-03-18] MEDS: THIAMINE HCL 100 MG TABLET (FP) PO SCH (21:21)
[2021-03-18] MEDS: MELATONIN 5 MG TABLETS PO SCH (21:21)
[2021-03-18] MEDS: QUEtiapine FUMARATE 50 MG TABLET PO SCH (21:22)
[2021-03-19] MEDS: hydrOXYzine PAMOATE 25 MG CAPSULE (FP) PO SCH ×5 (07:12→21:18)
[2021-03-19] MEDS: amLODIPine BESYLATE 10 MG TABLET (FP) PO SCH (09:52)
[2021-03-19] MEDS: QUEtiapine FUMARATE 100 MG TABLET (FP) PO SCH (09:52)
[2021-03-19] MEDS: PRENATAL VITAMINS W/ FOLIC ACID TABLET (FP) PO SCH (09:52)
[2021-03-19] MEDS: NICOTINE 7 MG/24 HOURS TOPICAL PATCH TD SCH (09:53)
[2021-03-19 10:00] LABS: HEMATOCRIT 39.3 % (35.4-49); MCH 27.8 pg (25.7-33.7); MEAN CELL VOLUME 84.2 fl (80-96); MEAN PLT VOLUME 8.8 fl (7.5-11.1); PLATELET COUNT 430 10^3/uL (134-434); RBC 4.67 M/mm3 (4.00-5.60); RDW 15.7 % (11.9-15.9)
[2021-03-19 10:09] LABS: PH,URINE 5.5 (5.0-8.0); URINE APPEARANCE Clear; URINE BILIRUBIN Negative (NEGATIVE); URINE COLOR Yellow; URINE GLUCOSE (UA) Negative (NEGATIVE); URINE KETONE Negative (NEGATIVE); URINE LEUK ESTERASE Negative (NEGATIVE); URINE NITRITE Negative (NEGATIVE); URINE PROTEIN Negative (NEGATIVE); URINE UROBILINOGEN 0.2 mg/dL (0.2-1.0)
[2021-03-19 10:13] LABS: CALCIUM 9.7 mg/dL (8.5-10.1)
[2021-03-19 10:14] LABS: ALBUMIN 3.6 g/dl (3.4-5.0)
[2021-03-19 10:17] LABS: CREATININE 0.8 mg/dL (0.55-1.3)
[2021-03-19 10:18] LABS: BILIRUBIN,TOTAL 0.6 mg/dL (0.2-1); TOT PROT 8.1 g/dl (6.4-8.2)
[2021-03-19] MEDS: MELATONIN 5 MG TABLETS PO SCH (21:17)
[2021-03-19] MEDS: QUEtiapine FUMARATE 50 MG TABLET PO SCH (21:17)
[2021-03-19] MEDS: THIAMINE HCL 100 MG TABLET (FP) PO SCH (21:18)
[2021-03-20] MEDS: hydrOXYzine PAMOATE 25 MG CAPSULE (FP) PO SCH ×5 (05:59→21:39)
[2021-03-20] MEDS: QUEtiapine FUMARATE 100 MG TABLET (FP) PO SCH (10:01)
[2021-03-20] MEDS: amLODIPine BESYLATE 10 MG TABLET (FP) PO SCH (10:01)
[2021-03-20] MEDS: NICOTINE 7 MG/24 HOURS TOPICAL PATCH TD SCH (10:02)
[2021-03-20] MEDS: PRENATAL VITAMINS W/ FOLIC ACID TABLET (FP) PO SCH (10:02)
[2021-03-20] MEDS: QUEtiapine FUMARATE 50 MG TABLET PO SCH (21:37)
[2021-03-20] MEDS: MELATONIN 5 MG TABLETS PO SCH (21:38)
[2021-03-20] MEDS: THIAMINE HCL 100 MG TABLET (FP) PO SCH (21:38)
[2021-03-21] MEDS: hydrOXYzine PAMOATE 25 MG CAPSULE (FP) PO SCH ×5 (06:17→21:16)
[2021-03-21] MEDS: amLODIPine BESYLATE 10 MG TABLET (FP) PO SCH (10:14)
[2021-03-21] MEDS: PRENATAL VITAMINS W/ FOLIC ACID TABLET (FP) PO SCH (10:14)
[2021-03-21] MEDS: NICOTINE 7 MG/24 HOURS TOPICAL PATCH TD SCH (10:14)
[2021-03-21] MEDS: QUEtiapine FUMARATE 50 MG TABLET PO SCH (10:15)
[2021-03-21] MEDS: QUEtiapine FUMARATE 100 MG TABLET (FP) PO SCH ×2 (10:33→21:16)
[2021-03-21] MEDS: THIAMINE HCL 100 MG TABLET (FP) PO SCH (21:15)
[2021-03-21] MEDS: MELATONIN 5 MG TABLETS PO SCH (21:16)
[2021-03-22] MEDS: hydrOXYzine PAMOATE 25 MG CAPSULE (FP) PO SCH ×5 (06:49→21:26)
[2021-03-22] MEDS: PRENATAL VITAMINS W/ FOLIC ACID TABLET (FP) PO SCH (10:21)
[2021-03-22] MEDS: amLODIPine BESYLATE 10 MG TABLET (FP) PO SCH (10:22)
[2021-03-22] MEDS: QUEtiapine FUMARATE 50 MG TABLET PO SCH (10:22)
[2021-03-22] MEDS: NICOTINE 7 MG/24 HOURS TOPICAL PATCH TD SCH (10:22)
[2021-03-22] MEDS: MELATONIN 5 MG TABLETS PO SCH (21:26)
[2021-03-22] MEDS: THIAMINE HCL 100 MG TABLET (FP) PO SCH (21:26)
[2021-03-22] MEDS: QUEtiapine FUMARATE 100 MG TABLET (FP) PO SCH (21:26)
[2021-03-23] MEDS: hydrOXYzine PAMOATE 25 MG CAPSULE (FP) PO SCH ×5 (06:56→21:14)
[2021-03-23] MEDS: PRENATAL VITAMINS W/ FOLIC ACID TABLET (FP) PO SCH (09:51)
[2021-03-23] MEDS: NICOTINE 7 MG/24 HOURS TOPICAL PATCH TD SCH (09:51)
[2021-03-23] MEDS: QUEtiapine FUMARATE 50 MG TABLET PO SCH (09:52)
[2021-03-23] MEDS: amLODIPine BESYLATE 10 MG TABLET (FP) PO SCH (09:52)
[2021-03-23] MEDS ORDERED: QUEtiapine FUMARATE 50 MG TABLET ONE (18:40)
[2021-03-23] MEDS: THIAMINE HCL 100 MG TABLET (FP) PO SCH (21:14)
[2021-03-23] MEDS: MELATONIN 5 MG TABLETS PO SCH (21:14)
[2021-03-23] MEDS: QUEtiapine FUMARATE 100 MG TABLET (FP) PO SCH (21:14)
[2021-03-24] MEDS: hydrOXYzine PAMOATE 25 MG CAPSULE (FP) PO SCH ×5 (07:38→21:42)
[2021-03-24] MEDS: NICOTINE 7 MG/24 HOURS TOPICAL PATCH TD SCH (10:09)
[2021-03-24] MEDS: QUEtiapine FUMARATE 50 MG TABLET PO SCH (10:09)
[2021-03-24] MEDS: PRENATAL VITAMINS W/ FOLIC ACID TABLET (FP) PO SCH (10:10)
[2021-03-24] MEDS: amLODIPine BESYLATE 10 MG TABLET (FP) PO SCH (10:10)
[2021-03-24] MEDS: THIAMINE HCL 100 MG TABLET (FP) PO SCH (21:42)
[2021-03-24] MEDS: QUEtiapine FUMARATE 100 MG TABLET (FP) PO SCH (21:42)
[2021-03-24] MEDS: MELATONIN 5 MG TABLETS PO SCH (21:43)
[2021-03-25] MEDS: hydrOXYzine PAMOATE 25 MG CAPSULE (FP) PO SCH ×5 (06:42→21:31)
[2021-03-25] MEDS: PRENATAL VITAMINS W/ FOLIC ACID TABLET (FP) PO SCH (10:08)
[2021-03-25] MEDS: amLODIPine BESYLATE 10 MG TABLET (FP) PO SCH (10:08)
[2021-03-25] MEDS: NICOTINE 7 MG/24 HOURS TOPICAL PATCH TD SCH (10:08)
[2021-03-25] MEDS: QUEtiapine FUMARATE 50 MG TABLET PO SCH (10:09)
[2021-03-25] MEDS: MELATONIN 5 MG TABLETS PO SCH (21:31)
[2021-03-25] MEDS: QUEtiapine FUMARATE 100 MG TABLET (FP) PO SCH (21:31)
[2021-03-25] MEDS: THIAMINE HCL 100 MG TABLET (FP) PO SCH (21:32)
[2021-03-26] MEDS: hydrOXYzine PAMOATE 25 MG CAPSULE (FP) PO SCH ×5 (08:39→21:44)
[2021-03-26] MEDS: QUEtiapine FUMARATE 50 MG TABLET PO SCH (09:43)
[2021-03-26] MEDS: amLODIPine BESYLATE 10 MG TABLET (FP) PO SCH (09:43)
[2021-03-26] MEDS: PRENATAL VITAMINS W/ FOLIC ACID TABLET (FP) PO SCH (09:43)
[2021-03-26] MEDS: NICOTINE 7 MG/24 HOURS TOPICAL PATCH TD SCH (09:44)
[2021-03-26] MEDS: LIDOCAINE 5% TOPICAL PATCH TP SCH (12:39)
[2021-03-26] MEDS: METHOCARBAMOL 500 MG TABLET PO PRN (14:53)
[2021-03-26] MEDS: THIAMINE HCL 100 MG TABLET (FP) PO SCH (21:44)
[2021-03-26] MEDS: QUEtiapine FUMARATE 100 MG TABLET (FP) PO SCH (21:44)
[2021-03-26] MEDS: LIDOCAINE PATCH REMOVAL MC SCH (21:45)
[2021-03-26] MEDS: MELATONIN 5 MG TABLETS PO SCH (21:45)
[2021-03-27] MEDS: hydrOXYzine PAMOATE 25 MG CAPSULE (FP) PO SCH ×5 (06:40→21:32)
[2021-03-27] MEDS: PRENATAL VITAMINS W/ FOLIC ACID TABLET (FP) PO SCH (09:38)
[2021-03-27] MEDS: amLODIPine BESYLATE 10 MG TABLET (FP) PO SCH (09:38)
[2021-03-27] MEDS: QUEtiapine FUMARATE 50 MG TABLET PO SCH (09:38)
[2021-03-27] MEDS: NICOTINE 7 MG/24 HOURS TOPICAL PATCH TD SCH (09:38)
[2021-03-27] MEDS: LIDOCAINE 5% TOPICAL PATCH TP SCH (09:39)
[2021-03-27] MEDS: QUEtiapine FUMARATE 100 MG TABLET (FP) PO SCH (21:32)
[2021-03-27] MEDS: THIAMINE HCL 100 MG TABLET (FP) PO SCH (21:32)
[2021-03-27] MEDS: LIDOCAINE PATCH REMOVAL MC SCH (21:33)
[2021-03-27] MEDS: MELATONIN 5 MG TABLETS PO SCH (21:33)
[2021-03-28] MEDS: hydrOXYzine PAMOATE 25 MG CAPSULE (FP) PO SCH ×5 (06:23→21:42)
[2021-03-28] MEDS: PRENATAL VITAMINS W/ FOLIC ACID TABLET (FP) PO SCH (09:46)
[2021-03-28] MEDS: amLODIPine BESYLATE 10 MG TABLET (FP) PO SCH (09:46)
[2021-03-28] MEDS: QUEtiapine FUMARATE 50 MG TABLET PO SCH (09:46)
[2021-03-28] MEDS: NICOTINE 7 MG/24 HOURS TOPICAL PATCH TD SCH (09:47)
[2021-03-28] MEDS: LIDOCAINE 5% TOPICAL PATCH TP SCH (09:48)
[2021-03-28] MEDS: IBUPROFEN 400 MG TABLET (FP) PO PRN (16:00)
[2021-03-28] MEDS: QUEtiapine FUMARATE 100 MG TABLET (FP) PO SCH (21:42)
[2021-03-28] MEDS: THIAMINE HCL 100 MG TABLET (FP) PO SCH (21:42)
[2021-03-28] MEDS: MELATONIN 5 MG TABLETS PO SCH (21:42)
[2021-03-28] MEDS: LIDOCAINE PATCH REMOVAL MC SCH (21:43)
[2021-03-29] MEDS: hydrOXYzine PAMOATE 25 MG CAPSULE (FP) PO SCH ×5 (06:32→21:44)
[2021-03-29] MEDS: LIDOCAINE 5% TOPICAL PATCH TP SCH (09:55)
[2021-03-29] MEDS: NICOTINE 7 MG/24 HOURS TOPICAL PATCH TD SCH (09:55)
[2021-03-29] MEDS: amLODIPine BESYLATE 10 MG TABLET (FP) PO SCH (09:56)
[2021-03-29] MEDS: PRENATAL VITAMINS W/ FOLIC ACID TABLET (FP) PO SCH (09:56)
[2021-03-29] MEDS: QUEtiapine FUMARATE 50 MG TABLET PO SCH (09:56)
[2021-03-29] MEDS: IBUPROFEN 400 MG TABLET (FP) PO PRN (18:38)
[2021-03-29] MEDS: QUEtiapine FUMARATE 300 MG TABLET PO SCH (21:44)
[2021-03-29] MEDS: DIVALPROEX SODIUM 500 MG TABLET E.C. PO SCH (21:44)
[2021-03-29] MEDS: THIAMINE HCL 100 MG TABLET (FP) PO SCH (21:44)
[2021-03-29] MEDS: MELATONIN 5 MG TABLETS PO SCH (21:44)
[2021-03-29] MEDS: LIDOCAINE PATCH REMOVAL MC SCH (21:44)
[2021-03-29] MEDS ORDERED: QUEtiapine FUMARATE 200 MG TABLET PO SCH (22:00)
[2021-03-30] MEDS: hydrOXYzine PAMOATE 25 MG CAPSULE (FP) PO SCH ×5 (07:52→21:49)
[2021-03-30] MEDS: LIDOCAINE 5% TOPICAL PATCH TP SCH (09:36)
[2021-03-30] MEDS: PRENATAL VITAMINS W/ FOLIC ACID TABLET (FP) PO SCH (09:37)
[2021-03-30] MEDS: amLODIPine BESYLATE 10 MG TABLET (FP) PO SCH (09:37)
[2021-03-30] MEDS: NICOTINE 7 MG/24 HOURS TOPICAL PATCH TD SCH (09:37)
[2021-03-30] MEDS: DIVALPROEX SODIUM 500 MG TABLET E.C. PO SCH ×2 (09:37→21:19)
[2021-03-30] MEDS ORDERED: QUEtiapine FUMARATE 200 MG TABLET PO SCH (10:00)
[2021-03-30] MEDS ORDERED: IBUPROFEN 600 MG TABLET (FP) PO PRN (13:12)
[2021-03-30] MEDS: METHOCARBAMOL 500 MG TABLET PO PRN ×2 (13:50→21:19)
[2021-03-30] MEDS: QUEtiapine FUMARATE 300 MG TABLET PO SCH (21:19)
[2021-03-30] MEDS: THIAMINE HCL 100 MG TABLET (FP) PO SCH (21:19)
[2021-03-30] MEDS: LIDOCAINE PATCH REMOVAL MC SCH (21:49)
[2021-03-30] MEDS ORDERED: METHYL SALICYLATE/MENTHOL OINT 30 GM TUBE TP SCH (22:00)
[2021-03-31] MEDS: hydrOXYzine PAMOATE 25 MG CAPSULE (FP) PO SCH (06:16)
[2021-03-31 06:53] VITALS: BP 144/76; PULSE 112; TEMP 97.3
== END 2021-03-31 06:17 | disposition home or self-care (01) | DRG 772 ==
LOC: YASAS 12:14 → Y3W 14:12 → Y3E 03-24 10:33
PROVIDERS: ADMIT Allergy & Immunology; ATTEND Allergy & Immunology
PROC: HZ42ZZZ Group Counseling for Substance Abuse Treatment, Cognitive-Behavioral (ICD-10-PCS; principal; 2021-03-18)
DX: F10.20 Alcohol dependence, uncomplicated (principal); F14.20 Cocaine dependence, uncomplicated; F12.20 Cannabis dependence, uncomplicated; F19.10 Other psychoactive substance abuse, uncomplicated; F25.9 Schizoaffective disorder, unspecified; G40.509 Epileptic seizures related to external causes, not intractable, without status epilepticus; G47.00 Insomnia, unspecified; E78.5 Hyperlipidemia, unspecified; I10 Essential (primary) hypertension; J45.909 Unspecified asthma, uncomplicated; Z87.891 Personal history of nicotine dependence; Z86.59 Personal history of other mental and behavioral disorders; Z86.718 Personal history of other venous thrombosis and embolism; Z91.5 Personal history of self-harm; Z91.14 Patient's other noncompliance with medication regimen; Z56.0 Unemployment, unspecified; Z59.0 Homelessness
CPT/HCPCS: 36415; 80053; 81003; 82962; 85027; 86780

== ENCOUNTER 2021-08-06 20:34 | Inpatient (IN) | payer OTHER ==
[2021-08-06 21:12] VITALS: BMI 28.3
[2021-08-06] MEDS ORDERED: MAGNESIUM HYDROX 2400MG/30ML ORAL SUSPENSION 30 ML CUP PO PRN (22:56)
[2021-08-06] MEDS ORDERED: MENTHOL/PHENOL 1 EACH UD MM PRN (22:56)
[2021-08-06] MEDS ORDERED: ONDANSETRON *ODT* 4 MG TABLET SL PRN (22:56)
[2021-08-06] MEDS ORDERED: BISMUTH SUBSALICYLATE 524 MG/30 ML PO PRN (22:56)
[2021-08-06] MEDS ORDERED: IBUPROFEN 400 MG TABLET (FP) PO PRN (22:56)
[2021-08-06] MEDS ORDERED: NICOTINE POLACRILEX 2 MG GUM BUC PRN (22:56)
[2021-08-06] MEDS ORDERED: MAGNESIUM CITRATE 300 ML BOTTLE PO PRN (22:56)
[2021-08-06] MEDS ORDERED: ACETAMINOPHEN 325 MG TABLET (FP) PO PRN (22:56)
[2021-08-06] MEDS ORDERED: MAG HYDROX/AL HYDROX/SIMETH 30 ML UNIT-DOSE CUP PO PRN (22:56)
[2021-08-06] MEDS ORDERED: diazePAM 5 MG TABLET PO PRN (23:04)
[2021-08-07] MEDS: diazePAM 5 MG TABLET PO SCH ×5 (01:15→22:51)
[2021-08-07] MEDS: ACETAMINOPHEN 325 MG TABLET (FP) PO PRN ×2 (05:27→18:21)
[2021-08-07] MEDS: PRENATAL VITAMINS W/ FOLIC ACID TABLET (FP) PO SCH (10:46)
[2021-08-07] MEDS: hydrOXYzine PAMOATE 25 MG CAPSULE (FP) PO PRN (10:47)
[2021-08-07] MEDS: NICOTINE 21 MG/24 HOURS TOPICAL PATCH TD SCH (10:49)
[2021-08-07 13:41] LABS: HEMATOCRIT 34.5 % (35.4-49); HEMOGLOBIN 11.3 GM/dL (11.7-16.9); MCH 28.3 pg (25.7-33.7); MCHC 32.8 g/dl (32.0-35.9); MEAN CELL VOLUME 86.2 fl (80-96); MEAN PLT VOLUME 8.4 fl (7.5-11.1); PLATELET COUNT 291 10^3/uL (134-434); RDW 15.8 % (11.9-15.9); WHITE BLOOD COUNT 6.3 K/mm3 (4.0-10.0)
[2021-08-07 13:49] LABS: CALCIUM 8.7 mg/dL (8.5-10.1)
[2021-08-07 13:50] LABS: ALBUMIN 2.9 g/dl (3.4-5.0); BLOOD UREA NITROGEN 14.8 mg/dL (7-18)
[2021-08-07 13:53] LABS: CREATININE 0.9 mg/dL (0.55-1.3)
[2021-08-07 13:55] LABS: BILIRUBIN,TOTAL 0.3 mg/dL (0.2-1); TOT PROT 6.9 g/dl (6.4-8.2)
[2021-08-07] MEDS: THIAMINE HCL 100 MG TABLET (FP) PO SCH (22:51)
[2021-08-07] MEDS: MELATONIN 5 MG TABLETS PO SCH (22:51)
[2021-08-07] MEDS: METHOCARBAMOL 500 MG TABLET PO PRN (22:53)
[2021-08-08] MEDS: diazePAM 5 MG TABLET PO SCH ×3 (05:53→22:42)
[2021-08-08] MEDS: PRENATAL VITAMINS W/ FOLIC ACID TABLET (FP) PO SCH (10:34)
[2021-08-08] MEDS: METHOCARBAMOL 500 MG TABLET PO PRN (10:37)
[2021-08-08] MEDS: NICOTINE 21 MG/24 HOURS TOPICAL PATCH TD SCH (10:41)
[2021-08-08] MEDS ORDERED: ALBUTEROL SO4 HFA INHALER IH PRN (14:21)
[2021-08-08] MEDS: amLODIPine BESYLATE 10 MG TABLET (FP) PO SCH (15:04)
[2021-08-08] MEDS: MELATONIN 5 MG TABLETS PO SCH (22:40)
[2021-08-08] MEDS: THIAMINE HCL 100 MG TABLET (FP) PO SCH (22:43)
[2021-08-09] MEDS: diazePAM 5 MG TABLET PO SCH ×2 (05:55→17:58)
[2021-08-09] MEDS: METHOCARBAMOL 500 MG TABLET PO PRN (05:56)
[2021-08-09] MEDS: amLODIPine BESYLATE 10 MG TABLET (FP) PO SCH (10:30)
[2021-08-09] MEDS: PRENATAL VITAMINS W/ FOLIC ACID TABLET (FP) PO SCH (10:30)
[2021-08-09] MEDS: NICOTINE 21 MG/24 HOURS TOPICAL PATCH TD SCH (10:31)
[2021-08-09] MEDS: hydrOXYzine PAMOATE 25 MG CAPSULE (FP) PO PRN (17:57)
[2021-08-09] MEDS: THIAMINE HCL 100 MG TABLET (FP) PO SCH (22:15)
[2021-08-09] MEDS: MELATONIN 5 MG TABLETS PO SCH (22:15)
[2021-08-10] MEDS ORDERED: diazePAM 5 MG TABLET PO ONE (06:00)
[2021-08-10 09:55] VITALS: BP 141/79; PULSE 96; TEMP 97.3
[2021-08-10] MEDS: NICOTINE 21 MG/24 HOURS TOPICAL PATCH TD SCH (10:32)
[2021-08-10] MEDS: PRENATAL VITAMINS W/ FOLIC ACID TABLET (FP) PO SCH (10:32)
[2021-08-10] MEDS: amLODIPine BESYLATE 10 MG TABLET (FP) PO SCH (10:32)
== END 2021-08-10 12:36 | disposition other institution (70) | DRG 774 ==
LOC: YASAS 20:34 → Y6N 23:34
PROVIDERS: ADMIT Allergy & Immunology; ATTEND Allergy & Immunology
PROC: HZ2ZZZZ Detoxification Services for Substance Abuse Treatment (ICD-10-PCS; principal; 2021-08-06)
DX: F10.230 Alcohol dependence with withdrawal, uncomplicated (principal); F13.230 Sedative, hypnotic or anxiolytic dependence with withdrawal, uncomplicated; F14.20 Cocaine dependence, uncomplicated; F12.20 Cannabis dependence, uncomplicated; F17.210 Nicotine dependence, cigarettes, uncomplicated; F25.0 Schizoaffective disorder, bipolar type; F19.282 Other psychoactive substance dependence with psychoactive substance-induced sleep disorder; F19.24 Other psychoactive substance dependence with psychoactive substance-induced mood disorder; F33.1 Major depressive disorder, recurrent, moderate; F31.9 Bipolar disorder, unspecified; I10 Essential (primary) hypertension; J45.20 Mild intermittent asthma, uncomplicated; R03.0 Elevated blood-pressure reading, without diagnosis of hypertension; Z86.16 Personal history of COVID-19; Z91.14 Patient's other noncompliance with medication regimen; Z86.69 Personal history of other diseases of the nervous system and sense organs; Z86.718 Personal history of other venous thrombosis and embolism; Z59.01 Sheltered homelessness
CPT/HCPCS: 36415; 80053; 80164; 85027; 86780; C9803; U0003; U0005

== ENCOUNTER 2021-08-10 12:36 | Inpatient (IN) | payer OTHER ==
[2021-08-10] MEDS ORDERED: ALBUTEROL SO4 HFA INHALER IH PRN (13:21)
[2021-08-10] MEDS ORDERED: ACETAMINOPHEN 325 MG TABLET (FP) PO PRN (13:21)
[2021-08-10] MEDS ORDERED: NICOTINE POLACRILEX 2 MG GUM BUC PRN (13:21)
[2021-08-10] MEDS ORDERED: MENTHOL/PHENOL 1 EACH UD MM PRN (13:21)
[2021-08-10] MEDS ORDERED: LOPERAMIDE HCL 2 MG CAPSULE PO PRN (13:21)
[2021-08-10] MEDS ORDERED: MAG HYDROX/AL HYDROX/SIMETH 30 ML UNIT-DOSE CUP PO PRN (13:21)
[2021-08-10] MEDS ORDERED: P-EPHED 60MG/TRIPROLIDI 2.5MG TABLET PO PRN (13:21)
[2021-08-10] MEDS ORDERED: NICOTINE 10 MG CARTRIDGE (INHALER) IH PRN (13:21)
[2021-08-10] MEDS ORDERED: MAGNESIUM HYDROX 2400MG/30ML ORAL SUSPENSION 30 ML CUP PO PRN (13:21)
[2021-08-10] MEDS ORDERED: guaiFENesin 200 MG/10 ML 10 ML UNIT-DOSE CUPS PO PRN (13:21)
[2021-08-10] MEDS ORDERED: MAGNESIUM CITRATE 300 ML BOTTLE PO PRN (13:21)
[2021-08-10] MEDS: IBUPROFEN 400 MG TABLET (FP) PO PRN (15:56)
[2021-08-10] MEDS: THIAMINE HCL 100 MG TABLET (FP) PO SCH (21:44)
[2021-08-10] MEDS: QUEtiapine FUMARATE 100 MG TABLET (FP) PO SCH (21:44)
[2021-08-10] MEDS ORDERED: MELATONIN 5 MG TABLETS PO SCH (22:00)
[2021-08-11] MEDS: NICOTINE 21 MG/24 HOURS TOPICAL PATCH TD SCH (09:42)
[2021-08-11] MEDS: amLODIPine BESYLATE 10 MG TABLET (FP) PO SCH (09:43)
[2021-08-11] MEDS: QUEtiapine FUMARATE 50 MG TABLET PO SCH (09:43)
[2021-08-11] MEDS: PRENATAL VITAMINS W/ FOLIC ACID TABLET (FP) PO SCH (09:43)
[2021-08-11] MEDS: QUEtiapine FUMARATE 100 MG TABLET (FP) PO SCH (21:47)
[2021-08-11] MEDS: THIAMINE HCL 100 MG TABLET (FP) PO SCH (21:47)
[2021-08-12] MEDS: QUEtiapine FUMARATE 50 MG TABLET PO SCH (09:40)
[2021-08-12] MEDS: amLODIPine BESYLATE 10 MG TABLET (FP) PO SCH (09:40)
[2021-08-12] MEDS: PRENATAL VITAMINS W/ FOLIC ACID TABLET (FP) PO SCH (09:40)
[2021-08-12] MEDS: NICOTINE 21 MG/24 HOURS TOPICAL PATCH TD SCH (09:41)
[2021-08-12] MEDS: QUEtiapine FUMARATE 100 MG TABLET (FP) PO SCH (22:01)
[2021-08-12] MEDS: THIAMINE HCL 100 MG TABLET (FP) PO SCH (22:01)
[2021-08-13] MEDS: amLODIPine BESYLATE 10 MG TABLET (FP) PO SCH (09:45)
[2021-08-13] MEDS: QUEtiapine FUMARATE 50 MG TABLET PO SCH (09:45)
[2021-08-13] MEDS: PRENATAL VITAMINS W/ FOLIC ACID TABLET (FP) PO SCH (09:45)
[2021-08-13] MEDS: NICOTINE 21 MG/24 HOURS TOPICAL PATCH TD SCH (09:46)
[2021-08-13] MEDS ORDERED: hydrOXYzine PAMOATE 25 MG CAPSULE (FP) PO PRN (17:37)
[2021-08-13] MEDS: THIAMINE HCL 100 MG TABLET (FP) PO SCH (21:32)
[2021-08-13] MEDS: QUEtiapine FUMARATE 100 MG TABLET (FP) PO SCH (21:32)
[2021-08-14] MEDS: NICOTINE 21 MG/24 HOURS TOPICAL PATCH TD SCH (09:42)
[2021-08-14] MEDS: amLODIPine BESYLATE 10 MG TABLET (FP) PO SCH (09:42)
[2021-08-14] MEDS: PRENATAL VITAMINS W/ FOLIC ACID TABLET (FP) PO SCH (09:42)
[2021-08-14] MEDS: QUEtiapine FUMARATE 50 MG TABLET PO SCH (09:42)
[2021-08-14] MEDS ORDERED: QUEtiapine FUMARATE 50 MG TABLET PO ONE (18:27)
[2021-08-14] MEDS: QUEtiapine FUMARATE 100 MG TABLET (FP) PO SCH (21:39)
[2021-08-14] MEDS: THIAMINE HCL 100 MG TABLET (FP) PO SCH (21:39)
[2021-08-14] MEDS: GABAPENTIN 100 MG CAPSULE PO SCH (21:40)
[2021-08-15] MEDS: GABAPENTIN 100 MG CAPSULE PO SCH ×3 (06:56→21:40)
[2021-08-15] MEDS: NICOTINE 21 MG/24 HOURS TOPICAL PATCH TD SCH (09:27)
[2021-08-15] MEDS: QUEtiapine FUMARATE 100 MG TABLET (FP) PO SCH ×2 (09:28→21:40)
[2021-08-15] MEDS: amLODIPine BESYLATE 10 MG TABLET (FP) PO SCH (09:28)
[2021-08-15] MEDS: PRENATAL VITAMINS W/ FOLIC ACID TABLET (FP) PO SCH (09:28)
[2021-08-15] MEDS ORDERED: MASKS NR ONE (12:08)
[2021-08-15] MEDS: THIAMINE HCL 100 MG TABLET (FP) PO SCH (21:40)
[2021-08-16] MEDS: GABAPENTIN 100 MG CAPSULE PO SCH ×3 (06:21→22:08)
[2021-08-16] MEDS: NICOTINE 21 MG/24 HOURS TOPICAL PATCH TD SCH (09:26)
[2021-08-16] MEDS: PRENATAL VITAMINS W/ FOLIC ACID TABLET (FP) PO SCH (09:26)
[2021-08-16] MEDS: amLODIPine BESYLATE 10 MG TABLET (FP) PO SCH (09:26)
[2021-08-16] MEDS: QUEtiapine FUMARATE 100 MG TABLET (FP) PO SCH ×2 (09:26→22:08)
[2021-08-16] MEDS: IBUPROFEN 400 MG TABLET (FP) PO PRN (18:05)
[2021-08-16] MEDS: THIAMINE HCL 100 MG TABLET (FP) PO SCH (22:08)
[2021-08-17] MEDS: GABAPENTIN 100 MG CAPSULE PO SCH ×3 (06:43→21:34)
[2021-08-17] MEDS: QUEtiapine FUMARATE 100 MG TABLET (FP) PO SCH ×2 (09:21→21:34)
[2021-08-17] MEDS: PRENATAL VITAMINS W/ FOLIC ACID TABLET (FP) PO SCH (09:21)
[2021-08-17] MEDS: NICOTINE 21 MG/24 HOURS TOPICAL PATCH TD SCH (09:21)
[2021-08-17] MEDS: amLODIPine BESYLATE 10 MG TABLET (FP) PO SCH (09:21)
[2021-08-17] MEDS: THIAMINE HCL 100 MG TABLET (FP) PO SCH (21:34)
[2021-08-18] MEDS: GABAPENTIN 100 MG CAPSULE PO SCH ×3 (06:29→21:27)
[2021-08-18] MEDS ORDERED: MINERAL OIL/PETROLAT/WATER TOPICAL CREAM 454 GM JAR TP PRN (08:17)
[2021-08-18] MEDS: NICOTINE 21 MG/24 HOURS TOPICAL PATCH TD SCH (10:42)
[2021-08-18] MEDS: amLODIPine BESYLATE 10 MG TABLET (FP) PO SCH (10:42)
[2021-08-18] MEDS: QUEtiapine FUMARATE 100 MG TABLET (FP) PO SCH (10:43)
[2021-08-18] MEDS: PRENATAL VITAMINS W/ FOLIC ACID TABLET (FP) PO SCH (10:44)
[2021-08-18] MEDS: IBUPROFEN 400 MG TABLET (FP) PO PRN (13:37)
[2021-08-18] MEDS: THIAMINE HCL 100 MG TABLET (FP) PO SCH (21:27)
[2021-08-18] MEDS ORDERED: QUEtiapine FUMARATE 50 MG TABLET PO SCH (22:00)
[2021-08-19] MEDS: GABAPENTIN 100 MG CAPSULE PO SCH (06:52)
[2021-08-19 09:08] VITALS: BP 150/80; PULSE 126; TEMP 97.1
[2021-08-19] MEDS: QUEtiapine FUMARATE 100 MG TABLET (FP) PO SCH (09:30)
[2021-08-19] MEDS: amLODIPine BESYLATE 10 MG TABLET (FP) PO SCH (09:30)
[2021-08-19] MEDS: NICOTINE 21 MG/24 HOURS TOPICAL PATCH TD SCH (09:30)
[2021-08-19] MEDS: PRENATAL VITAMINS W/ FOLIC ACID TABLET (FP) PO SCH (09:30)
== END 2021-08-19 10:39 | disposition home or self-care (01) | DRG 772 ==
LOC: YASAS 12:36 → Y3E 12:37
PROVIDERS: ADMIT Allergy & Immunology; ATTEND Allergy & Immunology
PROC: HZ42ZZZ Group Counseling for Substance Abuse Treatment, Cognitive-Behavioral (ICD-10-PCS; principal; 2021-08-10)
DX: F10.20 Alcohol dependence, uncomplicated (principal); F17.210 Nicotine dependence, cigarettes, uncomplicated; F19.24 Other psychoactive substance dependence with psychoactive substance-induced mood disorder; F19.282 Other psychoactive substance dependence with psychoactive substance-induced sleep disorder; F33.1 Major depressive disorder, recurrent, moderate; F31.9 Bipolar disorder, unspecified; I10 Essential (primary) hypertension; E78.5 Hyperlipidemia, unspecified; J45.909 Unspecified asthma, uncomplicated; M54.59 Other low back pain; G89.29 Other chronic pain; Z87.19 Personal history of other diseases of the digestive system; Z86.718 Personal history of other venous thrombosis and embolism; Z86.69 Personal history of other diseases of the nervous system and sense organs; Z56.0 Unemployment, unspecified; Z59.00 Homelessness unspecified

== ENCOUNTER 2021-11-12 11:13 | Inpatient (IN) | payer OTHER ==
[2021-11-12] MEDS ORDERED: chlordiazePOXIDE HCL 25 MG CAPSULE PO PRN (11:55)
[2021-11-12] MEDS ORDERED: ACETAMINOPHEN 325 MG TABLET (FP) PO PRN (11:55)
[2021-11-12] MEDS ORDERED: MAG HYDROX/AL HYDROX/SIMETH 30 ML UNIT-DOSE CUP PO PRN (11:55)
[2021-11-12] MEDS ORDERED: NICOTINE 10 MG CARTRIDGE (INHALER) IH PRN (11:55)
[2021-11-12] MEDS ORDERED: MAGNESIUM CITRATE 300 ML BOTTLE PO PRN (11:55)
[2021-11-12] MEDS ORDERED: BISMUTH SUBSALICYLATE 262 MG/15 ML BTL PO PRN (11:55)
[2021-11-12] MEDS ORDERED: ONDANSETRON *ODT* 4 MG TABLET SL PRN (11:55)
[2021-11-12] MEDS ORDERED: MAGNESIUM HYDROX 2400MG/30ML ORAL SUSPENSION 30 ML CUP PO PRN (11:55)
[2021-11-12] MEDS ORDERED: MENTHOL/PHENOL 1 EACH UD MM PRN (11:55)
[2021-11-12] MEDS ORDERED: LOPERAMIDE HCL 2 MG CAPSULE PO PRN (11:55)
[2021-11-12] MEDS ORDERED: ALBUTEROL SO4 HFA INHALER IH PRN (11:58)
[2021-11-12 12:11] VITALS: BMI 28.3
[2021-11-12] MEDS: NICOTINE 21 MG/24 HOURS TOPICAL PATCH TD SCH (13:09)
[2021-11-12] MEDS: PRENATAL VITAMINS W/ FOLIC ACID TABLET (FP) PO SCH (13:10)
[2021-11-12] MEDS: chlordiazePOXIDE HCL 25 MG CAPSULE PO SCH ×3 (13:10→22:55)
[2021-11-12] MEDS: ACETAMINOPHEN 325 MG TABLET (FP) PO PRN (13:12)
[2021-11-12] MEDS: hydrOXYzine PAMOATE 25 MG CAPSULE (FP) PO SCH ×3 (13:22→23:21)
[2021-11-12] MEDS: LIDOCAINE 5% TOPICAL PATCH TP SCH (14:20)
[2021-11-12] MEDS: IBUPROFEN 400 MG TABLET (FP) PO PRN (19:39)
[2021-11-12] MEDS: QUEtiapine FUMARATE 100 MG TABLET (FP) PO SCH (22:54)
[2021-11-12] MEDS: THIAMINE HCL 100 MG TABLET (FP) PO SCH (22:55)
[2021-11-12] MEDS: MELATONIN 5 MG TABLETS PO SCH (23:21)
[2021-11-12] MEDS: LIDOCAINE PATCH REMOVAL MC SCH (23:21)
[2021-11-13] MEDS: hydrOXYzine PAMOATE 25 MG CAPSULE (FP) PO SCH ×5 (05:25→22:38)
[2021-11-13] MEDS: chlordiazePOXIDE HCL 25 MG CAPSULE PO SCH ×4 (05:25→22:39)
[2021-11-13] MEDS: LIDOCAINE 5% TOPICAL PATCH TP SCH (10:19)
[2021-11-13] MEDS: QUEtiapine FUMARATE 50 MG TABLET PO SCH (10:19)
[2021-11-13] MEDS: amLODIPine BESYLATE 10 MG TABLET (FP) PO SCH (10:19)
[2021-11-13] MEDS: NICOTINE 21 MG/24 HOURS TOPICAL PATCH TD SCH (10:19)
[2021-11-13] MEDS: METHOCARBAMOL 500 MG TABLET PO PRN (10:19)
[2021-11-13] MEDS: PRENATAL VITAMINS W/ FOLIC ACID TABLET (FP) PO SCH (10:20)
[2021-11-13 17:33] LABS: URINE APPEARANCE CLEAR; URINE BILIRUBIN NEGATIVE (NEGATIVE); URINE COLOR YELLOW; URINE GLUCOSE (UA) NEGATIVE (NEGATIVE); URINE KETONE NEGATIVE (NEGATIVE); URINE LEUK ESTERASE NEGATIVE (NEGATIVE); URINE NITRITE NEGATIVE (NEGATIVE); URINE PROTEIN NEGATIVE (NEGATIVE); URINE UROBILINOGEN 0.2 mg/dL (0.2-1.0)
[2021-11-13] MEDS: MELATONIN 5 MG TABLETS PO SCH (22:38)
[2021-11-13] MEDS: QUEtiapine FUMARATE 100 MG TABLET (FP) PO SCH (22:38)
[2021-11-13] MEDS: THIAMINE HCL 100 MG TABLET (FP) PO SCH (22:38)
[2021-11-13] MEDS: LIDOCAINE PATCH REMOVAL MC SCH (22:39)
[2021-11-14] MEDS: chlordiazePOXIDE HCL 25 MG CAPSULE PO SCH ×4 (05:17→22:13)
[2021-11-14] MEDS: hydrOXYzine PAMOATE 25 MG CAPSULE (FP) PO SCH ×5 (05:17→23:31)
[2021-11-14] MEDS ORDERED: METHOCARBAMOL 500 MG TABLET PO ONE (10:00)
[2021-11-14] MEDS ORDERED: hydrOXYzine PAMOATE 50 MG CAPSULE (FP) PO ONE (10:00)
[2021-11-14] MEDS ORDERED: propRANOLol HCL 10 MG TABLET PO ONE (10:00)
[2021-11-14] MEDS: PRENATAL VITAMINS W/ FOLIC ACID TABLET (FP) PO SCH (11:01)
[2021-11-14] MEDS: amLODIPine BESYLATE 10 MG TABLET (FP) PO SCH (11:02)
[2021-11-14] MEDS: QUEtiapine FUMARATE 50 MG TABLET PO SCH (11:02)
[2021-11-14] MEDS: NICOTINE 21 MG/24 HOURS TOPICAL PATCH TD SCH (11:02)
[2021-11-14] MEDS: LIDOCAINE 5% TOPICAL PATCH TP SCH (11:04)
[2021-11-14] MEDS: IBUPROFEN 400 MG TABLET (FP) PO PRN (18:08)
[2021-11-14] MEDS: LIDOCAINE PATCH REMOVAL MC SCH (22:12)
[2021-11-14] MEDS: QUEtiapine FUMARATE 100 MG TABLET (FP) PO SCH (22:13)
[2021-11-14] MEDS: THIAMINE HCL 100 MG TABLET (FP) PO SCH (22:13)
[2021-11-14] MEDS: METHOCARBAMOL 500 MG TABLET PO PRN (22:14)
[2021-11-14] MEDS: MELATONIN 5 MG TABLETS PO SCH (22:15)
[2021-11-15] MEDS ORDERED: chlordiazePOXIDE HCL 10 MG CAPSULE PO PRN
[2021-11-15] MEDS: chlordiazePOXIDE HCL 10 MG CAPSULE PO SCH ×4 (05:28→22:31)
[2021-11-15] MEDS: hydrOXYzine PAMOATE 25 MG CAPSULE (FP) PO SCH ×5 (05:28→22:33)
[2021-11-15] MEDS: PRENATAL VITAMINS W/ FOLIC ACID TABLET (FP) PO SCH (09:59)
[2021-11-15] MEDS: QUEtiapine FUMARATE 50 MG TABLET PO SCH (09:59)
[2021-11-15] MEDS: METHOCARBAMOL 500 MG TABLET PO PRN ×2 (09:59→16:24)
[2021-11-15] MEDS: amLODIPine BESYLATE 10 MG TABLET (FP) PO SCH (09:59)
[2021-11-15] MEDS: NICOTINE 21 MG/24 HOURS TOPICAL PATCH TD SCH (09:59)
[2021-11-15] MEDS: IBUPROFEN 400 MG TABLET (FP) PO PRN ×2 (10:01→16:24)
[2021-11-15 10:52] LABS: HEMATOCRIT 37.4 % (35.4-49); HEMOGLOBIN 12.1 GM/dL (11.7-16.9); MCH 27.3 pg (25.7-33.7); MCHC 32.3 g/dl (32.0-35.9); MEAN CELL VOLUME 84.8 fl (80-96); MEAN PLT VOLUME 8.4 fl (7.5-11.1); PLATELET COUNT 368 10^3/uL (134-434); RBC 4.41 M/mm3 (4.00-5.60); RDW 15.8 % (11.9-15.9); WHITE BLOOD COUNT 5.4 K/mm3 (4.0-10.0)
[2021-11-15 10:58] LABS: CALCIUM 9.2 mg/dL (8.5-10.1)
[2021-11-15 10:59] LABS: ALBUMIN 3.1 g/dl (3.4-5.0); BLOOD UREA NITROGEN 12.2 mg/dL (7-18)
[2021-11-15 11:03] LABS: BILIRUBIN,TOTAL 0.3 mg/dL (0.2-1); CREATININE 0.9 mg/dL (0.55-1.3); TOT PROT 7.3 g/dl (6.4-8.2)
[2021-11-15] MEDS: LIDOCAINE 5% TOPICAL PATCH TP SCH (13:33)
[2021-11-15 17:20] LABS: HIV INTERPRETATION NEGATIVE (NEGATIVE)
[2021-11-15] MEDS: ACETAMINOPHEN 325 MG TABLET (FP) PO PRN (18:32)
[2021-11-15] MEDS: QUEtiapine FUMARATE 100 MG TABLET (FP) PO SCH (22:30)
[2021-11-15] MEDS: THIAMINE HCL 100 MG TABLET (FP) PO SCH (22:31)
[2021-11-15] MEDS: LIDOCAINE PATCH REMOVAL MC SCH (22:33)
[2021-11-15] MEDS: MELATONIN 5 MG TABLETS PO SCH (22:33)
[2021-11-16] MEDS: hydrOXYzine PAMOATE 25 MG CAPSULE (FP) PO SCH ×5 (05:44→22:43)
[2021-11-16] MEDS: chlordiazePOXIDE HCL 10 MG CAPSULE PO SCH ×2 (05:44→18:25)
[2021-11-16] MEDS: METHOCARBAMOL 500 MG TABLET PO PRN (05:45)
[2021-11-16] MEDS: LIDOCAINE 5% TOPICAL PATCH TP SCH (10:15)
[2021-11-16] MEDS: NICOTINE 21 MG/24 HOURS TOPICAL PATCH TD SCH (10:16)
[2021-11-16] MEDS: QUEtiapine FUMARATE 50 MG TABLET PO SCH (10:16)
[2021-11-16] MEDS: amLODIPine BESYLATE 10 MG TABLET (FP) PO SCH (10:16)
[2021-11-16] MEDS: PRENATAL VITAMINS W/ FOLIC ACID TABLET (FP) PO SCH (10:16)
[2021-11-16] MEDS: MELATONIN 5 MG TABLETS PO SCH (22:43)
[2021-11-16] MEDS: QUEtiapine FUMARATE 100 MG TABLET (FP) PO SCH (22:43)
[2021-11-16] MEDS: THIAMINE HCL 100 MG TABLET (FP) PO SCH (22:43)
[2021-11-16] MEDS: LIDOCAINE PATCH REMOVAL MC SCH (23:14)
[2021-11-17] MEDS ORDERED: chlordiazePOXIDE HCL 10 MG CAPSULE PO ONE (05:00)
[2021-11-17] MEDS: hydrOXYzine PAMOATE 25 MG CAPSULE (FP) PO SCH (05:22)
[2021-11-17 08:59] VITALS: BP 137/75; PULSE 107; TEMP 98.6
[2021-11-17 10:08] LABS: SARS-CoV-2 NAA Not Detected (Not Detected)
== END 2021-11-17 09:53 | disposition home or self-care (01) | DRG 774 ==
LOC: YASAS 11:13 → Y6N 12:22
PROVIDERS: ADMIT Allergy & Immunology; ATTEND Allergy & Immunology
PROC: HZ2ZZZZ Detoxification Services for Substance Abuse Treatment (ICD-10-PCS; principal; 2021-11-12)
DX: F10.230 Alcohol dependence with withdrawal, uncomplicated (principal); F14.20 Cocaine dependence, uncomplicated; F12.20 Cannabis dependence, uncomplicated; F17.210 Nicotine dependence, cigarettes, uncomplicated; F25.1 Schizoaffective disorder, depressive type; F19.282 Other psychoactive substance dependence with psychoactive substance-induced sleep disorder; I10 Essential (primary) hypertension; J45.20 Mild intermittent asthma, uncomplicated; M54.59 Other low back pain; G89.29 Other chronic pain; Z86.718 Personal history of other venous thrombosis and embolism; Z86.69 Personal history of other diseases of the nervous system and sense organs; Z56.0 Unemployment, unspecified; Z59.02 Unsheltered homelessness
CPT/HCPCS: 36415; 80053; 81003; 85027; 86780; 87389; C9803; U0003; U0005

== ENCOUNTER 2021-12-17 09:35 | Inpatient (IN) | payer OTHER ==
[2021-12-17 10:26] VITALS: BMI 28.1
[2021-12-17] MEDS ORDERED: chlordiazePOXIDE HCL 25 MG CAPSULE PO PRN (11:14)
[2021-12-17] MEDS ORDERED: ONDANSETRON *ODT* 4 MG TABLET SL PRN (11:14)
[2021-12-17] MEDS ORDERED: LOPERAMIDE HCL 2 MG CAPSULE PO PRN (11:14)
[2021-12-17] MEDS ORDERED: MENTHOL/PHENOL 1 EACH UD MM PRN (11:14)
[2021-12-17] MEDS ORDERED: MAGNESIUM HYDROX 2400MG/30ML ORAL SUSPENSION 30 ML CUP PO PRN (11:14)
[2021-12-17] MEDS ORDERED: MAG HYDROX/AL HYDROX/SIMETH 30 ML UNIT-DOSE CUP PO PRN (11:14)
[2021-12-17] MEDS ORDERED: ACETAMINOPHEN 325 MG TABLET (FP) PO PRN ×2 (11:14)
[2021-12-17] MEDS ORDERED: NICOTINE 10 MG CARTRIDGE (INHALER) IH PRN (11:14)
[2021-12-17] MEDS ORDERED: MAGNESIUM CITRATE 300 ML BOTTLE PO PRN (11:14)
[2021-12-17] MEDS ORDERED: DICYCLOMINE HCL 10 MG CAPSULE PO PRN (11:14)
[2021-12-17] MEDS ORDERED: BISMUTH SUBSALICYLATE 262 MG/15 ML BTL PO PRN (11:14)
[2021-12-17] MEDS ORDERED: IBUPROFEN 400 MG TABLET (FP) PO PRN (11:14)
[2021-12-17] MEDS: chlordiazePOXIDE HCL 25 MG CAPSULE PO SCH ×3 (12:42→22:16)
[2021-12-17] MEDS: PRENATAL VITAMINS W/ FOLIC ACID TABLET (FP) PO SCH (12:43)
[2021-12-17] MEDS: NICOTINE 14 MG/24 HOURS TOPICAL PATCH TD SCH (12:43)
[2021-12-17 13:21] LABS: HEMATOCRIT 38.7 % (35.4-49); HEMOGLOBIN 12.4 GM/dL (11.7-16.9); MCH 27.5 pg (25.7-33.7); MEAN PLT VOLUME 8.3 fl (7.5-11.1); PLATELET COUNT 375 10^3/uL (134-434); WHITE BLOOD COUNT 5.4 K/mm3 (4.0-10.0)
[2021-12-17 13:24] LABS: ALBUMIN 3.7 g/dl (3.4-5.0); BLOOD UREA NITROGEN 14.2 mg/dL (7-18); CALCIUM 9.7 mg/dL (8.5-10.1)
[2021-12-17 13:29] LABS: BILIRUBIN,TOTAL 0.2 mg/dL (0.2-1)
[2021-12-17] MEDS: hydrOXYzine PAMOATE 25 MG CAPSULE (FP) PO SCH ×3 (15:09→22:16)
[2021-12-17] MEDS ORDERED: COLLOIDAL OATMEAL 1 BAR EACH TP PRN (17:58)
[2021-12-17] MEDS ORDERED: ALBUTEROL SO4 HFA INHALER IH PRN (18:51)
[2021-12-17] MEDS ORDERED: AMMONIUM LACTATE 12% LOTION 225 GM BOTTLE TP PRN (18:52)
[2021-12-17] MEDS: traZODone HCL 50 MG TABLET (FP) PO SCH (22:16)
[2021-12-17] MEDS: THIAMINE HCL 100 MG TABLET (FP) PO SCH (22:16)
[2021-12-17] MEDS: QUEtiapine FUMARATE 100 MG TABLET (FP) PO SCH (22:16)
[2021-12-17] MEDS: MELATONIN 5 MG TABLETS PO SCH (22:17)
[2021-12-18] MEDS: hydrOXYzine PAMOATE 25 MG CAPSULE (FP) PO SCH ×5 (05:46→22:42)
[2021-12-18] MEDS: chlordiazePOXIDE HCL 25 MG CAPSULE PO SCH ×4 (05:46→22:41)
[2021-12-18] MEDS: QUEtiapine FUMARATE 100 MG TABLET (FP) PO SCH ×2 (10:18→22:42)
[2021-12-18] MEDS: PRENATAL VITAMINS W/ FOLIC ACID TABLET (FP) PO SCH (10:18)
[2021-12-18] MEDS: amLODIPine BESYLATE 10 MG TABLET (FP) PO SCH (10:18)
[2021-12-18] MEDS: NICOTINE 14 MG/24 HOURS TOPICAL PATCH TD SCH (10:44)
[2021-12-18] MEDS: traZODone HCL 50 MG TABLET (FP) PO SCH (22:42)
[2021-12-18] MEDS: THIAMINE HCL 100 MG TABLET (FP) PO SCH (22:42)
[2021-12-18] MEDS: MELATONIN 5 MG TABLETS PO SCH (22:42)
[2021-12-19] MEDS: hydrOXYzine PAMOATE 25 MG CAPSULE (FP) PO SCH ×5 (05:14→22:12)
[2021-12-19] MEDS: chlordiazePOXIDE HCL 25 MG CAPSULE PO SCH ×4 (05:14→22:12)
[2021-12-19] MEDS: amLODIPine BESYLATE 10 MG TABLET (FP) PO SCH (10:46)
[2021-12-19] MEDS: QUEtiapine FUMARATE 100 MG TABLET (FP) PO SCH ×2 (10:46→22:12)
[2021-12-19] MEDS: PRENATAL VITAMINS W/ FOLIC ACID TABLET (FP) PO SCH (10:48)
[2021-12-19] MEDS: NICOTINE 14 MG/24 HOURS TOPICAL PATCH TD SCH (12:02)
[2021-12-19] MEDS: METHOCARBAMOL 500 MG TABLET PO PRN (17:43)
[2021-12-19] MEDS: MELATONIN 5 MG TABLETS PO SCH (22:12)
[2021-12-19] MEDS: THIAMINE HCL 100 MG TABLET (FP) PO SCH (22:12)
[2021-12-19] MEDS: traZODone HCL 50 MG TABLET (FP) PO SCH (22:12)
[2021-12-20] MEDS ORDERED: chlordiazePOXIDE HCL 10 MG CAPSULE PO PRN
[2021-12-20 00:06] LABS: SARS-CoV-2 NAA Not Detected (Not Detected)
[2021-12-20] MEDS: chlordiazePOXIDE HCL 10 MG CAPSULE PO SCH ×4 (05:38→22:18)
[2021-12-20] MEDS: hydrOXYzine PAMOATE 25 MG CAPSULE (FP) PO SCH ×5 (05:38→22:18)
[2021-12-20] MEDS: QUEtiapine FUMARATE 100 MG TABLET (FP) PO SCH ×2 (10:56→22:18)
[2021-12-20] MEDS: METHOCARBAMOL 500 MG TABLET PO PRN (10:56)
[2021-12-20] MEDS: PRENATAL VITAMINS W/ FOLIC ACID TABLET (FP) PO SCH (10:56)
[2021-12-20] MEDS: amLODIPine BESYLATE 10 MG TABLET (FP) PO SCH (10:56)
[2021-12-20] MEDS: NICOTINE 14 MG/24 HOURS TOPICAL PATCH TD SCH (10:57)
[2021-12-20] MEDS: traZODone HCL 50 MG TABLET (FP) PO SCH (22:18)
[2021-12-20] MEDS: MELATONIN 5 MG TABLETS PO SCH (22:18)
[2021-12-20] MEDS: THIAMINE HCL 100 MG TABLET (FP) PO SCH (22:19)
[2021-12-21] MEDS: chlordiazePOXIDE HCL 10 MG CAPSULE PO SCH ×2 (05:41→17:33)
[2021-12-21] MEDS: hydrOXYzine PAMOATE 25 MG CAPSULE (FP) PO SCH ×5 (05:42→22:07)
[2021-12-21] MEDS: PRENATAL VITAMINS W/ FOLIC ACID TABLET (FP) PO SCH (09:25)
[2021-12-21] MEDS: QUEtiapine FUMARATE 100 MG TABLET (FP) PO SCH ×2 (09:25→22:07)
[2021-12-21] MEDS: NICOTINE 14 MG/24 HOURS TOPICAL PATCH TD SCH (09:25)
[2021-12-21] MEDS: amLODIPine BESYLATE 10 MG TABLET (FP) PO SCH (09:25)
[2021-12-21 21:21] VITALS: BP 120/62; PULSE 102; TEMP 98.6
[2021-12-21] MEDS: MELATONIN 5 MG TABLETS PO SCH (22:07)
[2021-12-21] MEDS: traZODone HCL 50 MG TABLET (FP) PO SCH (22:07)
[2021-12-21] MEDS: THIAMINE HCL 100 MG TABLET (FP) PO SCH (22:07)
[2021-12-22] MEDS ORDERED: chlordiazePOXIDE HCL 10 MG CAPSULE PO ONE (05:00)
[2021-12-22] MEDS: hydrOXYzine PAMOATE 25 MG CAPSULE (FP) PO SCH (06:25)
== END 2021-12-22 09:09 | disposition home or self-care (01) | DRG 774 ==
LOC: YASAS 09:35 → Y3N 11:44
PROVIDERS: ADMIT Allergy & Immunology; ATTEND Allergy & Immunology
PROC: HZ2ZZZZ Detoxification Services for Substance Abuse Treatment (ICD-10-PCS; principal; 2021-12-17)
DX: F10.230 Alcohol dependence with withdrawal, uncomplicated (principal); F13.230 Sedative, hypnotic or anxiolytic dependence with withdrawal, uncomplicated; F14.20 Cocaine dependence, uncomplicated; F12.20 Cannabis dependence, uncomplicated; F17.210 Nicotine dependence, cigarettes, uncomplicated; F25.9 Schizoaffective disorder, unspecified; I10 Essential (primary) hypertension; J45.909 Unspecified asthma, uncomplicated; M54.9 Dorsalgia, unspecified; G89.29 Other chronic pain; G47.00 Insomnia, unspecified; Z86.718 Personal history of other venous thrombosis and embolism; Z91.51 Personal history of suicidal behavior; Z86.69 Personal history of other diseases of the nervous system and sense organs; Z56.0 Unemployment, unspecified; Z59.00 Homelessness unspecified
CPT/HCPCS: 36415; 80053; 85027; 86780; 87811; C9803-CS; U0003; U0005

== ENCOUNTER 2022-01-04 09:47 | Inpatient (IN) | payer OTHER ==
[2022-01-04] MEDS ORDERED: BENZOCAINE/MENTHOL (CHLORASEPTIC ) LOZENGE MM PRN (10:13)
[2022-01-04] MEDS ORDERED: MAGNESIUM CITRATE 300 ML BOTTLE PO PRN (10:13)
[2022-01-04] MEDS ORDERED: LOPERAMIDE HCL 2 MG CAPSULE PO PRN (10:13)
[2022-01-04] MEDS ORDERED: DICYCLOMINE HCL 10 MG CAPSULE PO PRN (10:13)
[2022-01-04] MEDS ORDERED: BISMUTH SUBSALICYLATE 524 MG/30 ML PO PRN (10:13)
[2022-01-04] MEDS ORDERED: METHOCARBAMOL 500 MG TABLET PO PRN (10:13)
[2022-01-04] MEDS ORDERED: NICOTINE 10 MG CARTRIDGE (INHALER) IH PRN (10:13)
[2022-01-04] MEDS ORDERED: MAGNESIUM HYDROX 2400MG/30ML ORAL SUSPENSION 30 ML CUP PO PRN (10:13)
[2022-01-04] MEDS ORDERED: ONDANSETRON *ODT* 4 MG TABLET SL PRN (10:13)
[2022-01-04] MEDS ORDERED: MAG HYDROX/AL HYDROX/SIMETH 30 ML UNIT-DOSE CUP PO PRN (10:13)
[2022-01-04] MEDS ORDERED: ACETAMINOPHEN 325 MG TABLET (FP) PO PRN ×2 (10:13)
[2022-01-04] MEDS ORDERED: ALBUTEROL SO4 HFA INHALER IH PRN (10:17)
[2022-01-04 10:49] VITALS: BMI 29.7
[2022-01-04] MEDS: NICOTINE 14 MG/24 HOURS TOPICAL PATCH TD SCH (12:44)
[2022-01-04] MEDS: IBUPROFEN 400 MG TABLET (FP) PO PRN (12:44)
[2022-01-04] MEDS: PRENATAL VITAMINS W/ FOLIC ACID TABLET (FP) PO SCH (12:47)
[2022-01-04 13:29] LABS: HEMATOCRIT 38.2 % (35.4-49); HEMOGLOBIN 12.8 GM/dL (11.7-16.9); MCH 28.6 pg (25.7-33.7); MCHC 33.5 g/dl (32.0-35.9); MEAN CELL VOLUME 85.4 fl (80-96); MEAN PLT VOLUME 8.3 fl (7.5-11.1); PLATELET COUNT 354 10^3/uL (134-434); RBC 4.48 M/mm3 (4.00-5.60); RDW 16.4 % (11.9-15.9); WHITE BLOOD COUNT 7.6 K/mm3 (4.0-10.0)
[2022-01-04 13:32] LABS: ALBUMIN 3.8 g/dl (3.4-5.0); CALCIUM 9.1 mg/dL (8.5-10.1)
[2022-01-04 13:33] LABS: BLOOD UREA NITROGEN 15.1 mg/dL (7-18)
[2022-01-04 13:36] LABS: CREATININE 0.9 mg/dL (0.55-1.3)
[2022-01-04 13:37] LABS: BILIRUBIN,TOTAL 0.2 mg/dL (0.2-1); TOT PROT 8.4 g/dl (6.4-8.2)
[2022-01-04] MEDS: hydrOXYzine PAMOATE 25 MG CAPSULE (FP) PO SCH ×3 (14:12→22:38)
[2022-01-04] MEDS: GABAPENTIN 100 MG CAPSULE PO SCH ×2 (14:12→22:38)
[2022-01-04 18:05] LABS: HIV INTERPRETATION NEGATIVE (NEGATIVE)
[2022-01-04] MEDS: QUEtiapine FUMARATE 100 MG TABLET (FP) PO SCH (22:38)
[2022-01-04] MEDS: DIVALPROEX SODIUM 500 MG TABLET E.C. PO SCH (22:38)
[2022-01-04] MEDS: THIAMINE HCL 100 MG TABLET (FP) PO SCH (22:38)
[2022-01-04] MEDS: MELATONIN 5 MG TABLETS PO SCH (22:40)
[2022-01-05] MEDS ORDERED: chlordiazePOXIDE HCL 25 MG CAPSULE PO SCH (05:00)
[2022-01-05] MEDS: GABAPENTIN 100 MG CAPSULE PO SCH ×3 (06:28→22:20)
[2022-01-05] MEDS: hydrOXYzine PAMOATE 25 MG CAPSULE (FP) PO SCH ×5 (06:28→22:20)
[2022-01-05] MEDS: NICOTINE 14 MG/24 HOURS TOPICAL PATCH TD SCH (10:14)
[2022-01-05] MEDS: PRENATAL VITAMINS W/ FOLIC ACID TABLET (FP) PO SCH (10:14)
[2022-01-05] MEDS: DIVALPROEX SODIUM 500 MG TABLET E.C. PO SCH ×2 (10:15→22:20)
[2022-01-05] MEDS: amLODIPine BESYLATE 10 MG TABLET (FP) PO SCH (10:15)
[2022-01-05] MEDS ORDERED: chlordiazePOXIDE HCL 25 MG CAPSULE PO PRN (13:21)
[2022-01-05] MEDS: chlordiazePOXIDE HCL 25 MG CAPSULE PO SCH ×2 (17:38→22:20)
[2022-01-05] MEDS: QUEtiapine FUMARATE 100 MG TABLET (FP) PO SCH (22:20)
[2022-01-05] MEDS: THIAMINE HCL 100 MG TABLET (FP) PO SCH (22:20)
[2022-01-05] MEDS: MELATONIN 5 MG TABLETS PO SCH (22:22)
[2022-01-06] MEDS: GABAPENTIN 100 MG CAPSULE PO SCH ×3 (06:14→23:09)
[2022-01-06] MEDS: hydrOXYzine PAMOATE 25 MG CAPSULE (FP) PO SCH ×5 (06:14→23:14)
[2022-01-06] MEDS: chlordiazePOXIDE HCL 25 MG CAPSULE PO SCH ×4 (06:15→23:09)
[2022-01-06] MEDS: IBUPROFEN 400 MG TABLET (FP) PO PRN (06:15)
[2022-01-06] MEDS: amLODIPine BESYLATE 10 MG TABLET (FP) PO SCH (10:32)
[2022-01-06] MEDS: PRENATAL VITAMINS W/ FOLIC ACID TABLET (FP) PO SCH (10:32)
[2022-01-06] MEDS: NICOTINE 14 MG/24 HOURS TOPICAL PATCH TD SCH (10:32)
[2022-01-06] MEDS: DIVALPROEX SODIUM 500 MG TABLET E.C. PO SCH ×2 (10:32→23:09)
[2022-01-06 16:08] LABS: SARS-CoV-2 NAA Not Detected (Not Detected)
[2022-01-06] MEDS: THIAMINE HCL 100 MG TABLET (FP) PO SCH (23:08)
[2022-01-06] MEDS: QUEtiapine FUMARATE 100 MG TABLET (FP) PO SCH (23:08)
[2022-01-06] MEDS: MELATONIN 5 MG TABLETS PO SCH (23:13)
[2022-01-07] MEDS ORDERED: chlordiazePOXIDE HCL 10 MG CAPSULE PO PRN
[2022-01-07] MEDS: hydrOXYzine PAMOATE 25 MG CAPSULE (FP) PO SCH ×5 (07:09→22:32)
[2022-01-07] MEDS: GABAPENTIN 100 MG CAPSULE PO SCH ×3 (07:09→22:31)
[2022-01-07] MEDS: chlordiazePOXIDE HCL 25 MG CAPSULE PO SCH ×4 (07:09→22:32)
[2022-01-07] MEDS: amLODIPine BESYLATE 10 MG TABLET (FP) PO SCH (10:34)
[2022-01-07] MEDS: DIVALPROEX SODIUM 500 MG TABLET E.C. PO SCH ×2 (10:34→22:31)
[2022-01-07] MEDS: PRENATAL VITAMINS W/ FOLIC ACID TABLET (FP) PO SCH (10:34)
[2022-01-07] MEDS: NICOTINE 14 MG/24 HOURS TOPICAL PATCH TD SCH (10:35)
[2022-01-07 22:16] VITALS: TEMP 97.1
[2022-01-07] MEDS: THIAMINE HCL 100 MG TABLET (FP) PO SCH (22:31)
[2022-01-07] MEDS: QUEtiapine FUMARATE 100 MG TABLET (FP) PO SCH (22:31)
[2022-01-07] MEDS: MELATONIN 5 MG TABLETS PO SCH (22:33)
[2022-01-08] MEDS ORDERED: chlordiazePOXIDE HCL 10 MG CAPSULE PO SCH (05:00)
[2022-01-08] MEDS: GABAPENTIN 100 MG CAPSULE PO SCH (05:56)
[2022-01-08] MEDS: hydrOXYzine PAMOATE 25 MG CAPSULE (FP) PO SCH ×2 (05:56→10:39)
[2022-01-08 07:49] VITALS: BP 129/73
[2022-01-08 09:09] VITALS: PULSE 99
[2022-01-08] MEDS: PRENATAL VITAMINS W/ FOLIC ACID TABLET (FP) PO SCH (10:38)
[2022-01-08] MEDS: DIVALPROEX SODIUM 500 MG TABLET E.C. PO SCH (10:38)
[2022-01-08] MEDS: amLODIPine BESYLATE 10 MG TABLET (FP) PO SCH (10:38)
[2022-01-08] MEDS: NICOTINE 14 MG/24 HOURS TOPICAL PATCH TD SCH (10:39)
[2022-01-09] MEDS ORDERED: chlordiazePOXIDE HCL 10 MG CAPSULE PO ONE (05:00)
[2022-01-09] MEDS ORDERED: chlordiazePOXIDE HCL 10 MG CAPSULE PO SCH (05:00)
== END 2022-01-08 11:00 | disposition home or self-care (01) | DRG 774 ==
LOC: YASAS 09:47 → Y6N 11:39
PROVIDERS: ADMIT Allergy & Immunology; ATTEND Allergy & Immunology
PROC: HZ2ZZZZ Detoxification Services for Substance Abuse Treatment (ICD-10-PCS; principal; 2022-01-04)
DX: F10.20 Alcohol dependence, uncomplicated (principal); F14.20 Cocaine dependence, uncomplicated; F12.20 Cannabis dependence, uncomplicated; F19.280 Other psychoactive substance dependence with psychoactive substance-induced anxiety disorder; F19.282 Other psychoactive substance dependence with psychoactive substance-induced sleep disorder; F25.9 Schizoaffective disorder, unspecified; F31.9 Bipolar disorder, unspecified; F17.210 Nicotine dependence, cigarettes, uncomplicated; E78.5 Hyperlipidemia, unspecified; J45.20 Mild intermittent asthma, uncomplicated; M54.50 Low back pain, unspecified; G89.29 Other chronic pain; E66.9 Obesity, unspecified; Z68.27 Body mass index [BMI] 27.0-27.9, adult; Z87.19 Personal history of other diseases of the digestive system; Z86.69 Personal history of other diseases of the nervous system and sense organs
CPT/HCPCS: 36415; 80053; 85027; 86780; 87389; 87811; C9803-CS; U0003; U0005

== ENCOUNTER 2022-02-08 16:57 | Inpatient (IN) | payer OTHER ==
[2022-02-08 17:58] VITALS: BMI 28.3
[2022-02-08] MEDS ORDERED: NICOTINE POLACRILEX 2 MG GUM BUC PRN (19:24)
[2022-02-08] MEDS ORDERED: BENZOCAINE/MENTHOL (CHLORASEPTIC ) LOZENGE MM PRN (19:24)
[2022-02-08] MEDS ORDERED: MAGNESIUM HYDROX 2400MG/30ML ORAL SUSPENSION 30 ML CUP PO PRN (19:24)
[2022-02-08] MEDS ORDERED: LOPERAMIDE HCL 2 MG CAPSULE PO PRN (19:24)
[2022-02-08] MEDS ORDERED: DICYCLOMINE HCL 10 MG CAPSULE PO PRN (19:24)
[2022-02-08] MEDS ORDERED: ONDANSETRON *ODT* 4 MG TABLET SL PRN (19:24)
[2022-02-08] MEDS ORDERED: MAGNESIUM CITRATE 300 ML BOTTLE PO PRN (19:24)
[2022-02-08] MEDS ORDERED: ACETAMINOPHEN 325 MG TABLET (FP) PO PRN ×2 (19:24)
[2022-02-08] MEDS ORDERED: MAG HYDROX/AL HYDROX/SIMETH 30 ML UNIT-DOSE CUP PO PRN (19:24)
[2022-02-08] MEDS ORDERED: BISMUTH SUBSALICYLATE 524 MG/30 ML PO PRN (19:24)
[2022-02-09] MEDS: THIAMINE HCL 100 MG TABLET (FP) PO SCH ×2 (00:40→22:35)
[2022-02-09] MEDS: IBUPROFEN 400 MG TABLET (FP) PO PRN (10:28)
[2022-02-09] MEDS: hydrOXYzine PAMOATE 25 MG CAPSULE (FP) PO PRN (10:28)
[2022-02-09] MEDS: PRENATAL VITAMINS W/ FOLIC ACID TABLET (FP) PO SCH (10:28)
[2022-02-09] MEDS: METHOCARBAMOL 500 MG TABLET PO PRN (10:28)
[2022-02-09 10:53] LABS: HEMATOCRIT 37.2 % (35.4-49); MCH 27.9 pg (25.7-33.7); MCHC 32.4 g/dl (32.0-35.9); MEAN CELL VOLUME 86.2 fl (80-96); MEAN PLT VOLUME 8.8 fl (7.5-11.1); PLATELET COUNT 280 10^3/uL (134-434); RBC 4.32 M/mm3 (4.00-5.60); RDW 16.4 % (11.9-15.9); WHITE BLOOD COUNT 5.7 K/mm3 (4.0-10.0)
[2022-02-09] MEDS ORDERED: chlordiazePOXIDE HCL 25 MG CAPSULE PO PRN (11:08)
[2022-02-09 11:09] LABS: CALCIUM 8.7 mg/dL (8.5-10.1)
[2022-02-09 11:10] LABS: ALBUMIN 3.4 g/dl (3.4-5.0); BLOOD UREA NITROGEN 12.5 mg/dL (7-18)
[2022-02-09 11:13] LABS: CREATININE 0.9 mg/dL (0.55-1.3)
[2022-02-09 11:14] LABS: TOT PROT 7.5 g/dl (6.4-8.2)
[2022-02-09] MEDS: chlordiazePOXIDE HCL 25 MG CAPSULE PO SCH ×3 (12:07→22:35)
[2022-02-09] MEDS: MELATONIN 5 MG TABLETS PO PRN (22:36)
[2022-02-10] MEDS: chlordiazePOXIDE HCL 25 MG CAPSULE PO SCH ×4 (05:32→22:30)
[2022-02-10] MEDS: PRENATAL VITAMINS W/ FOLIC ACID TABLET (FP) PO SCH (10:20)
[2022-02-10] MEDS: IBUPROFEN 400 MG TABLET (FP) PO PRN (10:21)
[2022-02-10] MEDS: hydrOXYzine PAMOATE 25 MG CAPSULE (FP) PO PRN ×2 (10:21→22:32)
[2022-02-10] MEDS: METHOCARBAMOL 500 MG TABLET PO PRN (10:21)
[2022-02-10] MEDS: THIAMINE HCL 100 MG TABLET (FP) PO SCH (22:29)
[2022-02-11] MEDS: chlordiazePOXIDE HCL 25 MG CAPSULE PO SCH ×4 (04:54→22:07)
[2022-02-11] MEDS: hydrOXYzine PAMOATE 25 MG CAPSULE (FP) PO PRN (10:26)
[2022-02-11] MEDS: PRENATAL VITAMINS W/ FOLIC ACID TABLET (FP) PO SCH (10:26)
[2022-02-11] MEDS: GABAPENTIN 300 MG CAPSULE PO SCH ×2 (15:01→22:07)
[2022-02-11 18:39] LABS: PH,URINE 5.5 (5.0-8.0); URINE APPEARANCE CLEAR; URINE BILIRUBIN NEGATIVE (NEGATIVE); URINE COLOR YELLOW; URINE GLUCOSE (UA) NEGATIVE (NEGATIVE); URINE KETONE NEGATIVE (NEGATIVE); URINE LEUK ESTERASE NEGATIVE (NEGATIVE); URINE NITRITE NEGATIVE (NEGATIVE); URINE PROTEIN NEGATIVE (NEGATIVE); URINE UROBILINOGEN 0.2 mg/dL (0.2-1.0)
[2022-02-11] MEDS: risperiDONE 1 MG TABLET PO SCH (22:07)
[2022-02-11] MEDS: THIAMINE HCL 100 MG TABLET (FP) PO SCH (22:07)
[2022-02-12] MEDS ORDERED: chlordiazePOXIDE HCL 10 MG CAPSULE PO PRN
[2022-02-12] MEDS: chlordiazePOXIDE HCL 10 MG CAPSULE PO SCH ×4 (06:13→22:34)
[2022-02-12] MEDS: GABAPENTIN 300 MG CAPSULE PO SCH ×3 (06:13→22:34)
[2022-02-12] MEDS: PRENATAL VITAMINS W/ FOLIC ACID TABLET (FP) PO SCH (10:47)
[2022-02-12] MEDS: risperiDONE 1 MG TABLET PO SCH ×2 (10:47→22:34)
[2022-02-12] MEDS: hydrOXYzine PAMOATE 25 MG CAPSULE (FP) PO PRN ×2 (13:57→17:42)
[2022-02-12] MEDS: METHOCARBAMOL 500 MG TABLET PO PRN (17:42)
[2022-02-12] MEDS: MELATONIN 5 MG TABLETS PO PRN (22:34)
[2022-02-12] MEDS: THIAMINE HCL 100 MG TABLET (FP) PO SCH (22:34)
[2022-02-13] MEDS: hydrOXYzine PAMOATE 25 MG CAPSULE (FP) PO PRN ×3 (05:41→18:12)
[2022-02-13] MEDS: chlordiazePOXIDE HCL 10 MG CAPSULE PO SCH ×2 (05:41→18:11)
[2022-02-13] MEDS: GABAPENTIN 300 MG CAPSULE PO SCH ×3 (05:41→22:45)
[2022-02-13] MEDS: METHOCARBAMOL 500 MG TABLET PO PRN ×2 (10:47→22:45)
[2022-02-13] MEDS: risperiDONE 1 MG TABLET PO SCH ×2 (10:47→22:45)
[2022-02-13] MEDS: PRENATAL VITAMINS W/ FOLIC ACID TABLET (FP) PO SCH (10:47)
[2022-02-13] MEDS: MELATONIN 5 MG TABLETS PO PRN (22:45)
[2022-02-13] MEDS: THIAMINE HCL 100 MG TABLET (FP) PO SCH (22:45)
[2022-02-14] MEDS ORDERED: chlordiazePOXIDE HCL 10 MG CAPSULE PO ONE (05:00)
[2022-02-14] MEDS: GABAPENTIN 300 MG CAPSULE PO SCH (05:37)
[2022-02-14 09:14] VITALS: BP 120/75; PULSE 99; TEMP 97.3
[2022-02-14] MEDS: PRENATAL VITAMINS W/ FOLIC ACID TABLET (FP) PO SCH (10:29)
[2022-02-14] MEDS: risperiDONE 1 MG TABLET PO SCH (10:29)
[2022-02-14] MEDS: hydrOXYzine PAMOATE 25 MG CAPSULE (FP) PO PRN (10:29)
== END 2022-02-14 11:03 | disposition other institution (70) | DRG 774 ==
LOC: YASAS 16:57 → Y6N 21:51
PROVIDERS: ADMIT Allergy & Immunology; ATTEND Surgery
PROC: HZ2ZZZZ Detoxification Services for Substance Abuse Treatment (ICD-10-PCS; principal; 2022-02-08)
DX: F10.230 Alcohol dependence with withdrawal, uncomplicated (principal); F14.20 Cocaine dependence, uncomplicated; F12.20 Cannabis dependence, uncomplicated; F17.210 Nicotine dependence, cigarettes, uncomplicated; F25.1 Schizoaffective disorder, depressive type; F31.9 Bipolar disorder, unspecified; E78.5 Hyperlipidemia, unspecified; I10 Essential (primary) hypertension; J45.909 Unspecified asthma, uncomplicated; Z87.19 Personal history of other diseases of the digestive system; Z86.718 Personal history of other venous thrombosis and embolism
CPT/HCPCS: 36415; 80053; 81003; 85027; C9803-CS; J2794; U0003; U0005

== ENCOUNTER 2022-02-14 11:20 | Inpatient (IN) | payer OTHER ==
[2022-02-14] MEDS ORDERED: P-EPHED 60MG/TRIPROLIDI 2.5MG TABLET PO PRN (12:23)
[2022-02-14] MEDS ORDERED: MAG HYDROX/AL HYDROX/SIMETH 30 ML UNIT-DOSE CUP PO PRN (12:23)
[2022-02-14] MEDS ORDERED: IBUPROFEN 400 MG TABLET (FP) PO PRN (12:23)
[2022-02-14] MEDS ORDERED: hydrOXYzine PAMOATE 25 MG CAPSULE (FP) PO PRN (12:23)
[2022-02-14] MEDS ORDERED: MAGNESIUM CITRATE 300 ML BOTTLE PO PRN (12:23)
[2022-02-14] MEDS ORDERED: LOPERAMIDE HCL 2 MG CAPSULE PO PRN (12:23)
[2022-02-14] MEDS ORDERED: MAGNESIUM HYDROX 2400MG/30ML ORAL SUSPENSION 30 ML CUP PO PRN (12:23)
[2022-02-14] MEDS ORDERED: BENZOCAINE/MENTHOL (CHLORASEPTIC ) LOZENGE MM PRN (12:23)
[2022-02-14] MEDS ORDERED: guaiFENesin 200 MG/10 ML 10 ML UNIT-DOSE CUPS PO PRN (12:23)
[2022-02-14] MEDS ORDERED: ACETAMINOPHEN 325 MG TABLET (FP) PO PRN (12:23)
[2022-02-14] MEDS ORDERED: METHOCARBAMOL 500 MG TABLET PO PRN (12:25)
[2022-02-14] MEDS: GABAPENTIN 300 MG CAPSULE PO SCH ×2 (14:13→21:38)
[2022-02-14] MEDS: risperiDONE 1 MG TABLET PO SCH (21:37)
[2022-02-14] MEDS: traZODone HCL 100 MG TABLET (FP) PO SCH (21:37)
[2022-02-14] MEDS: THIAMINE HCL 100 MG TABLET (FP) PO SCH (21:38)
[2022-02-14] MEDS: MELATONIN 5 MG TABLETS PO PRN (21:38)
[2022-02-15] MEDS: GABAPENTIN 300 MG CAPSULE PO SCH ×3 (06:34→21:29)
[2022-02-15] MEDS: PRENATAL VITAMINS W/ FOLIC ACID TABLET (FP) PO SCH (09:58)
[2022-02-15] MEDS: risperiDONE 1 MG TABLET PO SCH ×2 (09:58→21:29)
[2022-02-15] MEDS: THIAMINE HCL 100 MG TABLET (FP) PO SCH (21:29)
[2022-02-15] MEDS: traZODone HCL 100 MG TABLET (FP) PO SCH (21:29)
[2022-02-15] MEDS: MELATONIN 5 MG TABLETS PO PRN (21:29)
[2022-02-16] MEDS: GABAPENTIN 300 MG CAPSULE PO SCH ×3 (06:26→21:10)
[2022-02-16] MEDS: risperiDONE 1 MG TABLET PO SCH ×2 (10:38→21:09)
[2022-02-16] MEDS: PRENATAL VITAMINS W/ FOLIC ACID TABLET (FP) PO SCH (10:38)
[2022-02-16] MEDS: traZODone HCL 100 MG TABLET (FP) PO SCH (21:09)
[2022-02-16] MEDS: THIAMINE HCL 100 MG TABLET (FP) PO SCH (21:10)
[2022-02-16] MEDS: MELATONIN 5 MG TABLETS PO PRN (21:10)
[2022-02-17] MEDS: GABAPENTIN 300 MG CAPSULE PO SCH ×3 (06:28→21:19)
[2022-02-17] MEDS: PRENATAL VITAMINS W/ FOLIC ACID TABLET (FP) PO SCH (10:19)
[2022-02-17] MEDS: risperiDONE 1 MG TABLET PO SCH ×2 (10:19→21:19)
[2022-02-17] MEDS: MELATONIN 5 MG TABLETS PO PRN (21:19)
[2022-02-17] MEDS: traZODone HCL 100 MG TABLET (FP) PO SCH (21:19)
[2022-02-17] MEDS: THIAMINE HCL 100 MG TABLET (FP) PO SCH (21:19)
[2022-02-18] MEDS: GABAPENTIN 300 MG CAPSULE PO SCH ×3 (07:13→21:32)
[2022-02-18] MEDS: PRENATAL VITAMINS W/ FOLIC ACID TABLET (FP) PO SCH (09:42)
[2022-02-18] MEDS: risperiDONE 1 MG TABLET PO SCH ×2 (09:42→21:32)
[2022-02-18] MEDS: MELATONIN 5 MG TABLETS PO PRN (21:32)
[2022-02-18] MEDS: THIAMINE HCL 100 MG TABLET (FP) PO SCH (21:32)
[2022-02-18] MEDS: traZODone HCL 100 MG TABLET (FP) PO SCH (21:32)
[2022-02-19] MEDS: GABAPENTIN 300 MG CAPSULE PO SCH ×3 (06:29→21:22)
[2022-02-19] MEDS: PRENATAL VITAMINS W/ FOLIC ACID TABLET (FP) PO SCH (09:56)
[2022-02-19] MEDS: risperiDONE 1 MG TABLET PO SCH ×2 (09:56→21:22)
[2022-02-19] MEDS: THIAMINE HCL 100 MG TABLET (FP) PO SCH (21:23)
[2022-02-19] MEDS: traZODone HCL 100 MG TABLET (FP) PO SCH (21:23)
[2022-02-20] MEDS: GABAPENTIN 300 MG CAPSULE PO SCH ×3 (06:21→21:16)
[2022-02-20] MEDS: risperiDONE 1 MG TABLET PO SCH ×2 (10:23→22:11)
[2022-02-20] MEDS: PRENATAL VITAMINS W/ FOLIC ACID TABLET (FP) PO SCH (10:23)
[2022-02-20] MEDS: traZODone HCL 100 MG TABLET (FP) PO SCH (21:16)
[2022-02-20] MEDS: THIAMINE HCL 100 MG TABLET (FP) PO SCH (21:16)
[2022-02-20] MEDS: MELATONIN 5 MG TABLETS PO PRN (21:16)
[2022-02-21] MEDS: GABAPENTIN 300 MG CAPSULE PO SCH ×3 (06:48→21:07)
[2022-02-21] MEDS: PRENATAL VITAMINS W/ FOLIC ACID TABLET (FP) PO SCH (09:59)
[2022-02-21] MEDS: risperiDONE 1 MG TABLET PO SCH ×2 (11:02→21:07)
[2022-02-21] MEDS: MELATONIN 5 MG TABLETS PO PRN (21:07)
[2022-02-21] MEDS: traZODone HCL 100 MG TABLET (FP) PO SCH (21:07)
[2022-02-21] MEDS: THIAMINE HCL 100 MG TABLET (FP) PO SCH (21:07)
[2022-02-22] MEDS: GABAPENTIN 300 MG CAPSULE PO SCH ×3 (06:12→21:23)
[2022-02-22] MEDS: risperiDONE 1 MG TABLET PO SCH ×2 (09:38→21:23)
[2022-02-22] MEDS: PRENATAL VITAMINS W/ FOLIC ACID TABLET (FP) PO SCH (09:38)
[2022-02-22] MEDS: MELATONIN 5 MG TABLETS PO PRN (21:22)
[2022-02-22] MEDS: traZODone HCL 100 MG TABLET (FP) PO SCH (21:22)
[2022-02-22] MEDS: THIAMINE HCL 100 MG TABLET (FP) PO SCH (21:22)
[2022-02-23] MEDS: GABAPENTIN 300 MG CAPSULE PO SCH ×3 (06:04→21:14)
[2022-02-23] MEDS: risperiDONE 1 MG TABLET PO SCH ×2 (10:12→21:14)
[2022-02-23] MEDS: PRENATAL VITAMINS W/ FOLIC ACID TABLET (FP) PO SCH (10:12)
[2022-02-23] MEDS: MELATONIN 5 MG TABLETS PO PRN (21:13)
[2022-02-23] MEDS: THIAMINE HCL 100 MG TABLET (FP) PO SCH (21:13)
[2022-02-23] MEDS: traZODone HCL 100 MG TABLET (FP) PO SCH (21:14)
[2022-02-24] MEDS: GABAPENTIN 300 MG CAPSULE PO SCH ×3 (06:01→21:17)
[2022-02-24] MEDS: PRENATAL VITAMINS W/ FOLIC ACID TABLET (FP) PO SCH (10:20)
[2022-02-24] MEDS: risperiDONE 1 MG TABLET PO SCH ×2 (10:20→21:17)
[2022-02-24] MEDS: MELATONIN 5 MG TABLETS PO PRN (21:17)
[2022-02-24] MEDS: THIAMINE HCL 100 MG TABLET (FP) PO SCH (21:17)
[2022-02-24] MEDS: traZODone HCL 100 MG TABLET (FP) PO SCH (21:17)
[2022-02-25] MEDS: GABAPENTIN 300 MG CAPSULE PO SCH ×3 (06:19→21:22)
[2022-02-25] MEDS: PRENATAL VITAMINS W/ FOLIC ACID TABLET (FP) PO SCH (10:16)
[2022-02-25] MEDS: risperiDONE 1 MG TABLET PO SCH ×2 (10:16→21:22)
[2022-02-25] MEDS: THIAMINE HCL 100 MG TABLET (FP) PO SCH (21:22)
[2022-02-25] MEDS: traZODone HCL 100 MG TABLET (FP) PO SCH (21:22)
[2022-02-26] MEDS: GABAPENTIN 300 MG CAPSULE PO SCH ×3 (05:41→21:19)
[2022-02-26] MEDS: PRENATAL VITAMINS W/ FOLIC ACID TABLET (FP) PO SCH (10:09)
[2022-02-26] MEDS: risperiDONE 1 MG TABLET PO SCH ×2 (10:09→21:19)
[2022-02-26] MEDS: MELATONIN 5 MG TABLETS PO PRN (21:19)
[2022-02-26] MEDS: THIAMINE HCL 100 MG TABLET (FP) PO SCH (21:19)
[2022-02-26] MEDS: traZODone HCL 100 MG TABLET (FP) PO SCH (21:19)
[2022-02-27] MEDS: GABAPENTIN 300 MG CAPSULE PO SCH ×3 (05:44→21:43)
[2022-02-27] MEDS: PRENATAL VITAMINS W/ FOLIC ACID TABLET (FP) PO SCH (10:07)
[2022-02-27] MEDS: risperiDONE 1 MG TABLET PO SCH ×2 (10:09→21:42)
[2022-02-27] MEDS: traZODone HCL 100 MG TABLET (FP) PO SCH (21:43)
[2022-02-27] MEDS: THIAMINE HCL 100 MG TABLET (FP) PO SCH (21:43)
[2022-02-27] MEDS: MELATONIN 5 MG TABLETS PO PRN (21:43)
[2022-02-28] MEDS: GABAPENTIN 300 MG CAPSULE PO SCH (06:38)
[2022-02-28 07:04] VITALS: BP 146/64; PULSE 98; TEMP 98.9
[2022-02-28] MEDS: PRENATAL VITAMINS W/ FOLIC ACID TABLET (FP) PO SCH (09:37)
[2022-02-28] MEDS: risperiDONE 1 MG TABLET PO SCH (09:38)
== END 2022-02-28 10:02 | disposition home or self-care (01) | DRG 772 ==
LOC: YASAS 11:20 → Y3W 11:22
PROVIDERS: ADMIT Allergy & Immunology; ATTEND Psychiatry & Neurology Pain Medicine
PROC: HZ42ZZZ Group Counseling for Substance Abuse Treatment, Cognitive-Behavioral (ICD-10-PCS; principal; 2022-02-14)
DX: F10.20 Alcohol dependence, uncomplicated (principal); F14.20 Cocaine dependence, uncomplicated; F12.20 Cannabis dependence, uncomplicated; F17.210 Nicotine dependence, cigarettes, uncomplicated; F19.282 Other psychoactive substance dependence with psychoactive substance-induced sleep disorder; F25.1 Schizoaffective disorder, depressive type; E78.5 Hyperlipidemia, unspecified; I10 Essential (primary) hypertension; M25.552 Pain in left hip; E66.9 Obesity, unspecified; Z68.32 Body mass index [BMI] 32.0-32.9, adult; Z87.19 Personal history of other diseases of the digestive system; Z86.718 Personal history of other venous thrombosis and embolism
CPT/HCPCS: J2794

== ENCOUNTER 2022-04-09 08:43 | Inpatient (IN) | payer OTHER ==
[2022-04-09 10:27] VITALS: BMI 31.8
[2022-04-09] MEDS ORDERED: IBUPROFEN 400 MG TABLET (FP) PO PRN (11:15)
[2022-04-09] MEDS ORDERED: LORazepam 1 MG TABLET PO PRN (11:15)
[2022-04-09] MEDS ORDERED: ONDANSETRON *ODT* 4 MG TABLET SL PRN (11:15)
[2022-04-09] MEDS ORDERED: LORazepam 2 MG TABLET PO ONE (11:15)
[2022-04-09] MEDS ORDERED: ACETAMINOPHEN 325 MG TABLET (FP) PO PRN ×2 (11:15)
[2022-04-09] MEDS ORDERED: DICYCLOMINE HCL 10 MG CAPSULE PO PRN (11:15)
[2022-04-09] MEDS ORDERED: MAG HYDROX/AL HYDROX/SIMETH 30 ML UNIT-DOSE CUP PO PRN (11:15)
[2022-04-09] MEDS ORDERED: MAGNESIUM HYDROX 2400MG/30ML ORAL SUSPENSION 30 ML CUP PO PRN (11:15)
[2022-04-09] MEDS ORDERED: BISMUTH SUBSALICYLATE 524 MG/30 ML PO PRN (11:15)
[2022-04-09] MEDS ORDERED: NICOTINE 10 MG CARTRIDGE (INHALER) IH PRN (11:15)
[2022-04-09] MEDS ORDERED: MAGNESIUM CITRATE 300 ML BOTTLE PO PRN (11:15)
[2022-04-09] MEDS ORDERED: LOPERAMIDE HCL 2 MG CAPSULE PO PRN (11:15)
[2022-04-09] MEDS ORDERED: BENZOCAINE/MENTHOL (CHLORASEPTIC ) LOZENGE MM PRN (11:15)
[2022-04-09] MEDS ORDERED: ALBUTEROL SO4 HFA INHALER IH PRN (11:22)
[2022-04-09] MEDS: METHOCARBAMOL 500 MG TABLET PO PRN ×2 (14:01→22:42)
[2022-04-09] MEDS: hydrOXYzine PAMOATE 25 MG CAPSULE (FP) PO SCH ×3 (14:01→22:42)
[2022-04-09] MEDS: LORazepam 2 MG TABLET PO SCH ×2 (18:10→22:42)
[2022-04-09] MEDS: IBUPROFEN 600 MG TABLET (FP) PO PRN (18:11)
[2022-04-09] MEDS: THIAMINE HCL 100 MG TABLET (FP) PO SCH (22:42)
[2022-04-09] MEDS: MELATONIN 5 MG TABLETS PO SCH (22:42)
[2022-04-10] MEDS: LORazepam 2 MG TABLET PO SCH ×4 (05:25→22:13)
[2022-04-10] MEDS: hydrOXYzine PAMOATE 25 MG CAPSULE (FP) PO SCH ×5 (05:25→22:13)
[2022-04-10 09:05] LABS: ALBUMIN 3.3 g/dl (3.4-5.0); BLOOD UREA NITROGEN 14.4 mg/dL (7-18)
[2022-04-10 09:07] LABS: CALCIUM 8.9 mg/dL (8.5-10.1)
[2022-04-10 09:08] LABS: HEMATOCRIT 36.6 % (35.4-49); HEMOGLOBIN 12.2 GM/dL (11.7-16.9); MCH 28.1 pg (25.7-33.7); MCHC 33.3 g/dl (32.0-35.9); MEAN CELL VOLUME 84.3 fl (80-96); MEAN PLT VOLUME 8.5 fl (7.5-11.1); PLATELET COUNT 318 10^3/uL (134-434); RBC 4.34 M/mm3 (4.00-5.60); RDW 15.8 % (11.9-15.9); WHITE BLOOD COUNT 6.5 K/mm3 (4.0-10.0)
[2022-04-10 09:10] LABS: BILIRUBIN,TOTAL 0.2 mg/dL (0.2-1); TOT PROT 7.5 g/dl (6.4-8.2)
[2022-04-10] MEDS: PRENATAL VITAMINS W/ FOLIC ACID TABLET (FP) PO SCH (10:44)
[2022-04-10] MEDS: NICOTINE 21 MG/24 HOURS TOPICAL PATCH TD SCH (10:44)
[2022-04-10] MEDS: risperiDONE 1 MG TABLET PO SCH ×2 (10:46→22:13)
[2022-04-10] MEDS: GABAPENTIN 300 MG CAPSULE PO SCH ×2 (14:48→22:13)
[2022-04-10] MEDS: METHOCARBAMOL 500 MG TABLET PO PRN (17:50)
[2022-04-10] MEDS: THIAMINE HCL 100 MG TABLET (FP) PO SCH (22:13)
[2022-04-10] MEDS: MELATONIN 5 MG TABLETS PO SCH (22:13)
[2022-04-11] MEDS: hydrOXYzine PAMOATE 25 MG CAPSULE (FP) PO SCH ×5 (05:14→22:24)
[2022-04-11] MEDS: GABAPENTIN 300 MG CAPSULE PO SCH ×3 (05:14→22:24)
[2022-04-11] MEDS: LORazepam 1 MG TABLET PO SCH ×4 (05:14→22:25)
[2022-04-11] MEDS: IBUPROFEN 600 MG TABLET (FP) PO PRN (05:16)
[2022-04-11] MEDS: PRENATAL VITAMINS W/ FOLIC ACID TABLET (FP) PO SCH (10:31)
[2022-04-11] MEDS: NICOTINE 21 MG/24 HOURS TOPICAL PATCH TD SCH (10:32)
[2022-04-11] MEDS: risperiDONE 1 MG TABLET PO SCH ×2 (10:32→22:24)
[2022-04-11] MEDS: MELATONIN 5 MG TABLETS PO SCH (22:24)
[2022-04-11] MEDS: THIAMINE HCL 100 MG TABLET (FP) PO SCH (22:24)
[2022-04-12] MEDS ORDERED: LORazepam 0.5 MG TABLET PO PRN
[2022-04-12] MEDS: GABAPENTIN 300 MG CAPSULE PO SCH ×3 (06:06→22:23)
[2022-04-12] MEDS: hydrOXYzine PAMOATE 25 MG CAPSULE (FP) PO SCH ×5 (06:06→22:23)
[2022-04-12] MEDS: LORazepam 0.5 MG TABLET PO SCH ×4 (06:06→22:23)
[2022-04-12] MEDS: PRENATAL VITAMINS W/ FOLIC ACID TABLET (FP) PO SCH (10:52)
[2022-04-12] MEDS: NICOTINE 21 MG/24 HOURS TOPICAL PATCH TD SCH (10:53)
[2022-04-12] MEDS: risperiDONE 1 MG TABLET PO SCH ×2 (10:53→22:23)
[2022-04-12] MEDS: METHOCARBAMOL 500 MG TABLET PO PRN (10:54)
[2022-04-12] MEDS: MELATONIN 5 MG TABLETS PO SCH (22:23)
[2022-04-12] MEDS: THIAMINE HCL 100 MG TABLET (FP) PO SCH (22:23)
[2022-04-13] MEDS ORDERED: LORazepam 0.5 MG TABLET PO ONE (05:00)
[2022-04-13] MEDS: hydrOXYzine PAMOATE 25 MG CAPSULE (FP) PO SCH ×2 (06:28→09:32)
[2022-04-13] MEDS: GABAPENTIN 300 MG CAPSULE PO SCH (06:28)
[2022-04-13] MEDS: risperiDONE 1 MG TABLET PO SCH (09:32)
[2022-04-13] MEDS: PRENATAL VITAMINS W/ FOLIC ACID TABLET (FP) PO SCH (09:32)
[2022-04-13] MEDS: NICOTINE 21 MG/24 HOURS TOPICAL PATCH TD SCH (09:32)
[2022-04-13 09:38] VITALS: BP 157/79; PULSE 102; RESP 19; TEMP 97
== END 2022-04-13 10:18 | disposition home or self-care (01) | DRG 774 ==
LOC: YASAS 08:43 → Y6N 13:35
PROVIDERS: ADMIT Allergy & Immunology; ATTEND Surgery
PROC: HZ2ZZZZ Detoxification Services for Substance Abuse Treatment (ICD-10-PCS; principal; 2022-04-09)
DX: F10.230 Alcohol dependence with withdrawal, uncomplicated (principal); F14.20 Cocaine dependence, uncomplicated; F12.20 Cannabis dependence, uncomplicated; F17.210 Nicotine dependence, cigarettes, uncomplicated; F25.1 Schizoaffective disorder, depressive type; F19.282 Other psychoactive substance dependence with psychoactive substance-induced sleep disorder; F19.24 Other psychoactive substance dependence with psychoactive substance-induced mood disorder; I10 Essential (primary) hypertension; E78.5 Hyperlipidemia, unspecified; J45.20 Mild intermittent asthma, uncomplicated; M54.50 Low back pain, unspecified; G89.29 Other chronic pain; E66.9 Obesity, unspecified; Z68.31 Body mass index [BMI] 31.0-31.9, adult; Z87.19 Personal history of other diseases of the digestive system; Z86.69 Personal history of other diseases of the nervous system and sense organs; Z99.89 Dependence on other enabling machines and devices; Z56.0 Unemployment, unspecified; Z59.00 Homelessness unspecified
CPT/HCPCS: 36415; 80053; 85027; 86780; C9803-CS; J2794; U0003; U0005

== ENCOUNTER 2022-08-20 11:54 | Inpatient (IN) | payer OTHER ==
[2022-08-20 12:45] VITALS: BMI 30.7
[2022-08-20] MEDS ORDERED: LOPERAMIDE HCL 2 MG CAPSULE PO PRN (14:18)
[2022-08-20] MEDS ORDERED: POLYETHYLENE GLYCOL (HEALTHYLAX) 3350 17 GM PACKET PO PRN (14:18)
[2022-08-20] MEDS ORDERED: NALOXONE HCL (KLOXXADO) 8 MG SPRAY NS PRN (14:18)
[2022-08-20] MEDS ORDERED: DICYCLOMINE HCL 10 MG CAPSULE PO PRN (14:18)
[2022-08-20] MEDS ORDERED: NICOTINE 10 MG CARTRIDGE (INHALER) IH PRN (14:18)
[2022-08-20] MEDS ORDERED: IBUPROFEN 600 MG TABLET (FP) PO PRN (14:18)
[2022-08-20] MEDS ORDERED: ACETAMINOPHEN 325 MG TABLET (FP) PO PRN ×2 (14:18)
[2022-08-20] MEDS ORDERED: MAGNESIUM HYDROX 2400MG/30ML ORAL SUSPENSION 30 ML CUP PO PRN (14:18)
[2022-08-20] MEDS ORDERED: BENZOCAINE/MENTHOL (CHLORASEPTIC ) LOZENGE MM PRN (14:18)
[2022-08-20] MEDS ORDERED: ONDANSETRON *ODT* 4 MG TABLET SL PRN (14:18)
[2022-08-20] MEDS ORDERED: hydrOXYzine PAMOATE 25 MG CAPSULE (FP) PO PRN (14:18)
[2022-08-20] MEDS ORDERED: METHOCARBAMOL 500 MG TABLET PO PRN (14:18)
[2022-08-20] MEDS ORDERED: LORazepam 1 MG TABLET PO PRN (14:18)
[2022-08-20] MEDS ORDERED: MAG HYDROX/AL HYDROX/SIMETH 30 ML UNIT-DOSE CUP PO PRN (14:18)
[2022-08-20] MEDS ORDERED: IBUPROFEN 400 MG TABLET (FP) PO PRN (14:18)
[2022-08-20] MEDS ORDERED: BISMUTH SUBSALICYLATE 524 MG/30 ML PO PRN (14:18)
[2022-08-20] MEDS ORDERED: ALBUTEROL SO4 HFA INHALER IH PRN (14:23)
[2022-08-20] MEDS: NICOTINE 21 MG/24 HOURS TOPICAL PATCH TD SCH (16:04)
[2022-08-20] MEDS: MELATONIN 5 MG TABLETS PO SCH (23:24)
[2022-08-20] MEDS: LORazepam 2 MG TABLET PO SCH (23:26)
[2022-08-20] MEDS: THIAMINE HCL 100 MG TABLET (FP) PO SCH (23:26)
[2022-08-21] MEDS: LORazepam 2 MG TABLET PO SCH ×4 (05:43→22:31)
[2022-08-21] MEDS: PRENATAL VITAMINS W/ FOLIC ACID TABLET (FP) PO SCH (10:02)
[2022-08-21] MEDS: NICOTINE 21 MG/24 HOURS TOPICAL PATCH TD SCH (10:03)
[2022-08-21 11:21] LABS: HEMATOCRIT 33.2 % (35.4-49); HEMOGLOBIN 10.6 GM/dL (11.7-16.9); MCH 26.2 pg (25.7-33.7); MEAN CELL VOLUME 81.8 fl (80-96); MEAN PLT VOLUME 8.3 fl (7.5-11.1); PLATELET COUNT 365 10^3/uL (134-434); RBC 4.06 M/mm3 (4.00-5.60); RDW 16.5 % (11.9-15.9); WHITE BLOOD COUNT 4.5 K/mm3 (4.0-10.0)
[2022-08-21 12:23] LABS: CALCIUM 8.7 mg/dL (8.5-10.1)
[2022-08-21 12:24] LABS: ALBUMIN 2.9 g/dl (3.4-5.0)
[2022-08-21 12:25] LABS: BILIRUBIN,TOTAL 0.2 mg/dL (0.2-1); CREATININE 0.9 mg/dL (0.55-1.3)
[2022-08-21 12:26] LABS: TOT PROT 7.2 g/dl (6.4-8.2)
[2022-08-21] MEDS: risperiDONE 1 MG TABLET PO SCH (22:29)
[2022-08-21] MEDS: MELATONIN 5 MG TABLETS PO SCH (22:29)
[2022-08-21] MEDS: THIAMINE HCL 100 MG TABLET (FP) PO SCH (22:31)
[2022-08-21] MEDS: LACTULOSE 20 GM/30 ML UDC (FOR ORAL USE ONLY) PO SCH (22:32)
[2022-08-22] MEDS: LORazepam 1 MG TABLET PO SCH ×4 (05:28→22:40)
[2022-08-22] MEDS: LACTULOSE 20 GM/30 ML UDC (FOR ORAL USE ONLY) PO SCH ×3 (05:29→22:39)
[2022-08-22] MEDS: PRENATAL VITAMINS W/ FOLIC ACID TABLET (FP) PO SCH (10:07)
[2022-08-22] MEDS: risperiDONE 1 MG TABLET PO SCH ×2 (10:07→22:40)
[2022-08-22] MEDS: NICOTINE 21 MG/24 HOURS TOPICAL PATCH TD SCH (10:09)
[2022-08-22] MEDS: MELATONIN 5 MG TABLETS PO SCH (22:39)
[2022-08-22] MEDS: THIAMINE HCL 100 MG TABLET (FP) PO SCH (22:40)
[2022-08-23] MEDS ORDERED: LORazepam 0.5 MG TABLET PO PRN
[2022-08-23] MEDS: LORazepam 0.5 MG TABLET PO SCH ×4 (05:44→22:05)
[2022-08-23] MEDS: LACTULOSE 20 GM/30 ML UDC (FOR ORAL USE ONLY) PO SCH ×2 (06:20→13:39)
[2022-08-23] MEDS: PRENATAL VITAMINS W/ FOLIC ACID TABLET (FP) PO SCH (09:44)
[2022-08-23] MEDS: risperiDONE 1 MG TABLET PO SCH ×2 (09:44→22:05)
[2022-08-23] MEDS: NICOTINE 21 MG/24 HOURS TOPICAL PATCH TD SCH (09:45)
[2022-08-23 17:22] VITALS: RESP 18
[2022-08-23] MEDS: THIAMINE HCL 100 MG TABLET (FP) PO SCH (22:05)
[2022-08-23] MEDS: MELATONIN 5 MG TABLETS PO SCH (22:05)
[2022-08-24] MEDS ORDERED: LORazepam 0.5 MG TABLET PO ONE (05:00)
[2022-08-24 09:56] VITALS: BP 148/79; PULSE 96; TEMP 98.2
[2022-08-24] MEDS: risperiDONE 1 MG TABLET PO SCH (10:24)
[2022-08-24] MEDS: NICOTINE 21 MG/24 HOURS TOPICAL PATCH TD SCH (10:24)
[2022-08-24] MEDS: PRENATAL VITAMINS W/ FOLIC ACID TABLET (FP) PO SCH (10:24)
== END 2022-08-24 11:27 | disposition other institution (70) | DRG 774 ==
LOC: YASAS 11:54 → Y3N 14:44
PROVIDERS: ADMIT Allergy & Immunology; ATTEND Surgery
PROC: HZ2ZZZZ Detoxification Services for Substance Abuse Treatment (ICD-10-PCS; principal; 2022-08-20)
DX: F10.230 Alcohol dependence with withdrawal, uncomplicated (principal); F14.20 Cocaine dependence, uncomplicated; F12.20 Cannabis dependence, uncomplicated; F17.210 Nicotine dependence, cigarettes, uncomplicated; F19.24 Other psychoactive substance dependence with psychoactive substance-induced mood disorder; F25.9 Schizoaffective disorder, unspecified; F31.9 Bipolar disorder, unspecified; E72.20 Disorder of urea cycle metabolism, unspecified; E88.09 Other disorders of plasma-protein metabolism, not elsewhere classified; E78.5 Hyperlipidemia, unspecified; D64.9 Anemia, unspecified; I10 Essential (primary) hypertension; J45.20 Mild intermittent asthma, uncomplicated; M25.552 Pain in left hip; M54.50 Low back pain, unspecified; G89.29 Other chronic pain; Z87.19 Personal history of other diseases of the digestive system; Z86.718 Personal history of other venous thrombosis and embolism; Z59.00 Homelessness unspecified
CPT/HCPCS: 36415; 80053; 82140; 85027; 86780; 87811; C9803-CS; J2794; U0003; U0005

== ENCOUNTER 2022-09-13 19:05 | Emergency (ER) | payer OTHER ==
[2022-09-13 19:20] VITALS: BP 156/78; PULSE 76; RESP 18; TEMP 97.1; BMI 29.7
== END 2022-09-13 23:31 | disposition home or self-care (01) ==
LOC: JER 19:05
DX: M79.89 Other specified soft tissue disorders (principal)
CPT/HCPCS: 93970-TC; 99283-25; C9803-CS; U0003; U0005

== ENCOUNTER 2022-12-01 20:55 | Inpatient (IN) | payer OTHER ==
[2022-12-01 22:13] VITALS: BMI 31.2
[2022-12-01] MEDS ORDERED: MAG HYDROX/AL HYDROX/SIMETH 30 ML UNIT-DOSE CUP PO PRN (23:21)
[2022-12-01] MEDS ORDERED: guaiFENesin 600 MG TABLET.ER (FP) PO PRN (23:21)
[2022-12-01] MEDS ORDERED: IBUPROFEN 400 MG TABLET (FP) PO PRN (23:21)
[2022-12-01] MEDS ORDERED: ACETAMINOPHEN 325 MG TABLET (FP) PO PRN (23:21)
[2022-12-01] MEDS ORDERED: hydrOXYzine PAMOATE 25 MG CAPSULE (FP) PO PRN (23:21)
[2022-12-01] MEDS ORDERED: LOPERAMIDE HCL 2 MG CAPSULE PO PRN (23:21)
[2022-12-01] MEDS ORDERED: MELATONIN 5 MG TABLETS PO PRN (23:21)
[2022-12-01] MEDS ORDERED: BISMUTH SUBSALICYLATE 524 MG/30 ML PO PRN (23:21)
[2022-12-01] MEDS ORDERED: P-EPHED 60MG/TRIPROLIDI 2.5MG TABLET PO PRN (23:21)
[2022-12-01] MEDS ORDERED: NICOTINE POLACRILEX 2 MG GUM BUC PRN (23:21)
[2022-12-01] MEDS ORDERED: METHOCARBAMOL 500 MG TABLET PO PRN (23:21)
[2022-12-01] MEDS ORDERED: POLYETHYLENE GLYCOL (HEALTHYLAX) 3350 17 GM PACKET PO PRN (23:21)
[2022-12-01] MEDS ORDERED: BENZONATATE 200 MG CAPSULE PO PRN (23:21)
[2022-12-01] MEDS ORDERED: ONDANSETRON *ODT* 4 MG TABLET SL PRN (23:21)
[2022-12-01] MEDS ORDERED: BENZOCAINE/MENTHOL (CHLORASEPTIC ) LOZENGE MM PRN (23:21)
[2022-12-01] MEDS ORDERED: DICYCLOMINE HCL 10 MG CAPSULE PO PRN (23:21)
[2022-12-01] MEDS ORDERED: IBUPROFEN 600 MG TABLET (FP) PO PRN (23:21)
[2022-12-01] MEDS ORDERED: MAGNESIUM HYDROX 2400MG/30ML ORAL SUSPENSION 30 ML CUP PO PRN (23:21)
[2022-12-02] MEDS ORDERED: IBUPROFEN 600 MG TABLET (FP) PO ONE (00:09)
[2022-12-02] MEDS ORDERED: ASPIRIN 325 MG ENTERIC COATED TABLET (FP) PO SCH (10:00)
[2022-12-02] MEDS ORDERED: PRENATAL VITAMINS W/ FOLIC ACID TABLET (FP) PO SCH (10:00)
[2022-12-02 10:48] LABS: HEMATOCRIT 34.2 % (35.4-49); HEMOGLOBIN 11.1 GM/dL (11.7-16.9); MCH 26.6 pg (25.7-33.7); MCHC 32.5 g/dl (32.0-35.9); MEAN CELL VOLUME 81.8 fl (80-96); MEAN PLT VOLUME 8.2 fl (7.5-11.1); PLATELET COUNT 371 10^3/uL (134-434); RBC 4.18 M/mm3 (4.00-5.60); RDW 19.4 % (11.9-15.9)
[2022-12-02 11:04] LABS: ALBUMIN 3.1 g/dl (3.4-5.0); CALCIUM 8.8 mg/dL (8.5-10.1)
[2022-12-02 11:05] LABS: BLOOD UREA NITROGEN 18.2 mg/dL (7-18)
[2022-12-02 11:07] LABS: CREATININE 0.8 mg/dL (0.55-1.3)
[2022-12-02 11:09] LABS: BILIRUBIN,TOTAL 0.3 mg/dL (0.2-1); TOT PROT 7.4 g/dl (6.4-8.2)
[2022-12-02 21:07] VITALS: RESP 18
[2022-12-02] MEDS ORDERED: THIAMINE HCL 100 MG TABLET (FP) PO SCH (22:00)
[2022-12-03 09:16] VITALS: BP 128/69; PULSE 84; TEMP 97.3
== END 2022-12-03 11:05 | disposition home or self-care (01) | DRG 774 ==
LOC: YASAS 20:55 → Y3N 23:34
PROVIDERS: ADMIT Allergy & Immunology; ATTEND Surgery
PROC: HZ2ZZZZ Detoxification Services for Substance Abuse Treatment (ICD-10-PCS; principal; 2022-12-01)
DX: F10.230 Alcohol dependence with withdrawal, uncomplicated (principal); F14.20 Cocaine dependence, uncomplicated; F17.210 Nicotine dependence, cigarettes, uncomplicated; F31.9 Bipolar disorder, unspecified; E78.5 Hyperlipidemia, unspecified; I10 Essential (primary) hypertension; Z86.69 Personal history of other diseases of the nervous system and sense organs; Z86.718 Personal history of other venous thrombosis and embolism
CPT/HCPCS: 36415; 80053; 85027; 86780; 87811; C9803-CS; U0003; U0005